=== PATIENT | female | born 1995 | race Caucasian/White ===

== ENCOUNTER 2017-05-05 15:56 | Emergency (ER) | payer OTHER ==
[~2017-05-05] VITALS: Ht 170.2 cm; Wt 106.3 kg
[~2017-05-05 15:56] MED LIST: ACET325T96 PO; PREN1TAB29 PO
[2017-05-05 16:09] VITALS: Ht 170.2 cm; Wt 106.3 kg
[2017-05-05] MEDS ORDERED: ONDANSETRON INJ 2 MG/ML 2 ML VIAL IV STA (16:32)
[2017-05-05] MEDS ORDERED: SODIUM CHLORIDE 0.9% 1000ML 1,000 ML IV STA (16:32)
[2017-05-05] MEDS ORDERED: KETOROLAC TROMETHAMINE 30 MG/ML VIAL IV STA (16:32)
[2017-05-05 17:23] LABS: URINE APPEARANCE CLEAR (CLEAR); URINE BILIRUBIN NEG (NEG); URINE COLOR YELLOW; URINE NITRITE NEG (NEG); URINE SPECIFIC GRAVITY 1.019 (1.000-1.030); UROBILINOGEN NEG (NEG); ZZUR CULT IF INDIC CLEAN CATCH NO
[2017-05-05 17:28] LABS: MANUAL MICROSCOPIC REQUIRED? NO; REVIEW REQ? NO
[2017-05-05 17:51] LABS: BUN/CREATININE RATIO 8.2 (10-20); CALCIUM 8.2 mg/dl (8.5-10.1); CREATININE 0.86 mg/dl (0.60-1.20)
--- NOTE | 2017-05-05 18:05 | EMERGENCY ROOM VISIT NOTE ---
History First contact with patient: 16:14 Chief Complaint: ED VAG BLEEDING Stated Complaint: VOMITING,SEVERVE VAG BLEEDING History of Present Illness The patient is a 22 year old female who presents to the Emergency Room with complaints of vaginal bleeding and pelvic pain. The patient reports that she believes she is having a flareup of her endometriosis. The patient has been having pelvic pain and abnormal vaginal bleeding for the past several months. She states that 2 months ago, she had a pelvic ultrasound and was diagnosed with endometriosis. The patient states that every few weeks, she has flareups of pelvic pain, vomiting, and diarrhea. The patient states that her symptoms today feel similar to her previous symptoms. She states that she had an additional pelvic ultrasound and pelvic exam a few weeks ago by her TIN POURER which were normal. She has had abnormal Pap smears in the past and follows with her TIN POURER for this. She denies any fevers/chills, urinary symptoms, chest pain or shortness of breath. She does currently have her menstrual period. The patient rates her current discomfort a 7.5/10. She does admit to taking one of her mom's Percocet for pain. Review of Systems A complete 10 point review of systems was reviewed with the patient with pertinent positives and negatives as per history of present illness. All else were negative. Social History Smoking Status: Current Every Day Smoker Alcohol Use: none Drug Use: none Marital Status: Occupation Status: unemployed Current/Historical Medications No Active Prescriptions or Reported Meds Allergies Coded Allergies: Latex (Verified Allergy, Unknown, hives, 05/05/17) Tetracycline (Unverified Allergy, Unknown, UNKNOWN, 05/05/17) Doxycycline (Verified Adverse Reaction, Unknown, immediate yeast infection as per pt, 05/05/17) Physical Exam Vital Signs Date Time Temp Pulse Resp B/P (MAP) Pulse Ox O2 Delivery O2 Flow Rate FiO2 05/05/17 18:34 36.8 77 16 133/86 100 05/05/17 16:09 36.8 87 16 126/82 100 Room Air Physical Exam VITALS: Vitals are noted on the nurse's note and reviewed by myself. Vital signs stable. GENERAL: This is a 22-year-old female, in no acute distress, nondiaphoretic, well-developed well-nourished. HEENT: Normocephalic. PERRLA. EOMI. Nares patent. Mucous membranes moist. Neck is supple without nuchal rigidity. HEART: Regular rate and rhythm without murmurs gallops or rubs. LUNGS: Clear to auscultation bilaterally without wheezes, rales or rhonchi. ABDOMEN: Soft, mild tenderness over the suprapubic region. No guarding or rebound tenderness. NEURO: Patient was alert and oriented to person place and time. Medical Decision & Procedures Laboratory Results 05/05/17 17:15 Red Blood Count 3.86, Mean Corpuscular Volume 96.9, Mean Corpuscular Hemoglobin 35.0, Mean Corpuscular Hemoglobin Concent 36.1, Mean Platelet Volume , Neutrophils (%) (Auto) 37.4, Lymphocytes (%) (Auto) 53.3, Monocytes (%) (Auto) 4.7, Eosinophils (%) (Auto) 4.1, Basophils (%) (Auto) 0.2, Neutrophils # (Auto) 3.40, Lymphocytes # (Auto) 4.85, Monocytes # (Auto) 0.43, Eosinophils # (Auto) 0.37, Basophils # (Auto) 0.02 05/05/17 17:15 Test 05/05/17 00:00 05/05/17 16:50 05/05/17 17:15 Urine Test NEG (NEG) Urine Color YELLOW Urine Appearance CLEAR (CLEAR) Urine pH 6.0 (4.5-7.5) Urine Specific [place] 1.019 (1.000-1.030) Urine Protein NEG (NEG) Urine Glucose (UA) NEG (NEG) Urine Ketones TRACE (NEG) Urine Occult Blood NEG (NEG) Urine Nitrite NEG (NEG) Urine Bilirubin NEG (NEG) Urine Urobilinogen NEG (NEG) Urine Leukocyte Esterase NEG (NEG) White Blood Count 9.10 K/uL (4.8-10.8) Red Blood Count 3.86 M/uL (4.2-5.4) Hemoglobin 13.5 g/dL (12.0-16.0) Hematocrit 37.4 % (37-47) Mean Corpuscular Volume 96.9 fL (80-100) Mean Corpuscular Hemoglobin 35.0 pg (25-34) Mean Corpuscular Hemoglobin Concent 36.1 g/dl (32-36) Platelet Count K/uL (130-400) Mean Platelet Volume fL (7.4-10.4) Neutrophils (%) (Auto) 37.4 % Lymphocytes (%) (Auto) 53.3 % Monocytes (%) (Auto) 4.7 % Eosinophils (%) (Auto) 4.1 % Basophils (%) (Auto) 0.2 % Neutrophils # (Auto) 3.40 K/uL (1.4-6.5) Lymphocytes # (Auto) 4.85 K/uL (1.2-3.4) Monocytes # (Auto) 0.43 K/uL (0.11-0.59) Eosinophils # (Auto) 0.37 K/uL (0-0.5) Basophils # (Auto) 0.02 K/uL (0-0.2) RDW Standard Deviation 44.8 fL (36.4-46.3) RDW Coefficient of Variation 12.8 % (11.5-14.5) Immature Granulocyte % (Auto) 0.3 % Immature Granulocyte # (Auto) 0.03 K/uL (0.00-0.02) Anion Gap 8.0 mmol/L (3-11) Est Creatinine Clear Calc Drug Dose 127.7 ml/min Estimated GFR () 110.4 Estimated GFR (Non- 95.2 BUN/Creatinine Ratio 8.2 (10-20) Calcium Level 8.2 mg/dl (8.5-10.1) Total Bilirubin 0.1 mg/dl (0.2-1) Aspartate Amino Transf (AST/SGOT) 21 U/L (15-37) Alanine Aminotransferase (ALT/SGPT) 26 U/L (12-78) Alkaline Phosphatase 56 U/L (45-117) Total Protein 6.6 gm/dl (6.4-8.2) Albumin 3.3 gm/dl (3.4-5.0) Globulin 3.3 gm/dl (2.5-4.0) Albumin/Globulin Ratio 1.0 (0.9-2) Chemistry Specimen Hemolysis Medications Administered Medications (Trade) Dose Ordered Sig/Jayy Route Start Time Stop Time Status Last Admin Dose Admin Sodium Chloride 1,000 ml @ 999 mls/hr Q1H1M STAT IV 05/05/17 16:32 05/05/17 17:32 DC 05/05/17 16:32 999 MLS/HR Ketorolac Tromethamine (Toradol Inj) 30 mg NOW STAT IV 05/05/17 16:32 05/05/17 16:33 DC 05/05/17 16:32 30 MG Ondansetron HCl (Zofran Inj) 4 mg NOW STAT IV 05/05/17 16:32 05/05/17 16:33 DC 05/05/17 16:32 4 MG Acetaminophen/ Hydrocodone Bitart ([place] 5/325 Tab) 1 tab NOW STAT PO 05/05/17 18:21 05/05/17 18:22 DC 05/05/17 18:21 1 TAB ED Course The patient was evaluated as above. Labs were drawn and IV access was obtained. Patient was medicated with 1 L normal saline solution and 30 mg Toradol IV. Patient was reevaluated and complained of continued pain. She was given 1 tablet [place] for pain Discharge instructions were reviewed with the patient. The patient verbalized understanding of my assessment and treatment plan and was discharged home in good condition. Medication reconciliation: I attest that I have personally reviewed the patient 's current medication list. Blood pressure screening: Patient was found to have normal blood pressure on screening and does not require follow-up. Medical Decision Differential diagnosis includes endometriosis, ovarian cyst, ovarian torsion, PID, appendicitis, colitis, urinary tract infection, among others. The patient is a 22-year-old female who presents today complaining of pelvic pain which is chronic in nature. The patient has been seen by her primary care provider and TIN POURER for this in the past and has had extensive workup. Labs revealed no leukocytosis, anemia or concerning electrolyte abnormalities. Urinalysis was not suggestive of infection. The patient has already had multiple pelvic ultrasounds, with the most recent being 1 week ago. She had a recent pelvic exam performed by her TIN POURER. Do not feel that further imaging is necessary at this time. The patient was instructed to follow-up with her OB/ ACCOUNT MANAGER EDUCATION for further evaluation of her ongoing symptoms. Based on the patient's presentation and work up, I feel the patient is stable for outpatient treatment. The patient was educated to return to the emergency department for any worsening of their current condition or new/concerning symptoms. She will follow up with her primary care provider and TIN POURER. Impression Primary Impression: Chronic pelvic pain in female Departure Information Dispostion Home / Self-Care Condition GOOD Prescriptions No Active Prescriptions or Reported Meds Referrals No Doctor, Assigned (PCP) Sujey Ramos M.D. Patient Instructions My [facility] Additional Instructions For pain control, you can use the following ihuj-stu-gqnuaza medicines (if >12 yo): - Regular strength (325mg/tab) Tylenol (acetaminophen) 2 tabs every 4-6 hours as needed. Do not exceed 12 tablets in a 24 hour period. Avoid taking more than 4 grams (4000 mg) of Tylenol per day. This includes any other sources of acetaminophen you may take on a regular basis. - Regular strength (200 mg/tab) Advil (ibuprofen) 1-2 tabs every 4-6 hours as needed. Do not exceed a dose of 3200 mg per day. Rest and drink plenty of fluids. Follow-up with TIN POURER for further evaluation. Return to the emergency department with any worsening or new/concerning symptoms.
[2017-05-05 18:14] LABS: HEMATOCRIT 37.4 % (37-47); MEAN CELL VOLUME 96.9 fL (80-100); MEAN CORPUSCULAR HGB CONC 36.1 g/dl (32-36); RED BLOOD COUNT 3.86 M/uL (4.2-5.4)
[2017-05-05 18:15] LABS: BASO % 0.2 %; BASO ABS # 0.02 K/uL (0-0.2); COMPLETE YES; EOS % 4.1 %; IG% 0.3 %; LYMPH % 53.3 %; LYMPH ABS # 4.85 K/uL (1.2-3.4); MONO % 4.7 %; NEUT % 37.4 %
[2017-05-05] MEDS ORDERED: HYDROCODONE/ACETAMOPHEN 5/325MG TAB PO STA (18:21)
[2017-05-05 18:34] VITALS: BP 133/86; PULSE 77; TEMP 36.8; O2SAT 100
== END 2017-05-05 18:36 | disposition home or self-care (01) ==
LOC: C.EDB 15:58
DX: R10.2 Pelvic and perineal pain (principal); G89.29 Other chronic pain; F17.200 Nicotine dependence, unspecified, uncomplicated; Z88.3 Allergy status to other anti-infective agents; Z91.040 Latex allergy status

== ENCOUNTER 2018-01-27 19:00 | Emergency (ER) | payer OTHER ==
[~2018-01-27] VITALS: Ht 170.2 cm; Wt 98.7 kg
[2018-01-27 19:21] VITALS: BP 126/86; PULSE 75; TEMP 36.4; O2SAT 98; Ht 170.2 cm; Wt 98.7 kg
[2018-01-27] MEDS ORDERED: HYDR-5688 PO (19:54)
[2018-01-27] MEDS ORDERED: PENI500T2 PO (19:54)
--- NOTE | 2018-01-27 19:55 | EMERGENCY ROOM VISIT NOTE ---
ED Visit Note First contact with patient: 19:26 CHIEF COMPLAINT: Right upper dental pain 2 days HISTORY OF PRESENT ILLNESS: Patient is a 23-year-old white female who presents the emergency department for evaluation of right upper dental pain. She states that she has had a cavity in that tooth for some time. She has been seen by [facility], she states that the last time she was seen was either in mid October or early November. She was told that the tooth would require extraction which they were unable to do and she is in the process of trying to find an oral surgeon that accepts her insurance for extraction. She states that she has had progressively worsening pain over the last 2 days. She has been alternating ibuprofen and Tylenol with minimal relief. She states that earlier today after she ate she brushed her teeth and the tooth broke. She reports bloody/puslike discharge when the tooth fractured. She has tried rinsing with salt water, Anbesol and oral all without significant relief. She describes a constant, throbbing pain in the right upper jaw that radiates towards her ear and down her neck. She rates her pain an 8/10. Denies facial swelling or fever. REVIEW OF SYSTEMS: Review of systems as per HPI. All other systems reviewed were negative. At least 6 systems reviewed. PMH: Electronic medical records are reviewed and summarized as above/below. See Problem List. SOCIAL HISTORY: Patient lives at home with her spouse. Smoker. PHYSICAL EXAM: Vital Signs: Reviewed Nurse's notes. CONSTITUTIONAL: Patient is a well-appearing 23-year-old white female who is awake and alert and in no acute distress. Vital signs are stable. EARS: Tympanic membranes intact, not inflamed, have normal contour. External canals clear. MOUTH: Overall the patient has fair dentition. The right upper second molar is grossly carious, with filling material in place, the lateral cusp is fractured to the gumline, and is tender to percussion. There is slight swelling along the gumline although no focal abscess. Mucous membranes moist, no lesions, tongue and gums appear normal. THROAT: No pharyngeal injection, exudates, or tonsillar hypertrophy. Airway is patent. No trismus noted. FACE: No facial swelling is appreciated. No cellulitic changes. NECK: No lymphadenopathy. ED COURSE: The patient was seen and evaluated as above. Her old records were reviewed. She has evidence for a grossly carious right upper molar with suspected abscess. She does not have any drainable abscess at this time, no facial swelling or cellulitis noted. She will be placed on Pen-Vee K and on Braddock. She was encouraged that she will need to follow-up with the oral surgeon for definitive care and management of the tooth. Patient was reviewed in the [facility] Prescription Drug Monitoring Program, she received 7 total narcotic prescriptions in the last 12 months, last was 1 month ago. Medication reconciliation: I attest that I have personally reviewed the patient' s current medication list. Blood pressure screening : Patient was found to have normal blood pressure on screening and does not require follow-up. Problem List Medical Problems: (1) Asthma Status: Chronic (2) Chronic pelvic pain in female Status: Chronic (3) Endometriosis Status: Chronic (4) Kidney stone Status: Chronic (5) Stomach problems Status: Chronic Surgical Problems: (1) H/O wisdom tooth extraction Status: Resolved (2) Hx of cholecystectomy Status: Resolved Current/Historical Medications Scheduled Penicillin V Potassium (Veetids), 500 MG PO QID Scheduled PRN Hydrocodone/Acetaminophen 5MG/325MG (Bradd[place] 5MG/325MG), 1-2 TABLETS PO Q4 PRN for Pain Allergies Coded Allergies: Latex (Verified Allergy, Unknown, hives, 05/05/17) Tetracycline (Unverified Allergy, Unknown, UNKNOWN, 05/05/17) Doxycycline (Verified Adverse Reaction, Unknown, immediate yeast infection as per pt, 05/05/17) Vital Signs Date Time Temp Pulse Resp B/P (MAP) Pulse Ox O2 Delivery O2 Flow Rate FiO2 01/27/18 19:21 36.4 75 18 126/86 98 Room Air Departure Information Impression Primary Impression: Periapical abscess Prescriptions Penicillin V Potassium (VEETIDS) 500 Mg Tab 500 MG PO QID, #40 TAB Prov: Chela Pang PA 01/27/18 Hydrocodone/Acetaminophen 5MG/325MG ([place] 5MG/325MG) Tab 1-2 TABLETS PO Q4 Y for Pain, #20 TAB For Initial Treatment Prov: Chela Pang PA 01/27/18 Referrals Ernesto Toussaint M.D. (PCP) Patient Instructions My [facility] Additional Instructions Penicillin 500mg: Take one pill four times daily for 10 days for your dental infection. All antibiotics can cause diarrhea. If this occurs and you feel worse or it does not resolve in 1-2 days follow up with your doctor or return to the Emergency Department as this could be signs of serious underlying problems. Any medication can cause an allergic reaction, stop the pills immediately and return to the ER for rash, hives, breathing difficulties, or swelling. Ibuprofen(Motrin, Advil) may be used for fever or pain. Use 600mg every six hours as needed. Take with food. Avoid using more than 2400mg in a 24 hour period. Do not use 2400mg per day for more than three consecutive days without physician direction. Prolonged inappropriate use can lead to stomach upset or ulcers. (AND/OR) Acetaminophen(Tylenol) may be used for fever or pain. Use 1000mg every six hours as needed. Avoid using more than 4000mg in a 24 hour period. Hydrocodone/Acetaminophen ([place]) 5/325 mg: Take 1-2 pills every four hours for breakthrough pain. Avoid alcohol, operating machinery or dangerous equipment, working on ladders or roofs, DRIVING, or situations where being under the influence may be dangerous. It is recommended to use an qhhj-kho-doigfky stool softener such as Colace, 100mg twice daily while taking this medication to avoid constipation. Saltwater gargles after meals and before bedtime. Soft foods. Orajel/Anbesol/clove oil as needed for discomfort. Followup with your oral surgeon for definitive management. You may also follow up with your primary care physician for pain/care management until you can be seen by your dentist.
[2018-01-27] MEDS ORDERED: FLUC150T PO (20:14)
== END 2018-01-27 20:10 | disposition home or self-care (01) ==
LOC: C.EDB 19:01 → C.EDD 20:10
DX: K04.7 Periapical abscess without sinus (principal); F17.200 Nicotine dependence, unspecified, uncomplicated; J45.909 Unspecified asthma, uncomplicated; Z91.040 Latex allergy status; Z88.8 Allergy status to other drugs, medicaments and biological substances

== ENCOUNTER 2024-03-24 14:14 | Inpatient (IN) ==
[2024-03-24] MEDS ORDERED: LIDOCAINE 1% LOCAL 20 ML VIAL INFIL PRN (14:28)
[2024-03-24] MEDS ORDERED: LACTATED RINGER'S 1,000 ML IV PRN (14:28)
[2024-03-24] MEDS ORDERED: OXYTOCIN 30 UNITS/NSS 30 UNITS/500 ML BAG IV PRN (14:28)
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
[2024-03-24 16:21] LABS: Hematocrit (blood only) 36.1 % (37.0-47.0); Hemoglobin 12.2 g/dl (12.0-16.0); Mean Corpuscular Hemoglobin 32.5 pg (25.0-34.0); Mean Corpuscular Hgb Conc 33.8 g/dL (32.0-36.0); Mean Corpuscular Volume 96.3 fL (80.0-100.0); Platelet Count 233 K/uL (130-400); RDW Coefficient of Variation 13.2 % (11.5-14.5); RDW Standard Deviation 46.5 fL (36.4-46.3); Red Blood Count 3.75 M/uL (4.20-5.40)
[2024-03-24 16:37] LABS: Albumin Level 3.3 gm/dl (3.4-5.0); BUN Creatinine Ratio 10.2 (10-20); Bilirubin,Total 0.3 mg/dl (0.2-1.0); Calcium 8.8 mg/dl (8.6-10.3); Creatinine Clr Calc Pharmacy 167.6 ml/min; Est GFR (African American) 142.5 ml/min; Globulin 3.3 gm/dl (2.5-4.0); Potassium 3.8 mmol/L (3.5-5.1); Total Protein 6.6 gm/dl (6.0-8.3)
[2024-03-24] MEDS: Patient's HEIGHT &/or WEIGHT Needed SCH (16:40)
[2024-03-24] MEDS: miSOPROStoL 50 MCG TAB PO SCH (16:52)
[2024-03-24 17:12] LABS: Total Protein Urine Random 14.9 mg/dl (0-11.9)
[2024-03-24 17:18] LABS: Creatinine Urine Random 44.9 mg/dl; Protein Creatinine Ratio Urine 0.3 (0-0.2)
[2024-03-24] MEDS ORDERED: PENICILLIN GK 3 MU in DEXTROSE 5% 100 ML IV PRN (17:28)
[2024-03-24] MEDS: NICOTINE 21 MG/24 HR TDSY TD SCH (18:15)
[2024-03-24 18:27] LABS: Amphetamines+Metham, Urine Neg (Neg); Barbiturates, Urine Neg (Neg); Benzodiazepine, Urine Neg (Neg); Cocaine, Urine Neg (Neg); MDMA (Ecstacy), Urine Neg (Neg); Marijuana, Urine Neg (Neg); Methadone, Urine Neg (Neg); Opiate, Urine Neg (Neg); Phencyclidine, Urine Neg (Neg)
[2024-03-24] MEDS: buprenorphine HCL 8 MG SUBL SL SCH (20:33)
[2024-03-24] MEDS: PENICILLIN GK 6 MU in DEXTROSE 5% 250 ML IV STA (20:44)
--- NOTE | 2024-03-24 21:20 | Obstetrical Progress Note ---
Date of Service March 24, 2024 Subjective Patient noted to have FHT down, AROM FHT 50's recovering to 130's, absent variability Patient consented for C section Results & Data Vital Signs (Past 12 Hours) Vital Signs Temp Pulse Resp BP Pulse Ox 03/24/24 21:13 92 H 89 L 03/24/24 21:09 78 162/111 H 03/24/24 21:05 86 65 L 03/24/24 21:04 73 89 L 03/24/24 21:00 72 95 03/24/24 20:57 71 91 03/24/24 20:55 71 98 03/24/24 20:53 71 144/97 H 03/24/24 20:50 74 100 03/24/24 20:44 71 142/100 H 03/24/24 20:33 76 140/98 03/24/24 19:46 36.7 C 70 16 139/66 03/24/24 15:01 36.6 C 85 20 130/81 03/24/24 14:59 85 130/81 03/24/24 14:48 82 18 128/86
[2024-03-24] MEDS ORDERED: fentaNYL citrate PF 100 MCG/2 ML VIAL ONE ×3 (21:25→22:15)
[2024-03-24] MEDS ORDERED: DEXAMETHASONE SOD INJ 4 MG/ML VIAL ONE (22:09)
[2024-03-24] MEDS ORDERED: SUCCINYLCHOLINE CHLORIDE 20 MG/ML 10 ML VIAL IV ONE (22:09)
[2024-03-24] MEDS ORDERED: ONDANSETRON INJ 2 MG/ML 2 ML VIAL ONE (22:09)
[2024-03-24] MEDS ORDERED: KETOROLAC 30 MG/ML VIAL ONE (22:09)
[2024-03-24] MEDS ORDERED: LIDOCAINE 2% MPF LOCAL 5 ML VIAL ONE (22:09)
[2024-03-24] MEDS ORDERED: PROPOFOL IV EMULSION 10 MG/ML 20 ML VIAL IV ONE (22:09)
[2024-03-24] MEDS ORDERED: diphenhydrAMINE 50 MG/ML VIAL IV PRN (22:19)
[2024-03-24] MEDS ORDERED: PROMETHAZINE HCL 25 MG in SODIUM CHLORIDE 0.9% 50 ML IV PRN (22:19)
[2024-03-24] MEDS ORDERED: BENZOCAINE 20% SPRY 85 APPLN/85 GM CAN EXT PRN (22:19)
[2024-03-24] MEDS ORDERED: SENNA 8.6 MG TAB PO PRN (22:19)
[2024-03-24] MEDS ORDERED: MAGNESIUM HYDROXIDE SUSP 30 ML UDC PO PRN (22:19)
[2024-03-24] MEDS ORDERED: HYDROCORTISONE ACETATE 25 MG SUPP PR PRN (22:19)
--- NOTE | 2024-03-24 22:22 | Discharge Summary ---
Date of Service March 27, 2024 Admission HPI Per Admitting Provider Patient is a [id number] P2-0-1-2 at 37 weeks and 2 days dated by last menstrual period consistent with a 6-week ultrasound who presents to labor and delivery for 2 elevated blood pressures at term meeting diagnosis of gestational hypertension. Patient denies any regular contractions, leaking of fluid or vaginal bleeding. Notes good movement. Denies any blurry vision right upper quadrant or epigastric pain. Notes a headache ongoing for the last 2 hours. Patient's has been complicated by antiphospholipid syndrome for which she has been on Lovenox and recently transition to heparin. Her last dose was this morning. She is also on Subutex 8 mg twice daily and her last dose was this morning. Denies any recent drug use. She has previous hemorrhage x 2, denies a history of blood transfusion. Recent ultrasound showed baby to be in breech presentation which has since resolved and baby is currently cephalic. Patient has a history of blood clots with VTE in 2020. Patient has high risk due to social problems, history of IV drug use and tobacco use. Admission Exam (Per Admitting) Constitutional WD/WN, vitals as above Respiratory normal respiratory effort, lungs clear to auscultation Cardiovascular RRR, no murmur, no edema Gastrointestinal (Abdomen) normal bowel sounds, soft, nontender, no hepatosplenomegaly Discharge Data Consultations 03/24/24 14:28 Consult Anesthesiology Stat Procedures Performed Operation Date: 03/24/24 21:30 Primary lower transverse delivery via Pfannenstiel incision Hospital Course (1) 37 weeks gestation of : Admit, routine labs, PIH labs Misoprostol 50 mcg p.o. every 4 hours Plan for Pit augmentation after Epidural if patient request, AROM after GBS prophylaxis is started Anticipate spontaneous vaginal delivery (2) Gestational [-induced] hypertension without significant proteinuria, third trimester: PIH labs pending at this time Patient agreeable to induction at this time for gestational hypertension at term (3) APS (antiphospholipid syndrome): SCDs while in bed Restart prophylaxis after delivery and continue for 6 weeks (4) Positive GBS test: IV penicillin G ordered (5) History of intravenous drug use: (6) complicated by subutex maintenance, antepartum: Continue Subutex 8 mg twice daily sublingually (7) History of hemorrhage, currently in third trimester: Will continue to monitor bleeding after delivery (8) complicated by tobacco use in third trimester: Patient will be given nicotine patch if she desires (9) History of blood clots: (10) Normal course: Continue routine care Discharge home today with instructions, incision check at 1 week postop Patient to room in with baby as baby is undergoing a sleep consult (11) Pre-eclampsia during in third trimester, antepartum: Labs have remained stable, no signs or symptoms of severe preeclampsia Last blood pressure 129/78
[2024-03-24] MEDS ORDERED: ePHEDrine sulfate 50 MG/ML AMP IV PRN (22:28)
[2024-03-24] MEDS ORDERED: MEPERIDINE HCL 25 MG/ML CARP/VIAL IV PRN (22:28)
[2024-03-24] MEDS ORDERED: HYDROmorphone INJ 2 MG/ML SYR/VIAL IV PRN (22:28)
[2024-03-24] MEDS ORDERED: ATROPINE SULFATE 0.1 MG/ML 10ML SYR IV PRN (22:28)
[2024-03-24] MEDS ORDERED: ONDANSETRON INJ 2 MG/ML 2 ML VIAL IV PRN (22:28)
[2024-03-24] MEDS ORDERED: PROMETHAZINE HCL 6.25 MG in SODIUM CHLORIDE 0.9% 50 ML IV PRN (22:28)
[2024-03-24] MEDS ORDERED: fentaNYL citrate PF 100 MCG/2 ML VIAL IV PRN (22:28)
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
[2024-03-24] MEDS ORDERED: LACTATED RINGER'S 1,000 ML IV SCH (22:30)
--- NOTE | 2024-03-24 22:30 | Anesthesiology Progress Note ---
Date of Service March 24, 2024 Anesthesia Post Procedure Vital Signs Vital Signs: Temp Pulse Resp BP Pulse Ox 03/24/24 22:29 82 86 L 03/24/24 22:25 73 100 03/24/24 22:20 80 137/95 03/24/24 21:18 79 100 03/24/24 21:13 92 H 89 L 03/24/24 21:09 78 162/111 H 03/24/24 21:05 86 65 L 03/24/24 21:04 73 89 L 03/24/24 21:00 72 95 03/24/24 20:57 71 91 03/24/24 20:55 71 98 03/24/24 20:53 71 144/97 H 03/24/24 20:50 74 100 03/24/24 20:44 71 142/100 H 03/24/24 20:33 76 140/98 03/24/24 19:46 36.7 C 70 16 139/66 03/24/24 15:01 36.6 C 85 20 130/81 03/24/24 14:59 85 130/81 03/24/24 14:48 82 18 128/86 Transfer of Care Handoff Completed per policy Notes Mental Status: alert / awake / arousable Patient Amnestic to Procedure: Yes Nausea / Vomiting: adequately controlled Pain: adequately controlled Airway Patency, RR, SpO2: stable & adequate BP & HR: stable & adequate Hydration State: stable & adequate Anesthetic Complications: no major complications apparent
--- NOTE | 2024-03-24 22:30 | Operative Report ---
Post Operative Report Pre & Post Diagnosis Preop diagnosis: 29-year-old -0-1-2 at 37 weeks and 2 days Nonreassuring heart tones Preeclampsia without severe features Subutex use in History of hemorrhage x 2 History of blood clots complicated by tobacco use History of IV drug use Positive GBS test Antiphospholipid syndrome Postop diagnosis: Same as above True knot I identified the patient and participated in the time-out.: Yes Procedure Operation Date: 03/24/24 21:30 Primary lower transverse section via Pfannenstiel incision Surgeon Kristen Marsh MD, PhD Parking Garage Manager library technical assistant x 2 Estimated Blood Loss 800 Findings See Below Liveborn male delivered at 2132 with Apgars 8/9. Intact placenta with three- vessel cord. Noted true knot in umbilical cord after delivery. Weight 303 5 g Cord pH pending at time of dictation Normal-appearing uterus, normal-appearing bilateral fallopian tubes and ovaries seen at time of surgery Fluids See anesthesia record Specimens Placenta Cord pH Drains Lynn catheter Anesthesia Type General Complications None Disposition Accompanied Patient To Recovery: No Indications Nonreassuring heart tracing, remote from delivery Description of Procedure CD Delivery Note History synopsis: Patient is a pleasant 29-year-old -0-1-2 at 37 weeks and 2 days for admitted for induction of labor for gestational hypertension at term. On admission she was found to have preeclampsia without severe features. On a dmission she was 2 cm dilated and received 1 dose of misoprostol 50 mcg p.o. and ambulated the halls. She remained having a category 1 tracing. However noted deceleration at 2054 into the 80s in which the tracing had come off. Baby was found again at 2099 and was on for a minute and approximately the 90s, and again was off the monitor when I was checking her. She had changed to 2 and half to 3 cm, AROM was performed at 2108 and FSE was placed. Noted at this time for heart tracing to be in the 50s for 3 minutes with slow resolution into the 120s. During this time she had absent variability that improved to minimal variability. She was consented for primary at the bedside and consents were signed. While going back to the OR she did have 1 contraction that had a prolonged variable and the decision was made to go undergo general anesthesia and proceed with a stat Procedure Summary: section was recommended. Risks, benefits and alternatives were discussed including but not limited to infection, bleeding that may require blood products or hysterectomy for life saving measures, injury to surrounding organs including but not limited to bowel, bladder, ureters, tubes and ovaries and/or the baby. Should injury occur it could require longer/additional surgery to repair. Patient was also counselled about risk of DVT/PE, and injury to infant during delivery. The patient stated understanding and desired to proceed. All questions were answered posed by patient. Prior to being taken to the OR, 2 grams of cefazolin IV 500 mg of azithromycin was administered. The patient was taken to the operating room. Lynn was draining to gravity. SCDs were on bilateral lower extremities. Betadine splash was performed, and patient was placed under general anesthesia A pfannenstiel skin incision was then made with the scalpel and carried through to the underlying layer of fascia. Scalpel was used to transect through the fascial layer, and blunt dissection was performed, entering the peritoneum bluntly, and then the bladder blade was inserted. No bladder flap was performed. The lower uterine segment was identified and incised in a transverse fashion with the scalpel. The uterine incision was then extended bluntly laterally. Artificial rupture of membranes demonstrated clear fluid. The bladder blade was removed. The fetus was in cephalic presentation. The 's head delivered atraumatically. The anterior shoulders were delivered followed by the posterior shoulders then the remainder of the body. No delayed cord clamping was perfor med due to the patient being under general anesthesia. The umbilical cord was clamped times two and cut. The infant was handed off to the awaiting pediatric staff. A male infant was delivered weighing 3035 g with APGARS of 8 at 1 minute and 9 at 5 minutes. The infant was taken to the recovery room for transition. Noted at this time that there was a true knot in the umbilical cord. Cord blood gases were obtained. The placenta was removed with gentle traction. 30 units of oxytocin were added to IVF and allowed to run freely. The uterus was exteriorized and cleared of all clots and debris. The uterine incision was inspected and found to be without any extensions and was repaired with 0 Vicryl in a running, locked fashion. A second imbricating layer was performed. Upon inspection, the repaired hysterotomy was found to be hemostatic. The uterus was firm and returned to the abdomen. The gutters were cleared of all clots and debris. The fascia was reapproximated with 0 Vicryl in a running fashion. The subcutaneous layer was closed with 2-0 Vicryl. The skin was closed in a subcuticular fashion with 4-0 vicryl. 20 mL of Exparel was injected into the skin and subcutaneous layer. Dermabond and pressure bandage was applied over incision. The patient tolerated the procedure well. Sponge, lap and needle counts were correct x4. The patient was taken to the recovery room in stable condition. Attestation: My Parking Garage Manager was necessary throughout the procedure(s) for tissue retraction I understand that section 1842 (b)(7)(D) of the Social Security Act generally prohibits Medicare physician fee schedule payment for the services of [id number] in teaching hospitals when qualified residents are available to furnish such services. I certify that the services for which payment is claimed were medically necessary, and that no qualified resident was available to perform the services. I further understand that these services are subject to post-payment review by the Medicare carrier. Skin incision at 2135, baby delivered at 2135 Skin closure 2155 I attest to the content of the Intraoperative Record and any orders documented therein. Any exceptions are noted below.
[2024-03-24 22:32] LABS: Base Excess Cord Arterial Bld 1.4 mEq/L (-9-1.8); CO2 Cord Arterial Blood 64 mmHg (39.1-73.5); HCO3 Cord Arterial Blood 30 mmol/L (19.7-28.5); Oxygen Sat Cord Arterial Blood < 60.0 % (<60); PO2 Cord Arterial Blood < 20 mmHg (4.1-31.7); pH Cord Arterial Blood 7.28 (7.1-7.38)
[2024-03-24 22:32] LABS: Base Excess Cord Venous Blood -0.1 mEq/L (-7.7-1.9); Cord Venous Blood HCO3 29 mmol/L (18.4-26.8); Cord Venous Blood PCO2 64 mmHg (30.4-57.2); Cord Venous Blood PO2 < 20 mmHg (14.1-43.3); Cord Venous Blood pH 7.26 (7.20-7.44); O2 Saturation Cord Venous Bld < 60.0 % (<68)
[2024-03-24] MEDS: CITRIC ACID/SODIUM CITRATE 15 ML UDC ONE (22:58)
[2024-03-24] MEDS: AZITHROMYCIN 500 MG in DEXTROSE 5% 250 ML IV STA (22:59)
[2024-03-24] MEDS: ceFAZolin 3000MG 3,000 MG/72.5 ML BAG IV STA (22:59)
[2024-03-24] MEDS: OXYTOCIN 20 UNITS/LR 1,002 ML IV SCH (23:14)
[2024-03-24] MEDS: ACETAMINOPHEN 1,000 MG/100 ML VIAL IV STA (23:14)
[2024-03-25] MEDS: HYDROmorphone INJ 0.5 MG/0.5 ML SYR IV PRN ×2 (00:09→03:04)
[2024-03-25] MEDS ORDERED: SODIUM CHLORIDE 0.9% 250 ML IV PRN (01:31)
[2024-03-25] MEDS ORDERED: ACETAMINOPHEN 1,000 MG/100 ML VIAL IV PRN (02:32)
[2024-03-25] MEDS: KETOROLAC 30 MG/ML VIAL IV PRN (04:27)
[2024-03-25 07:28] LABS: Albumin Globulin Ratio 0.9 (0.9-2); Albumin Level 2.7 gm/dl (3.4-5.0); BUN Creatinine Ratio 10.8 (10-20); Bilirubin,Total 0.4 mg/dl (0.2-1.0); Calcium 8.1 mg/dl (8.6-10.3); Creatinine Clr Calc Pharmacy 152.1 ml/min; Est GFR (African American) 138.1 ml/min; Est GFR (Non-African American) 119.1 ml/min; Globulin 2.9 gm/dl (2.5-4.0); Potassium 4.6 mmol/L (3.5-5.1); Total Protein 5.6 gm/dl (6.0-8.3)
[2024-03-25] MEDS: IBUPROFEN 600 MG TAB PO PRN (08:52)
[2024-03-25] MEDS: oxyCODONE/ACETAMINOPHEN 5mg/325mg TAB PO PRN (08:53)
[2024-03-25] MEDS: ENOXAPARIN INJ 40 MG/0.4 ML SYR SQ SCH (08:54)
[2024-03-25] MEDS: SIMETHICONE 80 MG CHEW PO SCH (09:02)
--- NOTE | 2024-03-25 09:51 | Obstetrical Progress Note ---
Date of Service March 25, 2024 Subjective Ambulation: limited ambulation Voiding: reveles catheter in place Passing Gas:: Yes Diet Tolerance:: regular diet Lochia:: Small Feeding Type:: bottle feeding Current Pain Level(1-10): 5 (still in pain) Physical Exam Constitutional WD/WN, vitals as above Gastrointestinal (Abdomen) Inspection/Auscultation: abdomen normal to inspection and + abdominal surgical incision incision c/d/i abdomen soft and non-tender Musculoskeletal Extremities: extremities normal to inspection Skin no rashes, warm and dry Neurologic patellar DTR's 2+ bilat, sensation intact Psychiatric A+Ox3, euthymic affect Results & Data Vital Signs (Past 12 Hours) Vital Signs Temp Pulse Pulse Resp BP BP Pulse Ox 03/25/24 04:20 36.8 C 76 18 138/89 97 03/25/24 00:58 36.5 C 74 18 131/84 97 03/25/24 00:20 36.7 C 16 03/25/24 00:00 67 140/76 03/24/24 23:50 16 03/24/24 23:36 80 93 03/24/24 23:35 77 95 03/24/24 23:30 72 98 03/24/24 23:28 82 94 03/24/24 23:25 71 98 03/24/24 23:20 36.6 C 16 03/24/24 23:20 16 03/24/24 23:20 99 03/24/24 23:20 75 03/24/24 23:20 73 142/63 H 95 03/24/24 23:15 72 99 03/24/24 23:10 16 03/24/24 23:10 80 158/92 H 100 03/24/24 23:05 90 79 L 03/24/24 23:00 16 03/24/24 23:00 99 03/24/24 23:00 78 03/24/24 23:00 144 H 112/51 L 03/24/24 22:55 97 03/24/24 22:55 88 03/24/24 22:55 84 93 03/24/24 22:50 16 03/24/24 22:50 99 03/24/24 22:50 79 03/24/24 22:50 69 136/89 03/24/24 22:49 82 92 03/24/24 22:45 75 99 03/24/24 22:40 100 03/24/24 22:40 76 03/24/24 22:40 78 138/86 03/24/24 22:35 75 100 03/24/24 22:30 16 03/24/24 22:30 106 H 130/99 93 03/24/24 22:29 82 86 L 03/24/24 22:25 73 100 03/24/24 22:20 36.5 C 14 03/24/24 22:20 36.5 C 80 14 137/95 O2 Del Method 03/25/24 04:20 Room Air 03/25/24 00:58 Room Air 03/25/24 00:20 03/25/24 00:00 03/24/24 23:50 Room Air 03/24/24 23:36 03/24/24 23:35 03/24/24 23:30 03/24/24 23:28 03/24/24 23:25 03/24/24 23:20 03/24/24 23:20 03/24/24 23:20 03/24/24 23:20 03/24/24 23:20 03/24/24 23:15 03/24/24 23:10 03/24/24 23:10 03/24/24 23:05 03/24/24 23:00 03/24/24 23:00 03/24/24 23:00 03/24/24 23:00 03/24/24 22:55 03/24/24 22:55 03/24/24 22:55 03/24/24 22:50 03/24/24 22:50 03/24/24 22:50 03/24/24 22:50 03/24/24 22:49 03/24/24 22:45 03/24/24 22:40 03/24/24 22:40 03/24/24 22:40 03/24/24 22:35 03/24/24 22:30 Room Air 03/24/24 22:30 03/24/24 22:29 03/24/24 22:25 03/24/24 22:20 Room Air 03/24/24 22:20 Laboratory Results 03/24/24 03/24/24 03/24/24 15:08 15:45 15:45 WBC 11.60 H RBC 3.75 L Hgb 12.2 Hct 36.1 L MCV 96.3 MCH 32.5 MCHC 33.8 RDW Std Deviation 46.5 H RDW Coeff of Jimmy 13.2 Plt Count 233 MPV 10.0 Immature Gran % (Auto) Neut % (Auto) Lymph % (Auto) Isabela % (Auto) Eos % (Auto) Baso % (Auto) Neut # (Auto) Lymph # (Auto) Isabela # (Auto) Eos # (Auto) Baso # (Auto) Immature Gran # (Auto) Absolute Nucleated RBC Nucleated RBC % (auto) Neutrophils % (Manual) Band Neutrophils % Lymphocytes % (Manual) Prolymphocyte % Reactive Lymphs % (Man) Monocytes % (Manual) Eosinophils % (Manual) Basophils % (Manual) Metamyelocytes % (Man) Myelocytes % (Man) Promyelocytes % (Man) Blast Cells % (Manual) Plasma Cell % (Manual) Other Cells % Nucleated RBC % Neutrophils # (Manual) Band Neutrophils # Total Absolute Neuts Lymphocytes # (Manual) Prolymphocyte # Reactive Lymphs # Total Abs Lymphocytes Monocytes # (Manual) Eosinophils # (Manual) Basophils # (Manual) Metamyelocytes # (Man) Myelocytes # (Manual) Promyelocytes # (Man) Blast Cells # (Man) Plasma Cell # (Manual) Other Cells # Nucleated RBCs # (Man) Hypersegmented Neuts Hyposegmented Neuts Hypogranular Neuts Large Granular Lymphs # Lrg Granular Lymphs Hairy Cells Smudge Cells Toxic Granulation Toxic Vacuolation Dohle Bodies Teofilo Rods Platelet Estimate Hypogranular Platelets Giant Platelets Platelet Satelliting RBC Morphology Polychromasia Hypochromasia Poikilocytosis Basophilic Stippling Anisocytosis Microcytosis Macrocytosis Spherocytes Pappenheimer Bodies Sickle Cells Target Cells Tear Drop Cells Ovalocytes Stomatocytes Arias-Goldsmith Bodies Echinocytes Acanthocytes (Spur) Rouleaux RBC Agglutinates Schistocytes Sezary Cell Cord ABG pH Cord ABG pCO2 Cord ABG pO2 Cord ABG HCO3 Cord ABG Base Excess Cord ABG O2 Sat Cord VBG pH Cord VBG pCO2 Cord VBG pO2 Cord VBG HCO3 Cord VBG Base Excess Cord VBG O2 Sat Blood Gas Comments Sodium 134 L Potassium 3.8 Chloride 103 Carbon Dioxide 25 Anion Gap 6 BUN 6 Creatinine 0.59 L Est Cr Clr Drug Dosing 167.6 Est GFR ( Amer) 142.5 Est GFR (Non-Af Amer) 123.0 BUN/Creatinine Ratio 10.2 Glucose 76 Calcium 8.8 Total Bilirubin 0.3 AST 11 L ALT 7 Alkaline Phosphatase 133 H Total Protein 6.6 Albumin 3.3 L Globulin 3.3 Albumin/Globulin Ratio 1.0 Ur Random Creatinine 44.9 U Random Total Protein 14.9 H Protein/Creatinin Ratio 0.3 H Urine Opiates Screen Neg Ur Methadone, Qual Neg Urine Barbiturates Neg Ur Phencyclidine (PCP) Neg U Amphetamin/Meth Scrn Neg MDMA (Ecstasy) Screen Neg U Benzodiazepines Scrn Neg Ur Cocaine Metabolite Neg U Marijuana (THC) Screen Neg RPR Nonreactive Blood Parasites ID Blood Type O Positive Cancelled Antibody Screen NEGATIVE Crossmatch 03/24/24 03/24/24 03/24/24 15:45 21:32 21:52 WBC RBC Hgb Hct MCV MCH MCHC RDW Std Deviation RDW Coeff of Jimmy Plt Count MPV Immature Gran % (Auto) Neut % (Auto) Lymph % (Auto) Isabela % (Auto) Eos % (Auto) Baso % (Auto) Neut # (Auto) Lymph # (Auto) Isabela # (Auto) Eos # (Auto) Baso # (Auto) Immature Gran # (Auto) Absolute Nucleated RBC Nucleated RBC % (auto) Neutrophils % (Manual) Band Neutrophils % Lymphocytes % (Manual) Prolymphocyte % Reactive Lymphs % (Man) Monocytes % (Manual) Eosinophils % (Manual) Basophils % (Manual) Metamyelocytes % (Man) Myelocytes % (Man) Promyelocytes % (Man) Blast Cells % (Manual) Plasma Cell % (Manual) Other Cells % Nucleated RBC % Neutrophils # (Manual) Band Neutrophils # Total Absolute Neuts Lymphocytes # (Manual) Prolymphocyte # Reactive Lymphs # Total Abs Lymphocytes Monocytes # (Manual) Eosinophils # (Manual) Basophils # (Manual) Metamyelocytes # (Man) Myelocytes # (Manual) Promyelocytes # (Man) Blast Cells # (Man) Plasma Cell # (Manual) Other Cells # Nucleated RBCs # (Man) Hypersegmented Neuts Hyposegmented Neuts Hypogranular Neuts Large Granular Lymphs # Lrg Granular Lymphs Hairy Cells Smudge Cells Toxic Granulation Toxic Vacuolation Dohle Bodies Teofilo Rods Platelet Estimate Hypogranular Platelets Giant Platelets Platelet Satelliting RBC Morphology Polychromasia Hypochromasia Poikilocytosis Basophilic Stippling Anisocytosis Microcytosis Macrocytosis Spherocytes Pappenheimer Bodies Sickle Cells Target Cells Tear Drop Cells Ovalocytes Stomatocytes Arias-Goldsmith Bodies Echinocytes Acanthocytes (Spur) Rouleaux RBC Agglutinates Schistocytes Sezary Cell Cord ABG pH 7.28 Cord ABG pCO2 64 Cord ABG pO2 < 20 Cord ABG HCO3 30 H Cord ABG Base Excess 1.4 Cord ABG O2 Sat < 60.0 Cord VBG pH 7.26 Cord VBG pCO2 64 H Cord VBG pO2 < 20 Cord VBG HCO3 29 H Cord VBG Base Excess -0.1 Cord VBG O2 Sat < 60.0 Blood Gas Comments PIMENTEL PIMENTEL Sodium Potassium Chloride Carbon Dioxide Anion Gap BUN Creatinine Est Cr Clr Drug Dosing Est GFR ( Amer) Est GFR (Non-Af Amer) BUN/Creatinine Ratio Glucose Calcium Total Bilirubin AST ALT Alkaline Phosphatase Total Protein Albumin Globulin Albumin/Globulin Ratio Ur Random Creatinine U Random Total Protein Protein/Creatinin Ratio Urine Opiates Screen Ur Methadone, Qual Urine Barbiturates Ur Phencyclidine (PCP) U Amphetamin/Meth Scrn MDMA (Ecstasy) Screen U Benzodiazepines Scrn Ur Cocaine Metabolite U Marijuana (THC) Screen RPR Blood Parasites ID Blood Type Antibody Screen Cancelled Crossmatch See Detail 03/25/24 06:35 WBC Cancelled RBC Cancelled Hgb Cancelled Hct Cancelled MCV Cancelled MCH Cancelled MCHC Cancelled RDW Std Deviation Cancelled RDW Coeff of Jimmy Cancelled Plt Count Cancelled MPV Cancelled Immature Gran % (Auto) Cancelled Neut % (Auto) Cancelled Lymph % (Auto) Cancelled Isabela % (Auto) Cancelled Eos % (Auto) Cancelled Baso % (Auto) Cancelled Neut # (Auto) Cancelled Lymph # (Auto) Cancelled Isabela # (Auto) Cancelled Eos # (Auto) Cancelled Baso # (Auto) Cancelled Immature Gran # (Auto) Cancelled Absolute Nucleated RBC Cancelled Nucleated RBC % (auto) Cancelled Neutrophils % (Manual) Cancelled Band Neutrophils % Cancelled Lymphocytes % (Manual) Cancelled Prolymphocyte % Cancelled Reactive Lymphs % (Man) Cancelled Monocytes % (Manual) Cancelled Eosinophils % (Manual) Cancelled Basophils % (Manual) Cancelled Metamyelocytes % (Man) Cancelled Myelocytes % (Man) Cancelled Promyelocytes % (Man) Cancelled Blast Cells % (Manual) Cancelled Plasma Cell % (Manual) Cancelled Other Cells % Cancelled Nucleated RBC % Cancelled Neutrophils # (Manual) Cancelled Band Neutrophils # Cancelled Total Absolute Neuts Cancelled Lymphocytes # (Manual) Cancelled Prolymphocyte # Cancelled Reactive Lymphs # Cancelled Total Abs Lymphocytes Cancelled Monocytes # (Manual) Cancelled Eosinophils # (Manual) Cancelled Basophils # (Manual) Cancelled Metamyelocytes # (Man) Cancelled Myelocytes # (Manual) Cancelled Promyelocytes # (Man) Cancelled Blast Cells # (Man) Cancelled Plasma Cell # (Manual) Cancelled Other Cells # Cancelled Nucleated RBCs # (Man) Cancelled Hypersegmented Neuts Cancelled Hyposegmented Neuts Cancelled Hypogranular Neuts Cancelled Large Granular Lymphs Cancelled # Lrg Granular Lymphs Cancelled Hairy Cells Cancelled Smudge Cells Cancelled Toxic Granulation Cancelled Toxic Vacuolation Cancelled Dohle Bodies Cancelled Teofilo Rods Cancelled Platelet Estimate Cancelled Hypogranular Platelets Cancelled Giant Platelets Cancelled Platelet Satelliting Cancelled RBC Morphology Cancelled Polychromasia Cancelled Hypochromasia Cancelled Poikilocytosis Cancelled Basophilic Stippling Cancelled Anisocytosis Cancelled Microcytosis Cancelled Macrocytosis Cancelled Spherocytes Cancelled Pappenheimer Bodies Cancelled Sickle Cells Cancelled Target Cells Cancelled Tear Drop Cells Cancelled Ovalocytes Cancelled Stomatocytes Cancelled Arias-Goldsmith Bodies Cancelled Echinocytes Cancelled Acanthocytes (Spur) Cancelled Rouleaux Cancelled RBC Agglutinates Cancelled Schistocytes Cancelled Sezary Cell Cancelled Cord ABG pH Cord ABG pCO2 Cord ABG pO2 Cord ABG HCO3 Cord ABG Base Excess Cord ABG O2 Sat Cord VBG pH Cord VBG pCO2 Cord VBG pO2 Cord VBG HCO3 Cord VBG Base Excess Cord VBG O2 Sat Blood Gas Comments Sodium 133 L Potassium 4.6 D Chloride 103 Carbon Dioxide 24 Anion Gap 6 BUN 7 Creatinine 0.65 Est Cr Clr Drug Dosing 152.1 Est GFR ( Amer) 138.1 Est GFR (Non-Af Amer) 119.1 BUN/Creatinine Ratio 10.8 Glucose 78 Calcium 8.1 L Total Bilirubin 0.4 AST 19 ALT 6 L Alkaline Phosphatase 110 H Total Protein 5.6 L Albumin 2.7 L Globulin 2.9 Albumin/Globulin Ratio 0.9 Ur Random Creatinine U Random Total Protein Protein/Creatinin Ratio Urine Opiates Screen Ur Methadone, Qual Urine Barbiturates Ur Phencyclidine (PCP) U Amphetamin/Meth Scrn MDMA (Ecstasy) Screen U Benzodiazepines Scrn Ur Cocaine Metabolite U Marijuana (THC) Screen RPR Blood Parasites ID Cancelled Blood Type Antibody Screen Crossmatch
[2024-03-25] MEDS: FERROUS SULFATE 325 MG TAB PO SCH (10:01)
[2024-03-25] MEDS: PRENATAL VITAMIN 1 TAB PO SCH (10:01)
[2024-03-25] MEDS: DOCUSATE SODIUM 100 MG CAP PO SCH (10:01)
[2024-03-25 10:12] LABS: Basophils # (auto) 0.04 K/uL (0.00-0.20); Basophils % (auto) 0.3 %; Eosinophils % (auto) 1.6 %; Hemoglobin 10.6 g/dl (12.0-16.0); Immature Granulocytes # (auto) 0.11 K/uL (0.01-0.20); Immature Granulocytes % (auto) 0.9 %; Lymphocytes % (auto) 16.5 %; Mean Corpuscular Hemoglobin 32.2 pg (25.0-34.0); Mean Corpuscular Hgb Conc 34.2 g/dL (32.0-36.0); Mean Corpuscular Volume 94.2 fL (80.0-100.0); Mean Platelet Volume 10.2 fL (9.4-12.4); Monocytes # (auto) 0.54 K/uL (0.11-0.59); Monocytes % (auto) 4.3 %; Neutrophils % (auto) 76.4 %; Platelet Count 202 K/uL (130-400); RDW Coefficient of Variation 13.2 % (11.5-14.5); RDW Standard Deviation 45.1 fL (36.4-46.3); Red Blood Count 3.29 M/uL (4.20-5.40); White Blood Count 12.69 K/ul (4.8-10.8)
[2024-03-25] MEDS: ONDANSETRON 4 MG OD TAB PO PRN (14:54)
[2024-03-25] MEDS: oxyCODONE HCL IR 5 MG TAB (IMMEDIATE RELEASE) PO PRN (16:40)
[2024-03-25] MEDS: traMADol HCL 50 MG TABLET PO PRN (18:10)
[2024-03-25] MEDS: bisacodyL 5 MG TABEC PO SCH (20:09)
--- OUTSIDE RECORDS SUMMARY | 2024-03-25 23:21 | External Medical Summary | Summary of Care ---
Author Name Unknown Organization [facility] Address [address] [facility] [place] [place] [address] Phone [phone] Care Team Providers Care Electrician Technician Name Role Phone Jo-Ann Ortiz MD Primary Care Provider + Reason for Visit * Reason Comments Outpatient Testing Encounter Details Date Type Department Care Team (Late st Contact Info) Description 03/23/2024 1:50 PM EDT [facility] [address] [facility] [place] [phone] [place], [facility] [address] [facility] [place] [address] 23 weeks gestation of Allergies Active Allergy Reactions Criticality Noted Date Comments Sulfamethoxazole-Trimethopr im 08/19/2023 Bee Venom Anaphylaxis High 09/01/2023 Meperidine 08/19/2023 Doxycycline 08/19/2023 Latex Anaphylaxis High 02/19/2024 Morphine 08/19/2023 Difficultly breathing/hives Naloxone 08/19/2023 Shiitake Mushroom Hives 09/01/2023 Hives, shortness of breath, swelling Tetracycline 08/19/2023 documented as of this encounter (statuses as of 03/23/2024) Medications Medication Sig Dispensed Refills Start Date End Date Status Buprenorphine HCl 8 MG Sublingual Tablet Sublingual (Subutex) Place 1 Tablet under the tongue in the morning and 1 Tablet in the evening. 0 Active Plus 27-1 MG Oral TabletIndications:Ea rly stage of Take 1 Tablet by mouth in the morning. 100 Tablet 3 08/19/2023 Active Naproxen Sodium 220 MG Oral Capsule Take 1 Capsule by mouth as needed. 0 Active Aspirin 81 MG Oral Tablet Delayed Release Take 1 Tablet by mouth in the morning. 30 Tablet 11 11/19/2023 Active Clindamycin HCl 300 MG Oral Capsule TAKE 1 CAPSULE BY MOUTH EVERY 6 HOURS UNTIL GONE 0 02/13/2024 Active Ondansetron HCl 8 MG Oral Tablet (Zofran) Take 1 Tablet by mouth every 8 hours as needed for Nausea. 30 Tablet 1 03/07/2024 Active Heparin Sodium (Porcine) 17077 UNIT/ML Injection SolutionIndications: Antiphospholipid antibody syndrome complicating (HCC),History of blood clots Inject 1 mL under the skin every 12 hours 50 mL 1 03/15/2024 Active Insulin Syringe 31G X 5/16" 1 MLIndications:Antiph ospholipid antibody syndrome complicating (HCC),History of blood clots Use to inject heparin twice daily 100 Each 0 03/15/2024 Active Cephalexin 500 MG Oral Capsule (Keflex)Indications: Dysuria Take 1 Capsule by mouth in the morning and 1 Capsule at noon and 1 Capsule in the evening and 1 Capsule before bedtime. Do all this for 7 days. Until gone.. 28 Capsule 0 03/21/2024 03/28/2024 Active documented as of this encounter (statuses as of 03/23/2024) Active Problems Problem Noted Date Diagnosed Date GBS (group B Streptococcus c kiana), +RV culture, currently 03/21/2024 Antiphospholipid antibody syndrome complicating 11/16/2023 Overview: Repeat testing 10/08/2023: Pathologist Interpretation - Lupus anticoagulant detected. - Protein S activity below the reference range with low free protein S antigen levels and normal total protein S antigen levels. A low functional protein S can be caused from elevated factor 8 levels, acute phase reactions, estrogen use or recent . The patient is . If there is a personal or family history of venous thrombosis and/or a hereditary deficiency is suspected, the functional protein S activity should be repeated when the patient is at their baseline health state and when the patient has not received any anticoagulation (like coumadin, apixaban) for at least 10 days. If indicated, measuring protein S in a firs-degree family member or any relative with a history of venous thrombosis may be informative because hereditary protein S deficiency has autosomal dominant inheritance. - Negative for antiphospholipid antibodies. - Negative for protein C and antithrombin 3 deficiency. Summary of lupus reflex testing: Lupus sensitive aPTT screen abnormal and DRVVT screen normal. Reflex lupus sensitive aPTT mixing studies showed an inhibitor pattern. Confirmatory testing with increased phospholipids in the platelet neutralized procedure demonstrated results are consistent with a lupus anticoagulant. The presence of a lupus anticoagulant can be transient or associated with differential disease states including lupus and antiphospholipid antibody syndrome. If concerned for antiphospholipid antibody syndrome recommend repeat lupus testing in 12 weeks to show persistence of lupus anticoagulant and evaluation of the patient for clinical criteria. The diagnosis of antiphospholipid antibody syndrome requires a positive test in the lupus anticoagulant profile (lupus anticoagulant or detectable antiphospholipid antibody on two separate occasions at least 12 weeks apart, in the setting of arterial or venous thrombosis or (in women) complications of (Table 1). Last Assessment & Plan: CONSIDERATIONS: Discussed that antiphospholipid syndrome (APS) is an immune disorder that has been associated with obstetric morbidity including recurrent miscarriage, loss, growth restriction, preeclampsia and delivery. Discussed that to be diagnosed with APS, a patient must have both clinical and laboratory features. One of the following establishes the clinical criteria: Vascular thrombosis (arterial, venous, or small vessel thrombosis in any tissue or organ). One or more unexplained demise at or beyond 10 weeks' gestation of a morphologically normal fetus (documented by ultrasound or direct examination of fetus). One or more premature births of a morphologically normal prior to 34 weeks' gestation due to severe preeclampsia, eclampsia, or placental insufficiency (eg FGR [ growth restriction]). Three or more unexplained, consecutive miscarriages prior to 10 weeks (with maternal/paternal chromosomal, anatomic, and hormonal causes excluded). For laboratory criteria, the same test for acquired antibody must be abnormal twice, 12 weeks apart (as transient elevations can occur and resolve): 1. Positive lupus anticoagulant (LAC). 2. Anticardiolipin antibodies (MOLLY) (IgG or IgM greater than 40 or greater than 99th percentile). 3. Anti-?2-glycoprotein I greater than 99th percentile. patients without a history of thrombotic events may also benefit from anticoagulation, though the optimal treatment has not been well studied. Women with APS have a 5% to 12% risk of arterial or venous thromboembolism in , a fourth of which occur . RECOMMENDATIONS: For patients with antiphospholipid syndrome (APS) and history of VTE, we recommend prophylactic dose anticoagulation with heparin throughout and 6 weeks . Recommend serial Maternal- Medicine ultrasounds for growth starting at 24 weeks' gestation. Recommend surveillance with twice weekly NST starting at 32 weeks and delivery by EDC. Estrogen-containing oral contraceptives should be avoided because of the increased risk of thrombosis. Recommend followup with Hematology or Rheumatology after the period for long-term management. complicated by subutex maintenance, an tepartum 08/25/2023 Overview: Reports compliance with Subutex 8 mg BID Therapy through [employer] 2019 did well with Subutex Denies cravings or withdrawal symptoms at current dose. Last Assessment & Plan: I reviewed the ultrasound with her. The anatomy that was visualized appears unremarkable and the biometry is appropriate for the gestational age. The amniotic fluid volume is subjectively normal. I reviewed her negative maternal serum alpha fetoprotein and her low risk noninvasive screen in light of the normal ultrasound findings. , supervision, high-risk 08/25/2023 complicated by tobacco use 08/25/2023 Overview: Smokes 1/2 ppd Prior to : 1-2 ppd Encouraged to continue to work towards cessation Last Assessment & Plan: Strongly advised patient to stop using tobacco. Discussed that tobacco use is associated with increased risks of spontaneous miscarriage, labor and delivery, premature rupture of membranes, growth restriction, stillbirth, SIDS postnatally, and placental abnormalities such as previa or abruption. Smoking cessation aids such as the nicotine patch or Zyban are considered safer alternatives to tobacco use during . Encouraged patient to discuss with her primary provider for prescribing. For patients who report smoking 1 pack per day of cigarettes or greater during , we recommend Maternal Medicine ultrasound for growth at 28-30 weeks. Advised patient that the most successful method to quit smoking is if those around you do not smoke as well. History of blood clots 08/25/2023 Overview: History of VTE in 2020 Per review of recent OB note: History of blood clot in left arm: Pt hospitalized July 02, 2021 for blood clot in artery of left lower arm near wrist. Finger turned black during this incident. Found to have blood clot. Almost lost hand per patient. She saw Cardiovascular/Surgeon at [facility] -- Dr. Olivia. Pt states several echocardiograms done and all normal. She even wore heart monitor for several days and normal. Was told clot came from heart regardless of the echocardiograms being normal. She was started on blood thinners after this. Told had thick blood. Pt states even had to get heparin during incident to draw the blood. Had negative Factor V work up. She ultimately ended up seeing Rheumatology as she was told ? Related. Found to have 2 separate autoimmune disorders one being Raynaud's. She was negative for Lupus. On Eliqu, ASA 81 mg and Pletal for anticoagulation. Self d/c medication 7 months ago, was incarcerated around this time and concerned about thin blood. Has not resumed. Last seen by Cardiovascular surgery about 1 year ago. She was advised to reach out to Cardiovascular Surgery office prior to this visit. Pt states misunderstood, had instead reached out to PCP office which is now closed. Recommend starting daily ASA 81mg Will order thrombophilia work up, as patient does not have previous records. Latest Reference Range & Units Most Recent Thrombin Time 14.7 - 19.6 seconds 15.4 10/08/23 14:03 Lupus Sensitive aPTT Immediate Mix Luly Ratio <15.00 % 8.16 10/08/23 14:03 Lupus Sensitive aPTT Screen, Normalized Ratio 0.91 - 1.40 1.44 (H) 10/08/23 14:03 LUPUS SENSITIVE APTT IMMEDIATE MIX Rpt 10/08/23 14:03 DRVVT Screen Normalized Ratio <=1.20 0.78 10/08/23 14:03 Protein C Activity 75 - 135 % 112 10/08/23 14:03 Latest Reference Range & Units Most Recent Cardiolipin IgG Antibody Value <10 GPL U/mL 1.3 09/22/23 13:52 Cardiolipin IgG Antibody Interpretation Negative Negative 09/22/23 13:52 Cardiolipin IgM Antibody Value <10 MPL U/mL 1.1 09/22/23 13:52 Cardiolipin IgM Antibody Interpretation Negative Negative 09/22/23 13:52 Beta-2 Glycoprotein IgG Antibody Value <7 U/mL <0.8 09/22/23 13:52 Beta-2 Glycoprotein IgG Antibody Intepretation Negative Negative 09/22/23 13:52 Beta-2 Glycoprotein IgM Antibody Value <7 U/mL <2.4 09/22/23 13:52 Beta-2 Glycoprotein IgM Antibody Interpretation Negative Negative 09/22/23 13:52 PNP Interpretation Negative Positive Abnormal Comment: Lupus anticoagulant(LA) detected. If indicated, suggest repeat testing at/or beyond 12 weeks to determine if LA is persistent. Resulting Agency Repeat testing 10/08/2023: Pathologist Interpretation - Lupus anticoagulant detected. - Protein S activity below the reference range with low free protein S antigen levels and normal total protein S antigen levels. A low functional protein S can be caused from elevated factor 8 levels, acute phase reactions, estrogen use or recent . The patient is . If there is a personal or family history of venous thrombosis and/or a hereditary deficiency is suspected, the functional protein S activity should be repeated when the patient is at their baseline health state and when the patient has not received any anticoagulation (like coumadin, apixaban) for at least 10 days. If indicated, measuring protein S in a firs-degree family member or any relative with a history of venous thrombosis may be informative because hereditary protein S deficiency has autosomal dominant inheritance. - Negative for antiphospholipid antibodies. - Negative for protein C and antithrombin 3 deficiency. Summary of lupus reflex testing: Lupus sensitive aPTT screen abnormal and DRVVT screen normal. Reflex lupus sensitive aPTT mixing studies showed an inhibitor pattern. Confirmatory testing with increased phospholipids in the platelet neutralized procedure demonstrated results are consistent with a lupus anticoagulant. The presence of a lupus anticoagulant can be transient or associated with differential disease states including lupus and antiphospholipid antibody syndrome. If concerned for antiphospholipid antibody syndrome recommend repeat lupus testing in 12 weeks to show persistence of lupus anticoagulant and evaluation of the patient for clinical criteria. The diagnosis of antiphospholipid antibody syndrome requires a positive test in the lupus anticoagulant profile (lupus anticoagulant or detectable antiphospholipid antibody on two separate occasions at least 12 weeks apart, in the setting of arterial or venous thrombosis or (in women) complications of (Table 1). Last Assessment & Plan: I reviewed her anticardiolipin and lupus anticoagulant labs. It does appear as though her lupus anticoagulant is positive. Due to her history of an arterial thrombosis and a positive lupus anticoagulant, we recommend the patient being started on heparin. She is already on a baby aspirin. Our nurse practitioner will reach out to her for follow-up for this. History of hemorrhage 08/25/2023 History of MRSA infection 08/25/2023 Supervision of high risk due to social problems 08/25/2023 Overview: Incarceration 08/28 for driving on suspended license Estimated Date of Delivery Comme nts Yes 04/12/2024 Based on last me nstrual period of 07/07/2023 documented as of this encounter (statuses as of 03/23/2024) Resolved Problems Problem Noted Date Diagnosed Date Resolved Date presentation, breech 03/17/2024 0 03/21/2024 with 8 completed weeks gestation 09/01/2023 12/16/2023 History of blood disorder 08/25/2023 hemorrhage 08/25/20232023 IV drug abuse 08/25/2023 09/22/2023 Overview: History of IV drug abuse (opioids) Clean x 6 years / Subutex documented as of this encounter (statuses as of 03/23/2024) Immunizations Name Administration Dates Next Due Seasonal Influenza Virus Vac cine, Unspecified Formulation 01/02/2020,09/25/2016 Seasonal Influenza, PF, 6 M & above, IM , (FluLaval or Fluzone) 09/22/2023 TDAP (age 10 and older)(Boostrix) 02/19/2024 TDAP (age 11 and older)(Adacel) 07/04/2020 documented as of this encounter Social History Tobacco Use Types Packs/Day Years Used Date Smoking Tobacco: Every Day Cigarettes Smokeless Tobacco: Never Comments:Smokes 1/2 ppd Alcohol Use Standard Drinks/Week Comments Not Currently 0 (1 standard drink = 0.6 oz pur e alcohol) PHQ-2 Answer Date Recorded PHQ Adult Total Score 0 03/17/2024 Hunger Vital Sign Answer Date Recorded Within the past 12 months, y ou worried that your food would run out before you got the money to buy more. Never true 03/10/20 24 Within the past 12 months, t he food you bought just didn't last and you didn't have money to get more. Never true 03/10/2024 Mary Alice Depression Scale Answer Date Recorded Mary Alice Depression Scale Total 9 03/21/2024 The thought of harming myself has occurred to me . Never 03/21/2024 Estimated Date of Delivery Comme nts Yes 04/12/2024 Based on last me nstrual period of 07/07/2023 Sex and Gender Information Value Date Recorded Sex Assigned at Female 08/12/2023 8:57 PM EDT Gender Identity Female 08/12/2023 8:57 PM EDT Sexual Orientation Straight 08/12/2023 8: 57 PM EDT Job Start Date Occupation Industry Not on file Not on file Not on file documented as of this encounter Plan of Treatment Upcoming Encounters Date Type Department Care Team (Late st Contact Info) Description 03/29/2024 5:10 PM EDT Anticoagulation Pharmacy, [facility] [address] [place] [address] [facility] [place] [address] 03/31/2024 10:30 AM EDT Imaging Radiology [address] [place] [address] 03/31/2024 11:30 AM EDT Office Visit Gynecology/Obstetrics [facility] [place] [address] Elly Lebron CRNP [address] [place] [address] 04/07/2024 10:30 AM EDT Imaging Radiology [address] [place] [address] 04/07/2024 11:30 AM EDT Office Visit Gynecology/Obstetrics [facility] Peralta [address] [place] [address] Elly Lebron CRNP [address] [place] [address] Pending Results Name Type Priority Associated Diagnoses Date /Time CBC WITH WBC DIFFERENTIAL AND ANEMIA REFLEX WORKUP Lab Routine 23 weeks gestation of 03/23/2024 1:03 PM EDT SYPHILIS ANTIBODY SCREEN WITH REFLEX TO RPR Lab Routine 23 weeks gestation of 03/23/2024 1:03 PM EDT ANEMIA CBC Lab Routine 23 weeks gestation of 03/23/2024 1:03 PM EDT DIFFERENTIAL, AUTOMATED Lab Routine 23 weeks gestation of 03/23/2024 1:03 PM EDT ANEMIA REFLEX CHEMISTRY HOLD Lab Routine 23 weeks gestation of 03/23/2024 1:03 PM EDT SYPHILIS ANTIBODY SCREEN Lab Routine 23 weeks gestation of 03/23/2024 1:03 PM EDT Health Maintenance Due Date Last Done Comments Pneumococcal Vaccine: Pediatrics (0 to 5 Years) and At-Risk Patients (6 to 64 Years) (1 of 2 - PCV) 2000 Hepatitis B (1 of 3 - 19+ 3-dose series) 2013 COVID-19 Vaccine (2022-2 4 season) 2023 Depression Screening 03/17/2025 03/17/2024, 03/17/2024 Pap Smear 08/25/2026 08/25/2023 Cervical Cancer Screening 08/25/2028 HPV/Co-Test 08/25/2028 08/25/2023 DTaP,Tdap,and Td Vaccines (3 - Td or Tdap) 02/18/2034 02/19/2024, 07/04/2020 Influenza Vaccine (FLU shot) Completed , 01/02/2020, 09/25/2016 GARDASIL-HPV IMMUNIZATION SERIES Aged Out No longer eligible b ased on patient's age to complete this topic MENINGOCOCCAL (MENACTRA/MENVEO) Aged Out No longer eligible b ased on patient's age to complete this topic documented as of this encounter Medical Devices Not on filedocumented as of this encounter Visit Diagnoses Diagnosis 23 weeks gestation of state, incidental documented in this encounter Care Teams Electrician Technician Relationship Specialty Start Date End Date Jo-Ann Ortiz MD [address] [place] [address] PCP - General Obstetrics/Gynecology 08/11/23 documented as of this encounter
--- OUTSIDE RECORDS SUMMARY | 2024-03-25 23:21 | External Medical Summary | Summary of Care ---
Author Name Unknown Organization [facility] Address [address] [facility] [place] [address] Phone [phone] Care Team Providers Care Lead Game Designer Name Role Phone Jo-Ann Ortiz MD Primary Care Provider + Reason for Visit * Reason Onset Date Comments Blood Pressure Check Blood Pressure Check 03/23/2024 Encounter Details Date Type Department Care Team (Late st Contact Info) Description 03/23/2024 1:00 PM EDT Nurse Only Ancillary [address], [place] [address] [place] [address] [place], Nurse [facility] [address] [place] [address] Blood Pressure Check; Blood Pressure Check Allergies Active Allergy Reactions Criticality Noted Date [...] Tablet 1 03/07/2024 Active Heparin Sodium (Porcine) 07791 UNIT/ML Injection SolutionIndications: Antiphospholipid antibody syndrome complicating (HCC),History of blood clots Inject 1 mL under the skin every 12 hours 50 mL 1 03/15/2024 Active Insulin Syringe 31G X 516" 1 MLIndications:Antiph ospholipid antibody syndrome complicating (HCC),History [...] with Subutex 8 mg BID Therapy through [employer] 2019 did well with Subutex Denies cravings [...] hand per patient. She saw Cardiovascular/Surgeon at [facility] -- Dr. Olivia. Pt states several echocardiograms [...] Raynaud's. She was negative for Lupus. On Eliquis, ASA 81 mg and Pletal for anticoagulation. [...] money to get more. Never true 03/10/2024 Logan Depression Scale Answer Date Recorded Logan Depression Scale Total 9 03/21/2024 The thought [...] on file documented as of this encounter Last Filed Vital Signs Vital Sign Reading Time Taken Comments Blood Pressure 140/70 03/23/2024 1:16 PM EDT Pulse 80 03/23/2024 1:16 PM EDT Temperature - - Respiratory Rate - - Oxygen Saturation - - Inhaled Oxygen Concentration - - Weight - - Height - - Body Mass Index - - documented in this encounter Progress Notes * Stacey Kaufman LPN - 03/23/2024 1:17 PM EDT Veronica Melendrez presented for blood pressure check per provider orders. The blood pressure was obtained using the left arm in the sitting position using a adult cuff. The results were charted in Vital Signs. BP Readings from Last 3 Encounters: 03/23/24 140/70 03/21/24 114/74 03/17/24 126/66 BP 140/70 | Pulse 80 | LMP 07/07/2023 Patient denies headache, pressure in head, dizziness, lightheadedness, chest discomfort, focal neurological symptoms, change in vision, nose bleeds. Did patient take medications today? No, Patient was instructed to follow-up as per their next scheduled appt documented in this encounter Plan of Treatment Upcoming Encounters Date Type Department Care Team (Late st Contact Info) Description 03/23/2024 1:50 PM EDT Laboratory Laboratory [address], [place] [address] [place] [phone] [place] [facility] [address] [place] [address] 23 weeks gestation of 03/29/2024 5:10 PM EDT Anticoagulation Pharmacy, [facility] [address] [place] [address] [facility] [address] [place] [address] 03/31/2024 10:30 AM EDT Imaging Radiology [address] [place] [address] 03/31/2024 11:30 AM EDT Office Visit Gynecology/Obstetri [address] [place] [address] Elly Lebron CRNP [address] [place] [address] 04/07/2024 10:30 AM EDT Imaging Radiology [address] [place] [address] 04/07/2024 11:30 AM EDT Office Visit Gynecology/Obstetri [facility] [address] [place] [address] Elly Lebron CRNP [address] [place] [address] Scheduled Orders Name Type Priority Associated Diagnoses Orde r Schedule BLOOD PRESSURE Procedures Routine HTN, goal below 130/80 Ordered: 03/23/2024 Health Maintenance Due Date Last Done Comments Pneumococcal Vaccine: Pediatrics (0 to 5 Years) and At-Risk Patients (6 to 64 Years) (1 of 2 - PCV) 2000 Hepatitis B (1 of 3 - 19+ 3-dose series) 2013 COVID-19 Vaccine (1 - 2022-2 4 season) 2023 Depression Screening 03/17/2025 03/17/2024, [...] as of this encounter Visit Diagnoses Diagnosis HTN, goal below 130/80- Primary Unspecified essential hypertension 23 weeks gestation of state, incidental documented in this encounter Care Teams Lead Game Designer Relationship Specialty Start Date End Date Jo-Ann Ortiz MD [address] [place] [address] PCP - General Obstetrics/Gynecology 08/11/23 documented as of this encounter
--- OUTSIDE RECORDS SUMMARY | 2024-03-25 23:21 | External Medical Summary | Summary of Care ---
Author Name Unknown Organization [facility] Address [address] [place] [address] Phone [phone] Care Team Providers Care Panel Lay Up Worker Name Role Phone Jo-Ann Ortiz MD Primary Care Provider + Encounter Details Date Type Department Care Team (Late st Contact Info) Description 03/24/2024 Telephone Gynecology/Obstetrics [facility] [address] [place] [address] Kristen Marsh MD [address] [place] [address] Allergies Active Allergy Reactions Criticality Noted Date Comments Sulfamethoxazole-Trimethopr im 08/19/2023 Bee Venom Anaphylaxis High 09/01/2023 Meperidine 08/19/2023 Doxycycline 08/19/2023 Latex Anaphylaxis High 02/19/2024 Morphine 08/19/2023 Difficultly breathing/hives Naloxone 08/19/2023 Shiitake Mushroom Hives 09/01/2023 Hives, shortness of breath, swelling Tetracycline 08/19/2023 documented as of this encounter (statuses as of 03/24/2024) Medications Medication Sig Dispensed Refills Start Date [...] Tablet 1 03/07/2024 Active Heparin Sodium (Porcine) 40741 UNIT/ML Injection SolutionIndications: Antiphospholipid antibody syndrome complicating (HCC),History of blood clots Inject 1 mL under the skin every 12 hours 50 mL 1 03/15/2024 Active Insulin Syringe 31G X 5" 1 MLIndications:Antiph ospholipid antibody syndrome complicating (HCC),History [...] gone.. 28 Capsule 0 03/21/2024 03/28/2024 Active Blood Pressure Monitor KitIndications:Super vision of high risk in third trimester Check blood pressure once a day 1 Kit 0 03/23/2024 Active documented as of this encounter (statuses as of 03/24/2024) Active Problems Problem Noted Date Diagnosed Date [...] with Subutex 8 mg BID Therapy through [employer] 2019 did well with Subutex Denies cravings [...] hand per patient. She saw Cardiovascular/Surgeon at [facility] -- Dr. Olivia. Pt states several echocardiograms [...] as of this encounter (statuses as of 03/24/2024) Resolved Problems Problem Noted Date Diagnosed Date Resolved Date presentation, breech 03/17/2024 0 03/21/2024 with 8 completed weeks gestation 09/01/2023 12/16/2023 History of blood disorder 08/25/2023 hemorrhage 08/25/20232023 IV drug abuse 08/25/2023 09/22/2023 Overview: History of IV drug abuse (opioids) Clean x 6 years / Subutex documented as of this encounter (statuses as of 03/24/2024) Immunizations Name Administration Dates Next Due Seasonal [...] money to get more. Never true 03/10/2024 [place] Depression Scale Answer Date Recorded [place] Depression Scale Total 9 03/21/2024 The thought [...] on file documented as of this encounter Miscellaneous Notes * Telephone Encounter - Vidya Robles RN - 03/24/2024 9:36 AM EDT ----- Message from Kristen Marsh MD sent at 03/24/2024 8:48 AM EDT ----- Please kindly let patient know her third trimester CBC was normal, not anemic Thank you ----- Message ----- From: Shelia Alfred Automated Processing Sent: 03/23/2024 11:10 PM EDT To: Kristen Marsh MD documented in this encounter Plan of Treatment Upcoming Encounters Date Type Department Care Team (Late st Contact Info) Description 03/24/2024 10:20 AM EDT Nurse Only Ancillary [place] Gonzalez [address] [place] [address] [address] [place] [address] 03/29/2024 5:10 PM EDT Anticoagulation Pharmacy, [facility] [address] [place] [address] [place], [facility] Mackenzie Demarco [place] [address] 03/31/2024 10:30 AM EDT Imaging Radiology [address] [place] [address] 03/31/2024 11:30 AM EDT Office Visit Gynecology/Obstetrics [place] [address] [address] [place] [address] Elly Lebron CRNP [address] [place] [address] 04/07/2024 10:30 AM EDT Imaging Radiology [address] [place] [address] 04/07/2024 11:30 AM EDT Office Visit Gynecology/Obstetrics [place] [address] [address] [place] [address] Elly Lebron CRNP [address] [place] [address] Health Maintenance Due Date Last Done Comments Pneumococcal Vaccine: Pediatrics (0 to 5 Years) and At-Risk Patients (6 to 64 Years) (1 of 2 - PCV) 2000 Hepatitis B (1 of 3 - 19+ 3-dose series) 2013 COVID-19 Vaccine ( - 2022-2 4 season) 2023 Depression Screening [...] Not on filedocumented as of this encounter Care Teams Panel Lay Up Worker Relationship Specialty Start Date End Date Jo-Ann Ortiz MD [address] [place] [address] PCP - General Obstetrics/Gynecology 08/11/23 documented as of this encounter
--- OUTSIDE RECORDS SUMMARY | 2024-03-25 23:21 | External Medical Summary | Summary of Care ---
Author Name Unknown Organization [facility] Address [address] [facility] [place] [address] Phone [phone] Care Team Providers Care Supervisor Last Model Department Name Role Phone Jo-Ann Ortiz MD Primary Care Provider + Reason for Visit * Reason Onset Date Comments Blood Pressure Check Blood Pressure Check 03/23/2024 Encounter Details Date Type Department Care Team (Late st Contact Info) Description 03/23/2024 1:00 PM EDT Nurse Only Ancillary [address], [place] [address] [place] [address] Sharon, Nurse Fp [address] [place] [address] Blood Pressure Check; Blood Pressure Check Allergies [...] Tablet 1 03/07/2024 Active Heparin Sodium (Porcine) 95280 UNIT/ML Injection SolutionIndications: Antiphospholipid antibody syndrome complicating [...] with Subutex 8 mg BID Therapy through [employer] 2019 did well with Subutex Denies cravings [...] hand per patient. She saw Cardiovascular/Surgeon at [facility] -- Dr. Olivia. Pt states several echocardiograms [...] money to get more. Never true 03/10/2024 [place] Depression Scale Answer Date Recorded [place] Depression Scale Total 9 03/21/2024 The thought [...] Description 03/29/2024 5:10 PM EDT Anticoagulation Pharmacy, [facility] [address] [place] [address] [facility] [address] [place] [address] 03/31/2024 10:30 AM EDT Imaging Radiology [address] [place] [address] 03/31/2024 11:30 AM EDT Office Visit Gynecology/Obstetrics [facility] [address] [place] [address] Elly Lebron CRNP [address] [place] [address] 04/07/2024 10:30 AM EDT Imaging Radiology [address] [place] [address] 04/07/2024 11:30 AM EDT Office Visit Gynecology/Obstetrics [facility] [address] [place] [address] Elly Lebron CRNP [address] [place] [address] Scheduled Orders Name Type Priority Associated Diagnoses [...] goal below 130/80- Primary Unspecified essential hypertension documented in this encounter Care Teams Supervisor Last Model Department Relationship Specialty Start Date End Date Jo-Ann Ortiz MD [address] [place] [address] PCP - General Obstetrics/Gynecology 08/11/23 documented as of this encounter
--- OUTSIDE RECORDS SUMMARY | 2024-03-25 23:21 | External Medical Summary | Summary of Care ---
Author Name Unknown Organization [facility] Address [address] [facility] [place] [address] Phone [phone] Care Team Providers Care Highwall Drill Operator Name Role Phone Jo-Ann Ortiz MD Primary Care Provider + Reason for Visit * Reason Onset Date Comments Blood Pressure Check Blood Pressure Check 03/24/2024 Encounter Details Date Type Department Care Team (Late st Contact Info) Description 03/24/2024 10:20 AM EDT Nurse Only Ancillary [address], [place] [address] [place] [address] Sharon, Nurse Fp [address] [place] [address] Blood Pressure Check; Blood Pressure Check Allergies [...] Tablet 1 03/07/2024 Active Heparin Sodium (Porcine) 52781 UNIT/ML Injection SolutionIndications: Antiphospholipid antibody syndrome complicating [...] with Subutex 8 mg BID Therapy through [employer] 2019 did well with Subutex Denies cravings [...] hand per patient. She saw Cardiovascular/Surgeon at [facility] -- Dr. Olivia. Pt states several [...] money to get more. Never true 03/10/2024 [place] Depression Scale Answer Date Recorded [place] Depression Scale Total 9 03/21/2024 The thought [...] Sign Reading Time Taken Comments Blood Pressure 140/72 03/24/2024 10:35 AM EDT Pulse - - Temperature - - Respiratory Rate - - Oxygen Saturation - - Inhaled Oxygen Concentration - - Weight - - Height - - Body Mass Index - - documented in this encounter Progress Notes * Stacey Kaufman LPN - 03/24/2024 10:36 AM EDT Veronica Melendrez presented for blood pressure check per provider orders. The blood pressure was obtained using the left arm in the sitting position using a adult cuff. The results were charted in Vital Signs. BP Readings from Last 3 Encounters: 03/24/24 140/72 03/23/24 140/70 03/21/24 114/74 BP 140/72 | LMP 07/07/2023 Patient complains of chest discomfort. Did patient take medications today? Yes Patient was instructed to follow-up as per their next scheduled appt documented in this encounter Plan of Treatment Upcoming Encounters Date Type Department Care Team (Late st Contact Info) Description 03/29/2024 5:10 PM EDT Anticoagulation Pharmacy, [facility] [address] [place] [address] [facility] [address] [place] [address] 03/31/2024 10:30 AM EDT Imaging Radiology [address] [place] [address] 03/31/2024 11:30 AM EDT Office Visit Gynecology/Obstetrics [place] [address] [address] [place] [address] BackElly spence CRNP [address] [place] [address] 04/07/2024 10:30 AM EDT Imaging Radiology [address] [place] [address] 04/07/2024 11:30 AM EDT Office Visit Gynecology/Obstetrics [facility] [address] [place] [address] BackElly spence CRNP [address] [place] [address] Scheduled Orders Name Type Priority Associated Diagnoses Orde r Schedule BLOOD PRESSURE Procedures Routine HTN, goal below 130/80 Ordered: 03/24/2024 Health Maintenance Due Date Last Done Comments [...] hypertension documented in this encounter Care Teams Highwall Drill Operator Relationship Specialty Start Date End Date Jo-Ann Ortiz MD [address] [place] [address] PCP - General Obstetrics/Gynecology 08/11/23 documented as of this encounter
--- OUTSIDE RECORDS SUMMARY | 2024-03-25 23:21 | External Medical Summary ---
Author Name Unknown Address Unknown Organization K01:LABORATORY [facility] - [facility] [address] [facility] [address] Laboratory Report Ordering Provider Test Date Status LAURIE LINDQUISTER 03/23/2024 13:58:40 Final Observation Date Value Abnormality Reference (Units ) Status Color of Urine by Auto 03/23/2024 13:58:40 Light Yellow Colorless, Light Yellow, Yellow, Dark Yellow Final Clarity, Urine 03/23/2024 13:58:40 Clear Clear Final Glucose [Mass/volume] in Urine by Automated test strip 03/23/2024 13:58:40 Negative Negative (mg/dL) Final Bilirubin.total [Presence] in Urine by Automated test strip 03/23/2024 13:58:40 Negative Negative Final Ketones [Mass/volume] in Urine by Automated test strip 03/23/2024 13:58:40 Negative Negative (mg/dL) Final Specific gravity, Urine 03/23/2024 13:58:40 1.009 1.003-1.030 Final Hemoglobin [Presence] in Urine by Automated test strip 03/23/2024 13:58:40 Negative Negative Final pH, Urine 03/23/2024 13:58:40 6.5 5.0-7.5 (Units) Final Protein [Mass/volume] in Urine by Automated test strip 03/23/2024 13:58:40 Negative Negative (mg/dL) Final Urobilinogen [Mass/volume] in Urine by Automated test strip 03/23/2024 13:58:40 Normal Normal (mg/dL) Final Nitrite [Presence] in Urine by Automated test strip 03/23/2024 13:58:40 Negative Negative Final Leukocyte esterase [Presence] in Urine by Automated test strip 03/23/2024 13:58:40 Negative Negative Final Annotation Comment 03/23/2024 13:58:40 Final Screen negative - Microscopi c not performed. Performing Location [facility] [address] [facility] [address]
--- OUTSIDE RECORDS SUMMARY | 2024-03-25 23:21 | External Medical Summary | Summary of Care ---
Author Name Unknown Organization [facility] Address [address] [facility] [place] [address] Phone [phone] Care Team Providers Care Esthetician Makeup Artist Name Role Phone Jo-Ann Ortiz MD Primary Care Provider + Reason for Visit * Reason Comments Outpatient Testing Encounter Details Date Type Department Care Team (Late st Contact Info) Description 03/23/2024 1:50 PM EDT [facility] [address] [facility] [place] [phone] [place], [facility] [address] [place] [place] [address] 23 weeks gestation of ; Supervision of high risk in third trimester Allergies Active Allergy Reactions Criticality Noted Date [...] Tablet 1 03/07/2024 Active Heparin Sodium (Porcine) 51123 UNIT/ML Injection SolutionIndications: Antiphospholipid antibody syndrome complicating [...] with Subutex 8 mg BID Therapy through [employer] 2019 did well with Subutex Denies cravings [...] hand per patient. She saw Cardiovascular/Surgeon at [facility] -- Dr. Olivia. Pt states [...] money to get more. Never true 03/10/2024 [place] Depression Scale Answer Date Recorded [place] Depression Scale Total 9 03/21/2024 The thought [...] Description 03/29/2024 5:10 PM EDT Anticoagulation Pharmacy, [facility] [address] [place] [address] [address] [facility] [place] [address] 03/31/2024 10:30 AM EDT Imaging Radiology [address] [place] [address] 03/31/2024 11:30 AM EDT Office Visit Gynecology/Obstetrics [facility] [place] [address] Elly Lebron CRNP 132 [place] [address] 04/07/2024 10:30 AM EDT Imaging Radiology [address] [place] [address] 04/07/2024 11:30 AM EDT Office Visit Gynecology/Obstetrics Jose Carlos [place] [address] [place] [address] BackerElly CRNP [address] [place] [address] Pending Results Name Type Priority Associated Diagnoses [...] weeks gestation of 03/23/2024 1:03 PM EDT URINALYSIS, REFLEX TO MICROSCOPIC Lab Routine Supervision of high risk in third trimester 03/23/2024 1:58 PM EDT Health Maintenance Due Date Last [...] Diagnosis 23 weeks gestation of state, incidental Supervision of high risk in third trimester Unspecified high-risk documented in this encounter Care Teams Esthetician Makeup Artist Relationship Specialty Start Date End Date Jo-Ann Ortiz MD [address] [facility] [place] [address] PCP - General Obstetrics/Gynecology 08/11/23 documented as of this encounter
--- OUTSIDE RECORDS SUMMARY | 2024-03-25 23:21 | External Medical Summary | Summary of Care ---
Author Name Unknown Organization [facility] Address [address] [facility] [place] [address] Phone [phone] Care Team Providers Care Anesthesiology Tech Name Role Phone Jo-Ann Ortiz MD Primary Care Provider + Reason for Visit * Reason Comments Outpatient Testing Encounter Details Date Type Department Care Team (Late st Contact Info) Description 03/23/2024 1:50 PM EDT [facility] [facility] [place] [phone] [place], [facility] [address] [place] [address] 23 weeks gestation of ; Supervision of [...] Tablet 1 03/07/2024 Active Heparin Sodium (Porcine) 94285 UNIT/ML Injection SolutionIndications: Antiphospholipid antibody syndrome complicating [...] with Subutex 8 mg BID Therapy through [facility] [place] 2019 did well with Subutex Denies cravings [...] hand per patient. She saw Cardiovascular/Surgeon at [facility] -- Dr. Olivia. Pt states several [...] money to get more. Never true 03/10/2024 [place] Depression Scale Answer Date Recorded [place] Depression Scale Total 9 03/21/2024 The thought [...] Description 03/29/2024 5:10 PM EDT Anticoagulation Pharmacy, [facility] [address] [place] [address] [facility] [place] [address] 03/31/2024 10:30 AM EDT Imaging Radiology [address] 132 [place] [address] 03/31/2024 11:30 AM EDT Office Visit Gynecology/Obstetrics [facility] [place] [address] Elly Lebron CRNP 132 [place] [address] 04/07/2024 10:30 AM EDT Imaging Radiology [address] [place] [address] 04/07/2024 11:30 AM EDT Office Visit Gynecology/Obstetrics Jose Carlos [place] [address] [place] [address] BackerElly CRNP [address] [place] [address] Pending Results Name Type Priority Associated Diagnoses [...] high-risk documented in this encounter Care Teams Anesthesiology Tech Relationship Specialty Start Date End Date Jo-Ann Ortiz MD [address] [facility] [place] [address] PCP - General Obstetrics/Gynecology 08/11/23 documented as of this encounter
--- OUTSIDE RECORDS SUMMARY | 2024-03-25 23:21 | External Medical Summary | Summary of Care ---
Author Name Unknown Organization [facility] Address [address] [place] [address] Phone [phone] Care Team Providers Care Lubricating Engineer Name Role Phone Jo-Ann Ortiz MD Primary Care Provider + Encounter Details Date Type Department Care Team (Late st Contact Info) Description 03/24/2024 Telephone Gynecology/Obstetrics [facility] [address] [place] [address] Kristen Marsh MD [address] [place] [address] Allergies Active Allergy Reactions [...] Tablet 1 03/07/2024 Active Heparin Sodium (Porcine) 13227 UNIT/ML Injection SolutionIndications: Antiphospholipid antibody syndrome complicating [...] with Subutex 8 mg BID Therapy through [employer] 2019 did well with Subutex Denies cravings [...] hand per patient. She saw Cardiovascular/Surgeon at [facility] -- Dr. Olivia. Pt states several echocardiograms [...] money to get more. Never true 03/10/2024 [place] Depression Scale Answer Date Recorded [place] Depression Scale Total 9 03/21/2024 The thought [...] 03/24/2024 10:20 AM EDT Nurse Only Ancillary [place] Sharon Gonzalez [address] [place] [address] Nurse Sharon F[address] [place] [address] [place] [address] 03/29/2024 5:10 PM EDT Anticoagulation Pharmacy, [facility] [address] [place] [address] [place], [facility] Mackenzie Demarco [place] [address] 03/31/2024 10:30 AM EDT Imaging Radiology [address] [place] [address] 03/31/2024 11:30 AM EDT Office Visit Gynecology/Obstetrics [place] [address] [address] [place] [address] Elly Lebron CRNP [address] [place] [address] 04/07/2024 10:30 AM EDT Imaging Radiology [address] [place] [address] 04/07/2024 11:30 AM EDT Office Visit Gynecology/Obstetrics [place] [address] [address] [place] [address] Elly Lebron CRNP [address] [place] [address] Health Maintenance Due Date Last Done Comments [...] filedocumented as of this encounter Care Teams Lubricating Engineer Relationship Specialty Start Date End Date Jo-Ann Ortiz MD [address] [place] [address] PCP - General Obstetrics/Gynecology 08/11/23 documented as of this encounter
--- OUTSIDE RECORDS SUMMARY | 2024-03-25 23:21 | External Medical Summary ---
Author Name Unknown Address Unknown Organization K01:[facility]ORY [facility] - [address] [facility] [place] [address] Laboratory Report Ordering Provider Test Date Status [facility] 03/23/2024 13:03:10 Final Observation Date Value Abnormality Reference (Units ) Status SYNC LEUKOCYTES IN BLOOD BY AUTOMATED COUNT 03/23/2024 13:03:10 11.76 Above high normal 4.00-10.80 (K/uL) Final Segs 03/23/2024 13:03:10 63.1 40.0-75.0 (%) Final Lymphs % 03/23/2024 13:03:10 24.8 18.0-42.0 (%) Final Monos 03/23/2024 13:03:10 5.9 1.0-11.0 (%) Final Eosinophils 03/23/2024 13:03:10 3.0 0.0-6.0 (%) Final Basos 03/23/2024 13:03:10 0.6 0.0-2.0 (%) Final Immature Granulocyte, Percent 03/23/2024 13:03:10 2.6 Above high normal 0.0-2.0 (%) Final Absolute Segs 03/23/2024 13:03:10 7.42 1.80-7.70 (K/uL) Final Lymphs, absolute 03/23/2024 13:03:10 2.92 1.00-4.80 (K/ul) Final Monos, Abs 03/23/2024 13:03:10 0.69 0.00-1.10 (K/uL) Final Eos, Abs 03/23/2024 13:03:10 0.35 0.00-0.70 (K/uL) Final Basos, Abs 03/23/2024 13:03:10 0.07 0.00-0.20 (K/uL) Final Immature Granulocytes, Number 03/23/2024 13:03:10 0.31 Above high normal 0.00-0.20 (K/uL) Final Performing Location LAB[facility]ORY [facility] - [address] [place] [address]
--- OUTSIDE RECORDS SUMMARY | 2024-03-25 23:21 | External Medical Summary | Summary of Care ---
Author Name Unknown Organization [facility] Address [address] [facility] [address] Phone [phone] Care Team Providers Care Rfid Technician Name Role Phone Jo-Ann Ortiz MD Primary Care Provider + Encounter Details Date Type Department Care Team (Late st Contact Info) Description 03/21/2024 Telephone Gynecology/Obstetrics [facility] [address] [place] [address] BackerElly CRNP [address] [place] [address] Allergies Active Allergy Reactions Criticality Noted Date Comments Sulfamethoxazole-Trimethopr im 08/19/2023 Bee Venom Anaphylaxis High 09/01/2023 Meperidine 08/19/2023 Doxycycline 08/19/2023 Latex Anaphylaxis High 02/19/2024 Morphine 08/19/2023 Difficultly breathing/hives Naloxone 08/19/2023 Shiitake Mushroom Hives 09/01/2023 Hives, shortness of breath, swelling Tetracycline 08/19/2023 documented as of this encounter (statuses as of 03/21/2024) Medications Medication Sig Dispensed Refills Start Date [...] Tablet 1 03/07/2024 Active Heparin Sodium (Porcine) 09964 UNIT/ML Injection SolutionIndications: Antiphospholipid antibody syndrome complicating (HCC),History of blood clots Inject 1 mL under the skin every 12 hours 50 mL 1 03/15/2024 Active Insulin Syringe 31G X 04/14" 1 MLIndications:Antiph ospholipid antibody syndrome complicating (HCC),History [...] as of this encounter (statuses as of 03/21/2024) Active Problems Problem Noted Date Diagnosed Date GBS (group B Streptococcus c arrkit), +RV culture, currently 03/21/2024 Antiphospholipid antibody syndrome [...] with Subutex 8 mg BID Therapy through [employer] 2020 did well with Subutex Denies cravings or [...] as of this encounter (statuses as of 03/21/2024) Resolved Problems Problem Noted Date Diagnosed Date Resolved Date presentation, breech 03/17/2024 0 03/21/2024 with 8 completed weeks gestation 09/01/2023 12/16/2023 History of blood disorder 08/25/2023 hemorrhage 08/25/20232023 IV drug abuse 08/25/2023 09/22/2023 Overview: History of IV drug abuse (opioids) Clean x 6 years / Subutex documented as of this encounter (statuses as of 03/21/2024) Immunizations Name Administration Dates Next Due Seasonal [...] money to get more. Never true 03/10/2024 [place] Depression Scale Answer Date Recorded [place] Depression Scale Total 9 03/21/2024 The thought [...] Telephone Encounter - Vidya Robles RN - 03/21/2024 12:54 PM EDT Received call from [place]. Patient's BPP was 8/8 and baby is head down. Discussed with Elly Lebron who advised that version can be canceled on 03/23 and that patient does not need to meet with a MD atthis time. Patient to follow up as scheduled. Called L and D at [place] and canceled version for 03/23 documented in this encounter Plan of Treatment Upcoming Encounters Date Type Department Care Team (Late st Contact Info) Description 03/22/2024 5:10 PM EDT Anticoagulation Pharmacy, [facility] [address] [place] [address] [facility] [place] [address] [place] [address] 03/31/2024 10:30 AM EDT Imaging Radiology [facility] 2nd [facility] [address] [place] [address] 03/31/2024 11:30 AM EDT Office Visit Gynecology/Obstetrics [facility] [address] [place] [address] Elly Lebron CRNP [address] [place] [address] 04/07/2024 10:30 AM EDT Imaging Radiology [facility] 2nd Floor, [place] [address] [place] [address] 04/07/2024 11:30 AM EDT Office Visit Gynecology/Obstetrics [facility] [address] [place] [address] Elly Lebron CRNP [address] [place] [address] Health Maintenance Due Date Last Done Comments [...] filedocumented as of this encounter Care Teams Rfid Technician Relationship Specialty Start Date End Date Jo-Ann Ortiz MD [address] [place] [address] PCP - General Obstetrics/Gynecology 08/11/23 documented as of this encounter
--- OUTSIDE RECORDS SUMMARY | 2024-03-25 23:21 | External Medical Summary | Summary of Care ---
Author Name Unknown Organization [facility] Address [address] [facility] [place] [place] [address] Phone [phone] Care Team Providers Care Director Of Archives Name Role Phone Jo-Ann Ortiz MD Primary Care Provider + Reason for Visit * Reason Comments Outpatient Testing Encounter Details Date Type Department Care Team (Late st Contact Info) Description 03/23/2024 1:50 PM EDT [facility] [address] [facility] [place] [phone] [place], [facility] [address] [facility] [place] [address] 23 weeks gestation of ; Supervision of [...] Tablet 1 03/07/2024 Active Heparin Sodium (Porcine) 00581 UNIT/ML Injection SolutionIndications: Antiphospholipid antibody syndrome complicating [...] with Subutex 8 mg BID Therapy through [employer] 2019 did well with Subutex Denies cravings [...] hand per patient. She saw Cardiovascular/Surgeon at [facility] -- Dr. Olivia. Pt states several echocardiograms [...] money to get more. Never true 03/10/2024 [place] Depression Scale Answer Date Recorded [place] Depression Scale Total 9 03/21/2024 The thought [...] Description 03/29/2024 5:10 PM EDT Anticoagulation Pharmacy, [facility] [address] [place] [address] [facility] [place] [address] 03/31/2024 10:30 AM EDT Imaging Radiology [address] [place] [address] 03/31/2024 11:30 AM EDT Office Visit Gynecology/Obstetrics [facility] [place] [address] Elly Lebron CRNP [address] [place] [address] 04/07/2024 10:30 AM EDT Imaging Radiology [address] [place] [address] 04/07/2024 11:30 AM EDT Office Visit Gynecology/Obstetrics [facility] [address] [place] [address] Elly Lebron CRNP [address] [place] [address] Pending Results Name Type Priority Associated Diagnoses [...] in third trimester 03/23/2024 1:58 PM EDT Scheduled Orders Name Type Priority Associated Diagnoses Orde r Schedule SYPHILIS ANTIBODY SCREEN Lab Routine 23 weeks gestation of Ordered: 03/23/2024 Health Maintenance Due Date Last [...] high-risk documented in this encounter Care Teams Director Of Archives Relationship Specialty Start Date End Date Jo-Ann Ortiz MD [address] [place] [address] PCP - General Obstetrics/Gynecology 08/11/23 documented as of this encounter
--- OUTSIDE RECORDS SUMMARY | 2024-03-25 23:21 | External Medical Summary | Summary of Care ---
Author Name Unknown Organization [facility] Address [address] [facility] [place] [address] Phone [phone] Care Team Providers Care Call Worker Name Role Phone Jo-Ann Ortiz MD Primary Care Provider + Reason for Visit * Reason Comments Dosage Adjustment Via Phone (anticoag Cl inic) Encounter Details Date Type Department Care Team (Latest Contact Info) Description 03/22/2024 5:10 PM EDT Anticoagulation Pharmacy, [facility] [address] [facility] [place] [address] [facility] [address] [facility] [place] [address] Antiphospholipid antibody syndrome complicating (HCC)*; History of blood clots Allergies Active Allergy Reactions Criticality Noted Date Comments Sulfamethoxazole-Trimethopr im 08/19/2023 Bee Venom Anaphylaxis High 09/01/2023 Meperidine 08/19/2023 Doxycycline 08/19/2023 Latex Anaphylaxis High 02/19/2024 Morphine 08/19/2023 Difficultly breathing/hives Naloxone 08/19/2023 Shiitake Mushroom Hives 09/01/2023 Hives, shortness of breath, swelling Tetracycline 08/19/2023 documented as of this encounter (statuses as of 03/22/2024) Medications Medication Sig Dispensed Refills Start Date [...] Tablet 1 03/07/2024 Active Heparin Sodium (Porcine) 69446 UNIT/ML Injection SolutionIndications: Antiphospholipid antibody syndrome complicating [...] as of this encounter (statuses as of 03/22/2024) Active Problems Problem Noted Date Diagnosed Date [...] with Subutex 8 mg BID Therapy through [employer] 2019 did well with Subutex Denies cravings [...] hand per patient. She saw Cardiovascular/Surgeon at [facility] -- Dr. Olivia. Pt states several [...] as of this encounter (statuses as of 03/22/2024) Resolved Problems Problem Noted Date Diagnosed Date Resolved Date presentation, breech 03/17/2024 0 03/21/2024 with 8 completed weeks gestation 09/01/2023 12/16/2023 History of blood disorder 08/25/2023 hemorrhage 08/25/20232023 IV drug abuse 08/25/2023 09/22/2023 Overview: History of IV drug abuse (opioids) Clean x 6 years / Subutex documented as of this encounter (statuses as of 03/22/2024) Immunizations Name Administration Dates Next Due Seasonal [...] money to get more. Never true 03/10/2024 [place] Depression Scale Answer Date Recorded [place] Depression Scale Total 9 03/21/2024 The thought [...] on file documented as of this encounter Progress Notes * Laura Arriaga RPh - 03/22/2024 2:34 PM EDT 37 week gestation MyG sent to follow up 1 week post transition to heparin. Laura Arriaga, PharmD PGY1 Process Project Engineer 03/22/2024 2:45 PM documented in this encounter Plan of Treatment Upcoming Encounters Date Type Department Care Team (Late st Contact Info) Description 03/31/2024 10:30 AM EDT Imaging Radiology [facility] 2nd Floor, [place] [address] [address] 03/31/2024 11:30 AM EDT Office Visit Gynecology/Obstetrics [facility] [address] [address] Backer, BRANDON Bobby [address] [place] [address] 04/07/2024 10:30 AM EDT Imaging Radiology [facility] 2nd Floor, [place] [address] [place] [address] 04/07/2024 11:30 AM EDT Office Visit Gynecology/Obstetrics [facility] [address] [address] Backer, BRANDON Bobby [address] [place] [address] Health Maintenance Due Date Last Done Comments [...] as of this encounter Visit Diagnoses Diagnosis Antiphospholipid antibody syndrome complicating (HCC)- Primary Other current maternal conditions classifiable elsewhere, complicating , childbirth, or the puerperium, unspecified as to episode of care History of blood clots Personal history of venous thrombosis and embolism documented in this encounter Care Teams Call Worker Relationship Specialty Start Date End Date Jo-Ann Ortiz MD [address] [address] PCP - General Obstetrics/Gynecology 08/11/23 documented as of this encounter
--- OUTSIDE RECORDS SUMMARY | 2024-03-25 23:21 | External Medical Summary ---
Author Name Unknown Address Unknown Organization K01:[facility] - [address] [place] [address] Denisha. Pietro [place] [address] Laboratory Report Ordering Provider Test Date Status [facility] 03/23/2024 13:03:10 Final Observation Date Value Abnormality Reference (Units ) Status WBC, Total 03/23/2024 13:03:10 11.76 Above high normal 4 .00-10.80 (K/uL) Final RBC 03/23/2024 13:03:10 3.73 3.85-5.15 (M/uL) Final Hemoglobin 03/23/2024 13:03:10 12.5 12.0-15.3 (g/dL) Final Anemia reflex testing trigge rs on a HGB < 12.0 for Females and HGB < 13.0 for Males in accordance with the WHO Anemia Guidelines
Anemia reflex testing triggers on a HGB < 12.0 for Females and HGB < 13.0 for Males in accordance with the WHO Anemia Guidelines HCT 03/23/2024 13:03:10 36.7 36.0-45.2 (%) Final MCV 03/23/2024 13:03:10 98.4 81.5-97.5 (fL) Final MCH 03/23/2024 13:03:10 33.5 27.0-34.0 (pg) Final MCHC 03/23/2024 13:03:10 34.1 32.0-36.0 (g/dL) Final RDW 03/23/2024 13:03:10 13.3 11.5-15.5 (%) Final Platelets 03/23/2024 13:03:10 239 140-400 (K /uL) Final MPV 03/23/2024 13:03:10 11.4 6.6-11.1 ( fL) Final Nucleated erythrocytes/100 leukocytes [Ratio] in Blood by Automated count 03/23/2024 13:03:10 0 <=0 (/100 WBCs) [facility] Performing Location LAB[facility] - [address] [facility] [address]
--- OUTSIDE RECORDS SUMMARY | 2024-03-25 23:22 | External Medical Summary | Summary of Care ---
Author Name Unknown Organization [facility] Address [address] [facility] [place] [address] Phone [phone] Care Team Providers Care Manager International Name Role Phone Jo-Ann Ortiz MD Primary Care Provider + Reason for Visit * Reason Comments Return Visit Encounter Details Date Type Department Care Team (Late st Contact Info) Description 02/19/2024 11:30 AM EDT Office Visit Gynecology/Obstetric s [facility] [address] [place] [address] Galina Toribio PA-C [address] [place] [address] Supervision of high risk in third trimester*; complicated by subutex maintenance, antepartum (HCC); complicated by tobacco use in third trimester; History of blood clots; hemorrhage, unspecified type; History of hemorrhage; Supervision of high risk due to social problems in third trimester; Antiphospholipid antibody syndrome complicating (HCC); Limited care in third trimester; Need for tjfxmcmcsw-iiccvfi-ul rtussis (Tdap) vaccine; Localized swelling of right lower leg Allergies Active Allergy Reactions Criticality Noted Date Comments Sulfamethoxazole-Trimethopr im 08/19/2023 Bee Venom Anaphylaxis High 09/01/2023 Meperidine 08/19/2023 Doxycycline 08/19/2023 Latex Anaphylaxis High 02/19/2024 Morphine 08/19/2023 Difficultly breathing/hives Naloxone 08/19/2023 Shiitake Mushroom Hives 09/01/2023 Hives, shortness of breath, swelling Tetracycline 08/19/2023 documented as of this encounter (statuses as of 02/19/2024) Medications Medication Sig Dispensed Refills Start Date [...] Capsule by mouth as needed. 0 Active Enoxaparin Sodium 40 MG/0.4ML Injection Solution Prefilled Syringe (Lovenox) Inject 40 mg under the skin in the morning. 12 mL 8 11/19/2023 Active Aspirin 81 MG Oral Tablet Delayed Release Take 1 Tablet by mouth in the morning. 30 Tablet 11 11/19/2023 Active Ondansetron HCl 8 MG Oral Tablet (Zofran) Take 1 Tablet by mouth every 8 hours as needed for Nausea. 30 Tablet 1 12/03/2023 Active Clindamycin HCl 300 MG Oral Capsule TAKE 1 CAPSULE BY MOUTH EVERY 6 HOURS UNTIL GONE 0 02/13/2024 Active documented as of this encounter (statuses as of 02/19/2024) Active Problems Problem Noted Date Diagnosed Date Antiphospholipid antibody syndrome complicating 11/16/2023 Overview: Repeat [...] with Subutex 8 mg BID Therapy through [employer] 2019 did well with Subutex Denies cravings [...] clots 08/25/2023 Overview: History of VTE in 2021 Per review of recent OB note: History of blood clot in left arm: Pt hospitalized July 02, 2021 for blood clot in artery of left lower arm near wrist. Finger turned black during this incident. Found to have blood clot. Almost lost hand per patient. She saw Cardiovascular/Surgeon at [facility] -- Dr. Olivia. Pt states several [...] out to her for follow-up for this. hemorrhage 08/25/2023 History of hemorrhage 08/25/2023 History of MRSA infection 08/25/2023 Supervision of high risk due to social problems 08/25/2023 Overview: Incarceration 08/28 for driving on suspended license Estimated Date of Delivery Comme nts Yes 04/12/2024 Based on last me nstrual period of 07/07/2023 documented as of this encounter (statuses as of 02/19/2024) Resolved Problems Problem Noted Date Diagnosed Date Resolved Date with 8 completed weeks gestation 09/01/2023 12/16/2023 History of blood disorder 08/25/2023 IV drug abuse 08/25/2023 09/22/2023 Overview: History of IV drug abuse (opioids) Clean x 6 years / Subutex documented as of this encounter (statuses as of 02/19/2024) Immunizations Name Administration Dates Next Due Seasonal [...] drink = 0.6 oz pur e alcohol) Hunger Vital Sign Answer Date Recorded Within the past 12 months, y ou worried that your food would run out before you got the money to buy more. Never true 08/24/20 23 Within the past 12 months, t he food you bought just didn't last and you didn't have money to get more. Never true 08/24/2023 [place] Depression Scale Answer Date Recorded [place] Depression Scale Total 17 02/19/2024 The thought of harming myself has occurred to me . Never 02/19/2024 Estimated Date of Delivery Comme nts Yes [...] Sign Reading Time Taken Comments Blood Pressure 124/82 02/19/2024 11:35 AM EDT Pulse - - Temperature - - Respiratory Rate - - Oxygen Saturation - - Inhaled Oxygen Concentration - - Weight 92 kg (202 lb 12.8 oz) 02/19/2024 11:35 A M EDT Height 170.2 cm (5' 7") 02/19/2024 11:35 AM EDT Body Mass Index 31.76 02/19/2024 11:35 AM EDT documented in this encounter Progress Notes * Galina Toribio PA-C - 02/19/2024 11:47 AM EDT 32w3d Has not been seen in 2 months. Pt states family sick with Flu and COVID-19 and did not want to riskspreading in office. Has R lower leg swelling for past several weeks. Improved. States was significant a few weeks ago. No pain, no redness. Did not seek care as improving. On anticoagulation d/t history of VTE. Following with [facility] clinic for management. Denies cp, SOB. Had blood in stool x 1. Was told to notify provider if this happens as on Lovenox. Notes hemorrhoids. Has not had glucola or 28 week labs. Pt states testing BG 4x daily. Has been doing since 20 weeks. Reports fasting < 95, and 1 hour after meals typically less than 120. Will provide BG readings tooffice for review. Declines glucola for GDM screen at this time. [place] depression screening high, patient states feels stable. Denies SI/HI. Declines treatment. Counseled on TDaP, latex allergy. Given latex free TDaP. Reports stable on Subutex 8 mg BID BP 124/82 | Ht 1.702 m (5' 7") | Wt 92 kg (202 lb 12.8 oz) | LMP 07/07/2023 | BMI 31.76 kg/m | BSA 2.09 m Extremities: Mild swelling of right lower leg with 1+ pitting edema, no calf tenderness. Left leg appears normal. FH: 33 cm FHT 130 BPM Plan: Doppler of RLE ordered to be completed OCTAVIO evaluate for VTE, DVT/PE precautions Growth ultrasound ordered, limited care Declines treatment for depression Will follow up with PCP regarding blood in stools and hemorrhoids Recommended CBC lab for anemia Report BG readings to office documented in this encounter Nursing Notes * Lesia Johns LPN - 02/19/2024 12:08 PM EDT Patient here for tdap latex free injection. Patient doing well no complaints. Injection given IM asordered. Patient tolerated well. Patient to follow up as directed. Patient instructed to call if any complications. Patient verbalized understanding of instructions given and her follow up appt for mickey Injection site: Left Deltoid Medication Source: Dispensed stock medication * Lesia Johns LPN - 02/19/2024 11:41 AM EDT 32w3d Blood in stool x 1. Wasn't aware of 28week labs- will do cbc and rpr but declines glucola as she already checks her blood sugar 4 times daily. Recent staph infx on her arm- on atb currently. documented in this encounter Plan of Treatment Upcoming Encounters Date Type Department Care Team (Late st Contact Info) Description 02/23/2024 5:10 PM EDT Anticoagulation Pharmacy, [facility] [address] [place] [address] [facility] [address] [place] [address] 03/02/2024 10:30 AM EDT Office Visit Gynecology/Obstetrics [facility] [address] [place] [address] Galina Toribio PA-C [address] [place] [address] 03/02/2024 11:30 AM EDT Imaging Radiology [facility] 2nd Floor, [place] [address] [place] [address] 03/17/2024 11:30 AM EDT Office Visit Gynecology/Obstetrics [facility] [address] [place] [address] BackerElly CRNP [address] [place] [address] 03/21/2024 11:30 AM EDT Office Visit Gynecology/Obstetrics [facility] [address] [place] [address] BackerElly CRNP [address] [place] [address] 03/31/2024 11:30 AM EDT [facility] [address] [place] [address] BackerElly CRNP [address] [place] [address] 04/07/2024 11:30 AM EDT [facility] [address] [place] [address] BackerElly CRNP [address] [place] [address] Scheduled Orders Name Type Priority Associated Diagnoses Orde r Schedule US PREG FOLLOW-UP EACH FETUS Medical Imaging Routine Supervision of high risk in third trimester Expected: 02/19/2024, Expires: 03/21/2025 VASC DUPLEX VENOUS LE UNILAT Medical Imaging STAT Supervision of high risk in third trimester History of blood clots Localized swelling of right lower leg Expected: 02/19/2024, Expires: 03/21/2025 Health Maintenance Due Date Last Done Comments Pneumococcal Vaccine: Pediatrics (0 to 5 Years) and At-Risk Patients (6 to 64 Years) (1 of 2 - PCV) 2000 Depression Screening 2006 Hepatitis B (1 of 3 - 19+ 3-dose series) 2013 COVID-19 Vaccine (2022-2 4 season) 2023 Pap Smear 08/25/2026 08/25/2023 Cervical Cancer Screening [...] as of this encounter Visit Diagnoses Diagnosis Supervision of high risk in third trimester- Primary Unspecified high-risk complicated by subutex maintenance, antepartum (HCC) complicated by tobacco use in third trimester History of blood clots Personal history of venous thrombosis and embolism hemorrhage, unspecified type History of hemorrhage Supervision of high risk due to social problems in third trimester Supervision of other high-risk Antiphospholipid antibody syndrome complicating (HCC) Other current maternal conditions classifiable elsewhere, complicating , childbirth, or the puerperium, unspecified as to episode of care Limited care in third trimester Need for ovixvmvily-txtyjgm-ryiwpwjsh (Tdap) vaccine Need for prophylactic vaccination with combined almpqwrlnf-ftvoncy-hysvmdmdf (DTP) vaccine Localized swelling of right lower leg documented in this encounter Care Teams Manager International Relationship Specialty Start Date End Date Jo-Ann Ortiz MD [address] [place] [address] PCP - General Obstetrics/Gynecology 08/11/23 documented as of this encounter
--- OUTSIDE RECORDS SUMMARY | 2024-03-25 23:22 | External Medical Summary | Summary of Care ---
Author Name Unknown Organization [facility] Address [address] [place] [address] Phone [phone] Care Team Providers Care Supervisor Claims Name Role Phone Jo-Ann Ortiz MD Primary Care Provider + Reason for Visit * Reason Comments Non Stress Test Encounter Details Date Type Department Care Team (Late st Contact Info) Description 03/02/2024 10:30 AM EDT Office [facility] [address] [place] [address] Galina Toribio PA-C [address] [place] [address] High-risk in third trimester*; complicated by subutex maintenance, antepartum (HCC); complicated by tobacco use in third trimester; History of blood clots; hemorrhage, unspecified type; History of hemorrhage; Antiphospholipid antibody syndrome complicating ([facility]) Allergies Active Allergy Reactions Criticality Noted Date Comments Sulfamethoxazole-Trimethopr im 08/19/2023 Bee Venom Anaphylaxis High 09/01/2023 Meperidine 08/19/2023 Doxycycline 08/19/2023 Latex Anaphylaxis High 02/19/2024 Morphine 08/19/2023 Difficultly breathing/hives Naloxone 08/19/2023 Shiitake Mushroom Hives 09/01/2023 Hives, shortness of breath, swelling Tetracycline 08/19/2023 documented as of this encounter (statuses as of 03/02/2024) Medications Medication Sig Dispensed Refills Start Date [...] as of this encounter (statuses as of 03/02/2024) Active Problems Problem Noted Date Diagnosed Date [...] with Subutex 8 mg BID Therapy through [facility] 2019 did well with Subutex Denies cravings [...] hand per patient. She saw Cardiovascular/Surgeon at [facility] -- Dr. Olivia. Pt states several [...] as of this encounter (statuses as of 03/02/2024) Resolved Problems Problem Noted Date Diagnosed Date Resolved Date with 8 completed weeks gestation 09/01/2023 12/16/2023 History of blood disorder 08/25/2023 IV drug abuse 08/25/2023 09/22/2023 Overview: History of IV drug abuse (opioids) Clean x 6 years / Subutex documented as of this encounter (statuses as of 03/02/2024) Immunizations Name Administration Dates Next Due Seasonal [...] money to get more. Never true 08/24/2023 [place] Depression Scale Answer Date Recorded [place] Depression Scale Total 17 02/19/2024 The thought [...] Sign Reading Time Taken Comments Blood Pressure 124/78 03/02/2024 10:25 AM EDT Pulse - - Temperature - - Respiratory Rate - - Oxygen Saturation - - Inhaled Oxygen Concentration - - Weight 92.1 kg (203 lb) 03/02/2024 10:25 AM EDT Height 170.2 cm (5' 7") 03/02/2024 10:25 AM EDT Body Mass Index 31.79 03/02/2024 10:25 AM EDT documented in this encounter Progress Notes * Galina Toribio PA-C - 03/02/2024 10:30 AM EDT 34w1d Growth ultrasound following this appointment. Never went for venous duplex ordered of lower leg last visit. Pt states swelling improved, when shegets it comes and goes. Worse when on feet. Normal appearing BLE today, no swelling noted. Equal bilaterally. Following with MTM on Lovenox, will transition to heparin at 36 weeks Did not send BG following last visit. States forgot log book today. Reports fasting 80-83, 1 hour not above 140. Advised to send in through myG at very least once she gets home to review. Pt agreeable. Reminded again of need for CBC check. Discussed importance especially given history of PP hemorrhage. She stated would go to [facility] as person there can get her venepuncture. Recommended 2x weekly NST until delivery secondary to APS. ASSESSMENT assessment with Non-stress Test completed on 03/02/2024 at 34.1 weeks gestation for indication of APS heart baseline: 125 bpm Variability: Moderate Decelerations: absent Accelerations: present Contractions: None NST start time: 10:24 AM NST stop time: 10:47 AM NST strip reviewed, interpreted, and approved by OB provider, Galina Catarino PA-C. NST strip stored in clinic storage file Galina Toribio PA-C documented in this encounter Nursing Notes * Lesia Johns LPN - 03/02/2024 11:06 AM EDT 34w1d NST, COLLEEN Denies concerns. documented in this encounter Plan of Treatment Upcoming Encounters Date Type Department Care Team (Late st Contact Info) Description 03/07/2024 11:00 AM EDT Office Visit Gynecology/Obstetrics [facility] [address] [place] [address] Bety Jacques, AMANDA, CNM [address] [facility] [place] [address] Fabian Non Stress Tests [address] [place] [address] 03/08/2024 5:10 PM EDT Anticoagulation Pharmacy, [facility] [address] [place] [address] [facility] [place] [address] 03/10/2024 10:15 AM EDT Office Visit Gynecology/Obstetrics [facility] [address] [place] [address] Kateryna Tabares CRNP [address] [place] [address] Fabian Non Stress [facility] [place] [address] 03/14/2024 1:00 PM EDT Office Visit Gynecology/Obstetrics [facility] [address] [place] [address] Galina Toribio PA-C [address] [place] [address] Fabian, Non Stress Tests [place] [address] [place] [address] 03/17/2024 11:00 AM EDT Office Visit Gynecology/Obstetrics [facility] [address] [place] [address] Elly Lebron CRNP [address] [place] [address] Fabian Non Stress Tests [place] [address] [place] [address] 03/21/2024 11:00 AM EDT Office Visit Gynecology/Obstetrics [facility] [address] [place] [address] Elly Lebron CRNP [address] [place] [address] Fabian Non Stress Tests [place] [address] [place] [address] 03/24/2024 10:00 AM EDT Office Visit Gynecology/Obstetrics [facility] [address] [place] [address] Kateryna Tabares CRNP [address] [place] [address] Fabian Non Stress Tests [facility] [address] [place] [address] 03/29/2024 11:15 AM EDT Office Visit Gynecology/Obstetrics [facility] [address] [place] [address] Backer, BRANDON Bobby [address] [place] [address] Fabian Non Stress Tests [place] [address] [place] [address] 04/01/2024 11:00 AM EDT Office Visit Gynecology/Obstetrics [facility] [address] [place] [address] Backer, BRANDON Bobby [address] [place] [address] Fabian Non Stress Tests [place] [address] [place] [address] 04/05/2024 11:15 AM EDT Office Visit Gynecology/Obstetrics [facility] [address] [place] [address] Backer, BRANDON Bobby [address] [place] [address] Fabian Non Stress Tests [facility] [address] [place] [address] 04/08/2024 11:00 AM EDT Office Visit Gynecology/Obstetrics [facility] [address] [place] [address] Galina Toribio PA-C [address] [place] [address] Fabian Non Stress Tests [place] [address] [place] [address] Health Maintenance Due Date Last Done Comments Pneumococcal Vaccine: Pediatrics (0 to 5 Years) and At-Risk Patients (6 to 64 Years) (1 of 2 - PCV) 2000 Depression Screening 2006 Hepatitis B (1 of 3 - 19+ 3-dose series) 2013 COVID-19 Vaccine (1 - 2022-2 4 season) 2023 Pap Smear 08/25/2026 08/25/2023 [...] as of this encounter Visit Diagnoses Diagnosis High-risk in third trimester- Primary complicated by subutex maintenance, antepartum (HCC) complicated by tobacco use in third trimester History of blood clots Personal history of venous thrombosis and embolism hemorrhage, unspecified type History of hemorrhage Antiphospholipid antibody syndrome complicating (HCC) Other current maternal conditions classifiable elsewhere, complicating , childbirth, or the puerperium, unspecified as to episode of care documented in this encounter Care Teams Supervisor Claims Relationship Specialty Start Date End Date Jo-Ann Ortiz MD [address] [place] [address] [place] [address] PCP - General Obstetrics/Gynecology 08/11/23 documented as of this encounter
--- OUTSIDE RECORDS SUMMARY | 2024-03-25 23:22 | External Medical Summary | Summary of Care ---
Author Name Unknown Organization [facility] Address [address] Care Team Providers Care Hand Sole Sewer Name Role Phone Jo-Ann Ortiz MD Primary Care Provider + Reason for Visit * Reason Onset Date Comments Advice 03/16/2024 Encounter Details Date Type Department Care Team (Late st Contact Info) Description 03/16/2024 Telephone Pharmacy, [facility] [place] [address] [facility] [place] [address] [facility] [place] [address] [facility] [place] [address] Advice Allergies Active Allergy Reactions Criticality Noted Date Comments Sulfamethoxazole-Trimethopr im 08/19/2023 Bee Venom Anaphylaxis High 09/01/2023 Meperidine 08/19/2023 Doxycycline 08/19/2023 Latex Anaphylaxis High 02/19/2024 Morphine 08/19/2023 Difficultly breathing/hives Naloxone 08/19/2023 Shiitake Mushroom Hives 09/01/2023 Hives, shortness of breath, swelling Tetracycline 08/19/2023 documented as of this encounter (statuses as of 03/16/2024) Medications Medication Sig Dispensed Refills Start Date End Date Status Buprenorphine HCl 8 MG Sublingual Tablet Sublingual (Subutex) Place 1 Tablet under the tongue in the morning and 1 Tablet in the evening. 0 Active Plus 27-1 MG Oral TabletIndications:Ear ly stage of Take 1 Tablet by mouth [...] Tablet 1 03/07/2024 Active Heparin Sodium (Porcine) 26857 UNIT/ML Injection SolutionIndications:A ntiphospholipid antibody syndrome complicating (HCC),History of blood clots Inject 1 mL under the skin every 12 hours 50 mL 1 03/15/2024 Active Insulin Syringe 31G X 5/16" 1 MLIndications:Antipho spholipid antibody syndrome complicating (HCC),History of blood clots Use to inject heparin twice daily 100 Each 0 03/15/2024 Active documented as of this encounter (statuses as of 03/16/2024) Active Problems Problem Noted Date Diagnosed Date [...] with Subutex 8 mg BID Therapy through [employer] 2019 did well with Subutex Denies cravings [...] hand per patient. She saw Cardiovascular/Surgeon at [facility] -- Dr. Lowenthal. Pt states several echocardiograms done and all [...] as of this encounter (statuses as of 03/16/2024) Resolved Problems Problem Noted Date Diagnosed Date Resolved Date with 8 completed weeks gestation 09/01/2023 12/16/2023 History of blood disorder 08/25/2023 IV drug abuse 08/25/2023 09/22/2023 Overview: History of IV drug abuse (opioids) Clean x 6 years / Subutex documented as of this encounter (statuses as of 03/16/2024) Immunizations Name Administration Dates Next Due Seasonal [...] money to get more. Never true 03/10/2024 [place] Depression Scale Answer Date Recorded [place] Depression Scale Total 17 02/19/2024 The thought [...] encounter Miscellaneous Notes * Telephone Encounter - Lizet Ferrer [facility] - 03/16/2024 3:59 PM EDT Advised to continue with abdominal administration subcutaneously with the heparin. Lizet Ferrer, Pharm D, BCACP Clinical Pharmacist 03/16/2024, 3:59 PM * Telephone Encounter - Mai Chapin CPhT - 03/16/2024 3:41 PM EDT Caller's name: Veronica Preferred call back number(OFFICE NUMBER FOR ): [phone] Reason for call: requesting a call back from Lizet, asking where she should inject the heparin, belly or thigh? Mai Chapin CPhT, [place] Property Insurance Agent II [facility] ([facility]) [phone] [place] [phone] ext [phone] documented in this encounter Plan of Treatment Upcoming Encounters Date Type Department Care Team (Late st Contact Info) Description 03/17/2024 11:00 AM EDT Office Visit Gynecology/Obstetrics [facility] [address] [place] [address] Elly Lebron CRNP [address] [place] [address] Fabian Non Stress Tests [facility] [address] [place] [address] 03/17/2024 11:40 AM EDT Anticoagulation Pharmacy, [facility] [address] [place] [address] [facility] [address] [place] [address] 03/21/2024 11:30 AM EDT Office Visit Gynecology/Obstetrics [facility] [address] [place] [address] Elly Lebron CRNP [address] [place] [address] 03/21/2024 12:30 PM EDT Imaging Radiology [facility] [address] [place] [address] 03/22/2024 5:10 PM EDT Anticoagulation Pharmacy, [facility] [address] [place] [address] [facility] [address] [place] [address] 03/31/2024 10:30 AM EDT Imaging Radiology [address] [place] [address] 03/31/2024 11:30 AM EDT Office Visit Gynecology/Obstetrics [facility] [address] [place] [address] Elly Lebron CRNP [address] [place] [address] 04/07/2024 10:30 AM EDT Imaging Radiology [address] [place] [address] 04/07/2024 11:30 AM EDT Office Visit Gynecology/Obstetrics [facility] [address] [place] [address] Elly Lebron CRNP [address] [place] [address] Health Maintenance Due Date Last Done Comments [...] filedocumented as of this encounter Care Teams Hand Sole Sewer Relationship Specialty Start Date End Date Jo-Ann Ortiz MD [address] [place] [address] PCP - General Obstetrics/Gynecology 08/11/23 documented as of this encounter
--- OUTSIDE RECORDS SUMMARY | 2024-03-25 23:22 | External Medical Summary | Summary of Care ---
Author Name Unknown Organization [facility] Address [address] [facility] [place] [address] Phone [phone] Care Team Providers Care Technical Manager Chemical Plant Name Role Phone Jo-Ann Ortiz MD Primary Care Provider + Encounter Details Date Type Department Care Team (Late st Contact Info) Description 03/03/2024 Telephone Gynecology/Obstetrics [facility] [address] [place] [address] Galina Toribio PA-C [address] [place] [address] Allergies Active Allergy Reactions Criticality Noted Date Comments Sulfamethoxazole-Trimethopr im 08/19/2023 Bee Venom Anaphylaxis High 09/01/2023 Meperidine 08/19/2023 Doxycycline 08/19/2023 Latex Anaphylaxis High 02/19/2024 Morphine 08/19/2023 Difficultly breathing/hives Naloxone 08/19/2023 Shiitake Mushroom Hives 09/01/2023 Hives, shortness of breath, swelling Tetracycline 08/19/2023 documented as of this encounter (statuses as of 03/03/2024) Medications Medication Sig Dispensed Refills Start Date [...] as of this encounter (statuses as of 03/03/2024) Active Problems Problem Noted Date Diagnosed Date [...] with Subutex 8 mg BID Therapy through [facility] 2019 did well with Subutex Denies cravings [...] hand per patient. She saw Cardiovascular/Surgeon at [facility] -- Dr. Olivia. Pt states several [...] as of this encounter (statuses as of 03/03/2024) Resolved Problems Problem Noted Date Diagnosed Date Resolved Date with 8 completed weeks gestation 09/01/2023 12/16/2023 History of blood disorder 08/25/2023 IV drug abuse 08/25/2023 09/22/2023 Overview: History of IV drug abuse (opioids) Clean x 6 years / Subutex documented as of this encounter (statuses as of 03/03/2024) Immunizations Name Administration Dates Next Due Seasonal [...] money to get more. Never true 08/24/2023 [place] Depression Scale Answer Date Recorded [place] Depression Scale Total 17 02/19/2024 The thought [...] encounter Miscellaneous Notes * Telephone Encounter - Galina Toribio PA-C - 03/03/2024 7:47 AM EDT Ultrasound showed normal growth and fluid levels. Baby is breech. We will continue to follow baby's position and can discuss more at next appointment. Please let her know. documented in this encounter Plan of Treatment Upcoming Encounters Date Type Department Care Team (Late st Contact Info) Description 03/07/2024 11:00 AM EDT Office Visit Gynecology/Obstetrics [facility] [address] [place] [address] Bety Jacques, AMANDA, CN [address] [facility] [place] [address] Brun[facility] Stress [facility] [address] [place] [address] 03/08/2024 5:10 PM EDT [facility] [address] [place] [address] [facility] [address] [place] [address] 03/10/2024 10:15 AM EDT Office Visit Gynecology/Obstetrics [facility] [address] [place] [address] Kateryna Tabares CRNP [address] [place] [address] Fabian Non Stress Tests [place] [address] [place] [address] 03/14/2024 1:00 PM EDT Office Visit Gynecology/Obstetrics [facility] [address] [place] [address] Galina Toribio PA-C [address] [place] [address] [facility], Non Stress Tests [facility] [address] [place] [address] 03/17/2024 11:00 AM EDT Office Visit Gynecology/Obstetrics [facility] [address] [place] [address] Elly Lebron CRNP [address] [place] [address] Fabian Non Stress Tests [place] [address] [place] [address] 03/21/2024 11:00 AM EDT Office Visit Gynecology/Obstetrics [facility] [address] [place] [address] Elly Lebron CRNP [address] [place] [address] Fabian Non Stress Tests [place] [address] [place] [address] 03/24/2024 10:00 AM EDT Office Visit Gynecology/Obstetrics [facility] [address] [place] [address] Kateryna Tabares CRNP [address] [place] [address] Fabian, Non Stress Tests [place] [address] [place] [address] 03/29/2024 11:15 AM EDT Office Visit Gynecology/Obstetrics [facility] [address] [place] [address] Backer, BRANDON Bobby [address] [place] [address] Fabian Non Stress Tests [place] [address] [place] [address] 04/01/2024 11:00 AM EDT Office Visit Gynecology/Obstetrics [facility] [address] [place] [address] Backer, BRANDON Bobby [address] [place] [address] Fabian Non Stress Tests [place] [address] [place] [address] 04/05/2024 11:15 AM EDT Office Visit Gynecology/Obstetrics [facility] [address] [place] [address] Backer, BRANDON Bobby [address] [place] [address] Fabian Non Stress Tests [place] [address] [place] [address] 04/08/2024 11:00 AM EDT Office Visit Gynecology/Obstetrics [facility] [address] [place] [address] Galina Toribio PA-C [address] [place] [address] Fabian Non Stress Tests [place] [address] [place] [address] Health Maintenance Due Date Last Done Comments Pneumococcal Vaccine: Pediatrics (0 to 5 Years) and At-Risk Patients (6 to 64 Years) (1 of 2 - PCV) 2000 Depression Screening 2006 Hepatitis B (1 of 3 - 19+ 3-dose series) 2013 COVID-19 Vaccine ( - 2022-2 4 season) 2023 Pap Smear [...] filedocumented as of this encounter Care Teams Technical Manager Chemical Plant Relationship Specialty Start Date End Date Jo-Ann Ortiz MD [address] [place] [address] PCP - General Obstetrics/Gynecology 08/11/23 documented as of this encounter
--- OUTSIDE RECORDS SUMMARY | 2024-03-25 23:22 | External Medical Summary ---
Author Name Unknown Address Unknown Organization K01:[facility] - [facility] [address] [facility] [address] Laboratory Report Ordering Provider Test Date Status GUANAKITO LINDQUIST 03/17/2024 12:10:29 Final Observation Date Value Abnormality Reference (Units ) Status Streptococcus agalactiae DNA [Presence] in Specimen by YANI with probe detection 03/17/2024 12:10:29 Positive Abnormal Negative Final Group B Streptococcus detect ed by culture-enhanced PCR (amplified probe).
The collection of vaginal/rectal swab specimen combinations (FDA approved specimen type) is optimal for the detection of Group B Streptococcus. Single source collection (vaginal only or rectal only) or alternate specimen sources may lead to false negative results. Performing Location [facility]ATORY [facility] - [address] [facility] [address]
--- OUTSIDE RECORDS SUMMARY | 2024-03-25 23:22 | External Medical Summary | Summary of Care ---
Author Name Unknown Organization [facility] Address [address] [place] [address] Phone [phone] Care Team Providers Care Vanstone Machine Operator Name Role Phone Jo-Ann Ortiz MD Primary Care Provider + Reason for Visit * Reason Onset Date Comments Order Request 12/15/2023 Encounter Details Date Type Department Care Team (Late st Contact Info) Description 12/15/2023 Telephone Radiology [facility] [address] [place] [address] Adolfo Enciso MD [address] [place] [address] Order Request Allergies Active Allergy Reactions Criticality Noted Date Comments Sulfamethoxazole-Trimethopr im 08/19/2023 Bee Venom Anaphylaxis High 09/01/2023 Meperidine 08/19/2023 Doxycycline 08/19/2023 Latex Anaphylaxis High 02/19/2024 Morphine 08/19/2023 Difficultly breathing/hives Naloxone 08/19/2023 Shiitake Mushroom Hives 09/01/2023 Hives, shortness of breath, swelling Tetracycline 08/19/2023 documented as of this encounter (statuses as of 03/15/2024) Medications Medication Sig Dispensed Refills Start Date [...] the morning. 30 Tablet 11 11/19/2023 Active documented as of this encounter (statuses as of 03/15/2024) Active Problems Problem Noted Date Diagnosed Date [...] with Subutex 8 mg BID Therapy through [facility] 2020 did well with Subutex Denies cravings [...] patient. She saw Cardiovascular/Surgeon at [facility] -- Dr. Olivia. Pt states several echocardiograms [...] as of this encounter (statuses as of 03/15/2024) Resolved Problems Problem Noted Date Diagnosed Date Resolved Date with 8 completed weeks gestation 09/01/2023 12/16/2023 History of blood disorder 08/25/2023 IV drug abuse 08/25/2023 09/22/2023 Overview: History of IV drug abuse (opioids) Clean x 6 years / Subutex documented as of this encounter (statuses as of 03/15/2024) Immunizations Name Administration Dates Next Due Seasonal Influenza Virus Vac cine, Unspecified Formulation 01/02/2020,09/25/2016 Seasonal Influenza, PF, 6 M & above, IM , (FluLaval or Fluzone) 09/22/2023 TDAP (age 11 and older)(Adacel) 07/04/2020 documented [...] money to get more. Never true 03/10/2024 Columbia Depression Scale Answer Date Recorded Columbia Depression Scale Total 17 02/19/2024 The thought [...] encounter Miscellaneous Notes * Telephone Encounter - Edie Koenig RDMS - 12/15/2023 2:50 PM EST Veronica is scheduled for a breast US tomorrow. The order is still in pending status. Could we please get this signed? Thank you! documented in this encounter Plan of Treatment Upcoming Encounters Date Type Department Care Team (Late st Contact Info) Description 03/17/2024 11:00 AM EDT Office Visit Gynecology/Obstetrics Jose Carlos [facility] [address] [place] [address] Elly Lebron CRNP [address] [place] [address] Fabian [facility] Stress Tests Paulette [address] [place] [address] 03/21/2024 11:30 AM EDT Office Visit Gynecology/Obstetrics [facility] [address] [place] [address] Elly Lebron CRNP [address] [place] [address] 03/21/2024 12:30 PM EDT Imaging Radiology [facility] [address] [place] [address] 03/22/2024 5:10 PM EDT Anticoagulation Pharmacy, [facility] [address] [place] [address] [facility] [address] [place] [address] 03/31/2024 10:30 AM EDT Imaging [facility] [address] [place] [address] 03/31/2024 11:30 AM EDT Office Visit Gynecology/Obstetrics [facility] [address] [place] [address] Elly Lebron CRNP [address] [place] [address] 04/07/2024 10:30 AM EDT Imaging [facility] [address] [place] [address] 04/07/2024 11:30 AM EDT Office Visit Gynecology/Obstetrics [facility] [address] [place] [address] Backer, BRANDON Bobby [address] [place] [address] Health Maintenance Due Date Last Done Comments [...] filedocumented as of this encounter Care Teams Vanstone Machine Operator Relationship Specialty Start Date End Date Jo-Ann Ortiz MD [address] [place] [address] PCP - General Obstetrics/Gynecology 08/11/23 documented as of this encounter
--- OUTSIDE RECORDS SUMMARY | 2024-03-25 23:22 | External Medical Summary | Summary of Care ---
Author Name Unknown Organization [facility] Address [address] [place] [address] Phone [phone] Care Team Providers Care Pen Ruler Operator Name Role Phone Jo-Ann Ortiz MD Primary Care Provider + Reason for Visit * Reason Onset Date Comments Medication Refill 03/07/2024 Encounter Details Date Type Department Care Team (Late st Contact Info) Description 03/07/2024 Refill Pharmacy, [facility] [address] [place] [address] Jenifer Givens CRNP [address] [place] [address] Allergies Active Allergy Reactions Criticality Noted Date Comments Sulfamethoxazole-Trimethopr im 08/19/2023 Bee Venom Anaphylaxis High 09/01/2023 Meperidine 08/19/2023 Doxycycline 08/19/2023 Latex Anaphylaxis High 02/19/2024 Morphine 08/19/2023 Difficultly breathing/hives Naloxone 08/19/2023 Shiitake Mushroom Hives 09/01/2023 Hives, shortness of breath, swelling Tetracycline 08/19/2023 documented as of this encounter (statuses as of 03/07/2024) Medications Medication Sig Dispensed Refills Start Date End Date Status Buprenorphine HCl 8 MG Sublingual Tablet Sublingual (Subutex) Place 1 Tablet under the tongue in the morning and 1 Tablet in the evening. 0 Active Plus 27-1 MG Oral TabletIndications :Early stage of Take 1 Tablet by mouth [...] 6 HOURS UNTIL GONE 0 02/13/2024 Active Enoxaparin Sodium 40 MG/0.4ML Injection Solution Prefilled Syringe (Lovenox) Inject 40 mg under the skin in the morning. 12 mL 8 03/07/2024 Active Enoxaparin Sodium 40 MG/0.4ML Injection Solution Prefilled Syringe (Lovenox) Inject 40 mg under the skin in the morning. 12 mL 8 11/19/2023 03/07/2024 Discontinued (Refill) Ondansetron HCl 8 MG Oral Tablet (Zofran) Take 1 Tablet by mouth every 8 hours as needed for Nausea. 30 Tablet 1 12/03/2023 03/07/2024 Discontinued (Refill) documented as of this encounter (statuses as of 03/07/2024) Active Problems Problem Noted Date Diagnosed Date [...] with Subutex 8 mg BID Therapy through [facility] 2019 did well with Subutex Denies cravings [...] per patient. She saw Cardiovascular/Surgeon at [facility] -- Dr. Olivia. Pt states several echocardiograms [...] as of this encounter (statuses as of 03/07/2024) Resolved Problems Problem Noted Date Diagnosed Date Resolved Date with 8 completed weeks gestation 09/01/2023 12/16/2023 History of blood disorder 08/25/2023 IV drug abuse 08/25/2023 09/22/2023 Overview: History of IV drug abuse (opioids) Clean x 6 years / Subutex documented as of this encounter (statuses as of 03/07/2024) Immunizations Name Administration Dates Next Due Seasonal [...] money to get more. Never true 08/24/2023 [place] Depression Scale Answer Date Recorded [place] Depression Scale Total 17 02/19/2024 The thought [...] Notes * Telephone Encounter - Lizet Ferrer [facility] - 03/07/2024 9:45 AM EDT Signed Prescriptions: Disp Refills Enoxaparin Sodium 40 MG/0.4ML Injection So*12 mL 8 Sig: Inject 40 mg under the skin in the morning.Authorizing Provider: Chelsy ORTIZ User: LZIET FERRER documented in this encounter Plan of Treatment Upcoming Encounters Date Type Department Care Team (Late st Contact Info) Description 03/08/2024 5:10 PM EDT [facility] [address] [place] [address] Fabian [facility] [address] [place] [address] 03/10/2024 10:15 AM EDT Office Visit Gynecology/Obstetrics Jose Carlos [facility] [address] [place] [address] Kateryna Tabares CRNP [address] [place] [address] [facility] [place] [address] [place] [address] 03/14/2024 1:00 PM EDT Office Visit Gynecology/Obstetrics [facility] [address] [place] [address] Galina Toribio PA-C [address] [place] [address] Peralta, Non Stress [facility] [address] [place] [address] 03/17/2024 11:00 AM EDT Office Visit Gynecology/Obstetrics [facility] [address] [place] [address] Elly Lebron CRNP [address] [place] [address] Fabian Non [facility] [address] [place] [address] 03/21/2024 11:00 AM EDT Office Visit Gynecology/Obstetrics [facility] [address] [place] [address] Elly Lebron CRNP [address] [place] [address] Fabian Non Stress [facility] [address] [place] [address] 03/24/2024 10:00 AM EDT Office Visit Gynecology/Obstetrics [facility] [address] [place] [address] Kateryna Tabares CRNP [address] [place] [address] Fabian, Non Stress [facility] [address] [place] [address] 03/29/2024 11:15 AM EDT Office Visit Gynecology/Obstetrics [facility] [address] [place] [address] BackElly spence CRNP [address] [place] [address] Peralta, Non [facility] [address] [place] [address] 04/01/2024 11:00 AM EDT Office Visit Gynecology/Obstetrics [facility] [address] [place] [address] BackerElly CRNP [address] [place] [address] Peralta, Non Stress [facility] [address] [place] [address] 04/05/2024 11:15 AM EDT Office Visit Gynecology/Obstetrics [facility] [address] [place] [address] Elly Lebron CRNP [address] [place] [address] Peralta, Non Stress Tests [facility] [address] [place] [address] 04/08/2024 11:00 AM EDT Office Visit Gynecology/Obstetrics [facility] [address] [place] [address] Galina Toribio PA-C [address] [place] [address] Peralta, Non Stress [facility] [address] [place] [address] Health Maintenance Due Date Last Done Comments [...] filedocumented as of this encounter Care Teams Pen Ruler Operator Relationship Specialty Start Date End Date Jo-Ann Ortiz MD [address] [place] [address] PCP - General Obstetrics/Gynecology 08/11/23 documented as of this encounter
--- OUTSIDE RECORDS SUMMARY | 2024-03-25 23:22 | External Medical Summary | Summary of Care ---
Author Name Unknown Organization [facility] Address [address] [facility] [place] [address] Phone [phone] Care Team Providers Care Mercury Recoverer Name Role Phone Jo-Ann Ortiz MD Primary Care Provider + Reason for Visit * Reason Comments Dosage Adjustment Via Phone (anticoag Cl inic) Encounter Details Date Type Department Care Team (Latest Contact Info) Description 01/21/2024 5:10 PM EST Anticoagulation Pharmacy, [facility] [address] [facility] [place] [address] [facility] 132 [facility] [place] [address] Antiphospholipid antibody syndrome complicating (HCC)*; History of blood clots Allergies Active Allergy Reactions Criticality Noted Date Comments Sulfamethoxazole-Trimethopr im 08/19/2023 Bee Venom Anaphylaxis High 09/01/2023 Meperidine 08/19/2023 Doxycycline 08/19/2023 Morphine 08/19/2023 Difficultly breathing/hives Naloxone 08/19/2023 Shiitake Mushroom Hives 09/01/2023 Hives, shortness of breath, swelling Tetracycline 08/19/2023 documented as of this encounter (statuses as of 01/21/2024) Medications Medication Sig Dispensed Refills Start Date [...] for Nausea. 30 Tablet 1 12/03/2023 Active documented as of this encounter (statuses as of 01/21/2024) Active Problems Problem Noted Date Diagnosed Date [...] with Subutex 8 mg BID Therapy through [employer] 2019 did well with Subutex Denies cravings [...] hand per patient. She saw Cardiovascular/Surgeon at [facility] -- Dr. Olivia. Pt states several echocardiograms [...] as of this encounter (statuses as of 01/21/2024) Resolved Problems Problem Noted Date Diagnosed Date Resolved Date with 8 completed weeks gestation 09/01/2023 12/16/2023 History of blood disorder 08/25/2023 IV drug abuse 08/25/2023 09/22/2023 Overview: History of IV drug abuse (opioids) Clean x 6 years / Subutex documented as of this encounter (statuses as of 01/21/2024) Immunizations Name Administration Dates Next Due Seasonal [...] money to get more. Never true 08/24/2023 [place] Depression Scale Answer Date Recorded [place] Depression Scale Total 9 08/25/2023 The thought of harming myself has occurred to me . Never 08/25/2023 Estimated Date of Delivery Comme nts Yes [...] as of this encounter Progress Notes * Lizet Ferrer, [facility] - 01/21/2024 8:12 AM EST 28 weeks gestation. MyG message sent regarding lovneox. Lziet Ferrer, Pharm D, BCACP Clinical Pharmacist 01/21/2024, 8:13 AM documented in this encounter Plan of Treatment Upcoming Encounters Date Type Department Care Team (Late st Contact Info) Description 01/26/2024 11:30 AM EST Office [facility] [address] [place] [address] Elly Lebron CRNP [address] [place] [address] 02/04/2024 5:10 PM EST Anticoagulation Pharmacy, [facility] [address] [place] [address] [facility] [address] [place] [address] 02/11/2024 10:30 AM EDT Office Visit [facility]cology[facility] [address] [place] [address] Elly Lebron CRNP [address] [place] [address] 02/11/2024 11:45 AM EDT Imaging Maternal Medicine Imaging, [facility] [address] [place] [id number] 02/22/2024 11:30 AM EDT Office Visit Gynecology/Obstetrics [facility] [address] [place] [address] Elly Lebron CRNP [address] [place] [address] 03/09/2024 1:30 PM EDT Office Visit Gynecology/Obstetrics [facility] [address] [place] [address] Adolfo Enciso MD [address] [place] [address] 04/05/2024 1:30 PM EDT Office Visit Gynecology/Obstetrics [facility] [address] [place] [address] Adolfo Enciso MD [address] [place] [address] Health Maintenance Due Date Last Done Comments Pneumococcal Vaccine: Pediatrics (0 to 5 Years) and At-Risk Patients (6 to 64 Years) (1 of 2 - PCV) 2000 Depression Screening 2006 Hepatitis B (1 of 3 - 19+ 3-dose series) 2013 COVID-19 Vaccine (2022-2 4 season) 2023 Pap Smear 08/25/2026 08/25/2023 Cervical Cancer Screening 08/25/2028 HPV/Co-Test 08/25/2028 08/25/2023 DTaP,Tdap,and Td Vaccines (2 - Td or Tdap) 07/04/2030 07/04/2020 Influenza Vaccine (FLU shot) Completed , [...] embolism documented in this encounter Care Teams Mercury Recoverer Relationship Specialty Start Date End Date Jo-Ann Ortzi MD [address] [place] [address] PCP - General Obstetrics/Gynecology 08/11/23 documented as of this encounter
--- OUTSIDE RECORDS SUMMARY | 2024-03-25 23:22 | External Medical Summary | Summary of Care ---
Author Name Unknown Organization [facility] Address [address] [facility] [place] [address] Phone [phone] Care Team Providers Care Material Crew Supervisor Name Role Phone Jo-Ann Ortiz MD Primary Care Provider + Reason for Visit * Reason Comments Dosage Adjustment Via Phone (anticoag Cl inic) Encounter Details Date Type Department Care Team (Latest Contact Info) Description 02/23/2024 5:10 PM EDT Anticoagulation Pharmacy, [facility] [address] [facility] [place] [address] [facility] 132 [facility] [place] [address] Antiphospholipid antibody syndrome complicating (HCC)*; History of blood clots Allergies Active Allergy Reactions Criticality Noted Date Comments Sulfamethoxazole-Trimethopr im 08/19/2023 Bee Venom Anaphylaxis High 09/01/2023 Meperidine 08/19/2023 Doxycycline 08/19/2023 Latex Anaphylaxis High 02/19/2024 Morphine 08/19/2023 Difficultly breathing/hives Naloxone 08/19/2023 Shiitake Mushroom Hives 09/01/2023 Hives, shortness of breath, swelling Tetracycline 08/19/2023 documented as of this encounter (statuses as of 02/23/2024) Medications Medication Sig Dispensed Refills Start Date [...] as of this encounter (statuses as of 02/23/2024) Active Problems Problem Noted Date Diagnosed Date [...] with Subutex 8 mg BID Therapy through [facility] 2020 did well with Subutex Denies cravings [...] hand per patient. She saw Cardiovascular/Surgeon at [facility] -- Dr. Olivia. Pt states several [...] Beta-2 Glycoprotein IgM Antibody Interpretation Negative Negative 10/24/23 13:52 PNP Interpretation Negative Positive Abnormal Comment: [...] as of this encounter (statuses as of 02/23/2024) Resolved Problems Problem Noted Date Diagnosed Date Resolved Date with 8 completed weeks gestation 09/01/2023 12/16/2023 History of blood disorder 08/25/2023 IV drug abuse 08/25/2023 09/22/2023 Overview: History of IV drug abuse (opioids) Clean x 6 years / Subutex documented as of this encounter (statuses as of 02/23/2024) Immunizations Name Administration Dates Next Due Seasonal [...] money to get more. Never true 08/24/2023 Ava Depression Scale Answer Date Recorded Ava Depression Scale Total 17 02/19/2024 The thought [...] of this encounter Progress Notes * Lizet Ferrer RP - 02/23/2024 8:40 AM EDT 33 weeks gestation. Seen by SPECIALTY DEVELOPMENT CONSULTANT on 02/17, recommended Doppler OCTAVIO, not completed, will monitor. To continue current lovenox at this time until 36 week transition to heparin unless status changed or otherwise notified. Follow up in 2 weeks. Lizet Ferrer, Pharm D, BCACP Clinical Pharmacist 02/23/2024, 8:43 AM documented in this encounter Plan of Treatment Upcoming Encounters Date Type Department Care Team (Late st Contact Info) Description 03/02/2024 10:30 AM EDT Office Visit Gynecology/Obstetrics [facility] [address] [place] [address] Galina Toribio PA-C [address] [place] [address] 03/02/2024 11:30 AM EDT Imaging Radiology [facility] 2nd [facility] [address] [place] [address] 03/08/2024 5:10 PM EDT Anticoagulation Pharmacy, [facility] [address] [place] [address] [facility] [address] [place] [address] 03/17/2024 11:30 AM EDT Office Visit Gynecology/Obstetrics [facility] [address] [place] [address] Backer, BRANDON Bobby [address] [place] [address] 03/21/2024 11:30 AM EDT Office Visit Gynecology/Obstetrics [facility] [address] [place] [address] BackElly spence CRNP [address] [place] [address] 03/31/2024 11:30 AM EDT Office Visit Gynecology/Obstetrics [facility] [address] [place], [place] [address] BackElly spence CRNP [address] [place] [address] 04/07/2024 11:30 AM EDT Office Visit Gynecology/Obstetrics [facility] [address] [place] [address] Elly Lebron CRNP [address] [place] [address] Health Maintenance Due Date Last Done Comments [...] embolism documented in this encounter Care Teams Material Crew Supervisor Relationship Specialty Start Date End Date Jo-Ann Ortiz MD 132 [facility] [place] [address] PCP - General Obstetrics/Gynecology 08/11/23 documented as of this encounter
--- OUTSIDE RECORDS SUMMARY | 2024-03-25 23:22 | External Medical Summary | Summary of Care ---
Author Name Unknown Organization [facility] Address [address] [facility] [place] [address] Phone [phone] Care Team Providers Care Manager Branch Name Role Phone Jo-Ann Ortiz MD Primary Care Provider + Reason for Visit * Reason Comments Return Visit Encounter Details Date Type Department Care Team (Late st Contact Info) Description 03/17/2024 11:00 AM EDT Office Visit Gynecology/Obstetric s [facility] [address] [place] [address] Elly Lebron CRNP [address] [place] [address] Fabian, Non Stress Tests [facility] [address] [place] [address] Supervision of high risk in third trimester*; complicated by subutex maintenance, antepartum (HCC); complicated by tobacco use in third trimester; History of blood clots; History of hemorrhage; Supervision of high risk due to social problems in third trimester; Antiphospholipid antibody syndrome complicating (HCC); Breech presentation, single or unspecified fetus Allergies Active Allergy Reactions Criticality Noted Date Comments Sulfamethoxazole-Trimethopr im 08/19/2023 Bee Venom Anaphylaxis High 09/01/2023 Meperidine 08/19/2023 Doxycycline 08/19/2023 Latex Anaphylaxis High 02/19/2024 Morphine 08/19/2023 Difficultly breathing/hives Naloxone 08/19/2023 Shiitake Mushroom Hives 09/01/2023 Hives, shortness of breath, swelling Tetracycline 08/19/2023 documented as of this encounter (statuses as of 03/17/2024) Medications Medication Sig Dispensed Refills Start Date [...] Tablet 1 03/07/2024 Active Heparin Sodium (Porcine) 28035 UNIT/ML Injection SolutionIndications:A ntiphospholipid antibody syndrome complicating (HCC),History of blood clots Inject 1 mL under the skin every 12 hours 50 mL 1 03/15/2024 Active Insulin Syringe 31G X 5/16" 1 MLIndications:Antipho spholipid antibody syndrome complicating (HCC),History of blood clots Use to inject heparin twice daily 100 Each 0 03/15/2024 Active documented as of this encounter (statuses as of 03/17/2024) Active Problems Problem Noted Date Diagnosed Date presentation, breech 03/17/2024 Antiphospholipid antibody syndrome complicating 11/16/2023 Overview: Repeat [...] with Subutex 8 mg BID Therapy through [employer] 2019 did well with Subutex Denies cravings [...] hand per patient. She saw Cardiovascular/Surgeon at [facility] -- Dr. Olivia. Pt states several [...] as of this encounter (statuses as of 03/17/2024) Resolved Problems Problem Noted Date Diagnosed Date Resolved Date with 8 completed weeks gestation 09/01/2023 12/16/2023 History of blood disorder 08/25/2023 hemorrhage 08/25/20232023 IV drug abuse 08/25/2023 09/22/2023 Overview: History of IV drug abuse (opioids) Clean x 6 years / Subutex documented as of this encounter (statuses as of 03/17/2024) Immunizations Name Administration Dates Next Due Seasonal [...] money to get more. Never true 03/10/2024 Latimer Depression Scale Answer Date Recorded Latimer Depression Scale Total 17 02/19/2024 The thought [...] Sign Reading Time Taken Comments Blood Pressure 126/66 03/17/2024 11:18 AM EDT Pulse - - Temperature - - Respiratory Rate - - Oxygen Saturation - - Inhaled Oxygen Concentration - - Weight 97.1 kg (214 lb) 03/17/2024 11:18 AM EDT Height - - Body Mass Index 33.52 03/10/2024 10:18 AM EDT documented in this encounter Progress Notes * Elly Lebron CRNP - 03/17/2024 11:40 AM EDT 36w2d Baby is very active. Has irregular ctx at night, resolve within a few hours. No bleeding/leaking. She has transitioned to heparin. Ultrasound on 03/02: normal OMAR and growth, breech presentation. Patient sent blood sugar readings through portal, reviewed: 03/11: 102, 78, 104, 84 03/12: 84, 108, 99, 89 03/13: 72, 87, 105, 76 03/14: 103, 92, 93, 98 03/15: 105, X, 82, 95 03/16: 98, 119, 97, 108 03/17: reports fasting around 89 Discussed elevated fasting readings; pt admits to not consistently fasting for full 8-10 hrs. Will snack on pretzels and soda in the middle of the night. Eats dinner around 5 pm and typically has a snack before bed. Discussed the need to fast for 8-10 hrs, avoid simple carbohydrates and soda w/sugar. Encouraged protein snack before bed. She states she is working on this. Discussed recommendation of C/S for breech presentation. She is adamant about avoiding an epidural and C/S due to her history of drug dependence. She desires an ECV. Nursing will [place] [facility] [place] and reach out to the patient. Pt is aware that this procedure is not done locally. Recommend appt w/physician next week regardless to discuss delivery. She is agreeable, will stop atcheck out. GBS collected today. Not sure if she wants a salpingectomy or hysterectomy d/t endometriosis. She has signed the MA consent. ASSESSMENT assessment with Non-stress Test completed on 03/17/2024 at 36.2 weeks gestation for indicationof subutex, +antiphospholipid antibody heart baseline: 120 bpm Variability: Moderate Decelerations: absent Accelerations: present Contractions: Present x1 NST start time: 1113 NST stop time: 1140 NST strip reviewed, interpreted, and approved by OB provider, BRANDON Angulo . NST strip stored in clinic storage file Soc Analyst Documentation Provider requested account manager b2b. Name of account manager b2b: BRANDON Rogers RN documented in this encounter Plan of Treatment Upcoming Encounters Date Type Department Care Team (Late st Contact Info) Description 03/21/2024 11:30 AM EDT [facility] [address] [place] [address] Elly Lebron CRNP [address] [place] [address] 03/21/2024 12:30 PM EDT Imaging Radiology [facility] [address] [place] [address] 03/22/2024 5:10 PM EDT Anticoagulation Pharmacy, [facility] [address] [place] [address] [facility] [place] [address] 03/31/2024 10:30 AM EDT Imaging Radiology [address] [place] [address] 03/31/2024 11:30 AM EDT Office Visit Gynecology/Obstetrics [place] [address] [address] [place] [address] BackElly spence CRNP [address] [place] [address] 04/07/2024 10:30 AM EDT Imaging Radiology [address] [place] [address] 04/07/2024 11:30 AM EDT Office Visit Gynecology/Obstetrics [place] [address] [address] [place] [address] BackerElly CRNP [address] [place] [address] Pending Results Name Type Priority Associated Diagnoses Date /Time GROUP B STREP CULTURE/PCR Lab Routine Supervision of high risk in third trimester 03/17/2024 12:10 PM EDT Scheduled Orders Name Type Priority Associated Diagnoses Orde r Schedule GROUP B STREP CULTURE/PCR Lab Routine Supervision of high risk in third trimester Expected: 03/17/2024, Expires: 03/17/2025 Health Maintenance Due Date Last Done Comments [...] Personal history of venous thrombosis and embolism History of hemorrhage Supervision of high risk due to social problems in third trimester Supervision of other high-risk Antiphospholipid antibody syndrome complicating (HCC) Other current maternal conditions classifiable elsewhere, complicating , childbirth, or the puerperium, unspecified as to episode of care Breech presentation, single or unspecified fetus documented in this encounter Care Teams Manager Branch Relationship Specialty Start Date End Date Jo-Ann Ortiz MD [address] [facility] [place] [address] PCP - General Obstetrics/Gynecology 08/11/23 documented as of this encounter
--- OUTSIDE RECORDS SUMMARY | 2024-03-25 23:22 | External Medical Summary | Summary of Care ---
Author Name Unknown Organization [facility] Address [address] [facility] [place] [address] Phone [phone] Care Team Providers Care Echo Technician Name Role Phone Jo-Ann Ortiz MD Primary Care Provider + Reason for Visit * Reason Comments Dosage Adjustment In Person (Anticoag Cl inic) Encounter Details Date Type Department Care Team (Latest Contact Info) Description 03/17/2024 11:40 AM EDT Anticoagulation Pharmacy, [facility] 132 [facility] [place] [address] [facility] 132 [facility] [place] [address] Antiphospholipid antibody syndrome complicating (HCC)*; History of [...] Tablet 1 03/07/2024 Active Heparin Sodium (Porcine) 03062 UNIT/ML Injection SolutionIndications:A ntiphospholipid antibody syndrome complicating [...] with Subutex 8 mg BID Therapy through [employer] 2019 did well with Subutex Denies [...] hand per patient. She saw Cardiovascular/Surgeon at [facility] -- Dr. Olivia. Pt states [...] money to get more. Never true 03/10/2024 [place] Depression Scale Answer Date Recorded [place] Depression Scale Total 17 02/19/2024 The thought [...] Progress Notes * Laura Arriaga RPh - 03/17/2024 12:19 PM EDT Pt came into [facility] clinic today to review heparin administration. Walked pt through technique and hadpt inject the heparin herself. Pt felt comfortable administering injection and denied any further questions. Reviewed with pt to separate injection by 12 hours and to rotate sites. Pt demonstrated und erstanding. Instructed pt to call if any concerns or questions. Otherwise, will follow up on 03/22 as scheduled. Nakita BarraganD PGY1 Event Representative 03/17/2024 12:26 PM documented in this encounter Plan of Treatment Upcoming Encounters Date Type Department Care Team (Late st Contact Info) Description 03/21/2024 11:30 AM EDT Office Visit Gynecology/Obstetrics [facility] [address] [place] [address] Backer, BRANDON Bobby [address] [place] [address] 03/21/2024 12:30 PM EDT [facility] [place] [address] 03/22/2024 5:10 PM EDT Anticoagulation Pharmacy, [facility] [address] [place] [address] [facility] [address] [place] [address] 03/31/2024 10:30 AM EDT Imaging Radiology [address] [place] [address] 03/31/2024 11:30 AM EDT Office Visit Gynecology/Obstetrics [place] [address] [place] [address] Elly Lebron CRNP [address] [place] [address] 04/07/2024 10:30 AM EDT Imaging Radiology [address] [place] [address] 04/07/2024 11:30 AM EDT Office Visit Gynecology/Obstetrics [facility] [address] [place] [address] BackElly spence CRNP [address] [place] [address] Health Maintenance Due Date Last Done Comments [...] embolism documented in this encounter Care Teams Echo Technician Relationship Specialty Start Date End Date Jo-Ann Ortiz MD [address] [facility] [place] [address] PCP - General Obstetrics/Gynecology 08/11/23 documented as of this encounter
--- OUTSIDE RECORDS SUMMARY | 2024-03-25 23:22 | External Medical Summary | Summary of Care ---
Author Name Unknown Organization [facility] Address [address] [place] [place] [address] Phone [phone] Care Team Providers Care Refuge Manager Name Role Phone Jo-Ann Ortiz MD Primary Care Provider + Reason for Visit * Reason Comments Non Stress Test Encounter Details Date Type Department Care Team (Late st Contact Info) Description 03/10/2024 10:15 AM EDT Office Visit Gynecology/Obstetric s [facility] [address] [place] [address] Kateryna Tabares CRNP [address] [place] [address] [place], Non Stress Tests [facility] [address] [place] [address] Supervision of high risk in third trimester*; complicated by subutex maintenance, antepartum (HCC); Tobacco use affecting , antepartum; History of blood clots; hemorrhage, unspecified type; History of hemorrhage; Supervision of high risk due to social problems, antepartum; Antiphospholipid antibody syndrome complicating (HCC) Allergies Active Allergy Reactions Criticality Noted Date Comments Sulfamethoxazole-Trimethopr im 08/19/2023 Bee Venom Anaphylaxis High 09/01/2023 Meperidine 08/19/2023 Doxycycline 08/19/2023 Latex Anaphylaxis High 02/19/2024 Morphine 08/19/2023 Difficultly breathing/hives Naloxone 08/19/2023 Shiitake Mushroom Hives 09/01/2023 Hives, shortness of breath, swelling Tetracycline 08/19/2023 documented as of this encounter (statuses as of 03/10/2024) Medications Medication Sig Dispensed Refills Start Date [...] the morning. 12 mL 8 03/07/2024 Active Ondansetron HCl 8 MG Oral Tablet (Zofran) Take 1 Tablet by mouth every 8 hours as needed for Nausea. 30 Tablet 1 03/07/2024 Active documented as of this encounter (statuses as of 03/10/2024) Active Problems Problem Noted Date Diagnosed Date [...] with Subutex 8 mg BID Therapy through [employer] 2019 did well with Subutex Denies cravings [...] hand per patient. She saw Cardiovascular/Surgeon at [facility] -- Dr. Olivia. Pt states several echocardiograms [...] as of this encounter (statuses as of 03/10/2024) Resolved Problems Problem Noted Date Diagnosed Date Resolved Date with 8 completed weeks gestation 09/01/2023 12/16/2023 History of blood disorder 08/25/2023 IV drug abuse 08/25/2023 09/22/2023 Overview: History of IV drug abuse (opioids) Clean x 6 years / Subutex documented as of this encounter (statuses as of 03/10/2024) Immunizations Name Administration Dates Next Due Seasonal [...] money to get more. Never true 03/10/2024 [place]wood Depression Scale Answer Date Recorded [place] Depression Scale Total 17 02/19/2024 The thought [...] Sign Reading Time Taken Comments Blood Pressure 122/68 03/10/2024 10:18 AM EDT Pulse - - Temperature - - Respiratory Rate - - Oxygen Saturation - - Inhaled Oxygen Concentration - - Weight 99.4 kg (219 lb 3.2 oz) 03/10/2024 10:18 AM EDT Height 170.2 cm (5' 7") 03/10/2024 10:18 AM EDT Body Mass Index 34.33 03/10/2024 10:18 AM EDT documented in this encounter Progress Notes * Kateryna Tabares CRNP - 03/10/2024 10:27 AM EDT ASSESSMENT assessment with Non-stress Test completed on 03/10/2024 at 35.2weeks gestation for indication of APS heart baseline: 140 bpm Variability: Moderate Decelerations: absent Accelerations: present Contractions: None NST start time: 1004 NST stop time: 1027 NST strip reviewed, interpreted, and approved by OB providerKateryna CRNP . NST strip stored in clinic storage file documented in this encounter Nursing Notes * Vidya Robles RN - 03/10/2024 10:18 AM EDT Patient here for NST Vidya Robles RN documented in this encounter Plan of Treatment Upcoming Encounters Date Type Department Care Team (Late st Contact Info) Description 03/14/2024 1:00 PM EDT Office Visit Gynecology/Obstetrics [facility] [address] [place] [address] Galina Toribio PA-C [address] [place] [address] Fabian Non Stress Tests [facility] [address] [place] [address] 03/15/2024 5:10 PM EDT [facility] [address] [place] [address] [facility] [address] [place] [address] 03/17/2024 11:00 AM EDT Office Visit Gynecology/Obstetrics [facility] [address] [place] [address] Elly Lebron CRNP [address] [place] [address] Fabian Non Stress Tests [place] [address] [place] [address] 03/21/2024 11:00 AM EDT Office Visit Gynecology/Obstetrics [facility] [address] [place] [address] Elly Lebron CRNP [address] [place] [address] Fabian Non Stress Tests [facility] [address] [place] [address] 03/24/2024 10:00 AM EDT Office Visit Gynecology/Obstetrics [facility] [address] [place] [address] Kateryna Tabares CRNP [address] [place] [address] [place], Non Stress Tests [place] [address] [place] [address] 03/29/2024 11:15 AM EDT Office Visit Gynecology/Obstetrics [facility] [address] [place] [address] BackElly spence CRNP [address] [place] [address] Fabian Non Stress Tests [place] [address] [place] [address] 04/01/2024 11:00 AM EDT Office Visit Gynecology/Obstetrics [facility] [address] [place] [address] MiguelerElly CRNP [address] [place] [address] Fabian Non Stress Tests [place] [address] [place] [address] 04/05/2024 11:15 AM EDT Office Visit Gynecology/Obstetrics [facility] [address] [place] [address] BackerElly CRNP [address] [place] [address] [place], Non Stress Tests [place] [address] [place] [address] 04/08/2024 11:00 AM EDT Office Visit Gynecology/Obstetrics [facility] [address] [place] [address] Galina Toribio PA-C [address] [place] [address] Fabian, Non Stress Tests [place] [address] [place] [address] Health Maintenance Due Date Last Done Comments [...] high-risk complicated by subutex maintenance, antepartum (HCC) Tobacco use affecting , antepartum History of blood clots Personal history of venous thrombosis and embolism hemorrhage, unspecified type History of hemorrhage Supervision of high risk due to social problems, antepartum Antiphospholipid antibody syndrome complicating (HCC) Other current maternal conditions classifiable elsewhere, complicating , childbirth, or the puerperium, unspecified as to episode of care documented in this encounter Care Teams Refuge Manager Relationship Specialty Start Date End Date Jo-Ann Ortiz MD [address] [place] [address] PCP - General Obstetrics/Gynecology 08/11/23 documented as of this encounter
--- OUTSIDE RECORDS SUMMARY | 2024-03-25 23:22 | External Medical Summary | Summary of Care ---
Author Name Unknown Organization [facility] Address [address] [facility] [address] Phone [phone] Care Team Providers Care Gas Plant Worker Name Role Phone Jo-Ann Ortiz MD Primary Care Provider + Reason for Visit * Reason Comments Return Visit Encounter Details Date Type Department Care Team (Late st Contact Info) Description 03/17/2024 11:00 AM EDT Office Visit Gynecology/Obstetric s [facility] [address] [place] [address] Elly Lebron CRNP [address] [place] [address] Fabian, Non Stress Tests [facility] [address] [place] [address] Supervision of high risk in third trimester*; [...] Tablet 1 03/07/2024 Active Heparin Sodium (Porcine) 55706 UNIT/ML Injection SolutionIndications:A ntiphospholipid antibody syndrome complicating [...] with Subutex 8 mg BID Therapy through [employer] 2019 did well with Subutex Denies cravings [...] [facility] -- Dr. Olivia. Pt states several [...] money to get more. Never true 03/10/2024 Dixon Depression Scale Answer Date Recorded [place] Depression Scale Total 17 02/19/2024 The thought [...] She desires an ECV. Nursing will contact [facility] to coordinate this and reach out to [...] NST strip stored in clinic storage file Employee'S Representative Documentation Provider requested systems analyst developer. Name of systems analyst developer: BRANDON Rogers RN documented in this encounter Plan of Treatment Upcoming Encounters Date Type Department Care Team (Late st Contact Info) Description 03/21/2024 11:30 AM EDT [facility] [address] [place] [address] Elly Lebron CRNP [address] [place] [address] 03/21/2024 12:30 PM EDT Imaging Radiology [facility] [address] [place] [address] 03/22/2024 5:10 PM EDT Anticoagulation Pharmacy, [facility] [address] [place] [address] [facility] [place] [address] 03/31/2024 10:30 AM EDT Imaging Radiology [address] [place] [address] 03/31/2024 11:30 AM EDT Office Visit Gynecology/Obstetrics [place] [address] [address] [place] [address] BackElly spence CRNP [address] [place] [address] 04/07/2024 10:30 AM EDT Imaging Radiology [address] [place] [address] 04/07/2024 11:30 AM EDT Office Visit Gynecology/Obstetrics [place] [address] [address] [place] [address] BackerElly CRNP [address] [place] [address] Pending Results Name Type Priority Associated Diagnoses [...] fetus documented in this encounter Care Teams Gas Plant Worker Relationship Specialty Start Date End Date Jo-Ann Ortiz MD 132 [facility] [place] [address] PCP - General Obstetrics/Gynecology 08/11/23 documented as of this encounter
--- OUTSIDE RECORDS SUMMARY | 2024-03-25 23:22 | External Medical Summary ---
Author Name Unknown Address Unknown Organization K01:LABORATORY [facility] [place] - [address] [facility] [address] Laboratory Report Ordering Provider Test Date Status GUANAKITO LINDQUIST 03/21/2024 11:58:42 Final Observation Date Value Abnormality Reference (Units ) Status Bacterial vaginosis [Interpretation] in Vaginal fluid Qualitative 03/21/2024 11:58:42 Negative Negative Final Negative for Bacterial Vagin osis. Correlate results with other clinical findings. Anjana sp DNA [Presence] in Vaginal fluid by Probe 03/21/2024 11:58:42 Negative Negative Final No Anjana species group RNA detected. Correlate results with other clinical findings. Anjana glabrata RNA [Presen ce] in Vaginal fluid by YANI with probe detection 03/21/2024 11:58:42 Negative Negative Final No Anjana glabrata RNA dete cted. Correlate results with other clinical findings. Trichomonas vaginalis DNA [P resence] in Vaginal fluid by Probe 03/21/2024 11:58:42 Negative Negative Final No Trichomonas vaginalis RNA detected. Performing Location [facility]ORY [facility] [address] [facility] [address]
--- OUTSIDE RECORDS SUMMARY | 2024-03-25 23:22 | External Medical Summary | Summary of Care ---
Author Name Unknown Organization [facility] Address [address] [place] [address] Phone [phone] Care Team Providers Care Physical Metallurgist Name Role Phone Jo-Ann Ortiz MD Primary Care Provider + Reason for Visit * Reason Comments Dosage Adjustment Via Phone (anticoag Cl inic) Encounter Details Date Type Department Care Team (Latest Contact Info) Description 02/04/2024 5:10 PM EST Anticoagulation Pharmacy, [facility] 132 [facility] [place] [address] [facility] 132 [facility] [place] [address] Antiphospholipid antibody syndrome complicating (HCC)*; History of blood clots Allergies Active Allergy Reactions Criticality Noted Date Comments Sulfamethoxazole-Trimethopr im 08/19/2023 Bee Venom Anaphylaxis High 09/01/2023 Meperidine 08/19/2023 Doxycycline 08/19/2023 Morphine 08/19/2023 Difficultly breathing/hives Naloxone 08/19/2023 Shiitake Mushroom Hives 09/01/2023 Hives, shortness of breath, swelling Tetracycline 08/19/2023 documented as of this encounter (statuses as of 02/04/2024) Medications Medication Sig Dispensed Refills Start Date [...] as of this encounter (statuses as of 02/04/2024) Active Problems Problem Noted Date Diagnosed Date [...] with Subutex 8 mg BID Therapy through [employer] 2019 did well with Subutex Denies cravings [...] patient. She saw Cardiovascular/Surgeon at [facility] -- Dr. Olivia. Pt states [...] as of this encounter (statuses as of 02/04/2024) Resolved Problems Problem Noted Date Diagnosed Date Resolved Date with 8 completed weeks gestation 09/01/2023 12/16/2023 History of blood disorder 08/25/2023 IV drug abuse 08/25/2023 09/22/2023 Overview: History of IV drug abuse (opioids) Clean x 6 years / Subutex documented as of this encounter (statuses as of 02/04/2024) Immunizations Name Administration Dates Next Due Seasonal [...] money to get more. Never true 08/24/2023 [place] Depression Scale Answer Date Recorded [place] Depression Scale Total 9 08/25/2023 The thought [...] this encounter Progress Notes * Lizet Ferrer, [facility] - 02/04/2024 7:55 AM EST 30 weeks gestation. MyG message sent regarding lovneox. Lizet Ferrer, Pharm D, BCACP Clinical Pharmacist 02/04/2024, 7:57 AM documented in this encounter Plan of Treatment Upcoming Encounters Date Type Department Care Team (Late st Contact Info) Description 02/11/2024 10:30 AM EDT Office Visit Gynecology/Obstetrics [facility] [address] [place] [address] Elly Lebron CRNP [address] [place] [address] 02/11/2024 11:45 AM EDT Imaging Maternal Medicine Imaging, [facility] [address] [place] [address] 02/18/2024 5:10 PM EDT Anticoagulation Pharmacy, [facility] [address] [place] [address] [facility] [address] [place] [address] 02/22/2024 11:30 AM EDT Office Visit Gynecology/Obstetrics [facility] [address] [place] [address] Elly Lebron CRNP [address] [place] [address] 03/09/2024 1:30 PM EDT Office Visit Gynecology/Obstetrics [facility] [address] [place] [address] Adolfo Enciso MD [address] [place] [address] Health Maintenance Due Date Last Done Comments [...] embolism documented in this encounter Care Teams Physical Metallurgist Relationship Specialty Start Date End Date Jo-Ann Ortiz MD 132 [facility] [place] [address] PCP - General Obstetrics/Gynecology 08/11/23 documented as of this encounter
--- OUTSIDE RECORDS SUMMARY | 2024-03-25 23:22 | External Medical Summary | Summary of Care ---
Author Name Unknown Organization [facility] Address [address] [facility] [place] [address] Phone [phone] Care Team Providers Care Supervisor Inspecting Name Role Phone Jo-Ann Ortiz MD Primary Care Provider + Reason for Visit * Reason Comments Return Visit Encounter Details Date Type Department Care Team (Late st Contact Info) Description 03/21/2024 11:30 AM EDT Office Visit Gynecology/Obstetri [facility] [address] [place] [address] BackerElly CRNP [address] [place] [address] Supervision of high risk in third trimester*; complicated by subutex maintenance, antepartum (HCC); complicated by tobacco use in third trimester; History of blood clots; History of hemorrhage; Supervision of high risk due to social problems in third trimester; Antiphospholipid antibody syndrome complicating ([facility]); Breech presentation, single or unspecified fetus; GBS (group B Streptococcus carrier), +RV culture, currently ; Dysuria; Vaginal discharge Allergies Active Allergy Reactions Criticality Noted Date [...] Tablet 1 03/07/2024 Active Heparin Sodium (Porcine) 78862 UNIT/ML Injection SolutionIndications: Antiphospholipid antibody syndrome complicating [...] Streptococcus c kiana), +RV culture, currently 03/21/2024 presentation, breech 03/17/2024 Antiphospholipid antibody syndrome complicating [...] with Subutex 8 mg BID Therapy through [employer] 2019 did well with Subutex Denies cravings [...] hand per patient. She saw Cardiovascular/Surgeon at [facility] -- Dr. Olivia. Pt states several [...] money to get more. Never true 03/10/2024 [place] Depression Scale Answer Date Recorded [place] Depression Scale Total 9 03/21/2024 The thought [...] Sign Reading Time Taken Comments Blood Pressure 114/74 03/21/2024 11:31 AM EDT Pulse - - Temperature - - Respiratory Rate - - Oxygen Saturation - - Inhaled Oxygen Concentration - - Weight 98 kg (216 lb) 03/21/2024 11:31 AM EDT Height - - Body Mass Index 33.83 03/10/2024 10:18 AM EDT documented in this encounter Progress Notes * Elly Lebron CRNP - 03/21/2024 11:38 AM EDT 36w6d Has an appt on Thursday for ECV in [place]. Reviewed blood sugar readings since last appt, sent through patient portal (03/11/24 patient message) - WNL. ? Fluid loss 2 days ago- trickle. Noticed for about 2 hours. Nothing since then. Describes it as clear fluid, runny, mild amount of yellow. No vaginal itching/burning. Denies bleeding. On exam, perineum dry; neg pooling, neg Nitrazine. Vaginosis swab obtained, follow up on results. + contractions- 12-15 minutes apart. Noticing more in the evening. Feels not getting kick count. Does not contact the office as she has no transportation to get here.Discussed risk of demise. While in office, pt and this provider observed gross movement. Audible acceleration of FHR with movement. Also concerns of possible UTI- frequency/pain. +leuks, will send urine culture. Rx Keflex x7 days for preemptive treatment, advised to push fluids. Has a BPP today in lieu of NST. 1 week return Landscape Specialist Documentation Provider requested baby formula mixer. Name of baby formula mixer: BRANDON Arambula LPN * Eloina Parrish LPN - 03/21/2024 11:37 AM EDT 36w6d ? Fluid loss 2 days ago- trickle. Noticed for about 2 hours. Nothing since then + contractions- 12-15 minutes apart. Noticing more in the evening. Feels not getting kick count Also concerns of possible UTI- frequency/pain documented in this encounter Plan of Treatment Upcoming Encounters Date Type Department Care Team (Latest Contact Info) Description 03/21/2024 12:30 PM EDT Imaging Radiology [facility] 132 [facility] [place] [address] Antiphospholipid antibody syndrome complicating (HCC) 03/22/2024 5:10 PM EDT Anticoagulation Pharmacy, [facility] [place] [address] Fabian [facility] [address] [place] [address] 03/23/2024 8:05 AM EDT Hospital Encounter [facility] [place] [place], Women's Lower Level 1st Floor [address] [place] [address] Alexx Hernandez MD [address] [place] [address] 03/23/2024 8:05 AM EDT - 03/23/2024 8:20 AM EDT Surgery [facility] [place] [place], OB Triage, Women's Lower Level 1st Floor [address] [place] [address] Alexx Hernandez MD [address] [place] [address] EXTERNAL CEPHALIC VERSION WITH OR WITHOUT TOCOLYSIS 03/31/2024 10:30 AM EDT Imaging Radiology [facility] [address] [facility] [address] [place] [address] 03/31/2024 11:30 AM EDT Office Visit Gynecology/Obstet [facility] [address] [place] [address] BackerElly CRNP [address] [place] [address] 04/07/2024 10:30 AM EDT Imaging Radiology [facility] [address] [facility] [address] [place] [address] 04/07/2024 11:30 AM EDT Office Visit Gynecology/Obstet [facility] [address] [place] [address] BackElly spence CRNP [address] [place] [address] Pending Results Name Type Priority Associated Diagnoses Date /Time CULTURE, URINE, QUANTITATIVE Lab Routine Dysuria 03/21/2024 11:49 AM EDT VAGINOSIS PANEL, PCR Lab Routine Vaginal discharge 03/21/2024 11:58 AM EDT Scheduled Procedures Name Priority Associated Diagnoses Date/Ti me EXTERNAL CEPHALIC VERSION WITH OR WITHOUT TOCOLYSIS 37 weeks gestation of 03/23/2024 8:05 AM EDT Health Maintenance Due Date Last Done [...] Not on filedocumented as of this encounter Procedures Procedure Name Priority Date/Time Associated Diagnosis Comments URINALYSIS, POINT OF CARE (ENTER/EDIT) Routine 03/21/2024 Dysuria documented in this encounter Results * URINALYSIS, POINT OF CARE (ENTER/EDIT) (03/21/2024) Color, Urine Yellow Yellow or Light Yellow Clarity, Urine Clear Clear Glucose, Urine Negative Negative mg/dL Bilirubin, Urine Negative Negative Ketone, Urine Negative Negative mg/dL Specific Alder, Urine 1.015 1.003 - 1.030 Blood, Urine Negative Negative pH, Urine 7.0 5.0 - 7.5 units Protein, Urine Negative Negative mg/dL Urobilinogen, Urine 0.2 0.2 - 1.0 mg/dL Nitrite, Urine Negative Negative Esterase, Urine Moderate Negative Urine 03/21/2024 Elly Riveraer BRANDON LAB POINT O F CARE TEST ENTER/EDIT ORDERABLES documented in this encounter Visit Diagnoses Diagnosis Supervision of [...] care Breech presentation, single or unspecified fetus GBS (group B Streptococcus carrier), +RV culture, currently Supervision of other high-risk Dysuria Vaginal discharge Leukorrhea, not specified as infective Antiphospholipid antibody syndrome complicating (HCC) Other current maternal conditions classifiable elsewhere, complicating , childbirth, or the puerperium, unspecified as to episode of care 37 weeks gestation of state, incidental documented in this encounter Care Teams Supervisor Inspecting Relationship Specialty Start Date End Date Jo-Ann Ortiz MD 132 [place] [address] PCP - General Obstetrics/Gynecology 08/11/23 documented as of this encounter
--- OUTSIDE RECORDS SUMMARY | 2024-03-25 23:22 | External Medical Summary | Summary of Care ---
Author Name Unknown Organization [facility] Address [address] [facility] [facility] [place] [address] Phone [phone] Care Team Providers Care Caster Investment Casting Name Role Phone Jo-Ann Ortiz MD Primary Care Provider + Reason for Visit * Reason Onset Date Comments Medication Refill 03/07/2024 Encounter Details Date Type Department Care Team (Late st Contact Info) Description 03/07/2024 Refill Gynecology/Obstetrics [facility] [address] [place] [address] BackAmeena spence CRNP [address] [place] [id number] Allergies Active Allergy Reactions Criticality Noted Date [...] for Nausea. 30 Tablet 1 03/07/2024 Active Ondansetron HCl 8 MG Oral [...] with Subutex 8 mg BID Therapy through [employer] 2019 did well with Subutex Denies cravings [...] per patient. She saw Cardiovascular/Surgeon at [facility] -- Dr. Olivia. Pt states several [...] money to get more. Never true 08/24/2023 [place] Depression Scale Answer Date Recorded [place] Depression Scale Total 17 02/19/2024 The thought [...] encounter Miscellaneous Notes * Telephone Encounter - Ameena Lebron CRNP - 03/07/2024 9:59 AM EDT Signed Prescriptions: Disp Refills Ondansetron HCl 8 MG Oral Tablet (Zofran) 30 Tab*1 Sig: Take 1 Tablet by mouth every 8 hours as needed for Nausea.Authorizing Provider: AMEENA LEBRON----- documented in this encounter Plan of Treatment Upcoming Encounters Date Type Department Care Team (Late st Contact Info) Description 03/08/2024 5:10 PM EDT [facility] [address] [place] [address] Fabian [facility] [address] [place] [address] 03/10/2024 10:15 AM EDT Office Visit Gynecology/Obstetrics [facility] [address] [place] [address] Kateryna Tabares CRNP [address] [place] [address] Brunilda Peralta [facility] [address] [place] [address] 03/14/2024 1:00 PM EDT Office Visit Gynecology/Obstetrics [facility] [address] [place] [address] Galina Toribio PA-C [address] [place] [address] Peralta, Non [facility] [address] [place] [address] 03/17/2024 11:00 AM EDT Office Visit Gynecology/Obstetrics [facility] [address] [place] [address] Ameena Lebron CRNP [address] [place] [address] Fabian Non [facility] [address] [place] [address] 03/21/2024 11:00 AM EDT Office Visit Gynecology/Obstetrics [facility] [address] [place] [address] Ameena Lebron CRNP [address] [place] [address] Fabian Non [facility] [address] [place] [address] 03/24/2024 10:00 AM EDT Office Visit Gynecology/Obstetrics [facility] [address] [place] [address] Kateryna Tabares CRNP [address] [place] [address] Peralta, Non Stress Tests [facility] [address] [place] [address] 03/29/2024 11:15 AM EDT Office Visit Gynecology/Obstetrics [facility] [address] [place] [address] Backer, BRANDON Bobby [address] [place] [address] Peralta, Non Stress Tests [facility] [address] [place] [address] 04/01/2024 11:00 AM EDT Office Visit Gynecology/Obstetrics [facility] [address] [place] [address] Backer, BRANDON Bobby [address] [place] [address] Fabian Non [facility] [address] [place] [address] 04/05/2024 11:15 AM EDT Office Visit Gynecology/Obstetrics [facility] [address] [place] [address] Backer, BRANDON Bobby [address] [place] [address] Fabian Non Stress Tests [facility] [address] [place] [address] 04/08/2024 11:00 AM EDT Office Visit Gynecology/Obstetrics [facility] [address] [place] [address] Galina Toribio PA-C [address] [place] [address] Peralta, Non Stress Tests [facility] [address] [place] [address] Health Maintenance Due Date Last Done Comments [...] filedocumented as of this encounter Care Teams Caster Investment Casting Relationship Specialty Start Date End Date Jo-Ann Ortiz MD [address] [place] [address] PCP - General Obstetrics/Gynecology 08/11/23 documented as of this encounter
--- OUTSIDE RECORDS SUMMARY | 2024-03-25 23:22 | External Medical Summary ---
Author Name Unknown Address Unknown Organization K01:[facility] - [address] [place] [id number] Laboratory Report Ordering Provider Test Date Status GUANAKITO LINDQUIST 03/21/2024 11:49:52 Final Observation Date Value Abnormality Reference (Units) Status Bacteria identified in Specimen by Culture 03/21/2024 11:49:52 No significant growth Final Test: Culture, Urine, Quanti tative
Specimen Source: Urine, Clean Catch
Specimen Type: Urine
Specimen Date: 03/21/2024 11:49 AM
Result Date: 03/22/2024 11:52 AM
Result Status: Final result
Resulting Lab: [facility]
[address]
[place] [address]

CULTURE

No significant growth

null Performing Location [facility] - [address] [facility] [address]
--- OUTSIDE RECORDS SUMMARY | 2024-03-25 23:22 | External Medical Summary | Summary of Care ---
Author Name Unknown Organization [facility] Address [address] [facility] [place] [address] Phone [phone] Care Team Providers Care Facility Specialist Name Role Phone Jo-Ann Ortiz MD Primary Care Provider + Reason for Visit * Reason Comments Dosage Adjustment Via Phone (anticoag Cl inic) Encounter Details Date Type Department Care Team (Latest Contact Info) Description 03/15/2024 5:10 PM EDT Anticoagulation Pharmacy, [facility] [address] [facility] [place] [address] [facility] 132 [facility] [place] [address] Anticoagulation management encounter*; Antiphospholipid antibody syndrome complicating (HCC); History of blood clots Allergies Active Allergy [...] evening. 0 Active Plus 27-1 MG Oral TabletIndications: Early stage of Take 1 Tablet by mouth [...] Tablet 1 03/07/2024 Active Heparin Sodium (Porcine) 37504 UNIT/ML Injection SolutionIndication s:Antiphospholipid antibody syndrome complicating (HCC),History of blood clots Inject 1 mL under the skin every 12 hours 50 mL 1 03/15/2024 Active Insulin Syringe 31G X 5/16" 1 MLIndications:Anti phospholipid antibody syndrome complicating (HCC),History of blood clots Use to inject heparin twice daily 100 Each 0 03/15/2024 Active Enoxaparin Sodium 40 MG/0.4ML Injection Solution Prefilled Syringe (Lovenox) Inject 40 mg under the skin in the morning. 12 mL 8 03/07/2024 03/15/2024 Discontinued (Medication/ Dose Changed) documented as of this encounter (statuses as [...] with Subutex 8 mg BID Therapy through [employer] 2019 did well with Subutex Denies cravings [...] hand per patient. She saw Cardiovascular/Surgeon at [facility] -- Dr. Olivia. Pt states several echocardiograms [...] money to get more. Never true 03/10/2024 [place] Depression Scale Answer Date Recorded [place] Depression Scale Total 17 02/19/2024 The thought [...] Progress Notes * Laura Arriaga RPh - 03/15/2024 1:18 PM EDT Patient 36 weeks gestation. Currently on prophylactic dose of Lovenox 40 mg daily. Now that patient is in third trimester, will transition pt to heparin 10,000 units q12 hours until delivery. Will send Rx to [facility] pharmacy. Sent MyG to patient to inform. Will follow up in 1 week. Thanks, Laura Arriaga, PharmD PGY1 Glass Cut Off Tender 03/15/2024 1:29 PM documented in this encounter Plan of Treatment Upcoming Encounters Date Type Department Care Team (Late st Contact Info) Description 03/17/2024 11:00 AM EDT Office Visit Gynecology/Obstetrics [facility] [address] [place] [address] Backer, BRANDON Bobby [address] [place] [address] Brunilda Peralta [facility] [address] [place] [address] 03/21/2024 11:30 AM EDT Office Visit Gynecology/Obstetrics [facility] [address] [place] [address] BackElly spence CRNP [address] [place] [address] 03/21/2024 12:30 PM EDT Imaging Radiology [facility] [address] [place] [address] 03/22/2024 5:10 PM EDT Anticoagulation Pharmacy, [facility] [address] [place] [address] [facility] [address] [place] [address] 03/31/2024 10:30 AM EDT Imaging Radiology [address] [place] [place] [address] 03/31/2024 11:30 AM EDT Office Visit Gynecology/Obstetrics [facility] [address] [place] [address] BackElly spence CRNP [address] [place] [address] 04/07/2024 10:30 AM EDT Imaging Radiology [address] [place] [address] 04/07/2024 11:30 AM EDT Office Visit Gynecology/Obstetrics [facility] [address] [place] [address] BackElly spence CRNP [address] [place] [address] Health Maintenance Due Date Last Done Comments [...] as of this encounter Visit Diagnoses Diagnosis Anticoagulation management encounter- Primary Encounter for therapeutic drug monitoring Antiphospholipid antibody syndrome complicating (HCC) Other current maternal conditions classifiable elsewhere, complicating , childbirth, or the puerperium, unspecified as to episode of care History of blood clots Personal history of venous thrombosis and embolism documented in this encounter Care Teams Facility Specialist Relationship Specialty Start Date End Date Jo-Ann Ortiz MD [address] [place] [address] PCP - General Obstetrics/Gynecology 08/11/23 documented as of this encounter
--- OUTSIDE RECORDS SUMMARY | 2024-03-25 23:23 | External Medical Summary | Summary of Care ---
Author Name Unknown Organization [facility] Address [address] [place] [address] Phone [phone] Care Team Providers Care Baton Teacher Name Role Phone Jo-Ann Ortiz MD Primary Care Provider + Encounter Details Date Type Department Care Team (Late st Contact Info) Description 10/15/2023 Telephone Gynecology/Obstetrics [facility] [address] [place] [address] BackElly spence CRNP [address] [place] [address] Allergies Active Allergy Reactions Criticality Noted Date Comments Sulfamethoxazole-Trimethopr im 08/19/2023 Bee Venom Anaphylaxis High 09/01/2023 Meperidine 08/19/2023 Doxycycline 08/19/2023 Morphine 08/19/2023 Difficultly breathing/hives Naloxone 08/19/2023 Shiitake Mushroom Hives 09/01/2023 Hives, shortness of breath, swelling Tetracycline 08/19/2023 documented as of this encounter (statuses as of 01/13/2024) Medications Medication Sig Dispensed Refills Start Date [...] 1 Tablet by mouth in the morning. 0 11/19/2023 Discontinued (Refill) Ondansetron HCl 4 MG Oral Tablet Take 1 Tablet by mouth every 8 hours as needed for Nausea. 20 Tablet 2 09/22/2023 11/02/2023 Discontinued (Refill) documented as of this encounter (statuses as of 01/13/2024) Active Problems Problem Noted Date Diagnosed Date [...] with Subutex 8 mg BID Therapy through [employer] 2020 did well with Subutex Denies cravings [...] hand per patient. She saw Cardiovascular/Surgeon at [facility] -- Dr. Olivia. Pt states several echocardiograms [...] as of this encounter (statuses as of 01/13/2024) Resolved Problems Problem Noted Date Diagnosed Date Resolved Date with 8 completed weeks gestation 09/01/2023 12/16/2023 History of blood disorder 08/25/2023 IV drug abuse 08/25/2023 09/22/2023 Overview: History of IV drug abuse (opioids) Clean x 6 years / Subutex documented as of this encounter (statuses as of 01/13/2024) Immunizations Name Administration Dates Next Due Seasonal Influenza Virus Vac cine, Unspecified Formulation 01/02/2020,09/25/2016 Seasonal Influenza, PF, 6 M & above, IM , (FluLaval or Fluzone) 09/22/2023 TDAP (age 11 and older)(Adacel) 07/04/2020 documented as of this encounter Social History Tobacco Use Types Packs/Day Years Used Date Smoking Tobacco: Every Day Cigarettes 0.5 Smokeless Tobacco: Never Comments:Smokes 1/2 ppd Alcohol [...] money to get more. Never true 08/24/2023 [place] Depression Scale Answer Date Recorded [place] Depression Scale Total 9 08/25/2023 The thought [...] Telephone Encounter - Vidya Robles RN - 10/15/2023 11:15 AM EST Patient is currently only scheduled for 15 min appt ( this was all I had available)and needs 30 minappt scheduled for COLLEEN. Nothing available to schedule until November. Please assist with scheduling.Per pink box, pt only wants to see MD but again had nothing to offer. Patient calling in to schedule next COLLEEN visit. Due to be seen week of 10/20. Patient reports she can't make it this week and needs to be scheduled for week of 10/26. Patient advised no appointments are available that week and I scheduled her for our first available in the office on November 02 with Elly . Advised patient that she check for cancellations frequently to try to get in sooner. Patient advised to scheduled her future appointments in advance at next visit due to her need for afternoon appointments and prefers MD. Patient states she tried to schedule in advance at last visit andthey were unable to help her (see encounter from 09/22). Patient advised again that if she prefers c ertain providers and time of day it is recommenced to schedule her follow ups in advance as the schedules fill quickly. documented in this encounter Plan of Treatment Upcoming Encounters Date Type Department Care Team (Late st Contact Info) Description 2024 10:30 AM EST Office Visit Gynecology/Obstetrics [facility] [address] [place] [address] Kateryna Tabares CRNP [address] [place] [address] 2024 11:45 AM EST Imaging [facility] [place] [phone] 2024 11:45 AM EST Office Visit Newspaper Library Manager Obstetrics Maternal Medicine, [facility] [address] [place] [address] [place], DO [address] [facility] [place] [address] 01/21/2024 5:10 PM EST [facility] [address] [place] [address] [facility] [address] [place] [address] 01/26/2024 11:30 AM EST Office Visit Gynecology/Obstetrics [facility] [address] [place] [address] BackElly spence CRNP [address] [place] [address] 02/11/2024 10:30 AM EDT Office Visit Gynecology/Obstetrics [facility] [address] [place] [address] BackerElly CRNP [address] [place] [address] 02/11/2024 11:45 AM EDT Imaging Maternal Medicine Imaging, [address] [place], [place] [phone] 02/22/2024 11:30 AM EDT Office Visit Gynecology/Obstetrics [facility] [address] [place] [address] BackerElly CRNP [address] [place] [address] 03/09/2024 1:30 PM EDT Office Visit Gynecology/Obstetrics [facility] [address] [place] [address] Adolfo Enciso MD [address] [place] [address] 04/05/2024 1:30 PM EDT Office Visit Gynecology/Obstetrics [facility] [address] [place] [address] Adolfo Enciso MD [address] [place] [address] Health Maintenance Due Date Last Done Comments Hepatitis B (1 of 3 - 3-dose series) 1994 COVID-19 Vaccine (#1) 1994 Pneumococcal Vaccine: Pediatrics (0 to 5 Years) and At-Risk Patients (6 to 64 Years) (1 - PCV) 2000 Depression Screening 2006 Pap Smear 08/25/2026 08/25/2023 DTaP,Tdap,and Td Vaccines (2 - Td [...] filedocumented as of this encounter Care Teams Baton Teacher Relationship Specialty Start Date End Date Jo-Ann Ortiz MD [address] [facility] [place] [address] PCP - General Obstetrics/Gynecology 08/11/23 documented as of this encounter
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
--- OUTSIDE RECORDS SUMMARY | 2024-03-25 23:23 | External Medical Summary | Summary of Care ---
Author Name Unknown Organization [facility] Address [address] [facility] [place] [address] Phone [phone] Care Team Providers Care Hydro Electric Station Operator Name Role Phone Jo-Ann Ortiz MD Primary Care Provider + Encounter Details Date Type Department Care Team (Late st Contact Info) Description 12/19/2023 Orders Only PATIENT PORTAL DO NOT DELETE THIS DEPT USED BY [place] [id number] Allergies Active Allergy Reactions Criticality Noted Date Comments Sulfamethoxazole-Trimethopr im 08/19/2023 Bee Venom Anaphylaxis High 09/01/2023 Meperidine 08/19/2023 Doxycycline 08/19/2023 Morphine 08/19/2023 Difficultly breathing/hives Naloxone 08/19/2023 Shiitake Mushroom Hives 09/01/2023 Hives, shortness of breath, swelling Tetracycline 08/19/2023 documented as of this encounter (statuses as of 12/19/2023) Medications Medication Sig Dispensed Refills Start Date [...] as of this encounter (statuses as of 12/19/2023) Active Problems Problem Noted Date Diagnosed Date [...] with Subutex 8 mg BID Therapy through [employer] 2020 did well with Subutex Denies cravings [...] hand per patient. She saw Cardiovascular/Surgeon at [facility] -- Dr. Olivia. Pt states several [...] as of this encounter (statuses as of 12/19/2023) Resolved Problems Problem Noted Date Diagnosed Date Resolved Date with 8 completed weeks gestation 09/01/2023 12/16/2023 History of blood disorder 08/25/2023 IV drug abuse 08/25/2023 09/22/2023 Overview: History of IV drug abuse (opioids) Clean x 6 years / Subutex documented as of this encounter (statuses as of 12/19/2023) Immunizations Name Administration Dates Next Due Seasonal [...] money to get more. Never true 08/24/2023 [place] Depression Scale Answer Date Recorded [place] Depression Scale Total 9 08/25/2023 The thought [...] Description 12/24/2023 5:10 PM EST [facility] [address] [address] [facility] [place] [address] 2024 10:30 AM EST Office Visit Gynecology/Obstetrics [facility] [address] [place] [address] Kateryna Tabares CRNP [address] [place] [address] 2024 11:45 AM EST Imaging Maternal Medicine Imaging, [facility] [address] [place] [phone] 01/26/2024 11:30 AM EST Office Visit Gynecology/Obstetrics [facility] [address] [place] [address] Elly Lebron CRNP [address] [place] [address] 02/11/2024 10:30 AM EDT Office Visit Gynecology/Obstetrics [facility] [address] [place] [address] Elly Lebron CRNP [address] [place] [address] 02/11/2024 11:45 AM EDT Imaging Maternal Medicine Imaging, [facility] [address] [place] [phone] 02/22/2024 11:30 AM EDT Office Visit Gynecology/Obstetrics [facility] [address] [place] [address] BackerElly CRNP [address] [place] [address] 03/09/2024 1:30 PM EDT Office Visit Gynecology/Obstetrics [facility] [address] [place] [address] Adolfo Enciso MD [address] [place] [address] 03/21/2024 1:30 PM EDT Office Visit [facility]necology[facility] [address] [place] [address] Adolfo Enciso MD [address] [place] [address] 03/30/2024 10:30 AM EDT Office Visit [facility]necology[facility] [address] [place] [address] Adolfo Enciso MD [address] [place] [address] 04/05/2024 1:30 PM EDT Office Visit Gynecology/[facility] [address] [place] [address] Adolfo Enciso MD [address] [place] [address] Health Maintenance Due Date Last Done Comments [...] filedocumented as of this encounter Care Teams Hydro Electric Station Operator Relationship Specialty Start Date End Date Jo-Ann Ortiz MD [address] [place] [address] PCP - General Obstetrics/Gynecology 08/11/23 documented as of this encounter
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
--- OUTSIDE RECORDS SUMMARY | 2024-03-25 23:23 | External Medical Summary | Summary of Care ---
Author Name Unknown Organization [facility] Address [address] [place] [address] Phone [phone] Care Team Providers Care Acquisition Marketing Manager Name Role Phone Jo-Ann Ortiz MD Primary Care Provider + Encounter Details Date Type Department Care Team (Late st Contact Info) Description 2024 Telephone Gynecology/Obstetrics [facility] [address] [place] [address] Kateryna Tabares CRNP [address] [place] [address] Allergies Active Allergy Reactions Criticality Noted Date Comments Sulfamethoxazole-Trimethopr im 08/19/2023 Bee Venom Anaphylaxis High 09/01/2023 Meperidine 08/19/2023 Doxycycline 08/19/2023 Morphine 08/19/2023 Difficultly breathing/hives Naloxone 08/19/2023 Shiitake Mushroom Hives 09/01/2023 Hives, shortness of breath, swelling Tetracycline 08/19/2023 documented as of this encounter (statuses as of 2024) Medications Medication Sig Dispensed Refills Start Date [...] as of this encounter (statuses as of 2024) Active Problems Problem Noted Date Diagnosed Date [...] with Subutex 8 mg BID Therapy through [facility] 2020 did well with Subutex Denies cravings [...] hand per patient. She saw Cardiovascular/Surgeon at [facility] -- Dr. Olivia. Pt states several [...] as of this encounter (statuses as of 2024) Resolved Problems Problem Noted Date Diagnosed Date Resolved Date with 8 completed weeks gestation 09/01/2023 12/16/2023 History of blood disorder 08/25/2023 IV drug abuse 08/25/2023 09/22/2023 Overview: History of IV drug abuse (opioids) Clean x 6 years / Subutex documented as of this encounter (statuses as of 2024) Immunizations Name Administration Dates Next Due Seasonal [...] money to get more. Never true 08/24/2023 [place] Depression Scale Answer Date Recorded [place] Depression Scale Total 9 08/25/2023 The thought [...] encounter Miscellaneous Notes * Telephone Encounter - La Nena Hansen LPN - 2024 3:28 PM EST Myg sent for missed appt documented in this encounter Plan of Treatment Upcoming Encounters Date Type Department Care Team (Late st Contact Info) Description 01/21/2024 5:10 PM EST [facility] [address] [place] [address] [facility] [place] [address] [place] [address] 01/26/2024 11:30 AM EST Office Visit Gynecology/Obstetrics [facility] [place] [address] [place] [address] Elly Lebron CRNP [address] [place] [address] 02/11/2024 10:30 AM EDT Office Visit Gynecology/Obstetrics Jose [facility] [address] [place] [address] Elly Lebron CRNP [address] [place] [address] 02/11/2024 11:45 AM EDT Imaging Maternal Medicine Imaging, [place] [address] [place] [phone] 02/22/2024 11:30 AM EDT Office Visit Gynecology/Obstetrics [facility] [place] [address] [place] [address] Elly Lebron CRNP [address] [place] [address] 03/09/2024 1:30 PM EDT Office Visit Gynecology/Obstetrics [facility] [address] [place] [address] Adolfo Enciso MD [address] [place] [address] 04/05/2024 1:30 PM EDT Office Visit Gynecology/Obstetrics Jose [facility] [place] [address] [place] [address] Adolfo Enciso MD [address] [place] [address] Health Maintenance Due Date Last Done Comments Hepatitis B (1 of 3 - 3-dose series) 1994 COVID-19 Vaccine (#1) 1994 Pneumococcal Vaccine: Pediatrics (0 to 5 Years) and At-Risk Patients (6 to 64 Years) (1 - PCV) 2000 Depression Screening 2006 Pap Smear 08/25/2026 08/25/2023 Cervical Cancer Screening [...] filedocumented as of this encounter Care Teams Acquisition Marketing Manager Relationship Specialty Start Date End Date Jo-Ann Ortiz MD [address] [place] [address] PCP - General Obstetrics/Gynecology 08/11/23 documented as of this encounter
--- OUTSIDE RECORDS SUMMARY | 2024-03-25 23:23 | External Medical Summary | Summary of Care ---
Author Name Unknown Organization [facility] Address [address] [facility] [place] [address] Phone [phone] Care Team Providers Care [place] Boatman Name Role Phone Jo-Ann Ortiz MD Primary Care Provider + Reason for Visit * Reason Comments Dosage Adjustment Via Phone (anticoag Cl inic) Encounter Details Date Type Department Care Team (Latest Contact Info) Description 12/10/2023 5:10 PM EST Anticoagulation Pharmacy, [facility] 132 [facility] [place] [address] [facility] 132 [facility] [place] [address] Antiphospholipid antibody syndrome complicating (HCC)*; History of blood clots Allergies Active Allergy Reactions Criticality Noted Date Comments Sulfamethoxazole-Trimethopr im 08/19/2023 Bee Venom Anaphylaxis High 09/01/2023 Meperidine 08/19/2023 Doxycycline 08/19/2023 Morphine 08/19/2023 Difficultly breathing/hives Naloxone 08/19/2023 Shiitake Mushroom Hives 09/01/2023 Hives, shortness of breath, swelling Tetracycline 08/19/2023 documented as of this encounter (statuses as of 12/10/2023) Medications Medication Sig Dispensed Refills Start Date [...] as of this encounter (statuses as of 12/10/2023) Active Problems Problem Noted Date Diagnosed Date [...] Rheumatology after the period for long-term management. with 8 completed weeks gestation 09/01 complicated by subutex maintenance, an tepartum 08/25/2023 Overview: Reports compliance with Subutex 8 mg BID Therapy through [employer] 2019 did well with Subutex Denies cravings [...] hand per patient. She saw Cardiovascular/Surgeon at [facility] -- Dr. Olivia. Pt states [...] as of this encounter (statuses as of 12/10/2023) Resolved Problems Problem Noted Date Diagnosed Date Resolved Date History of blood disorder 08/25/2023 IV drug abuse 08/25/2023 09/22/2023 Overview: History of IV drug abuse (opioids) Clean x 6 years / Subutex documented as of this encounter (statuses as of 12/10/2023) Immunizations Name Administration Dates Next Due Seasonal [...] money to get more. Never true 08/24/2023 [place] Depression Scale Answer Date Recorded [place] Depression Scale Total 9 08/25/2023 The thought [...] this encounter Progress Notes * Lizet Ferrer [facility] - 12/10/2023 9:06 AM EST MyG message sent. Follow up in 2 weeks. Lizet Ferrer, Pharm D, BCACP Clinical Pharmacist 12/10/2023, 9:22 AM documented in this encounter Plan of Treatment Upcoming Encounters Date Type Department Care Team (Late st Contact Info) Description 12/16/2023 1:00 PM EST Imaging Radiology [facility] 1st [facility], [address] [place] [address] 12/16/2023 1:30 PM EST Imaging Radiology [address] [place] [address] 12/16/2023 2:15 PM EST Imaging Radiology [facility] 2nd [facility], [address] [place] [address] 12/16/2023 3:15 PM EST Office Visit Gynecology/Obstetrics [address] [place] [address] Kristen Marsh MD [address] [place] [address] [place] [address] 12/24/2023 5:10 PM EST Anticoagulation Pharmacy, [facility] 132 [facility] [place] [address] [facility] 132 [facility] [place] [address] 01/04/2024 11:00 AM EST Office Visit Gynecology/Obstetrics [address] [place] [address] Adolfo Enciso MD [address] [place] [address] 2024 11:45 AM EST Imaging Maternal Medicine Imaging, [address] [place] [address] 02/11/2024 11:45 AM EDT Imaging Maternal Medicine Imaging, [place] [address] [place] [phone] Health Maintenance Due Date Last Done Comments [...] embolism documented in this encounter Care Teams [place] Boatman Relationship Specialty Start Date End Date Jo-Ann Ortiz MD [address] [place] [address] PCP - General Obstetrics/Gynecology 08/11/23 documented as of this encounter
--- OUTSIDE RECORDS SUMMARY | 2024-03-25 23:23 | External Medical Summary | Summary of Care ---
Author Name Unknown Organization [facility] Address [address] [place] [address] Phone [phone] Care Team Providers Care Cost Accounting Analyst Name Role Phone Jo-Ann Ortiz MD Primary Care Provider + Reason for Visit * Reason Comments Dosage Adjustment Via Phone (anticoag Cl inic) Encounter Details Date Type Department Care Team (Latest Contact Info) Description 01/07/2024 5:10 PM EST Anticoagulation Pharmacy, [facility] 132 [facility] [place] [address] [facility] 132 [facility] [place] [address] Antiphospholipid antibody syndrome complicating (HCC)*; History of blood clots Allergies Active Allergy Reactions Criticality Noted Date Comments Sulfamethoxazole-Trimethopr im 08/19/2023 Bee Venom Anaphylaxis High 09/01/2023 Meperidine 08/19/2023 Doxycycline 08/19/2023 Morphine 08/19/2023 Difficultly breathing/hives Naloxone 08/19/2023 Shiitake Mushroom Hives 09/01/2023 Hives, shortness of breath, swelling Tetracycline 08/19/2023 documented as of this encounter (statuses as of 01/07/2024) Medications Medication Sig Dispensed Refills Start Date [...] as of this encounter (statuses as of 01/07/2024) Active Problems Problem Noted Date Diagnosed Date [...] with Subutex 8 mg BID Therapy through [employer] 2019 did well with Subutex Denies cravings [...] patient. She saw Cardiovascular/Surgeon at [facility] -- Dr. Olivia. Pt states several echocardiograms [...] as of this encounter (statuses as of 01/07/2024) Resolved Problems Problem Noted Date Diagnosed Date Resolved Date with 8 completed weeks gestation 09/01/2023 12/16/2023 History of blood disorder 08/25/2023 IV drug abuse 08/25/2023 09/22/2023 Overview: History of IV drug abuse (opioids) Clean x 6 years / Subutex documented as of this encounter (statuses as of 01/07/2024) Immunizations Name Administration Dates Next Due Seasonal [...] money to get more. Never true 08/24/2023 [place] Depression Scale Answer Date Recorded [place] Depression Scale Total 9 08/25/2023 The thought [...] this encounter Progress Notes * Lizet Ferrer [facility] - 01/07/2024 8:14 AM EST 26 weeks gestation My G message sent to patient regarding lovenox. Follow up in 2 weeks unless problems/concerns. Lizet Ferrer, Pharm D, BCACP Clinical Pharmacist 01/07/2024, 8:23 AM documented in this encounter Plan of Treatment Upcoming Encounters Date Type Department Care Team (Late st Contact Info) Description 2024 10:30 AM EST Office Visit Gynecology/Obstetrics [facility] [address] [place] [address] Kateryna Tabares CRNP [address] [place] [address] 2024 11:45 AM EST Imaging Maternal Medicine Imaging, [facility] [address] [place] [address] 01/21/2024 5:10 PM EST Anticoagulation Pharmacy, [facility] [address] [place] [address] [facility] [address] [place] [address] 01/26/2024 11:30 AM EST [facility] [address] [place] [address] Elly Lebron CRNP [address] [place] [address] 02/11/2024 10:30 AM EDT Office Visit Gynecology/Obstetrics [facility] [address] [place] [address] Elly Lebron CRNP [address] [place] [address] 02/11/2024 11:45 AM EDT Imaging Maternal Medicine Imaging, [place] [address] [place] [address] 02/22/2024 11:30 AM EDT Office Visit Gynecology/Obstetrics Jose Carlos [place] [address] [place] [address] Elly Lebron CRNP [address] [place] [address] 03/09/2024 1:30 PM EDT Office Visit Gynecology/Obstetrics Jose [facility] [place] [address] [place] [address] Adolfo Enciso MD [address] [place] [address] 04/05/2024 1:30 PM EDT Office Visit Gynecology/Obstetrics Jose [facility] [place] [address] [place] [address] Adolfo Enciso MD [address] [place] [address] Health Maintenance Due Date Last Done Comments [...] embolism documented in this encounter Care Teams Cost Accounting Analyst Relationship Specialty Start Date End Date Jo-Ann Ortiz MD [address] [place] [address] PCP - General Obstetrics/Gynecology 08/11/23 documented as of this encounter
--- OUTSIDE RECORDS SUMMARY | 2024-03-25 23:23 | External Medical Summary | Summary of Care ---
Author Name Unknown Organization [facility] Address [address] [facility] [place] [address] Phone [phone] Care Team Providers Care Assistant Financial Accountant Name Role Phone Jo-Ann Ortiz MD Primary Care Provider + Reason for Visit * Reason Comments Dosage Adjustment Via Phone (anticoag Cl inic) Encounter Details Date Type Department Care Team (Latest Contact Info) Description 12/24/2023 5:10 PM EST Anticoagulation Pharmacy, [facility] 132 [facility] [place] [address] [facility] 132 [facility] [place] [address] Antiphospholipid antibody syndrome complicating (HCC)*; History of blood clots Allergies Active Allergy Reactions Criticality Noted Date Comments Sulfamethoxazole-Trimethopr im 08/19/2023 Bee Venom Anaphylaxis High 09/01/2023 Meperidine 08/19/2023 Doxycycline 08/19/2023 Morphine 08/19/2023 Difficultly breathing/hives Naloxone 08/19/2023 Shiitake Mushroom Hives 09/01/2023 Hives, shortness of breath, swelling Tetracycline 08/19/2023 documented as of this encounter (statuses as of 12/24/2023) Medications Medication Sig Dispensed Refills Start Date [...] as of this encounter (statuses as of 12/24/2023) Active Problems Problem Noted Date Diagnosed Date [...] with Subutex 8 mg BID Therapy through [employer] 2019 did well with Subutex Denies cravings [...] patient. She saw Cardiovascular/Surgeon at [facility] -- Dr. Olivia. Pt [...] as of this encounter (statuses as of 12/24/2023) Resolved Problems Problem Noted Date Diagnosed Date Resolved Date with 8 completed weeks gestation 09/01/2023 12/16/2023 History of blood disorder 08/25/2023 IV drug abuse 08/25/2023 09/22/2023 Overview: History of IV drug abuse (opioids) Clean x 6 years / Subutex documented as of this encounter (statuses as of 12/24/2023) Immunizations Name Administration Dates Next Due Seasonal [...] money to get more. Never true 08/24/2023 [place] Depression Scale Answer Date Recorded [place] Depression Scale Total 9 08/25/2023 The thought [...] this encounter Progress Notes * Lizet Ferrer [facility] - 12/24/2023 8:10 AM EST Patient currently 24 weeks gestation. Follow up in 2 weeks for lovenox progress. Lizet Ferrer, Pharm D, BCACP Clinical Pharmacist 12/24/2023, 8:13 AM documented in this encounter Plan of Treatment Upcoming Encounters Date Type Department Care Team (Late st Contact Info) Description 01/07/2024 5:10 PM EST Anticoagulation Pharmacy, Jose [facility] [address] [place] [address] [facility] [place] [address] [place] [address] 2024 10:30 AM EST Office Visit Gynecology/Obstetrics Jose [facility] [place] [address] [place] [address] Kateryna Tabares CRNP [address] [place] [address] 2024 11:45 AM EST Imaging Maternal Medicine Imaging, [place] P[place]ta [address] [place] [phone] 01/26/2024 11:30 AM EST Office Visit Gynecology/Obstetrics Jose [facility] [place] [address] [place] [address] Elly Lebron CRNP [address] [place] [address] 02/11/2024 10:30 AM EDT Office Visit Gynecology/Obstetrics Jose [facility] [place] [address] [place] [address] Elly Lebron CRNP [address] [place] [address] 02/11/2024 11:45 AM EDT Imaging Maternal Medicine Imaging, [place] [address] [place] [address] 02/22/2024 11:30 AM EDT Office Visit Gynecology/Obstetrics Jose [facility] [place] [address] [place] [address] Elly Lebron CRNP [address] [place] [address] 03/09/2024 1:30 PM EDT Office Visit Gynecology/Obstetrics Jose Carlos [place] [address] [place] [address] Adolfo Enciso MD [address] [place] [address] 04/05/2024 1:30 PM EDT Office Visit Gynecology/Obstetrics Jose Carlos [place] [address] [place] [address] Adolfo Enciso MD [address] [place] [address] Health Maintenance Due Date Last Done Comments [...] embolism documented in this encounter Care Teams Assistant Financial Accountant Relationship Specialty Start Date End Date Jo-Ann Ortiz MD [address] [place] [address] PCP - General Obstetrics/Gynecology 08/11/23 documented as of this encounter
--- OUTSIDE RECORDS SUMMARY | 2024-03-25 23:23 | External Medical Summary | Summary of Care ---
Author Name Unknown Organization [facility] Address [address] [place] [address] Phone [phone] Care Team Providers Care Desizing Machine Operator Head End Name Role Phone Jo-Ann Ortiz MD Primary Care Provider + Reason for Referral * Evaluate & Treat - Unlimited Visits (Within 10 days (routine)) - Pending Review Specialty Diagnoses / Procedures Referred By Imelda marcelino Referred To Contact Maternal and Medicine Diagnoses 23 weeks gestation of Kristen Marsh MD [address] [facility] [place] [address] Referral ID Status Reason Start Date Expiration Date Visits Requested Visits Authorized [id number] Pending Review Specialty Services Required 12/16/[phone] Question Answer Referral Priority Within 10 days (routine) Where should this appointment be scheduled? [facility] Referral Reason subutx in pregancy [facility] the [facility]? Yes Reason for Visit * Reason Comments Return Visit Encounter Details Date Type Department Care Team (Late st Contact Info) Description 12/16/2023 3:15 PM EST Office Visit Gynecology/Obstetric s [address] [place] [address] Kristen Marsh MD [address] [facility] [place] [address] 23 weeks gestation of *; History [...] with Subutex 8 mg BID Therapy through [employer] 2019 did well with Subutex Denies cravings [...] hand per patient. She saw Cardiovascular/Surgeon at [facility] -- Dr. Olivia. Pt states several echocardiograms [...] money to get more. Never true 08/24/2023 [place] Depression Scale Answer Date Recorded [place] Depression Scale Total 9 08/25/2023 The thought [...] Description 12/24/2023 5:10 PM EST Anticoagulation Pharmacy, [facility] [address] [place] [address] [facility] [address] [place] [address] 2024 10:30 AM EST Office Visit Gynecology/Obstetrics [facility] [address] [place] [address] Kateryna Tabares CRNP [address] [place] [address] 2024 11:45 AM EST Imaging Maternal Medicine Imaging, [place] [address] [address] [place] [phone] 01/26/2024 11:30 AM EST Office Visit Gynecology/Obstetrics [facility] [address] [place] [address] BackerElly CRNP [address] [place] [address] 02/11/2024 10:30 AM EDT Office Visit Gynecology/Obstetrics [facility] [address] [place] [address] BackerElly CRNP [address] [place] [address] 02/11/2024 11:45 AM EDT Imaging Maternal Medicine Imaging, [place] [address] [place] [address] 02/22/2024 11:30 AM EDT Office Visit Gynecology/Obstetrics [facility] [address] [place] [address] BackerElly CRNP [address] [place] [address] 03/09/2024 1:30 PM EDT Office Visit Gynecology/Obstetrics [facility] [address] [place] [address] Adolfo Enciso MD [address] [place] [address] 03/15/2024 10:30 AM EDT Office Visit Gynecology/Obstetrics [facility] [address] [place] [address] Adolfo Enciso MD [address] [place] [address] 03/21/2024 1:30 PM EDT Office Visit Gynecology/Obstetrics [facility] [address] [place] [address] Adolfo Enciso MD [address] [place] [address] 03/30/2024 10:30 AM EDT Office Visit Gynecology/Obstetrics [facility] [address] [place] [address] Adolfo Enciso MD [address] [place] [address] 04/05/2024 1:30 PM EDT Office Visit Gynecology/Obstetrics [facility] [address] [place] [address] Adolfo Enciso MD [address] [place] [address] Scheduled Orders Name Type Priority Associated Diagnoses [...] type documented in this encounter Care Teams Desizing Machine Operator Head End Relationship Specialty Start Date End Date Jo-Ann Ortiz MD 132 [facility] [place] [address] PCP - General Obstetrics/Gynecology 08/11/23 documented as of this encounter"
--- OUTSIDE RECORDS SUMMARY | 2024-03-25 23:24 | External Medical Summary | Summary of Care ---
Author Name Unknown Organization [facility] Address [address] [place] [address] Phone [phone] Care Team Providers Care Field Coordinator Name Role Phone Jo-Ann Ortiz MD Primary Care Provider + Reason for Visit * Reason Comments Outpatient Testing Encounter Details Date Type Department Care Team (Late st Contact Info) Description 11/02/2023 2:00 PM EST Laboratory Laboratory, [facility] [address] [place] [phone] [facility] [address] [place] [address] Vaginal bleeding in ; Supervision of high risk in second trimester Allergies Active Allergy Reactions Criticality Noted Date Comments Sulfamethoxazole-Trimethopr im 08/19/2023 Bee Venom Anaphylaxis High 09/01/2023 Meperidine 08/19/2023 Doxycycline 08/19/2023 Morphine 08/19/2023 Difficultly breathing/hives Naloxone 08/19/2023 Shiitake Mushroom Hives 09/01/2023 Hives, shortness of breath, swelling Tetracycline 08/19/2023 documented as of this encounter (statuses as of 11/02/2023) Medications Medication Sig Dispensed Refills Start Date End Date Status Buprenorphine HCl 8 MG Sublingual Tablet Sublingual (Subutex) Place 1 Tablet under the tongue in the morning and 1 Tablet in the evening. 0 Active Plus 27-1 MG Oral TabletIndications:Ea rly stage of Take 1 Tablet by mouth in the morning. 100 Tablet 3 08/19/2023 Active Aspirin 81 MG Oral Tablet Delayed Release Take 1 Tablet by mouth in the morning. 0 Active Naproxen Sodium 220 MG Oral Capsule Take 1 Capsule by mouth as needed. 0 Active Ondansetron HCl 8 MG Oral Tablet (Zofran) Take 1 Tablet by mouth every 8 hours as needed for Nausea. 30 Tablet 1 11/02/2023 Active documented as of this encounter (statuses as of 11/02/2023) Active Problems Problem Noted Date Diagnosed Date with 8 completed weeks gestation 09/01 complicated by subutex maintenance, an tepartum 08/25/2023 Overview: Reports compliance with Subutex 8 mg BID Therapy through [employer] 2020 did well with Subutex Denies cravings or withdrawal symptoms at current dose. Last Assessment & Plan: DISCUSSION: 1. Discussed that the benefits of Suboxone/Subutex therapy include the prevention of erratic maternal opioid levels and protection of the fetus from repeated episodes of withdrawal. Additionally it can decrease the risk of infection from HIV, hepatitis, and other STD's. It also reduces the obstetrical and complications associated with heroin use such as withdrawal syndrome, pre-eclampsia, premature labor and delivery, intrauterine growth retardation, or , non-reassuring status, and placental abruption. 2. Reviewed that Suboxone/Subutex therapy can cause withdrawal syndrome with seizures and respiratory distress as well as GI dysfunction, although the risk of this complication is considered to be lower than that of either heroin or methadone use. 3. Suboxone/Subutex therapy has been used in [place] for more than ten years for maintenance during and extensive literature indicates that its use is safe and effective. It is not approved for use in in the [place] yet, but is being widely used. Reviewed with patient that Methadone is FDA approved for use in and is still the drug of choice for treatment/maintenance of the narcotic-dependent woman during . RECOMMENDATIONS: 1. When opioid maintenance programs are available to patients, medically supervised withdrawal should be discouraged during (ACOG Committee Opinion, reaffirmed 2014). 2. Recommend growth scans every 4 weeks to monitor for growth restriction. , supervision, high-risk 08/25/2023 complicated by tobacco [...] She saw Cardiovascular/Surgeon at [facility] -- Dr. Olivia. Pt states several [...] determine if LA is persistent. Resulting Agency Last Assessment & Plan: CONSIDERATIONS: Explained that women who have a history of VTE outside of with no hypercoagulable state and a known temporary risk factor prior to the VTE have a less than 1% risk of developing VTE in a subsequent . Discussed that approximately 20-50% of women who develop VTE in have an underlying thrombophilia. RECOMMENDATIONS: We do not recommend anticoagulation therapy during the antepartum period of subsequent pregnancies for these patients. We do, however, recommend prophylactic anticoagulation for 6-8 weeks. We therefore recommend thrombophilia workup if not already done (to include Factor V Leiden mutation, Prothrombin gene mutation, free Protein S activity, functional Protein C activity, Antithrombin III activity, IgG and IgM Anticardiolipin antibodies, IgG and IgM anti beta2 glycoprotein antibodies, Lupus anticoagulant). hemorrhage 08/25/2023 History of hemorrhage 08/25/2023 History of MRSA infection 08/25/2023 Supervision of high risk due to social problems 08/25/2023 Overview: Incarceration 08/28 for driving on suspended license Estimated Date of Delivery Comme nts Yes 04/12/2024 Based on last me nstrual period of 07/07/2023 documented as of this encounter (statuses as of 11/02/2023) Resolved Problems Problem Noted Date Diagnosed Date Resolved Date History of blood disorder 08/25/2023 IV drug abuse 08/25/2023 09/22/2023 Overview: History of IV drug abuse (opioids) Clean x 6 years / Subutex documented as of this encounter (statuses as of 11/02/2023) Immunizations Name Administration Dates Next Due SEASONAL INFLUENZA, PF, 6 M & Above, IM , (FLULAVAL or FLUZONE) 09/22/2023 Seasonal Influenza Virus Vac cine, Unspecified Formulation 01/02/2020,09/25/2016 TDAP (age 11 and older)(Adacel) 07/04/2020 documented [...] money to get more. Never true 08/24/2023 [place] Depression Scale Answer Date Recorded [place] Depression Scale Total 9 08/25/2023 The thought [...] Care Team (Late st Contact Info) Description 11/16/2023 12:30 PM EST Office Visit Comparator Operator Obstetrics Maternal Medicine, [place] [address] [place] [address] Benito Friend MD [address] [place] [address] 11/16/2023 12:30 PM EST Imaging Radiology [facility] [address] [place] [address] 12/07/2023 1:00 PM EST Office Visit Gynecology/Obstetrics [facility] [address] [place] [address] Adolfo Enciso MD [address] [place] [address] 01/04/2024 11:00 AM EST Office Visit Gynecology/Obstetrics [facility] [address] [place] [address] Adolfo Enciso MD [address] [place] [address] Pending Results Name Type Priority Associated Diagnoses Date /Time BETA-HCG, QUANTITATIVE Lab Routine Vaginal bleeding in 11/02/2023 1:49 PM EST MATERNAL SERUM AFP Lab Routine Supervision of high risk in second trimester 11/02/2023 1:49 PM EST Health Maintenance Due Date Last Done Comments [...] as of this encounter Visit Diagnoses Diagnosis Vaginal bleeding in Unspecified antepartum hemorrhage, unspecified as to episode of care Supervision of high risk in second trimester Unspecified high-risk documented in this encounter Care Teams Field Coordinator Relationship Specialty Start Date End Date Jo-Ann Ortiz MD [address] [place] [address] PCP - General Obstetrics/Gynecology 08/11/23 documented as of this encounter
--- OUTSIDE RECORDS SUMMARY | 2024-03-25 23:24 | External Medical Summary | Summary of Care ---
Author Name Unknown Organization [facility] Address [address] [place] [address] Phone [phone] Care Team Providers Care Mica Inspector Name Role Phone Jo-Ann Ortiz MD Primary Care Provider + Reason for Visit * Reason Comments Ultrasound Encounter Details Date Type Department Care Team (Late st Contact Info) Description 11/16/2023 12:30 PM EST Office Visit Fitness And Wellness Coordinator Obstetrics Maternal Medicine, [place] [address] [place] [address] Benito Friend MD [address] [place] [address] complicated by subutex maintenance, antepartum (HCC)*; complicated by tobacco use in first trimester; History of blood clots; History of hemorrhage Allergies Active Allergy Reactions Criticality Noted Date Comments Sulfamethoxazole-Trimethopr im 08/19/2023 Bee Venom Anaphylaxis High 09/01/2023 Meperidine 08/19/2023 Doxycycline 08/19/2023 Morphine 08/19/2023 Difficultly breathing/hives Naloxone 08/19/2023 Shiitake Mushroom Hives 09/01/2023 Hives, shortness of breath, swelling Tetracycline 08/19/2023 documented as of this encounter (statuses as of 11/16/2023) Medications Medication Sig Dispensed Refills Start Date [...] as of this encounter (statuses as of 11/16/2023) Active Problems Problem Noted Date Diagnosed Date [...] with Subutex 8 mg BID Therapy through [employer] 2019 did well with Subutex Denies cravings [...] patient. She saw Cardiovascular/Surgeon at [facility] -- Dr. Olivia. Pt states [...] as of this encounter (statuses as of 11/16/2023) Resolved Problems Problem Noted Date Diagnosed Date Resolved Date History of blood disorder 08/25/2023 IV drug abuse 08/25/2023 09/22/2023 Overview: History of IV drug abuse (opioids) Clean x 6 years / Subutex documented as of this encounter (statuses as of 11/16/2023) Immunizations Name Administration Dates Next Due Seasonal [...] money to get more. Never true 08/24/2023 [place] Depression Scale Answer Date Recorded [place] Depression Scale Total 9 08/25/2023 The thought [...] as of this encounter Progress Notes * Benito Friend MD - 11/16/2023 12:17 PM EST MATERNAL MEDICINE VISIT Veronica Melendrez is at 18w6d who presents to [facility] for an ultrasound and follow-up of her high risk . The patient is currently 18 weeks and 6 days gestation with Subutex maintenance therapy in . 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 During this , she has had a low risk noninvasive screen and a negative maternal serum alpha fetoprotein screen. She is being seen today by Maternal- Medicine for the following reasons: Problem List Items Addressed This Visit complicated by subutex maintenance, antepartum (HCC) - Primary (Chronic) I reviewed the ultrasound with her. The anatomy that was visualized appears unremarkable and the biometry is appropriate for the gestational age. The amniotic fluid volume is subjectivelynormal. I reviewed her negative maternal serum alpha fetoprotein and her low risk noninvasive screen in light of the normal ultrasound findings. Relevant Orders [facility] US PREG FOLLOW UP EACH FETUS complicated by tobacco use Relevant Orders [facility] US PREG FOLLOW UP EACH FETUS History of blood clots I reviewed her anticardiolipin and lupus anticoagulant labs. It does appear as though her lupus anticoagulant is positive. Due to her history of an arterial thrombosis and a positive lupus anticoagulant, we recommend the patient being started on heparin. She is already on a baby aspirin. Our nurse practitioner will reach out to her for follow-up for this. Relevant Orders [facility] US PREG FOLLOW UP EACH FETUS History of hemorrhage Relevant Orders [facility] US PREG FOLLOW UP EACH FETUS We reviewed today's ultrasound findings. (For full report, please refer to ultrasound report provided separately). Ms. Melendrez's questions were answered to her satisfaction. Ms. Melendrez was instructed to notify her primary rn private duty if she felt regular contractions (approximately every 10 mins), leaking of fluid, vaginal bleeding or if movement decreased. Thank you for allowing us to participate in the care of this patient. Please call with any questions. Benito Friend MD 11/16/2023 12:17 PM documented in this encounter Nursing Notes * Day Aguilar, MED ASSIST - 11/16/2023 12:28 PM EST Patient states she fell last week, hit her abdomen into a bookcase. She was not seen afterwards, but notes bruising on her abdomen. documented in this encounter Miscellaneous Notes * Assessment & Plan Note - Benito Friend MD - 11/16/2023 2:08 PM EST Associated Problem(s): History of blood clots I reviewed her anticardiolipin and lupus anticoagulant labs. It does appear as though her lupus anticoagulant is positive. Due to her history of an arterial thrombosis and a positive lupus anticoagulant, we recommend the patient being started on heparin. She is already on a baby aspirin. Our nurse practitioner will reach out to her for follow-up for this. * Assessment & Plan Note - Benito Friend MD - 11/16/2023 2:07 PM EST Associated Problem(s): complicated by subutex maintenance, antepartum (HCC) I reviewed the ultrasound with her. The anatomy that was visualized appears unremarkable and the biometry is appropriate for the gestational age. The amniotic fluid volume is subjectivelynormal. I reviewed her negative maternal serum alpha fetoprotein and her low risk noninvasive screen in light of the normal ultrasound findings. documented in this encounter Plan of Treatment Upcoming Encounters Date Type Department Care Team (Late st Contact Info) Description 12/07/2023 1:00 PM EST Office Visit Gynecology/Obstetrics [facility] [address] [place] [address] Adolfo Enciso MD [address] [place] [address] 01/04/2024 11:00 AM EST Office Visit Gynecology/Obstetrics [facility] [address] [place] [address] Adolfo Enciso MD [address] [place] [address] 2024 11:45 AM EST Imaging Maternal Medicine Imaging, [place] [address] [place] [phone] 02/11/2024 11:45 AM EDT Imaging Maternal Medicine Imaging, [place] [address] [place] [phone] Pending Results Name Type Priority Associated Diagnoses Date /Time MFM US MATERNAL 1ST FETUS Medical Imaging Routine complicated by tobacco use in first trimester History of blood clots History of hemorrhage 11/16/2023 1:53 PM EST Scheduled Orders Name Type Priority Associated Diagnoses Orde r Schedule MFM US PREG FOLLOW UP EACH FETUS Medical Imaging Routine complicated by tobacco use in first trimester History of blood clots History of hemorrhage complicated by subutex maintenance, antepartum (HCC) 6 Occurrences starting 11/16/2023 until 05/17/2024 Health Maintenance Due Date Last Done Comments [...] as of this encounter Visit Diagnoses Diagnosis complicated by subutex maintenance, antepartum (HCC)- Primary complicated by tobacco use in first trimester History of blood clots Personal history of venous thrombosis and embolism History of hemorrhage documented in this encounter Care Teams Mica Inspector Relationship Specialty Start Date End Date Jo-Ann Ortiz MD [address] [place] [address] PCP - General Obstetrics/Gynecology 08/11/23 documented as of this encounter
--- OUTSIDE RECORDS SUMMARY | 2024-03-25 23:24 | External Medical Summary | Summary of Care ---
Author Name Unknown Organization [facility] Address [address] [place] [address] Phone [phone] Care Team Providers Care Him Manager Name Role Phone Jo-Ann Ortiz MD Primary Care Provider + Reason for Visit * Reason Onset Date Comments Referral 08/25/2023 Encounter Details Date Type Department Care Team (Late st Contact Info) Description 08/25/2023 Telephone Gynecology/Obstetrics [facility] [address] [place], [place] [id number] Galina Toribio PA-C [address] [place] [address] Referral Allergies Active Allergy Reactions Criticality Noted Date Comments Sulfamethoxazole-Trimethopr im 08/19/2023 Bee Venom Anaphylaxis High 09/01/2023 Meperidine 08/19/2023 Doxycycline 08/19/2023 Morphine 08/19/2023 Difficultly breathing/hives Naloxone 08/19/2023 Shiitake Mushroom Hives 09/01/2023 Hives, shortness of breath, swelling Tetracycline 08/19/2023 documented as of this encounter (statuses as of 11/24/2023) Medications Medication Sig Dispensed Refills Start Date End Date Status Buprenorphine HCl 8 MG Sublingual Tablet Sublingual (Subutex) Place 1 Tablet under the tongue in the morning and 1 Tablet in the evening. 0 Active Plus 27-1 MG Oral TabletIndications :Early stage of Take 1 Tablet by mouth in the morning. 100 Tablet 3 08/19/2023 Active Clindamycin HCl 150 MG Oral Capsule (Cleocin) Take 1 Capsule by mouth in the morning and 1 Capsule at noon and 1 Capsule before bedtime. 0 09/22/2023 Discontinued Cephalexin 250 MG Oral Capsule Take 1 Capsule by mouth in the morning and 1 Capsule at noon and 1 Capsule in the evening and 1 Capsule before bedtime. 0 09/22/2023 Discontinued documented as of this encounter (statuses as of 11/24/2023) Active Problems Problem Noted Date Diagnosed Date [...] with Subutex 8 mg BID Therapy through [employer] 2019 did well with Subutex Denies cravings [...] patient. She saw Cardiovascular/Surgeon at [facility] -- Dr. Olivia. Pt states several [...] as of this encounter (statuses as of 11/24/2023) Resolved Problems Problem Noted Date Diagnosed Date Resolved Date History of blood disorder 08/25/2023 IV drug abuse 08/25/2023 09/22/2023 Overview: History of IV drug abuse (opioids) Clean x 6 years / Subutex documented as of this encounter (statuses as of 11/24/2023) Immunizations Name Administration Dates Next Due Seasonal Influenza Virus Vac cine, Unspecified Formulation 01/02/2020,09/25/2016 TDAP (age 11 and older)(Adacel) 07/04/2020 documented as of this encounter Social History Tobacco Use Types Packs/Day Years Used Date Smoking Tobacco: Every Day Cigarettes 0.5 Smokeless Tobacco: Never Alcohol Use Standard Drinks/Week Comments Not Currently [...] money to get more. Never true 08/24/2023 [place] Depression Scale Answer Date Recorded [place] Depression Scale Total 9 08/25/2023 The thought [...] encounter Miscellaneous Notes * Telephone Encounter - Diane Jeffers OSA - 08/27/2023 10:00 AM EDT Appointments scheduled * Telephone Encounter - Diane Jeffers OSA - 08/25/2023 1:51 PM EDT Patient asked to call back in an hour. 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 Please schedule anatomy between 19-21 weeks (11/16/23-11/30/23). Referring Provider: Isaiah Toribio Sent to scheduling pool documented in this encounter Plan of Treatment Upcoming Encounters Date Type Department Care Team (Late st Contact Info) Description 11/26/2023 5:10 PM EST Anticoagulation Pharmacy, [address] [place] [address] [facility] [address] [place] [address] 12/16/2023 1:00 PM EST Imaging Radiology [facility] 1st [facility] [place] Mack[place] [facility] [place] [address] 12/16/2023 1:30 PM EST Imaging Radiology [address] [place] [address] 12/16/2023 2:15 PM EST Imaging Radiology [facility] 2nd [facility] [place] Mackenzie [place] [address] 12/16/2023 3:15 PM EST Office Visit Gynecology/Obstetrics [address] [place] [address] Kristen Marsh MD [address] [facility] [place] [address] 01/04/2024 11:00 AM EST Office Visit Gynecology/Obstetrics [facility] [address] [place] [address] Adolfo Enciso MD [address] [place] [address] 2024 11:45 AM EST Imaging Maternal Medicine Imaging, [facility]lette Peralta [address] [place] [phone] 02/11/2024 11:45 AM EDT Imaging Maternal Medicine Imaging, [place] [address] [place] [phone] Health Maintenance Due Date Last Done Comments [...] filedocumented as of this encounter Care Teams Him Manager Relationship Specialty Start Date End Date Jo-Ann Ortiz MD [address] [place] [address] PCP - General Obstetrics/Gynecology 08/11/23 documented as of this encounter
--- OUTSIDE RECORDS SUMMARY | 2024-03-25 23:24 | External Medical Summary | Summary of Care ---
Author Name Unknown Organization [facility] Address [address] [place] [address] Phone [phone] Care Team Providers Care Digital Media Associate Name Role Phone Jo-Ann Ortiz MD Primary Care Provider + Reason for Visit * Reason Comments Outpatient Testing Encounter Details Date Type Department Care Team (Late st Contact Info) Description 11/02/2023 2:00 PM EST Laboratory Laboratory, [facility] [address] [place] [phone] [facility] [address] [place] [address] Vaginal bleeding in ; Supervision of high [...] with Subutex 8 mg BID Therapy through [employer] 2020 did well with Subutex Denies cravings [...] hand per patient. She saw Cardiovascular/Surgeon at [facility] -- Dr. Olivia. Pt states several echocardiograms [...] money to get more. Never true 08/24/2023 [facility] Depression Scale Answer Date Recorded [facility] Depression Scale Total 9 08/25/2023 The thought [...] Description 11/16/2023 12:30 PM EST Office Visit Calliope Player Obstetrics Maternal Medicine, [place] [address] [place] [address] Benito Friend MD [address] [place] [address] 11/16/2023 12:30 PM EST Imaging Radiology [facility] [address] [place] [address] 12/07/2023 1:00 PM EST Office Visit Gynecology/Obstetrics [facility] [address] [place] [address] Adolfo Enciso MD [address] [place] [address] 01/04/2024 11:00 AM EST Office Visit Gynecology/Obstetrics [facility] [address] [place] [address] Adolfo Enciso MD [address] [place] [address] Pending Results Name Type Priority Associated Diagnoses [...] high-risk documented in this encounter Care Teams Digital Media Associate Relationship Specialty Start Date End Date Jo-Ann Ortiz MD [address] [place] [address] PCP - General Obstetrics/Gynecology 08/11/23 documented as of this encounter
--- OUTSIDE RECORDS SUMMARY | 2024-03-25 23:24 | External Medical Summary | Summary of Care ---
Author Name Unknown Organization [facility] Address [address] [facility] [place] [address] Phone [phone] Care Team Providers Care Marketing Recruiter Name Role Phone Jo-Ann Ortiz MD Primary Care Provider + Reason for Visit * Reason Comments Return Visit Encounter Details Date Type Department Care Team (Late st Contact Info) Description 11/02/2023 1:30 PM EST [facility] [address] [place] [address] BackElly spence CRNP [address] [place] [address] Supervision of high risk in second trimester*; complicated by subutex maintenance, antepartum (HCC); complicated by tobacco use in second trimester; History of blood clots; History of hemorrhage; Supervision of high risk due to social problems in second trimester Allergies Active Allergy Reactions [...] for Nausea. 30 Tablet 1 11/02/2023 Active Ondansetron HCl 4 MG Oral Tablet Take [...] with Subutex 8 mg BID Therapy through [employer] 2019 did well with Subutex Denies [...] She saw Cardiovascular/Surgeon at [facility] -- Dr. Olivia. [...] money to get more. Never true 08/24/2023 [place] Depression Scale Answer Date Recorded [place] Depression Scale Total 9 08/25/2023 The thought [...] Sign Reading Time Taken Comments Blood Pressure 118/70 11/02/2023 1:11 PM EST Pulse - - Temperature - - Respiratory Rate - - Oxygen Saturation - - Inhaled Oxygen Concentration - - Weight 90.7 kg (200 lb) 11/02/2023 1:11 PM EST Height - - Body Mass Index 31.32 08/25/2023 11:01 AM EDT documented in this encounter Progress Notes * Elly Lebron CRNP - 11/02/2023 1:12 PM EST 16w6d + movement. No cramping, bleeding. Reports bladder pain x1 week, no dysuria; no leukocytes on urine dip. Requesting 8 mg Zofran rather than 4, new rx sent. Having diarrhea, feels it is improving. Ok to use OTC Imodium, recommend f/u with PCP if it worsens or persists. Low risk NIPT. Discussed MSAFP and screening for ONTD: pt accepts. Scheduled with MFM for anatomy scan in 2 weeks. 4 week return. BRANDON Angulo * Eloina Parrish LPN - 11/02/2023 1:12 PM EST 16w6d Denies vaginal bleeding/rom + movement Asking for 8mg zofran Bladder pain- denies pain/burning with urination documented in this encounter Miscellaneous Notes * Addendum Note - Eloina Parrish LPN - 11/02/2023 1:34 PM ESTAddended by: ELOINA PARRISH on: 11/02/2023 01:34 PM Modules accepted: Orders documented in this encounter Plan of Treatment Upcoming Encounters Date Type Department Care Team (Late st Contact Info) Description 11/02/2023 2:00 PM EST Laboratory Laboratory, [facility] [address] [place] [phone] [facility] 132 [facility] [place] [address] Arrived 11/16/2023 12:30 PM EST Office Visit Retail Merchandising Specialist Obstetrics Maternal Medicine, [address] [address] Benito Friend MD [address] [place] [address] 11/16/2023 12:30 PM EST Imaging Radiology [facility] [place] [address] [place] [address] 12/07/2023 1:00 PM EST Office Visit Gynecology/Obstetrics [facility] [address] [place] [address] Adolfo Enciso MD 132 [facility] [place] [address] 01/04/2024 11:00 AM EST Office Visit [facility]necology[facility]st[facility] [address] [place] [address] Adolfo Enciso MD [address] [place] [address] Scheduled Orders Name Type Priority Associated Diagnoses Orde r Schedule MATERNAL SERUM AFP Lab Routine Supervision of high risk in second trimester Expected: 11/02/2023 (Approximate), Expires: 11/02/2024 Health Maintenance Due Date Last Done Comments [...] Comments URINALYSIS, POINT OF CARE (ENTER/EDIT) Routine 11/02/2023 Supervision of high risk in second trimester documented in this encounter Results * URINALYSIS, POINT OF CARE (ENTER/EDIT) (11/02/2023) Color, Urine Yellow Yellow or Light Yellow Clarity, Urine Clear Clear Glucose, Urine Negative Negative mg/dL Bilirubin, Urine Negative Negative Ketone, Urine Negative Negative mg/dL Specific [place], Urine 1.020 1.003 - 1.030 Blood, Urine Negative Negative pH, Urine 7.0 5.0 - 7.5 units Protein, Urine Trace Negative mg/dL Urobilinogen, Urine 0.2 0.2 - 1.0 mg/dL Nitrite, Urine Negative Negative Esterase, Urine Negative Negative Urine 11/02/2023 Elly Burden Backer BRANDON LAB POINT O F CARE TEST ENTER/EDIT ORDERABLES documented in this encounter Visit Diagnoses Diagnosis Supervision of high risk in second trimester- Primary Unspecified high-risk complicated by subutex maintenance, antepartum (HCC) complicated by tobacco use in second trimester History of blood clots Personal history of venous thrombosis and embolism History of hemorrhage Supervision of high risk due to social problems in second trimester Supervision of other high-risk documented in this encounter Care Teams Marketing Recruiter Relationship Specialty Start Date End Date Jo-Ann Ortiz MD 132 [facility] [place] [address] PCP - General Obstetrics/Gynecology 08/11/23 documented as of this encounter
--- OUTSIDE RECORDS SUMMARY | 2024-03-25 23:24 | External Medical Summary | Summary of Care ---
Author Name Unknown Organization [facility] Address [address] [facility] [place] [address] Phone [phone] Care Team Providers Care Elevator Starter Name Role Phone Jo-Ann Ortiz MD Primary Care Provider + Reason for Visit * Reason Onset Date Comments Medication Refill 12/03/2023 Encounter Details Date Type Department Care Team (Late st Contact Info) Description 12/03/2023 Refill Gynecology/Obstetrics [facility] [address] [place] [address] BackAmeena spence CRNP [address] [place] [id number] Allergies Active Allergy Reactions Criticality Noted Date Comments Sulfamethoxazole-Trimethopr im 08/19/2023 Bee Venom Anaphylaxis High 09/01/2023 Meperidine 08/19/2023 Doxycycline 08/19/2023 Morphine 08/19/2023 Difficultly breathing/hives Naloxone 08/19/2023 Shiitake Mushroom Hives 09/01/2023 Hives, shortness of breath, swelling Tetracycline 08/19/2023 documented as of this encounter (statuses as of 12/03/2023) Medications Medication Sig Dispensed Refills Start Date [...] for Nausea. 30 Tablet 1 12/03/2023 Active Ondansetron HCl 8 MG Oral Tablet (Zofran) Take 1 Tablet by mouth every 8 hours as needed for Nausea. 30 Tablet 1 11/02/2023 12/03/2023 Discontinued (Refill) documented as of this encounter (statuses as of 12/03/2023) Active Problems Problem Noted Date Diagnosed Date [...] with Subutex 8 mg BID Therapy through [employer] 2020 did well with Subutex Denies cravings [...] hand per patient. She saw Cardiovascular/Surgeon at [facility] -- Dr. Olivia. Pt states several [...] as of this encounter (statuses as of 12/03/2023) Resolved Problems Problem Noted Date Diagnosed Date Resolved Date History of blood disorder 08/25/2023 IV drug abuse 08/25/2023 09/22/2023 Overview: History of IV drug abuse (opioids) Clean x 6 years / Subutex documented as of this encounter (statuses as of 12/03/2023) Immunizations Name Administration Dates Next Due Seasonal [...] money to get more. Never true 08/24/2023 [place] Depression Scale Answer Date Recorded [place] Depression Scale Total 9 08/25/2023 The thought [...] Telephone Encounter - Ameena Lebron CRNP - 12/03/2023 9:41 AM EST Signed Prescriptions: Disp Refills Ondansetron HCl 8 MG Oral Tablet (Zofran) 30 Tab*1 Sig: Take 1 Tablet by mouth every 8 hours as needed for Nausea. Authorizing Provider: AMEENA LEBRON * Telephone Encounter - Lesia Johns LPN - 12/03/2023 9:39 AM EST Request for zofran refill. documented in this encounter Plan of Treatment Upcoming Encounters Date Type Department Care Team (Late st Contact Info) Description 12/10/2023 5:10 PM EST Anticoagulation Pharmacy, [address] [place] [address] [place] [address] [facility] [place] [address] 12/16/2023 1:00 PM EST Imaging Radiology [facility] 1st [facility] [place] [address] [place] [address] 12/16/2023 1:30 PM EST Imaging Radiology [facility] [address] [place] [address] 12/16/2023 2:15 PM EST Imaging Radiology [facility] 2nd Floor, [place] [address] [place] [address] 12/16/2023 3:15 PM EST Office Visit Gynecology/Obstetrics [facility] [address] [place] [address] Kristen Marsh MD [address] [place] [address] [place] [address] 01/04/2024 11:00 AM EST Office Visit Gynecology/Obstetrics [facility] [address] [place] [address] Adolfo Enciso MD [address] [place] [address] 2024 11:45 AM EST Imaging Maternal Medicine Imaging, Paulette Peralta [address] [place] [phone] 02/11/2024 11:45 AM EDT Imaging Maternal Medicine Imaging, Paulette Cadenas [address] [place] [phone] Health Maintenance Due Date Last Done Comments [...] filedocumented as of this encounter Care Teams Elevator Starter Relationship Specialty Start Date End Date Jo-Ann Ortiz MD [address] [place] [address] PCP - General Obstetrics/Gynecology 08/11/23 documented as of this encounter
--- OUTSIDE RECORDS SUMMARY | 2024-03-25 23:24 | External Medical Summary | Summary of Care ---
Author Name Unknown Organization [facility] Address [address] [place] [address] Phone [phone] Care Team Providers Care Pan Washer Name Role Phone Jo-Ann Ortiz MD Primary Care Provider + Reason for Visit * Reason Comments Outpatient Testing Encounter Details Date Type Department Care Team (Late st Contact Info) Description 11/02/2023 2:00 PM EST Laboratory Laboratory, [facility] [address] [place] [phone] [facility] [address] [place] [address] Vaginal bleeding in ; Supervision of high [...] with Subutex 8 mg BID Therapy through [employer] 2020 did well with Subutex Denies cravings [...] patient. She saw Cardiovascular/Surgeon at [facility] -- Dr. Olivia. Pt states several echocardiograms [...] money to get more. Never true 08/24/2023 [place] Depression Scale Answer Date Recorded [place] Depression Scale Total 9 08/25/2023 The thought [...] Description 11/16/2023 12:30 PM EST Office Visit Drying Machine Receiver Obstetrics Maternal Medicine, [place] [address] [place] [address] Benito Friend MD [address] [place] [address] 11/16/2023 12:30 PM EST Imaging Radiology [facility] [address] [place] [address] 12/07/2023 1:00 PM EST Office Visit Gynecology/Obstetrics [facility] [address] [place] [address] Adolfo Enciso MD [address] [place] [address] 01/04/2024 11:00 AM EST Office Visit Gynecology/Obstetrics [facility] [address] [place] [address] Adolfo Enciso MD [address] [place] [address] Pending Results Name Type Priority Associated Diagnoses [...] high-risk documented in this encounter Care Teams Pan Washer Relationship Specialty Start Date End Date Jo-Ann Ortiz MD [address] [place] [address] PCP - General Obstetrics/Gynecology 08/11/23 documented as of this encounter
--- OUTSIDE RECORDS SUMMARY | 2024-03-25 23:24 | External Medical Summary | Summary of Care ---
Author Name Unknown Organization [facility] Address [address] [place] [address] Phone [phone] Care Team Providers Care Materials Scheduler Name Role Phone Jo-Ann Ortiz MD Primary Care Provider + Reason for Visit * Reason Comments Dosage Adjustment Via Phone (anticoag Cl inic) Encounter Details Date Type Department Care Team (Latest Contact Info) Description 11/26/2023 5:10 PM EST Anticoagulation Pharmacy, [facility] 132 [facility] [place] [address] [facility] 132 [facility] [place] [address] Antiphospholipid antibody syndrome complicating (HCC)*; History of blood clots Allergies Active Allergy Reactions Criticality Noted Date Comments Sulfamethoxazole-Trimethopr im 08/19/2023 Bee Venom Anaphylaxis High 09/01/2023 Meperidine 08/19/2023 Doxycycline 08/19/2023 Morphine 08/19/2023 Difficultly breathing/hives Naloxone 08/19/2023 Shiitake Mushroom Hives 09/01/2023 Hives, shortness of breath, swelling Tetracycline 08/19/2023 documented as of this encounter (statuses as of 11/26/2023) Medications Medication Sig Dispensed Refills Start Date [...] for Nausea. 30 Tablet 1 11/02/2023 Active Enoxaparin Sodium 40 MG/0.4ML Injection Solution Prefilled Syringe (Lovenox) Inject 40 mg under the skin in the morning. 12 mL 8 11/19/2023 Active Aspirin 81 MG Oral Tablet Delayed Release Take 1 Tablet by mouth in the morning. 30 Tablet 11 11/19/2023 Active documented as of this encounter (statuses as of 11/26/2023) Active Problems Problem Noted Date Diagnosed Date [...] with Subutex 8 mg BID Therapy through [email or web address] 2019 did well with Subutex Denies cravings [...] hand per patient. She saw Cardiovascular/Surgeon at [facility] -- Dr. Olivia. Pt states several echocardiograms [...] as of this encounter (statuses as of 11/26/2023) Resolved Problems Problem Noted Date Diagnosed Date Resolved Date History of blood disorder 08/25/2023 IV drug abuse 08/25/2023 09/22/2023 Overview: History of IV drug abuse (opioids) Clean x 6 years / Subutex documented as of this encounter (statuses as of 11/26/2023) Immunizations Name Administration Dates Next Due Seasonal [...] money to get more. Never true 08/24/2023 [place] Depression Scale Answer Date Recorded [place] Depression Scale Total 9 08/25/2023 The thought [...] this encounter Progress Notes * Lizet Ferrer [facility] - 11/26/2023 10:30 AM EST Patient Phone Numbers Spoke to patient via phone. Reviewed injection technique. Patient notes having increasing pain witheach injections. Patient notes bruising and also notes she has a burning sensation with injection. Reviewed using an ice or heat patch to help with the pain. Patient states understanding. MTM will follow up in 2 weeks. Lizet Ferrer, Pharm D, BCACP Clinical Pharmacist 11/26/2023, 10:35 AM documented in this encounter Plan of Treatment Upcoming Encounters Date Type Department Care Team (Late st Contact Info) Description 12/10/2023 5:10 PM EST Anticoagulation Pharmacy, [address] [place] [address] [facility] [address] [place] [address] 12/16/2023 1:00 PM EST Imaging Radiology [facility] [address] [place] [address] 12/16/2023 1:30 PM EST Imaging Radiology [address] [place] [address] 12/16/2023 2:15 PM EST Imaging Radiology [facility] [address] [place] [address] 12/16/2023 3:15 PM EST Office Visit Gynecology/Obstetrics [address] [place] [address] Kristen Marsh MD [facility] [place] [address] 01/04/2024 11:00 AM EST Office Visit Gynecology/Obstetrics [address] [place] [address] Adolfo Enciso MD [address] [place] [address] 2024 11:45 AM EST Imaging Maternal Medicine Imaging, Paulette Peralta [address] [place] [phone] 02/11/2024 11:45 AM EDT Imaging Maternal Medicine Imaging, Paulette Peralta [address] [place] [phone] Health Maintenance Due Date Last Done Comments [...] embolism documented in this encounter Care Teams Materials Scheduler Relationship Specialty Start Date End Date Jo-Ann Ortiz MD [address] [place] [address] PCP - General Obstetrics/Gynecology 08/11/23 documented as of this encounter
--- OUTSIDE RECORDS SUMMARY | 2024-03-25 23:24 | External Medical Summary | Summary of Care ---
Author Name Unknown Organization [facility] Address [address] [place] [place] [address] Phone [phone] Care Team Providers Care Dobby Looms Pegger Name Role Phone Jo-Ann Ortiz MD Primary Care Provider + Encounter Details Date Type Department Care Team (Late st Contact Info) Description 11/18/2023 Telephone Gynecology/Obstetrics [facility] 132 [facility] [place] [address] Kristen Marsh MD [address] [place] [address] Allergies Active Allergy Reactions Criticality Noted Date Comments Sulfamethoxazole-Trimethopr im 08/19/2023 Bee Venom Anaphylaxis High 09/01/2023 Meperidine 08/19/2023 Doxycycline 08/19/2023 Morphine 08/19/2023 Difficultly breathing/hives Naloxone 08/19/2023 Shiitake Mushroom Hives 09/01/2023 Hives, shortness of breath, swelling Tetracycline 08/19/2023 documented as of this encounter (statuses as of 11/18/2023) Medications Medication Sig Dispensed Refills Start Date [...] as of this encounter (statuses as of 11/18/2023) Active Problems Problem Noted Date Diagnosed Date [...] with Subutex 8 mg BID Therapy through [employer] 2020 did well with Subutex Denies [...] She saw Cardiovascular/Surgeon at [facility] -- Dr. Olivia. Pt states several [...] as of this encounter (statuses as of 11/18/2023) Resolved Problems Problem Noted Date Diagnosed Date Resolved Date History of blood disorder 08/25/2023 IV drug abuse 08/25/2023 09/22/2023 Overview: History of IV drug abuse (opioids) Clean x 6 years / Subutex documented as of this encounter (statuses as of 11/18/2023) Immunizations Name Administration Dates Next Due Seasonal [...] money to get more. Never true 08/24/2023 [place] Depression Scale Answer Date Recorded [place] Depression Scale Total 9 08/25/2023 The thought [...] Team (Late st Contact Info) Description 12/16/2023 1:30 PM EST Imaging Radiology [address] [place] [address] 12/16/2023 2:15 PM EST Imaging Radiology [facility] [address] [place] [address] 12/16/2023 3:15 PM EST Office Visit Gynecology/Obstetrics [facility] Cadenas [address] [place] [address] Kristen Marsh MD [address] [place], [place] [address] [address] 01/04/2024 11:00 AM EST Office Visit Gynecology/Obstetrics Jose [facility] [address] [facility] [place] [address] Adolfo Enciso MD [address] [facility] [place] [address] 2024 11:45 AM EST Imaging Maternal Medicine [facility] [place] [phone] 02/11/2024 11:45 AM EDT Imaging Maternal Medicine Imaging, Paulette [address] [facility] [place] [phone] Health Maintenance Due Date Last Done Comments [...] filedocumented as of this encounter Care Teams Dobby Looms Pegger Relationship Specialty Start Date End Date Jo-Ann Ortiz MD [address] [place] [address] PCP - General Obstetrics/Gynecology 08/11/23 documented as of this encounter
--- OUTSIDE RECORDS SUMMARY | 2024-03-25 23:24 | External Medical Summary | Summary of Care ---
Author Name Unknown Organization [facility] Address [address] [place] [address] Phone [phone] Care Team Providers Care Fisheries Management Biologist Name Role Phone Jo-Ann Ortiz MD Primary Care Provider + Reason for Referral * Evaluate & Treat - Unlimited Visits (Within 3 days (urgent)) - Pending Review Specialty Diagnoses / Procedures Referred By Imelda marcelino Referred To Contact ANTI-COAG CLINIC / Pharmacy Diagnoses History of blood clots Antiphospholipid antibody syndrome complicating (HCC) Jenifer Givens CRNP [address] [place] [address] Referral ID Status Reason Start Date Expiration Date Visits Requested Visits Authorized [id number] Pending Review Specialty Services Required 3 05/17/2024 99 99 Question Answer Referral Priority Within 3 days (urgent) Where should this appointment be scheduled? Kevin Comments Anticoagulation referral for management of: Enoxaparin Indication for Enoxaparin referral: /VTE prophylaxis Relevant History: Patient with antiphospholipid syndrome (APS) and history of VTE / we recommend prophylactic dose anticoagulation with heparin throughout and 6 weeks . Minimum frequency patient should be seen in person for medication management: as appropriate per clinical condition and patient status By my signature, I understand that my patient Veronica Melendrez will have her medication therapy managed by the [facility] ([facility]) per established policies, procedures, and protocols. I also certify that this referral may serve as an initiation of service for the management of drug therapy in the above noted patient. [facility] providers will be responsible for scheduling patient visits, obtaining appropriate laboratory studies, and adjusting medication management therapy per patient's need, in addition to those roles spelled out in the clinic policy, procedures, and drug management protocols. I understand that the service provided by the [facility] is voluntary and have informed patient that they can refuse the service at their discretion. I am aware that the [facility] will provide me with a copy of the patient encounter via my [employer]. I authorize the [facility] to carry out these activities on my behalf. I consider this program to be a necessary part of the patient's medical care. BRANDON Gilliland Encounter Details Date Type Department Care Team (Late st Contact Info) Description 11/19/2023 Orders Only Rn Pain Management Obstetrics Maternal Medicine, [address] [address] Jenifer Givens CRNP [facility] [place] [address] History of blood clots*; Antiphospholipid antibody syndrome complicating (HCC) Allergies Active Allergy Reactions Criticality Noted Date Comments Sulfamethoxazole-Trimethopr im 08/19/2023 Bee Venom Anaphylaxis High 09/01/2023 Meperidine 08/19/2023 Doxycycline 08/19/2023 Morphine 08/19/2023 Difficultly breathing/hives Naloxone 08/19/2023 Shiitake Mushroom Hives 09/01/2023 Hives, shortness of breath, swelling Tetracycline 08/19/2023 documented as of this encounter (statuses as of 11/19/2023) Medications Medication Sig Dispensed Refills Start Date [...] as of this encounter (statuses as of 11/19/2023) Active Problems Problem Noted Date Diagnosed Date [...] with Subutex 8 mg BID Therapy through [employer] 2019 did well with Subutex Denies cravings [...] She saw Cardiovascular/Surgeon at [facility] -- Dr. Olivia. Pt states several echocardiograms [...] as of this encounter (statuses as of 11/19/2023) Resolved Problems Problem Noted Date Diagnosed Date Resolved Date History of blood disorder 08/25/2023 IV drug abuse 08/25/2023 09/22/2023 Overview: History of IV drug abuse (opioids) Clean x 6 years / Subutex documented as of this encounter (statuses as of 11/19/2023) Immunizations Name Administration Dates Next Due Seasonal [...] money to get more. Never true 08/24/2023 [place] Depression Scale Answer Date Recorded [place] Depression Scale Total 9 08/25/2023 The thought [...] Description 12/16/2023 1:30 PM EST Imaging Radiology [facility] [address] [place] [address] 12/16/2023 2:15 PM EST Imaging Radiology [facility] [place] [address] [place] [address] 12/16/2023 3:15 PM EST Office Visit Gynecology/Obstetrics Jose Carlos Peralta [address] [place] [address] Kristen Marsh MD [address] [place] [address] [place] [address] 01/04/2024 11:00 AM EST Office Visit Gynecology/Obstetrics Jose Carlos Peralta [address] [place] [address] Adolfo Enciso MD [address] [place] [address] 2024 11:45 AM EST Imaging Maternal Medicine Imaging, [place] [phone] 02/11/2024 11:45 AM EDT Imaging Maternal Medicine Imaging, [place] [place] [phone] Scheduled Referrals Name Type Priority Associated Diagnoses Orde r Schedule ANTI-COAGULATION REFERRAL OP Referral Within 3 days (urgent) History of blood clots Antiphospholipid antibody syndrome complicating (HCC) Ordered: 11/19/2023 Health Maintenance Due Date Last Done Comments [...] as of this encounter Visit Diagnoses Diagnosis History of blood clots- Primary Personal history of venous thrombosis and embolism Antiphospholipid antibody syndrome complicating (HCC) Other current maternal conditions classifiable elsewhere, complicating , childbirth, or the puerperium, unspecified as to episode of care documented in this encounter Care Teams Fisheries Management Biologist Relationship Specialty Start Date End Date Jo-Ann Ortiz MD [address] [facility] [place] [address] PCP - General Obstetrics/Gynecology 08/11/23 documented as of this encounter
--- OUTSIDE RECORDS SUMMARY | 2024-03-25 23:24 | External Medical Summary | Summary of Care ---
Author Name Unknown Organization [facility] Address [address] [facility] [place] [address] Phone [phone] Care Team Providers Care Tar Worker Name Role Phone Jo-Ann Ortiz MD Primary Care Provider + Reason for Visit * Reason Comments Outpatient Testing Encounter Details Date Type Department Care Team (Late st Contact Info) Description 09/22/2023 1:50 PM EDT [facility] [address] [facility] [place] [phone] [place], [facility] [address] [facility] [place] [address] History of blood clots; Supervision of high risk in first trimester Allergies Active Allergy Reactions Criticality Noted [...] mouth as needed. 0 Active Ondansetron HCl 4 MG Oral Tablet [...] with Subutex 8 mg BID Therapy through [employer] 2020 did well with Subutex Denies cravings [...] patient. She saw Cardiovascular/Surgeon at [facility] -- Dr. Olivia. Pt states several echocardiograms [...] money to get more. 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 Tender Obstetrics Maternal Medicine, [place] [address] [place] [address] Benito Friend MD [address] [place] [address] 11/16/2023 12:30 PM EST Imaging Radiology [facility] [place] [address] [place] [address] 12/07/2023 1:00 PM EST Office Visit Gynecology/Obstetric s Jose Carlos Peralta [address] [place] [address] Adolfo Enciso MD [address] [place] [address] 01/04/2024 11:00 AM EST Office Visit Gynecology/Obstetric s Jose Carlos Peralta [address] [place] [address] Adolfo Enciso MD [address] [place] [address] Pending Results Name Type Priority Associated Diagnoses Date /Time THROMBOSIS PROFILE WITH INTERPRETATION BY PATHOLOGIST Lab Routine History of blood clots 09/22/2023 1:52 PM EDT ANTITHROMBIN III ACTIVITY Lab Routine History of blood clots 11/02/2023 1:49 PM EST PT INR Lab Routine History of blood clots 11/02/2023 1:49 PM EST FIBRINOGEN Lab Routine History of blood clots 11/02/2023 1:49 PM EST COAGULATION INTERPRETATION BY PATHOLOGIST Lab Routine History of blood clots 11/02/2023 1:49 PM EST Health Maintenance Due [...] Procedure Name Priority Date/Time Associated Diagnosis Comments PROTEIN S ANTIGEN, FREE Routine 10/08/20 23 2:03 PM EST History of blood clots PROTEIN S ACTIVITY WITH ANTIGEN REFLEX Routine 10/08/2023 2:03 PM EST History of blood clots LUPUS SENSITIVE APTT SCREEN Routine 10/08/2023 2:03 PM EST History of blood clots PROTEIN S ANTIGEN, TOTAL Routine 10/08/2023 2:03 PM EST History of blood clots LUPUS SENSITIVE APTT IMMEDIATE MIX Routine 10/08/2023 2:03 PM EST History of blood clots PLATELET NEUTRALIZATION PROCEDURE (LUPUS APTT CONFIRM) Routine 10/08/2023 2:03 PM EST History of blood clots HEPARIN, UNFRACTIONATED Routine 10/08/20 2:03 PM EST History of blood clots PROTEIN C ACTIVITY Routine 10/08/2023 2: 03 PM EST History of blood clots THROMBIN TIME Routine 10/08/2023 2:03 PM EST History of blood clots DILUTE ZENAIDA VIPER VENOM TIME (DRVVT) SCREEN Routine 10/08/2023 2:03 PM EST History of blood clots CARDIOLIPIN IGM ANTIBODY Routine 09/22/2023 1:52 PM EDT History of blood clots CARDIOLIPIN IGG ANTIBODY Routine 09/22/2023 1:52 PM EDT History of blood clots BETA-2 GLYCOPROTEIN IGM ANTIBODY Routine 09/22/2023 1:52 PM EDT History of blood clots BETA-2 GLYCOPROTEIN IGG ANTIBODY Routine 09/22/2023 1:52 PM EDT History of blood clots BASIC METABOLIC PANEL Routine 09/22/2023 1:52 PM EDT Supervision of high risk in first trimester documented in this encounter Results * PROTEIN S ANTIGEN, TOTAL (10/08/2023 2:03 PM EST) [facility] Protein S Antigen, Total 89 60 - 140 % 10/11/2023 3:03 PM EST [facility] Blood Venous blood specimen / Unknown Venipuncture / Unknown 10/08/2023 2:03 PM EST 10/08/2023 2:03 PM EST Narrative LAB[facility]ATORY [facility] - 10/11/2023 3:03 PM EST Rheumatoid factor above 50 IU/mL may lead to an overestimation of the results. Jenifer TAYLOR LAB BLOOD ORDERA BLES Performing Organization Address [facility] Co de Phone Number LABORATORY [place] [address] [place] [address] * (ABNORMAL) PROTEIN S ANTIGEN, FREE (10/08/2023 2:03 PM EST) [facility] Protein S Antigen, Free 37(L) 50 - 134 % 10/11/2023 3:03 PM EST [facility] Blood Venous blood specimen / Unknown Venipuncture / Unknown 10/08/2023 2:03 PM EST 10/08/2023 2:03 PM EST [facility] LABORATORY [facility] - 10/11/2023 3:03 PM EST Rheumatoid factor above 50 IU/mL may lead to an overestimation of the results. Jenifer TAYLOR LAB BLOOD ORDERA BLES Performing Organization Address [facility] Phone Number LABORATORY [address] [address] * (ABNORMAL) PLATELET NEUTRALIZATION PROCEDURE (LUPUS APTT CONFIRM) (10/08/2023 2:03 PM EST) [facility] PNP Interpretation Positive( A) Negative 10/09/2023 11:00 AM EST [facility]ORY [facility] Comment:Lupus anticoagulant( LA) detected. If indicated, suggest repeat testing at/or beyond 12 weeks to determine if LA is persistent. Blood Venous blood specimen / Unknown Venipuncture / Unknown 10/08/2023 2:03 PM EST 10/08/2023 2:03 PM EST [facility] LAB[facility]ATORY [facility] - 10/09/2023 11:00 AM EST This test was developed and its performance characteristics determined by [employer]. It has not been cleared or approved by the [place] Food and Drug Administration. Jenifer TAYLOR LAB BLOOD ORDERA BLES Performing Organization Address [facility] Co de Phone Number LABORATORY [address] [address] * LUPUS SENSITIVE APTT IMMEDIATE MIX (10/08/2023 2:03 PM EST) Pathologist [facility] Lupus Sensitive aPTT Immediate Mix Luly Ratio 8.16 <15.00 % 10/09/2023 11:00 AM EST [facility] Blood Venous blood specimen / Unknown Venipuncture / Unknown 10/08/2023 2:03 PM EST 10/08/2023 2:03 PM EST Narrative [facility]ORY [facility] - 10/09/2023 11:00 AM EST Requires additional testing according to algorithm. Jenifer TAYLOR LAB BLOOD ORDERA BLES Performing Organization Address City/[facility]/ZIP Co de Phone Number LABORATORY [address] [address] * HEPARIN, UNFRACTIONATED (10/08/2023 2:03 PM EST) [facility] Heparin, Unfractionated <0.10 <0.10 IU/mL 10/09/2023 9:50 AM EST [facility] Blood Venous blood specimen / Unknown Venipuncture / Unknown 10/08/2023 2:03 PM EST 10/08/2023 2:03 PM EST Narrative [facility] - 10/09/2023 9:50 AM EST Requires additional testing according to algorithm. Jenifer TAYLOR LAB BLOOD ORDERA BLES Performing Organization Address City/[facility]/ZIP Co de Phone Number LABORATORY [address] [address] * THROMBIN TIME (10/08/2023 2:03 PM EST) [facility] Thrombin Time 15.4 14.7 - 19.6 seconds 10/09/2023 10:53 AM EST [facility] Blood Venous blood specimen / Unknown Venipuncture / Unknown 10/08/2023 2:03 PM EST 10/08/2023 2:03 PM EST Narrative [facility] - 10/09/2023 10:53 AM EST Requires additional testing according to algorithm. Jenifertamica [employer] LAB BLOOD ORDERA BLES Performing Organization Address [facility] Co de Phone Number LABORATORY [address] [address] * DILUTE ZENAIDA VIPER VENOM TIME (DRVVT) SCREEN (10/08/2023 2:03 PM EST) DRVVT Screen Normalized Ratio 0.78 <=1.20 10/09/2023 9:17 AM EST [facility] Comment:Lupus Anticoagulant not detected. Blood Venous blood specimen / Unknown Venipuncture / Unknown 10/08/2023 2:03 PM EST 10/08/2023 2:03 PM EST Jenifer Neda Chon TAYLOR LAB BLOOD ORDERA BLES Performing Organization Address [facility] de Phone Number LABORATORY [address] [address] * PROTEIN C ACTIVITY (10/08/2023 2:03 PM EST) Protein C Activity 112 75 - 135 % 10/09/2023 9:17 AM EST [facility] Blood Venous blood specimen / Unknown Venipuncture / Unknown 10/08/2023 2:03 PM EST 10/08/2023 2:03 PM EST Jenifer M Chon TAYLOR LAB BLOOD ORDERA BLES Performing Organization Address [facility] de Phone Number LABORATORY [address] [address] * (ABNORMAL) PROTEIN S ACTIVITY WITH ANTIGEN REFLEX (10/08/2023 2:03 PM EST) Protein S Activity 41(L) 65 - 140 % 10/09/2023 1:00 PM EST [facility]ORY [facility] Comment:Changed result: Prev iously reported as 43 % on 10/09/2023 at 1244 EST. Blood Venous blood specimen / Unknown Venipuncture / Unknown 10/08/2023 2:03 PM EST 10/08/2023 2:03 PM EST [facility] LABORATORY [facility] - 10/09/2023 1:00 PM EST Requires additional testing according to algorithm. Jenifer JIMNP LAB BLOOD ORDERA BLES Performing Organization Address [facility] de Phone Number LABORATORY [place] [address] [place] [address] * (ABNORMAL) LUPUS SENSITIVE APTT SCREEN (10/08/2023 2:03 PM EST) [facility] Lupus Sensitive aPTT Screen, Normalized Ratio 1.44(H) 0.91 - 1.40 10/09/2023 9:09 AM EST [facility] Blood Venous blood specimen / Unknown Venipuncture / Unknown 10/08/2023 2:03 PM EST 10/08/2023 2:03 PM EST [facility] LABORATORY [facility] - 10/09/2023 9:09 AM EST Requires additional testing according to algorithm. Jenifer TAYLOR LAB BLOOD ORDERA BLES Performing Organization Address [facility] de Phone Number LABORATORY [address] [address] * BETA-2 GLYCOPROTEIN IGM ANTIBODY (09/22/2023 1:52 PM EDT) [facility] Beta-2 Glycoprotein IgM Antibody Interpretation Negative Negative 09/23/2023 12:21 PM EDT LAB[facility]ATORY [facility] Beta-2 Glycoprotein IgM Antibody Value <2.4 <7 U/mL 09/23/2023 12:21 PM EDT LABORATORY [facility] Blood Venous blood specimen / Unknown Venipuncture / Unknown 09/22/2023 1:52 PM EDT 09/22/2023 1:52 PM EDT [facility] LABORATORY [facility] - 09/23/2023 12:21 PM EDT Anticardiolipin / beta-2 glycoprotein antibodies must be detected on 2 or more occasions at least 12 weeks apart to fulfill the laboratory diagnostic criteria for Antiphospholipid Syndrome. Jenifer JIMNP LAB BLOOD ORDERA BLES Performing Organization Address City/[facility]/ZIP Co de Phone Number LABORATORY [facility] [address] [place] [address] * BETA-2 GLYCOPROTEIN IGG ANTIBODY (09/22/2023 1:52 PM EDT) Beta-2 Glycoprotein IgG Antibody Intepretation Negative Negative 09/23/2023 12:23 PM EDT [facility] Beta-2 Glycoprotein IgG Antibody Value <0.8 <7 U/mL 09/23/2023 12:23 PM EDT LAB[facility]ORY [facility] Blood Venous blood specimen / Unknown Venipuncture / Unknown 09/22/2023 1:52 PM EDT 09/22/2023 1:52 PM EDT Narrative LAB[facility]ORY [facility] - 09/23/2023 12:23 PM EDT Anticardiolipin / beta-2 glycoprotein antibodies must be detected on 2 or more occasions at least 12 weeks apart to fulfill the laboratory diagnostic criteria for Antiphospholipid Syndrome. Jenifer TAYLOR LAB BLOOD ORDERA BLES Performing Organization Address [facility]/ZIP Co de Phone Number LAB[facility]ATORY [facility] [address] [place] [address] * CARDIOLIPIN IGM ANTIBODY (09/22/2023 1:52 PM EDT) Cardiolipin IgM Antibody Interpretation Negative Negative 09/23/2023 12:21 PM EDT [facility]ORY [facility] Cardiolipin IgM Antibody Value 1.1 <10 MPL U/mL 09/23/2023 12:21 PM EDT LAB[facility]ORY [facility] Blood Venous blood specimen / Unknown Venipuncture / Unknown 09/22/2023 1:52 PM EDT 09/22/2023 1:52 PM EDT Narrative [facility]ORY [facility] - 09/23/2023 12:21 PM EDT Anticardiolipin / beta-2 glycoprotein antibodies must be detected on 2 or more occasions at least 12 weeks apart to fulfill the laboratory diagnostic criteria for Antiphospholipid Syndrome. Jenifer TAYLOR LAB BLOOD ORDERA BLES LABORATORY [address] [address] * CARDIOLIPIN IGG ANTIBODY (09/22/2023 1:52 PM EDT) [facility] Cardiolipin IgG Antibody Interpretation Negative Negative 09/23/2023 12:23 PM EDT LABORATORY [facility] Cardiolipin IgG Antibody Value 1.3 <10 GPL U/mL 09/23/2023 12:23 PM EDT LAB[facility]ORY [facility] Blood Venous blood specimen / Unknown Venipuncture / Unknown 09/22/2023 1:52 PM EDT 09/22/2023 1:52 PM EDT Narrative [facility]ORY [facility] - 09/23/2023 12:23 PM EDT Anticardiolipin / beta-2 glycoprotein antibodies must be detected on 2 or more occasions at least 12 weeks apart to fulfill the laboratory diagnostic criteria for Antiphospholipid Syndrome. Jenifer JIMNP LAB BLOOD ORDERA BLES LABORATORY [address] [address] * (ABNORMAL) BASIC METABOLIC PANEL (09/22/2023 1:52 PM EDT) [facility] BUN 10 6 - 20 mg/dL 09/22/2023 10:10 PM EDT LABORATORY [facility] Creatinine 0.6 0.5 - 1.0 mg/dL 09/22/2023 10:10 PM EDT LAB[facility]ORY [facility] Estimated Glomerular Filtration Rate >90 >=60 mL/min 09/22/2023 10:10 PM EDT LAB[facility]ORY [facility] Comment:eGFR is calculated b ased on the CKD-EPI 2020 equation Sodium 133(L) 135 - 146 mmol/L 09/22/2023 10:10 PM EDT LAB[facility]ORY [facility] Potassium 4.5 3.5 - 5.1 mmol/L 09/22/2023 10:10 PM EDT LABORATORY C Chloride 103 98 - 107 mmol/L 09/22/2023 10:10 PM EDT [facility]ORY [facility] CO2 18(L) 22 - 32 mmol/L 09/22/2023 10:10 PM EDT LAB[facility]ORY [facility] Anion Gap 12 7 - 15 mmol/L 09/22/2023 10:10 PM EDT LABORATORY GM Glucose 99 70 - 120 mg/dL 09/22/2023 10:10 PM EDT [facility] Calcium 9.0 8.4 - 10.2 mg/dL 09/22/2023 10:10 PM EDT LABORATORY [facility] Blood Venous blood specimen / Unknown Venipuncture / Unknown 09/22/2023 1:52 PM EDT 09/22/2023 1:52 PM EDT Elly Burden Backer BRANDON LAB BLOOD O RDERABLES [facility] [address] [facility] [place] [address] documented in this encounter Visit Diagnoses Diagnosis History of blood clots Personal history of venous thrombosis and embolism Supervision of high risk in first trimester Unspecified high-risk Vaginal bleeding in Unspecified antepartum hemorrhage, unspecified as to episode of care Supervision of high risk in second trimester Unspecified high-risk documented in this encounter Care Teams Tar Worker Relationship Specialty Start Date End Date Jo-Ann Ortiz MD [address] [place] [address] PCP - General Obstetrics/Gynecology 08/11/23 documented as of this encounter
--- OUTSIDE RECORDS SUMMARY | 2024-03-25 23:24 | External Medical Summary | Summary of Care ---
Author Name Unknown Organization [facility] Address [address] [place] [address] Phone [phone] Care Team Providers Care Coach Operator Name Role Phone Jo-Ann Ortiz MD Primary Care Provider + Reason for Referral * Evaluate & Treat - Unlimited Visits (Within 3 days (urgent)) - Pending Review Specialty Diagnoses / Procedures Referred By Imelda marcelino Referred To Contact Pharmacist / Pharmacy Diagnoses Antiphospholipid antibody syndrome complicating (HCC) Chris Givens CRNP [address] [place] [address] Referral ID Status Reason Start Date Expiration Date Visits Requested Visits Authorized [id number] Pending Review Specialty Services Required 3 99 99 Question Answer Referral Priority Within 3 days (urgent) Where should this appointment be scheduled? [facility] Referring Provider Role: Specialist Specialty: Heme/Onc Reason for Referral: Other - anticoagulation Comments patient with positive antiphospholipid syndrome (APS) and history of VTE, we recommend prophylactic dose anticoagulation with heparin throughout and 6 weeks . Pharmacist Medication Therapy Management: Minimum frequency patient should be seen in person for medication management: as appropriate per clinical condition and patient status By my signature, I understand that my patient Veronica Melendrez will have her medication therapy managed by the [facility] Med[facility] ([facility]) per established policies, procedures, and protocols. I also certify that this referral may serve as an initiation of service for the management of drug therapy in the above noted patient. [facility] providers will be responsible for scheduling patient visits, obtaining appropriate laboratory studies, and adjusting medication management therapy per patient's need, in addition to those roles spelled out in the clinic policy, procedures, and drug management protocols. I understand that the service provided by the [facility] is voluntary and have informed patient that they can refuse the service at their discretion. I am aware that the [facility] will provide me with a copy of the patient encounter via my [employer]. I authorize the [facility] to carry out these activities on my behalf. I consider this program to be a necessary part of the patient's medical care. BRANDON Gilliland Reason for Visit * Reason Comments Consultation History of VTE, Subu roman, tobacco use * Evaluate & Treat - Unlimited Visits (Within 3 days (urgent)) - Authorized Specialty Diagnoses / Procedures Referred By Imelda marcelino Referred To Contact Obstetrics/Gynecology / Maternal Medicine Diagnoses complicated by tobacco use in first trimester History of blood clots History of hemorrhage Galina Toribio PA-C [address] [place] [address] Referral ID Status Reason Start Date Expiration Date Visits Requested Visits Authorized [id number] Authorized Specialty Services Required 08/25/2023 08/25/2024 [id number] Encounter Details Date Type Department Care Team (Late st Contact Info) Description 09/01/2023 3:30 PM EDT Telemedicine Pediatric Surgeon Obstetrics Maternal Medicine, [place] [address] [place] [address] Chris Givens CRNP [address] [place] [address] complicated by subutex maintenance, antepartum (HCC)*; Tobacco use affecting , antepartum; History of blood clots; IV drug abuse (HCC); Supervision of high risk in first trimester; with 8 completed weeks gestation; Antiphospholipid antibody syndrome complicating (HCC) Allergies Active [...] with Subutex 8 mg BID Therapy through [employer] 2019 did well with Subutex Denies cravings [...] patient. She saw Cardiovascular/Surgeon at [facility] [place] -- Dr. Olivia. Pt states several echocardiograms [...] Every Day Cigarettes 0.5 Smokeless Tobacco: Never Tobacco Cessation:Ready to Q uit: Not Asked; Counseling Given: Not Answered Comments:Smokes 1/2 ppd Alcohol Use Standard Drinks/Week [...] money to get more. Never true 08/24/2023 [place] Depression Scale Answer Date Recorded [place] Depression Scale Total 9 08/25/2023 The thought [...] as of this encounter Progress Notes * Chris Givens CRNP - 09/01/2023 4:02 PM EDT MATERNAL MEDICINE CONSULT Veronica Melendrez Consult date: 09/01/23 REFERRING PROVIDER: Galina Toribio PA-C Patient location: HOME. I was in a hospital or clinic location. After connecting through [employer],patient was verified with two unique identifiers. 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 Methods to assure confidentiality were taken. Patient acknowledged consent and understanding of pr ivacy and security of the Telemedicine visit. The patient agreed to participate. Veronica Melendrez is a 28 year old with intrauterine at 8w0d (Estimated Date of Delivery: 04/12/24 by exact LMP) who presents today for an MFM consult due to history of VTE in left arm,Subutex therapy during , and tobacco use during . HPI/CURRENT : pre- BMI=overweight (78.9 kg (174 lb); 5' 7"); FOB Markus; complicated by above. Genetic testing: Desires Qnatal; OB provider to coordinate OB [facility] Problems (from 08/19/23 to present) Problem Noted Resolved complicated by subutex maintenance, antepartum (HCC) 08/25/2023 by Galina Toribio PA-C No Overview Addendum 09/01/2023 3:46 PM by BRANDON Gilliland Reports compliance with Subutex 8 mg BID Therapy through [employer] 2019 did well with Subutex Denies cravings or withdrawal symptoms at current dose. complicated by tobacco use 08/25/2023 by Galina Toribio PA-C No Overview Addendum 09/01/2023 3:48 PM by BRANDON Gilliland Smokes 1/2 ppd Prior to : 1-2 ppd Encouraged to continue to work towards cessation History of blood clots 08/25/2023 by Galina Toribio PA-C No Overview Addendum 09/01/2023 4:02 PM by BRANDON Gilliland History of VTE in 2020 Per review of recent OB note: History of blood clot in left arm: Pt hospitalized July 02, 2021 for blood clot in artery of left lower arm near wrist. Finger turned black during this incident. Found to have blood clot. Almost lost hand per patient. She saw Cardiovascular/Surgeon at [facility] -- Dr. Olivia. Pt states [...] as she was told ? Related. Found tohave 2 separate autoimmune disorders one being Raynaud's. [...] as patient does not have previous records. IV drug abuse (HCC) 08/25/2023 by Galina Toribio PA-C No Overview Signed 08/31/2023 2:29 PM by BRANDON Gilliland History of IV drug abuse (opioids) Clean x 6 years / Subutex I have reviewed this patient's previous OB ultrasound reports, pertinent labwork and testing provided by her referring OB provider. Current Outpatient Medications Medication Sig Dispense Refill Buprenorphine HCl 8 MG Sublingual Tablet Sublingual (Subutex) Place 1 Tablet under the tongue in the morning and 1 Tablet in the evening. Cephalexin 250 MG Oral Capsule Take 1 Capsule by mouth in the morning and 1 Capsule at noon and 1 Capsule in the evening and 1 Capsule before bedtime. Clindamycin HCl 150 MG Oral Capsule (Cleocin) Take 1 Capsule by mouth in the morning and 1 Capsule at noon and 1 Capsule before bedtime. Plus 27-1 MG Oral Tablet Take 1 Tablet by mouth in the morning. 100 Tablet 3 No current facility-administered medications for this visit. Review of patient's allergies indicates: Allergen Reactions Bee Venom Anaphylaxis Bactrim [Sulfamethoxazole-Trimethoprim] Demerol Hcl [Meperidine] Doxycycline Morphine Difficultly breathing/hives Naloxone Shiitake Mushroom Hives Hives, shortness of breath, swelling Tetracycline OB History Para Term AB Living 4 2 2 0 1 2 SAB IAB Ectopic Multiple Live Births 1 0 0 0 2 # Outcome Date GA Lbr Dick/2nd Weight Sex Delivery Anes PTL Lv 4 Current 3 SAB 2021 2 Term 08/25/20 40w3d 3.09 kg (6 lb 13 oz) F Induction of EPI JOSE Comments: Induced for post dates 1 Term 01/13/14 40w3d 3.47 kg (7 lb 10.4 oz) F Vag-Spont EPI JOSE Comments: patient was on Subutx during / no problems / induced because BP started being elevated Complications: Other Excessive Bleeding Obstetric Comments [id number]:FOB #1 Markus, age 34, healthy Past Medical History: Diagnosis Date Anemia Anxiety Arm vein blood clot Left thumb Depression Endometriosis Endometriosis PTSD (post-traumatic stress disorder) Raynaud's disease Substance abuse (HCC) Past Surgical History: Procedure Laterality Date HAND/FINGER SURGERY NEC WA CHOLECYSTECTOMY WA EXPLORATORY LAPAROTOMY CELIOTOMY W/WO BIOPSY SPX Family History Problem Relation Age of Onset Hypertension Mother Hypertension Father Diabetes Father Hypertension Brother Cancer Grandmother (Maternal) Cancer Grandfather (Paternal) Social History Tobacco Use Smoking status: Every Day Packs/day: 0.50 Types: Cigarettes Smokeless tobacco: Never Tobacco comments: Smokes 1/2 ppd Substance Use Topics Alcohol use: Not Currently Drug use: Not Currently Types: IV Comment: opioids; clean for 6 years currently on subutex REVIEW OF SYSTEMS: headaches: yes, this is improving nausea/vomiting: reports frequent n/v reports movement: no abdominal pain/tenderness/cramping/contractions: no vaginal bleeding: no vaginal leaking of fluid: no all other systems negative PHYSICAL EXAM: LMP 07/07/2023 General: Well appearing Psych: Alert to time, place, and person and Pleasant DISCUSSION/RECOMMENDATIONS: Problem List Items Addressed This Visit OB [facility] complicated by tobacco use - Primary Strongly advised patient to stop using tobacco. [...] is if those around you do not smokeas well. History of blood clots CONSIDERATIONS: Explained that women who have a [...] antibodies, IgG and IgM anti beta2 glycoprotein antibodies,Lupus anticoagulant). IV drug abuse (HCC) complicated by subutex maintenance, antepartum (HCC) (Chronic) DISCUSSION: 1. Discussed that the benefits of [...] although the risk of this complication is consideredto be lower than that of either heroin [...] 4 weeks to monitor for growth restriction. Follow up ultrasound with Maternal Medicine is scheduled on 11/16/[address] Friend for anatomy scan secondary to history of VTE in left arm, Subutex therapy during , and tobacco use during . Patient is aware of upcoming MFM appointment. Total time spent face to face in this visit was 30 minutes of which more than 50% was spent discussing and counseling the patient/caregiver(s) regarding history of VTE in left arm, Subutex therapy during , and tobacco use during . Total time spent on this date of service includingnon face to face was 40 minutes in preparation, delivery, and documentation of care provided to Veronica Melendrez, excluding time spent in performance of separately billable services. Details outlined above in impression and plan. BRANDON Gilliland 09/01/2023 4:08 PM documented in this encounter Miscellaneous Notes * Addendum Note - Chris Givens CRNP - 11/16/2023 2:28 PM ESTAddended by: CHRIS GIVENS on: 11/16/2023 02:28 PM Modules accepted: Orders * Assessment & Plan Note - Chris Givens CRNP - 11/16/2023 2:16 PM EST Associated Problem(s): Antiphospholipid antibody syndrome complicating (HCC) CONSIDERATIONS: Discussed that antiphospholipid syndrome (APS) is [...] antibody must be abnormal twice, 12 weeks apart(as transient elevations can occur and resolve): 1. [...] Rheumatology after the period for long-term management. * Assessment & Plan Note - Chris Givens CRNP - 09/01/2023 3:54 PM EDT Associated Problem(s): History of blood clots CONSIDERATIONS: Explained that women who have a [...] antibodies, IgG and IgM anti beta2 glycoprotein antibodies,Lupus anticoagulant). * Assessment & Plan Note - Chris Givens CRNP - 09/01/2023 3:47 PM EDT Associated Problem(s): complicated by subutex maintenance, antepartum (HCC) DISCUSSION: 1. Discussed that the benefits of [...] although the risk of this complication is consideredto be lower than that of either heroin [...] be discouraged during (ACOG Committee Opinion, reaffirmed 2013). 2. Recommend growth scans every 4 weeks to monitor for growth restriction. * Assessment & Plan Note - Chris Givens CRNP - 09/01/2023 3:36 PM EDT Associated Problem(s): complicated by tobacco use Strongly advised patient to stop using tobacco. [...] is if those around you do not smokeas well. documented in this encounter Plan of Treatment Upcoming Encounters Date Type Department Care Team (Late st Contact Info) Description 12/07/2023 1:00 PM EST Office Visit Gynecology/Obstetrics Jose Carlos Cadenas [address] [place] [address] Adolfo Enciso MD [address] [place] [address] 01/04/2024 11:00 AM EST Office Visit Gynecology/Obstetrics Jose Carlos [facility] [address] [place] [address] Adolfo Enciso MD [address] [place] [address] 2024 11:45 AM EST Imaging Maternal Medicine Imaging, [facility] [address] [place] [phone] 02/11/2024 11:45 AM EDT Imaging Maternal Medicine Imaging, [facility] [address] [place] [phone] Scheduled Referrals Name Type Priority Associated Diagnoses Orde r Schedule PHARMACIST MEDS THERAPY MGMT REFERRAL OP Referral Within 3 days (urgent) Antiphospholipid antibody syndrome complicating (HCC) Ordered: 11/16/2023 Health Maintenance Due Date Last Done Comments [...] complicated by subutex maintenance, antepartum (HCC)- Primary Tobacco use affecting , antepartum History of blood clots Personal history of venous thrombosis and embolism IV drug abuse (HCC) Other, mixed, or unspecified nondependent drug abuse, unspecified Supervision of high risk in first trimester Unspecified high-risk with 8 completed weeks gestation Antiphospholipid antibody syndrome complicating (HCC) Other current maternal conditions classifiable elsewhere, complicating , childbirth, or the puerperium, unspecified as to episode of care documented in this encounter Care Teams Coach Operator Relationship Specialty Start Date End Date Jo-Ann Ortiz MD [address] [place] [address] PCP - General Obstetrics/Gynecology 08/11/23 documented as of this encounter
--- OUTSIDE RECORDS SUMMARY | 2024-03-25 23:24 | External Medical Summary | Summary of Care ---
Author Name Unknown Organization [facility] Address [address] [place] [address] Phone [phone] Care Team Providers Care Promotions Assistant Sales Marketing Name Role Phone Jo-Ann Ortiz MD Primary Care Provider + Reason for Visit * Reason Comments Dosage Adjustment Via Phone (anticoag Cl inic) * Evaluate & Treat - Unlimited Visits (Within 3 days (urgent)) - Pending Review Specialty Diagnoses / Procedures Referred By Imelda marcelino Referred To Contact [facility] / Pharmacy Diagnoses History of blood clots Antiphospholipid antibody syndrome complicating (HCC) Jenifer Givens CRNP [address] [place] [address] Referral ID Status Reason Start Date Expiration Date Visits Requested Visits Authorized [id number] Pending Review Specialty Services Required 3 05/17/2024 99 [phone] Encounter Details Date Type Department Care Team (Latest Contact Info) Description 11/19/2023 5:10 PM EST Anticoagulation Pharmacy, [facility] [address] [place] [address] [facility] [address] [place] [address] Antiphospholipid antibody syndrome complicating (HCC)*; History of [...] the morning. 30 Tablet 11 11/19/2023 Active Aspirin 81 MG Oral Tablet Delayed Release Take 1 Tablet by mouth in the morning. 0 11/19/2023 Discontinued (Refill) documented as of this encounter [...] with Subutex 8 mg BID Therapy through [employer] 2020 did well with Subutex Denies cravings [...] hand per patient. She saw Cardiovascular/Surgeon at [facility] -- Dr. Olivia. Pt states several [...] money to get more. Never true 08/24/2023 [place] Depression Scale Answer Date Recorded [place] Depression Scale Total 9 08/25/2023 The thought [...] this encounter Progress Notes * Lizet Ferrer, [facility] - 11/19/2023 3:10 PM EST Anticoagulation referral for management of: Enoxaparin Indication for Enoxaparin referral: /VTE prophylaxis Relevant History: Patient with antiphospholipid syndrome (APS) and history of VTE / we recommend prophylactic dose anticoagulation with heparin throughout and 6 weeks . Referral to follow patient for dvt prophylaxis during due to previous hx of atrial thrombosis during last and also antiphospholipid antibody syndrome per Dr. Barcenas and BRANDON Cruz. Patient denies hx of venous thrombosis or stroke. Pertinent Labs and Vitals: Estimated body mass index is 31.32 kg/m as calculated from the following: Height as of 08/25/23: 1.702 m (5' 7"). Weight as of 11/02/23: 90.7 kg (200 lb). Serum creatinine: 0.6 mg/dL 09/22/23 1352 Estimated creatinine clearance: 159.9 mL/min Hemoglobin Results: Lab Results Component Value Date/Time HGB - [facility] 12.7 08/25/2023 02:30 PM Platelets: Lab Results Component Value Date/Time PLATELET AUTO - [facility] 265 08/25/2023 02:30 PM PLATELET NEUTRALIZATION INTERPRETATION - [facility] Positive (A) 10/08/2023 02:03 PM Plan for lovenox dosing based upon patient's BMI: BMI is <40 = Enoxaparin 40 mg SubQ once DAILY x duration of until 36 weeks and then transition to heparin days post-op Lovenox 40 mg #30 - called to [facility] in [place]. Patient states that they have rx coverage. Patient reviewed injection Lovenox and patient states understanding. Notes that she is a past history of drug injection. She would like her Suboxone provider informed, call placed to [phone] andmessage left for provider to return call with any questions and medication update. Patient is currently taking ASA (antiplatelet) for atrial thrombosis. ACC to follow up in 1 week with status check Lizet Ferrer, Pharm D, BCACP Clinical Pharmacist 11/19/2023, 3:47 PM documented in this encounter Plan of Treatment Upcoming Encounters Date Type Department Care Team (Late st Contact Info) Description 11/26/2023 5:10 PM EST Anticoagulation Pharmacy, [address] [place] [address] [facility] [address] [place] [address] 12/16/2023 1:00 PM EST Imaging Radiology [facility] [address] [place] [address] 12/16/2023 1:30 PM EST Imaging Radiology [address] [place] [address] 12/16/2023 2:15 PM EST Imaging Radiology [facility] [address] [place] [address] 12/16/2023 3:15 PM EST Office Visit Gynecology/Obstetrics [address] [place] [address] Kristen Marsh MD [address] [place] [address] [place] [address] 01/04/2024 11:00 AM EST Office Visit Gynecology/Obstetrics [address] [place] [address] Adolfo Enciso MD [address] [place] [address] 2024 11:45 AM EST Imaging Maternal Medicine Imaging, [facility] [address] [place] [phone] 02/11/2024 11:45 AM EDT Imaging Maternal Medicine Imaging, [facility] [address] [place] [phone] Health Maintenance Due Date Last Done Comments [...] embolism documented in this encounter Care Teams Promotions Assistant Sales Marketing Relationship Specialty Start Date End Date Jo-Ann Ortiz MD [address] [place] [address] PCP - General Obstetrics/Gynecology 08/11/23 documented as of this encounter
--- OUTSIDE RECORDS SUMMARY | 2024-03-25 23:24 | External Medical Summary | Summary of Care ---
Author Name Unknown Organization [facility] Address [address] [facility] [place] [address] Phone [phone] Care Team Providers Care Pcb Designer Name Role Phone Jo-Ann Ortiz MD Primary Care Provider + Reason for Visit * Reason Comments Outpatient Testing Encounter Details Date Type Department Care Team (Late st Contact Info) Description 09/22/2023 1:50 PM EDT [facility] [address] [facility] [place] [phone] [place] [address] [place] [address] History of blood clots; Supervision of high risk in first trimester Allergies Active Allergy Reactions Criticality Noted Date Comments Sulfamethoxazole-Trimethopr im 08/19/2023 Bee Venom Anaphylaxis High 09/01/2023 Meperidine 08/19/2023 Doxycycline 08/19/2023 Morphine 08/19/2023 Difficultly breathing/hives Naloxone 08/19/2023 Shiitake Mushroom Hives 09/01/2023 Hives, shortness of breath, swelling Tetracycline 08/19/2023 documented as of this encounter (statuses as of 11/04/2023) Medications Medication Sig Dispensed Refills Start Date [...] as of this encounter (statuses as of 11/04/2023) Active Problems Problem Noted Date Diagnosed Date with 8 completed weeks gestation 09/01 complicated by subutex maintenance, an tepartum 08/25/2023 Overview: Reports compliance with Subutex 8 mg BID Therapy through [facility] 2020 did well with Subutex Denies cravings [...] hand per patient. She saw Cardiovascular/Surgeon at [facility] -- Dr. Olivia. Pt states several echocardiograms [...] as of this encounter (statuses as of 11/04/2023) Resolved Problems Problem Noted Date Diagnosed Date Resolved Date History of blood disorder 08/25/2023 IV drug abuse 08/25/2023 09/22/2023 Overview: History of IV drug abuse (opioids) Clean x 6 years / Subutex documented as of this encounter (statuses as of 11/04/2023) Immunizations Name Administration Dates Next Due SEASONAL [...] money to get more. Never true 08/24/2023 Paris Depression Scale Answer Date Recorded Paris Depression Scale Total 9 08/25/2023 The thought [...] as of this encounter Miscellaneous Notes * Addendum Note - Arcenio Jasmine TECH - 11/04/2023 3:54 PM EST Addended by: ARCENIO JASMINE on: 11/04/2023 03:54 PM Modules accepted: Orders documented in this encounter Plan of Treatment Upcoming Encounters Date Type Department Care Team (Late st Contact Info) Description 11/16/2023 12:30 PM EST Office Visit Branch Chief Obstetrics Maternal Medicine, [place] [address] [place] [address] Benito Friend MD [address] [place] [address] 11/16/2023 12:30 PM EST [facility] [place] [address] [place] [address] 12/07/2023 1:00 PM EST Office Visit Gynecology/Obstetrics [facility] [address] [place] [address] Adolfo Enciso MD [address] [place] [phone] 01/04/2024 11:00 AM EST Office Visit Gynecology/Obstetrics [facility] [address] [place] [address] Adolfo Enciso MD [address] [place] [address] Pending Results Name Type Priority Associated Diagnoses Date /Time THROMBOSIS PROFILE WITH INTERPRETATION BY PATHOLOGIST Lab Routine History of blood clots 09/22/2023 1:52 PM EDT COAGULATION INTERPRETATION BY PATHOLOGIST Lab Routine History of blood clots 11/02/2023 1:49 PM EST THROMBOSIS PROFILE WITH INTERPRETATION BY PATHOLOGIST Lab Routine History of blood clots 10/08/2023 2:03 PM EST CARDIOLIPIN IGG ANTIBODY Lab Routine History of blood clots 10/08/2023 2:03 PM EST CARDIOLIPIN IGM ANTIBODY Lab Routine History of blood clots 10/08/2023 2:03 PM EST ANTITHROMBIN III ACTIVITY Lab Routine History of blood clots 10/08/2023 2:03 PM EST PT INR Lab Routine History of blood clots 10/08/2023 2:03 PM EST FIBRINOGEN Lab Routine History of blood clots 10/08/2023 2:03 PM EST COAGULATION INTERPRETATION BY PATHOLOGIST Lab Routine History of blood clots 10/08/2023 2:03 PM EST Scheduled Orders Name Type Priority Associated Diagnoses Orde r Schedule LUPUS SENSITIVE APTT SCREEN Lab Routine History of blood clots Ordered: 11/04/2023 BETA-2 GLYCOPROTEIN IGG ANTIBODY Lab Routine History of blood clots Ordered: 11/04/2023 BETA-2 GLYCOPROTEIN IGM ANTIBODY Lab Routine History of blood clots Ordered: 11/04/2023 DILUTE ZENAIDA VIPER VENOM TIME (DRVVT) SCREEN Lab Routine History of blood clots Ordered: 11/04/2023 PROTEIN S ACTIVITY WITH ANTIGEN REFLEX Lab Routine History of blood clots Ordered: 11/04/2023 PROTEIN C ACTIVITY Lab Routine History of blood clots Ordered: 11/04/2023 Health Maintenance Due Date Last Done Comments [...] Procedure Name Priority Date/Time Associated Diagnosis Comments ANTITHROMBIN III ACTIVITY Routine 11/02/2023 1:49 PM EST History of blood clots PT INR Routine 11/02/2023 1:49 PM EST History of blood clots FIBRINOGEN Routine 11/02/2023 1:49 PM EST History of blood clots PROTEIN S ANTIGEN, FREE Routine 10/08/20 2:03 PM EST History of [...] trimester documented in this encounter Results * FIBRINOGEN (11/02/2023 1:49 PM EST) Fibrinogen 449 178 - 467 mg/dL 11/02/2023 11:19 PM EST LAB[facility]ATORY [facility] Blood Venous blood specimen / Unknown Venipuncture / Unknown 11/02/2023 1:49 PM EST 11/02/2023 1:49 PM EST Jenifer TAYLOR LAB BLOOD ORDERA BLES Performing Organization Address City/State/[facility] Co de Phone Number LABORATORY [facility] [address] [place], [place] [id number] * PT INR (11/02/2023 1:49 PM EST) Prothrombin Time 12.9 11.6 - 15.2 seconds 11/02/2023 2:47 PM EST LAB[facility]ATORY [place] 57-10 INR 1.0 0.8 - 1.2 11/02/2023 2:47 PM EST LABORATORY [place] 57-10 Blood Venous blood specimen / Unknown Venipuncture / Unknown 11/02/2023 1:49 PM EST 11/02/2023 1:49 PM EST Narrative LABORATORY [facility] [place] 57-10 - 11/02/2023 2:47 PM EST Warfarin Therapy INR: 2.0-3.0 conventional anticoagulation INR: 2.5-3.5 high intensity anticoagulation Jenifer TAYLOR LAB BLOOD ORDERA BLES LABORATORY [facility] [place] [address] [place] [id number] * ANTITHROMBIN III ACTIVITY (11/02/2023 1:49 PM EST) Antithrombin III Activity 102 80 - 120 % 11/02/2023 11:06 PM EST LABORATORY [facility] Blood Venous blood specimen / Unknown Venipuncture / Unknown 11/02/2023 1:49 PM EST 11/02/2023 1:49 PM EST Jenifer TAYLOR LAB BLOOD ORDERA BLES Performing Organization Address [facility]/ZIP Co de Phone Number LABORATORY [facility] [address] [place] [address] * PROTEIN S ANTIGEN, TOTAL (10/08/2023 2:03 PM EST) [facility] Protein S Antigen, Total 89 60 - 140 % 10/11/2023 3:03 PM EST LABORATORY [facility] Blood Venous blood specimen / Unknown Venipuncture / Unknown 10/08/2023 2:03 PM EST 10/08/2023 2:03 PM EST Narrative LABORATORY [facility] - 10/11/2023 3:03 PM EST Rheumatoid factor above 50 IU/mL may lead to an overestimation of the results. Jenifer TAYLOR LAB BLOOD ORDERA BLES Performing Organization Address City/[facility]/ZIP Co de Phone Number LABORATORY [facility] [address] [place] [address] * (ABNORMAL) PROTEIN S ANTIGEN, FREE (10/08/2023 2:03 PM EST) Pathologist [facility] [place] Protein S Antigen, Free 37(L) 50 - 134 % 10/11/2023 3:03 PM EST LABORATORY [facility] Blood Venous blood specimen / Unknown Venipuncture / Unknown 10/08/2023 2:03 PM EST 10/08/2023 2:03 PM EST [facility] LABORATORY [facility] - 10/11/2023 3:03 PM EST Rheumatoid factor above 50 IU/mL may lead to an overestimation of the results. Jenifer Givens [facility] LAB BLOOD ORDERA BLES Performing Organization Address [facility] de Phone Number LABORATORY [address] [address] * (ABNORMAL) PLATELET NEUTRALIZATION PROCEDURE (LUPUS APTT CONFIRM) (10/08/2023 2:03 PM EST) [facility] PNP Interpretation Positive( A) Negative 10/09/2023 11:00 AM EST LABORATORY [facility] Comment:Lupus anticoagulant( LA) detected. If indicated, suggest repeat testing at/or beyond 12 weeks to determine if LA is persistent. Blood Venous blood specimen / Unknown Venipuncture / Unknown 10/08/2023 2:03 PM EST 10/08/2023 2:03 PM EST [facility] LABORATORY [facility] - 10/09/2023 11:00 AM EST This test was developed and its performance characteristics determined by [facility]. It has not been cleared or approved by the [place] Food and Drug Administration. Jenifer Givens [facility] LAB BLOOD ORDERA BLES Performing Organization Address [facility] de Phone Number LABORATORY [address] [address] * LUPUS SENSITIVE APTT IMMEDIATE MIX (10/08/2023 2:03 PM EST) [facility] Lupus Sensitive aPTT Immediate Mix Luly Ratio 8.16 <15.00 % 10/09/2023 11:00 AM EST LABORATORY [facility] Blood Venous blood specimen / Unknown Venipuncture / Unknown 10/08/2023 2:03 PM EST 10/08/2023 2:03 PM EST Narrative LABORATORY [facility] - 10/09/2023 11:00 AM EST Requires additional testing according to algorithm. Jenifer TAYLOR LAB BLOOD ORDERA BLES Performing Organization Address [facility] de Phone Number LABORATORY [address] [address] * HEPARIN, UNFRACTIONATED (10/08/2023 2:03 PM EST) Pathologist [facility] [place] Heparin, Unfractionated <0.10 <0.10 IU/mL 10/09/2023 9:50 AM EST LABORATORY [facility] Blood Venous blood specimen / Unknown Venipuncture / Unknown 10/08/2023 2:03 PM EST 10/08/2023 2:03 PM EST Narrative LABORATORY [facility] - 10/09/2023 9:50 AM EST Requires additional testing according to algorithm. Jenifer TAYLOR LAB BLOOD ORDERA BLES Performing Organization Address [facility] Phone Number LABORATORY [address] [address] * THROMBIN TIME (10/08/2023 2:03 PM EST) [facility] Thrombin Time 15.4 14.7 - 19.6 seconds 10/09/2023 10:53 AM EST LABORATORY [facility] Blood Venous blood specimen / Unknown Venipuncture / Unknown 10/08/2023 2:03 PM EST 10/08/2023 2:03 PM EST Narrative LABORATORY [facility] - 10/09/2023 10:53 AM EST Requires additional testing according to algorithm. Jenifer TAYLOR LAB BLOOD ORDERA BLES Performing Organization Address [facility] Co de Phone Number LABORATORY [address] [address] * DILUTE ZENAIDA VIPER VENOM TIME (DRVVT) SCREEN (10/08/2023 2:03 PM EST) [facility] DRVVT Screen Normalized Ratio 0.78 <=1.20 10/09/2023 9:17 AM EST LABORATORY [facility] Comment:Lupus Anticoagulant not detected. Blood Venous blood specimen / Unknown Venipuncture / Unknown 10/08/2023 2:03 PM EST 10/08/2023 2:03 PM EST Jenifer TAYLOR LAB BLOOD ORDERA BLES Performing Organization Address [facility] de Phone Number LABORATORY [facility] [address] [place] [address] * PROTEIN C ACTIVITY (10/08/2023 2:03 PM EST) Protein C Activity 112 75 - 135 % 10/09/2023 9:17 AM EST LABORATORY [facility] Blood Venous blood specimen / Unknown Venipuncture / Unknown 10/08/2023 2:03 PM EST 10/08/2023 2:03 PM EST Jenifer TAYLOR LAB BLOOD ORDERA BLES Performing Organization Address [facility] de Phone Number LABORATORY [facility] [address] [place] [address] * (ABNORMAL) PROTEIN S ACTIVITY WITH ANTIGEN REFLEX (10/08/2023 2:03 PM EST) Protein S Activity 41(L) 65 - 140 % 10/09/2023 1:00 PM EST LABORATORY [facility] Comment:Changed result: Prev iously reported as 43 % on 10/09/2023 at 1244 EST. Blood Venous blood specimen / Unknown Venipuncture / Unknown 10/08/2023 2:03 PM EST 10/08/2023 2:03 PM EST Narrative LABORATORY [facility] - 10/09/2023 1:00 PM EST Requires additional testing according to algorithm. Jenifer TAYLOR LAB BLOOD ORDERA BLES Performing Organization Address [facility] de Phone Number LABORATORY [facility] [address] [place] [address] * (ABNORMAL) LUPUS SENSITIVE APTT SCREEN (10/08/2023 2:03 PM EST) [facility] Lupus Sensitive aPTT Screen, Normalized Ratio 1.44(H) 0.91 - 1.40 10/09/2023 9:09 AM EST LABORATORY [facility] Blood Venous blood specimen / Unknown Venipuncture / Unknown 10/08/2023 2:03 PM EST 10/08/2023 2:03 PM EST Narrative LABORATORY [facility] - 10/09/2023 9:09 AM EST Requires additional testing according to algorithm. Jenifer JIMNP LAB BLOOD ORDERA BLES Performing Organization Address City/[facility] Co de Phone Number LABORATORY [address] [address] * BETA-2 GLYCOPROTEIN IGM ANTIBODY (09/22/2023 1:52 PM EDT) [facility] Beta-2 Glycoprotein IgM Antibody Interpretation Negative Negative 09/23/2023 12:21 PM EDT LABORATORY [facility] Beta-2 Glycoprotein IgM Antibody Value <2.4 <7 U/mL 09/23/2023 12:21 PM EDT LABORATORY [facility] Blood Venous blood specimen / Unknown Venipuncture / Unknown 09/22/2023 1:52 PM EDT 09/22/2023 1:52 PM EDT [facility] LABORATORY [facility] - 09/23/2023 12:21 PM EDT Anticardiolipin / beta-2 glycoprotein antibodies must be detected on 2 or more occasions at least 12 weeks apart to fulfill the laboratory diagnostic criteria for Antiphospholipid Syndrome. Jenifer JIMNP LAB BLOOD ORDERA BLES Performing Organization Address City/[facility]/ZIP Co de Phone Number LABORATORY [address] [address] * BETA-2 GLYCOPROTEIN IGG ANTIBODY (09/22/2023 1:52 PM EDT) [facility] Beta-2 Glycoprotein IgG Antibody Intepretation Negative Negative 09/23/2023 12:23 PM EDT LABORATORY [facility] Beta-2 Glycoprotein IgG Antibody Value <0.8 <7 U/mL 09/23/2023 12:23 PM EDT LABORATORY [facility] Blood Venous blood specimen / Unknown Venipuncture / Unknown 09/22/2023 1:52 PM EDT 09/22/2023 1:52 PM EDT Narrative LABORATORY [facility] - 09/23/2023 12:23 PM EDT Anticardiolipin / beta-2 glycoprotein antibodies must be detected on 2 or more occasions at least 12 weeks apart to fulfill the laboratory diagnostic criteria for Antiphospholipid Syndrome. Jenifer TAYLOR LAB BLOOD ORDERA BLES Performing Organization Address [facility] de Phone Number LABORATORY [facility] [address] [place] [address] * CARDIOLIPIN IGM ANTIBODY (09/22/2023 1:52 PM EDT) Cardiolipin IgM Antibody Interpretation Negative Negative 09/23/2023 12:21 PM EDT LABORATORY [facility] Cardiolipin IgM Antibody Value 1.1 <10 MPL U/mL 09/23/2023 12:21 PM EDT LABORATORY [facility] Blood Venous blood specimen / Unknown Venipuncture / Unknown 09/22/2023 1:52 PM EDT 09/22/2023 1:52 PM EDT [facility] LABORATORY [facility] - 09/23/2023 12:21 PM EDT Anticardiolipin / beta-2 glycoprotein antibodies must be detected on 2 or more occasions at least 12 weeks apart to fulfill the laboratory diagnostic criteria for Antiphospholipid Syndrome. Jenifer TAYLOR LAB BLOOD ORDERA BLES Performing Organization Address [facility] Co de Phone Number LABORATORY [address] [address] * CARDIOLIPIN IGG ANTIBODY (09/22/2023 1:52 PM EDT) Cardiolipin IgG Antibody Interpretation Negative Negative 09/23/2023 12:23 PM EDT LABORATORY [facility] Cardiolipin IgG Antibody Value 1.3 <10 GPL U/mL 09/23/2023 12:23 PM EDT LABORATORY [facility] Blood Venous blood specimen / Unknown Venipuncture / Unknown 09/22/2023 1:52 PM EDT 09/22/2023 1:52 PM EDT Narrative LAB[facility]ATORY [facility] - 09/23/2023 12:23 PM EDT Anticardiolipin / beta-2 glycoprotein antibodies must be detected on 2 or more occasions at least 12 weeks apart to fulfill the laboratory diagnostic criteria for Antiphospholipid Syndrome. Jenifer TAYLOR LAB BLOOD ORDERA BLES LABORATORY [facility] [address] [place] [address] * (ABNORMAL) BASIC METABOLIC PANEL (09/22/2023 1:52 PM EDT) Pathologist [facility] [place] BUN 10 6 - 20 mg/dL 09/22/2023 10:10 PM EDT LABORATORY C Creatinine 0.6 0.5 - 1.0 mg/dL 09/22/2023 10:10 PM EDT LABORATORY GM Estimated Glomerular Filtration Rate >90 >=60 mL/min 09/22/2023 10:10 PM EDT LABORATORY C Comment:eGFR is calculated b ased on the CKD-EPI 2020 equation Sodium 133(L) 135 - 146 mmol/L 09/22/2023 10:10 PM EDT LABORATORY C Potassium 4.5 3.5 - 5.1 mmol/L 09/22/2023 10:10 PM EDT [facility] Chloride 103 98 - 107 mmol/L 09/22/2023 10:10 PM EDT LABORATORY C CO2 18(L) 22 - 32 mmol/L 09/22/2023 10:10 PM EDT LABORATORY C Anion Gap 12 7 - 15 mmol/L 09/22/2023 10:10 PM EDT [facility] Glucose 99 70 - 120 mg/dL 09/22/2023 10:10 PM EDT [facility] Calcium 9.0 8.4 - 10.2 mg/dL 09/22/2023 10:10 PM EDT LABORATORY [facility] Blood Venous blood specimen / Unknown Venipuncture / Unknown 09/22/2023 1:52 PM EDT 09/22/2023 1:52 PM EDT Elly Burden Backer [facility] BLOOD O [facility] LABORATORY [facility] [address] [facility] [place] [address] documented in this encounter Visit Diagnoses Diagnosis History of blood clots Personal history of venous thrombosis and embolism Supervision of high risk in first trimester Unspecified high-risk documented in this encounter Care Teams Pcb Designer Relationship Specialty Start Date End Date Jo-Ann Ortiz MD [address] [facility] [place] [address] PCP - General Obstetrics/Gynecology 08/11/23 documented as of this encounter
--- OUTSIDE RECORDS SUMMARY | 2024-03-25 23:25 | External Medical Summary ---
Author Name Unknown Address Unknown Organization K01:LABORATORY C - [address] [place] [address] Laboratory Report Ordering Provider Test Date Status MICHELLE PEREZ 10/08/2023 14:03:16 Correction Observation Date Value Abnormality Reference (Units ) Status Fibrinogen 10/08/2023 14:03:16 368 178-467 ( mg/dL) Correction Changed result: Previously r eported as <60 mg/dL on 11/04/2023 at 1657 EST. Performing Location LABORATORY [facility] - [address] [place] [address]
--- OUTSIDE RECORDS SUMMARY | 2024-03-25 23:25 | External Medical Summary ---
Author Name Unknown Address Unknown Organization K01:[facility] [place] [address] [place] [address] Laboratory Report Ordering Provider Test Date Status MICHELLE PEREZ 10/08/2023 14:03:16 Final Requires additional testing according to algorithm. Observation Date Value Abnormality Reference (Units ) Status aPTT.lupus sensitive actual/normal (normalized LA screen) 10/08/2023 14:03:16 1.44 Above high normal 0.91-1.40 Final Performing Location [facility] [place] [address] [facility] [place] [address]
--- OUTSIDE RECORDS SUMMARY | 2024-03-25 23:25 | External Medical Summary | Summary of Care ---
Author Name Unknown Organization [facility] Address [address] [facility] [place] [address] Phone [phone] Care Team Providers Care Hydrogen Plant Operations Manager Name Role Phone Jo-Ann Ortiz MD Primary Care Provider + Reason for Visit * Reason Comments Outpatient Testing Encounter Details Date Type Department Care Team (Late st Contact Info) Description 09/22/2023 1:50 PM EDT [facility] [address] [facility] [place] [phone] [place], [facility] [address] [facility] [place] [address] History of blood clots; Supervision of high risk in first trimester Allergies Active Allergy Reactions Criticality Noted Date Comments Sulfamethoxazole-Trimethopr im 08/19/2023 Bee Venom Anaphylaxis High 09/01/2023 Meperidine 08/19/2023 Doxycycline 08/19/2023 Morphine 08/19/2023 Difficultly breathing/hives Naloxone 08/19/2023 Shiitake Mushroom Hives 09/01/2023 Hives, shortness of breath, swelling Tetracycline 08/19/2023 documented as of this encounter (statuses as of 10/08/2023) Medications Medication Sig Dispensed Refills Start Date [...] needed for Nausea. 20 Tablet 2 09/22/2023 Active documented as of this encounter (statuses as of 10/08/2023) Active Problems Problem Noted Date Diagnosed Date with 8 completed weeks gestation 09/01 complicated by subutex maintenance, an tepartum 08/25/2023 Overview: Reports compliance with Subutex 8 mg BID Therapy through [employer] 2019 did well with Subutex Denies cravings [...] per patient. She saw Cardiovascular[facility] at [facility] -- Dr. Olivia. Pt states several echocardiograms [...] as patient does not have previous records. Last Assessment & Plan: CONSIDERATIONS: Explained that [...] as of this encounter (statuses as of 10/08/2023) Resolved Problems Problem Noted Date Diagnosed Date Resolved Date History of blood disorder 08/25/2023 IV drug abuse 08/25/2023 09/22/2023 Overview: History of IV drug abuse (opioids) Clean x 6 years / Subutex documented as of this encounter (statuses as of 10/08/2023) Immunizations Name Administration Dates Next Due SEASONAL [...] money to get more. Never true 08/24/2023 Averill Depression Scale Answer Date Recorded Averill Depression Scale Total 9 08/25/2023 The thought [...] Description 11/16/2023 12:30 PM EST Office Visit Carpet Layer Helper Obstetrics Maternal Medicine, [address] [address] Benito Friend MD [address] [place] [address] 11/16/2023 12:30 PM EST [facility] [place] [address] [place] [address] Pending Results Name Type Priority Associated Diagnoses Date /Time THROMBOSIS PROFILE WITH INTERPRETATION BY PATHOLOGIST Lab Routine History of blood clots 09/22/2023 1:52 PM EDT QNATAL ADVANCED (QUEST) Lab Routine Supervision of high risk in first trimester 10/08/2023 2:03 PM EST LUPUS SENSITIVE APTT SCREEN Lab Routine History of blood clots 10/08/2023 2:03 PM EST PROTEIN S ACTIVITY WITH ANTIGEN REFLEX Lab Routine History of blood clots 10/08/2023 2:03 PM EST PROTEIN C ACTIVITY Lab Routine History of blood clots 10/08/2023 2:03 PM EST DILUTE ZENAIDA VIPER VENOM TIME (DRVVT) SCREEN Lab Routine History of blood clots 10/08/2023 2:03 PM EST Scheduled Orders Name Type Priority Associated Diagnoses Orde r Schedule ANTITHROMBIN III ACTIVITY Lab Routine History of blood clots Ordered: 09/22/2023 PT INR Lab Routine History of blood clots Ordered: 09/22/2023 FIBRINOGEN Lab Routine History of blood clots Ordered: 09/22/2023 COAGULATION INTERPRETATION BY PATHOLOGIST Lab Routine History of blood clots Ordered: 09/22/2023 Health Maintenance Due Date Last Done Comments [...] Procedure Name Priority Date/Time Associated Diagnosis Comments CARDIOLIPIN IGM ANTIBODY Routine 09/22/2023 1:52 PM [...] trimester documented in this encounter Results * BETA-2 GLYCOPROTEIN IGM ANTIBODY (09/22/2023 1:52 PM EDT) Beta-2 Glycoprotein IgM Antibody Interpretation Negative Negative 09/23/2023 12:21 PM EDT LABORATORY [facility] Beta-2 Glycoprotein IgM Antibody Value <2.4 <7 U/mL 09/23/2023 12:21 PM EDT LABORATORY [facility] Blood Venous blood specimen / Unknown Venipuncture / Unknown 09/22/2023 1:52 PM EDT 09/22/2023 1:52 PM EDT Narrative LABORATORY [facility] - 09/23/2023 12:21 PM EDT Anticardiolipin / beta-2 glycoprotein antibodies must be detected on 2 or more occasions at least 12 weeks apart to fulfill the laboratory diagnostic criteria for Antiphospholipid Syndrome. Jenifer TAYLOR LAB BLOOD ORDERA BLES Performing Organization Address City/State/[facility] Co de Phone Number LABORATORY [facility] [address] [place] [address] * BETA-2 GLYCOPROTEIN IGG ANTIBODY (09/22/2023 1:52 PM EDT) Beta-2 Glycoprotein IgG Antibody Intepretation Negative Negative 09/23/2023 12:23 PM EDT LABORATORY [facility] Beta-2 Glycoprotein IgG Antibody Value <0.8 <7 U/mL 09/23/2023 12:23 PM EDT LABORATORY [facility] Blood Venous blood specimen / Unknown Venipuncture / Unknown 09/22/2023 1:52 PM EDT 09/22/2023 1:52 PM EDT Narrative LABORATORY [facility] - 09/23/2023 12:23 PM EDT Anticardiolipin / beta-2 glycoprotein antibodies must be detected on 2 or more occasions at least 12 weeks apart to fulfill the laboratory diagnostic criteria for Antiphospholipid Syndrome. Jenifre TAYLOR LAB BLOOD ORDERA BLES Performing Organization Address [facility] Co de Phone Number LABORATORY [place] [address] [place] [address] * CARDIOLIPIN IGM ANTIBODY (09/22/2023 1:52 PM EDT) Cardiolipin IgM Antibody Interpretation Negative Negative 09/23/2023 12:21 PM EDT LABORATORY [facility] Cardiolipin IgM Antibody Value 1.1 <10 MPL U/mL 09/23/2023 12:21 PM EDT LABORATORY [facility] Blood Venous blood specimen / Unknown Venipuncture / Unknown 09/22/2023 1:52 PM EDT 09/22/2023 1:52 PM EDT Narrative LABORATORY [facility] - 09/23/2023 12:21 PM EDT Anticardiolipin / beta-2 glycoprotein antibodies must be detected on 2 or more occasions at least 12 weeks apart to fulfill the laboratory diagnostic criteria for Antiphospholipid Syndrome. Jenifer TAYLOR LAB BLOOD ORDERA BLES Performing Organization Address [facility] de Phone Number LABORATORY [address] [address] * CARDIOLIPIN IGG ANTIBODY (09/22/2023 1:52 PM EDT) [facility] Cardiolipin IgG Antibody Interpretation Negative Negative 09/23/2023 12:23 PM EDT LABORATORY [facility] Cardiolipin IgG Antibody Value 1.3 <10 GPL U/mL 09/23/2023 12:23 PM EDT LABORATORY [facility] Blood Venous blood specimen / Unknown Venipuncture / Unknown 09/22/2023 1:52 PM EDT 09/22/2023 1:52 PM EDT Narrative LABORATORY [facility] - 09/23/2023 12:23 PM EDT Anticardiolipin / beta-2 glycoprotein antibodies must be detected on 2 or more occasions at least 12 weeks apart to fulfill the laboratory diagnostic criteria for Antiphospholipid Syndrome. Jenifer JIMNP LAB BLOOD ORDERA BLES Performing Organization Address City/[facility]/ZIP Co de Phone Number LABORATORY [facility] [address] [place] [address] * (ABNORMAL) BASIC METABOLIC PANEL (09/22/2023 1:52 PM EDT) BUN 10 6 - 20 mg/dL 09/22/2023 10:10 PM EDT LAB[facility]ATORY [facility] Creatinine 0.6 0.5 - 1.0 mg/dL 09/22/2023 10:10 PM EDT LAB[facility] Estimated Glomerular Filtration Rate >90 >=60 mL/min 09/22/2023 10:10 PM EDT LAB[facility]ORY [facility] Comment:eGFR is calculated b ased on the CKD-EPI 2020 equation Sodium 133(L) 135 - 146 mmol/L 09/22/2023 10:10 PM EDT [facility] Potassium 4.5 3.5 - 5.1 mmol/L 09/22/2023 10:10 PM EDT [facility] Chloride 103 98 - 107 mmol/L 09/22/2023 10:10 PM EDT [facility] CO2 18(L) 22 - 32 mmol/L 09/22/2023 10:10 PM EDT [facility] Anion Gap 12 7 - 15 mmol/L 09/22/2023 10:10 PM EDT [facility] Glucose 99 70 - 120 mg/dL 09/22/2023 10:10 PM EDT [facility] Calcium 9.0 8.4 - 10.2 mg/dL 09/22/2023 10:10 PM EDT LAB[facility] Blood Venous blood specimen / Unknown Venipuncture / Unknown 09/22/2023 1:52 PM EDT 09/22/2023 1:52 PM EDT Elly Riveraer BRANDON LAB BLOOD O RDERABLES LABORATORY [facility] [address] [place] [address] documented in this encounter Visit Diagnoses Diagnosis History of blood clots Personal history of venous thrombosis and embolism Supervision of high risk in first trimester Unspecified high-risk documented in this encounter Care Teams Hydrogen Plant Operations Manager Relationship Specialty Start Date End Date Jo-Ann Ortiz MD [address] [place] [address] PCP - General Obstetrics/Gynecology 08/11/23 documented as of this encounter
--- OUTSIDE RECORDS SUMMARY | 2024-03-25 23:25 | External Medical Summary ---
Author Name Unknown Address Unknown Organization K01:LABORATORY [facility] - [address] [facility] [address] [facility] [address] Laboratory Report Ordering Provider Test Date Status MICHELLE PEREZ 10/08/2023 14:03:16 Correction Requires additional testing according to algorithm. Observation Date Value Abnormality Reference (Units ) Status Protein S, Functional 10/08/2023 14:03:16 41 Below low normal 65-140 (%) Correction Changed result: Previously r eported as 43 % on 10/09/2023 at 1244 EST. Performing Location LABORATORY [facility] - [address] [facility] [address]
--- OUTSIDE RECORDS SUMMARY | 2024-03-25 23:25 | External Medical Summary ---
Author Name Unknown Address Unknown Organization K01:LABORATORY [address] [address] Laboratory Report Ordering Provider Test Date Status DARBY VIEYRA 11/02/2023 13:49:43 Final hCG can serve as a screening assay for . However, early may not give a positive hCG test result. In addition, some non- women may have a hCG result slightly higher than the reference limit. Careful interpretation of the hCG with clinical history is required to determine whether the patient may be . Observation Date Value Abnormality Reference (Units ) Status Choriogonadotropin.in tact+Beta subunit [Units/volume] in Serum or Plasma 11/02/2023 13:49:43 [address].0 Above high normal <=1.0 (mIU/mL) Final Performing Location LABORATORY [place] [address] [address] [facility] [address]
--- OUTSIDE RECORDS SUMMARY | 2024-03-25 23:25 | External Medical Summary | Summary of Care ---
Author Name Unknown Organization [facility] Address [address] [facility] [place] [address] Phone [phone] Care Team Providers Care Client Customer Manager Name Role Phone Jo-Ann Ortiz MD Primary Care Provider + Reason for Visit * Reason Comments Outpatient Testing Encounter Details Date Type Department Care Team (Late st Contact Info) Description 10/08/2023 1:40 PM EST [facility] [address] [facility] [place] [phone] [facility] [address] [facility] OBDULIASELECT [facility] [place] [address] complicated by subutex maintenance, antepartum (HCC); Supervision of high risk due to social problems in first trimester Allergies Active Allergy Reactions [...] with Subutex 8 mg BID Therapy through [employer] 2020 did well with Subutex Denies cravings [...] hand per patient. She saw Cardiovascular/Surgeon at [facility] -- Dr. Olivia. Pt states several echocardiograms [...] money to get more. Never true 08/24/2023 Challis Depression Scale Answer Date Recorded Challis Depression Scale Total 9 08/25/2023 The thought [...] Description 11/16/2023 12:30 PM EST Office Visit Flight Coordinator Obstetrics Maternal Medicine, [address] [address] Benito Friend MD [address] [place] [address] 11/16/2023 12:30 PM EST Imaging Rad[facility] [place] [address] [place] [address] Pending Results Name Type Priority Associated Diagnoses Date /Time QNATAL ADVANCED (QUEST) Lab Routine complicated by subutex maintenance, antepartum (HCC) 10/08/2023 1:57 PM EST Health Maintenance Due Date Last [...] Diagnoses Diagnosis complicated by subutex maintenance, antepartum (HCC) Supervision of high risk due to social problems in first trimester Supervision of other high-risk documented in this encounter Care Teams Client Customer Manager Relationship Specialty Start Date End Date Jo-Ann Ortiz MD [address] [place] [address] PCP - General Obstetrics/Gynecology 08/11/23 documented as of this encounter
--- OUTSIDE RECORDS SUMMARY | 2024-03-25 23:25 | External Medical Summary ---
Author Name Unknown Address Unknown Organization K01:[facility] [place] [address] [place] [address] Laboratory Report Ordering Provider Test Date Status MICHELLE PEREZ 10/08/2023 14:03:16 Final Warfarin Therapy
INR: 2 .0-3.0 conventional anticoagulation
INR: 2.5- 3.5 high intensity anticoagulation Observation Date Value Abnormality Reference (Units ) Status PT 10/08/2023 14:03:16 12.7 11.6-15.2 (seconds) Final INR 10/08/2023 14:03:16 0.9 0.8-1.2 Final Performing Location [facility] [place] [address] [place] [address]
--- OUTSIDE RECORDS SUMMARY | 2024-03-25 23:25 | External Medical Summary ---
Author Name Unknown Address Unknown Organization K01:LABORATORY [facility][note 3] [address] [facility] [place] [address] Laboratory Report Ordering Provider Test Date Status MICHELLE PEREZ 10/08/2023 14:03:16 Final Observation Date Value Abnormality Reference (Units ) Status Protein C actual/normal in Platelet poor plasma by Chromogenic method 10/08/2023 14:03:16 112 75-135 (%) Final Performing Location LABORATORY [facility] - [address] [place] [facility] [place] [address]
--- OUTSIDE RECORDS SUMMARY | 2024-03-25 23:25 | External Medical Summary ---
Author Name Unknown Address Unknown Organization K01:LABORATORY C - [address] [facility] [place]. [facility] [address] Laboratory Report Ordering Provider Test Date Status MICHELLE PEREZ 10/08/2023 14:03:16 Final Observation Date Value Abnormality Reference (Units) Status LUPUS INTERPRETATION BY PATHOLOGIST 10/08/2023 14:03:16 - Lupus anticoagulant detected. Final LUPUS INTERPRETATION BY PATHOLOGIST 10/08/2023 14:03:16 - Protein S activity below the reference [...] protein S deficiency has autosomal dominant inheritance. Final LUPUS INTERPRETATION BY PATHOLOGIST 10/08/2023 14:03:16 - Negative for antiphospholipid antibodies. Final LUPUS INTERPRETATION BY PATHOLOGIST 10/08/2023 14:03:16 - Negative for protein C and antithrombin 3 deficiency. Final LUPUS INTERPRETATION BY PATHOLOGIST 10/08/2023 14:03:16 Final LUPUS INTERPRETATION BY PATHOLOGIST 10/08/2023 14:03:16 Final LUPUS INTERPRETATION BY PATHOLOGIST 10/08/2023 14:03:16 Summary of lupus reflex testing: Final LUPUS INTERPRETATION BY PATHOLOGIST 10/08/2023 14:03:16 Lupus sensitive aPTT screen abnormal and DRVVT [...] or (in women) complications of (Table 1). Final LUPUS INTERPRETATION BY PATHOLOGIST 10/08/2023 14:03:16 Final LUPUS INTERPRETATION BY PATHOLOGIST 10/08/2023 14:03:16 Final LUPUS INTERPRETATION BY PATHOLOGIST 10/08/2023 14:03:16 Table 1. Revised [place] Criteria of Antiphospholipid Antibody Syndrome Final LUPUS INTERPRETATION BY PATHOLOGIST 10/08/2023 14:03:16 Clinical Criteria* Laboratory Criteria Final LUPUS INTERPRETATION BY PATHOLOGIST 10/08/2023 14:03:16 Vascular thrombosis: Final LUPUS INTERPRETATION BY PATHOLOGIST 10/08/2023 14:03:16 - venous, arterial, or small vessel Detectable antiphospholipid antibody Final LUPUS INTERPRETATION BY PATHOLOGIST 10/08/2023 14:03:16 - IgG or IgM cardiolipin antibody Final LUPUS INTERPRETATION BY PATHOLOGIST 10/08/2023 14:03:16 - IgG or IgM ydgr-9-zptglkvzeedw antibody Final LUPUS INTERPRETATION BY PATHOLOGIST 10/08/2023 14:03:16 complication Final LUPUS INTERPRETATION BY PATHOLOGIST 10/08/2023 14:03:16 - Unexplained at or after 10 weeks gestation Final LUPUS INTERPRETATION BY PATHOLOGIST 10/08/2023 14:03:16 - 3 or more deaths before 10 weeks gestation Final LUPUS INTERPRETATION BY PATHOLOGIST 10/08/2023 14:03:16 - 1 premature births of normal due to Final LUPUS INTERPRETATION BY PATHOLOGIST 10/08/2023 14:03:16 eclampsia, preeclampsia, or placental insufficiency Lupus anticoagulant Final LUPUS INTERPRETATION BY PATHOLOGIST 10/08/2023 14:03:16 - abnormal DRVVT confirmatory ratio Final LUPUS INTERPRETATION BY PATHOLOGIST 10/08/2023 14:03:16 - abnormal lupus sensitive aPTT with abnormal platelet neutralization procedure) Final LUPUS INTERPRETATION BY PATHOLOGIST 10/08/2023 14:03:16 *The thrombosis or complication must occur within 5 years of positive test result At least one of the above tests must be positive on two separate occasions at least 12 weeks apart Final LUPUS INTERPRETATION BY PATHOLOGIST 10/08/2023 14:03:16 Source: Lindsey Horowitz et al (2006). Final LUPUS INTERPRETATION BY PATHOLOGIST 10/08/2023 14:03:16 Final HEMATOLOGY PATHOLOGIST 10/08/2023 14:03:16 Dr. Suzanne Raygoza, DO Final Performing Location LABORATORY [address] [place] [facility] [address]
--- OUTSIDE RECORDS SUMMARY | 2024-03-25 23:25 | External Medical Summary ---
Author Name Unknown Address Unknown Organization K01:LABORATORY [facility] - [address] [facility] [place] [address] Laboratory Report Ordering Provider Test Date Status MICHELLE PEREZ 10/08/2023 14:03:16 Final Requires additional testing according to algorithm. Observation Date Value Abnormality Reference (Units ) Status LUPUS SENSITIVE APTT IMMEDIATE MIX KATY RATIO 10/08/2023 14:03:16 8.16 <15.00 (%) Final Performing Location LABORATORY [facility] - [address] [facility] [address]
--- OUTSIDE RECORDS SUMMARY | 2024-03-25 23:25 | External Medical Summary ---
Author Name Unknown Address Unknown Organization K0G:LABORATORY [facility] [address] - [address] [place] [address] Laboratory Report Ordering Provider Test Date Status MICHELLE PEREZ 11/02/2023 13:49:43 Final Warfarin Therapy
INR: 2 .0-3.0 conventional anticoagulation
INR: 2.5- 3.5 high intensity anticoagulation Observation Date Value Abnormality Reference (Units ) Status PT 11/02/2023 13:49:43 12.9 11.6-15.2 (seconds) Final INR 11/02/2023 13:49:43 1.0 0.8-1.2 Final Performing Location LABORATORY [facility] [address] - [address] [place] [address]
--- OUTSIDE RECORDS SUMMARY | 2024-03-25 23:25 | External Medical Summary | Summary of Care ---
Author Name Unknown Organization [facility] Address [address] [facility] [place] [address] Phone [phone] Care Team Providers Care Anhydrous Ammonia Production Supervisor Name Role Phone Jo-Ann Ortiz MD Primary Care Provider + Reason for Visit * Reason Comments Return Visit Encounter Details Date Type Department Care Team (Late st Contact Info) Description 11/02/2023 1:30 PM EST [facility] [address] [place] [address] BackElly spence CRNP [address] [place] [address] Supervision of high risk in second trimester*; [...] with Subutex 8 mg BID Therapy through [employer] 2019 did well with Subutex Denies cravings [...] per patient. She saw Cardiovascular/Surgeon at [facility] -- Dr. Olivia. Pt states [...] money to get more. Never true 08/24/2023 Henderson Depression Scale Answer Date Recorded Henderson Depression Scale Total 9 08/25/2023 The thought [...] Description 11/02/2023 2:00 PM EST Laboratory Laboratory, [facility] [address] [place] [phone] [facility] [address] [facility] [place] [address] 11/16/2023 12:30 PM EST Office Visit Bonus Clerk Obstetrics Maternal Medicine, [address] [address] Benito Friend MD [address] [place] [address] 11/16/2023 12:30 PM EST Imaging Radiology [facility] [place] [address] [place] [address] 12/07/2023 1:00 PM EST Office Visit Gynecology/Obstetrics [facility] [address] [facility] [place] [address] Adolfo Enciso MD [address] [facility] [place] [address] 01/04/2024 11:00 AM EST Office Visit Gynecology/Obstetrics [facility] [address] [facility] [place] [address] Adolfo Enciso MD [address] [place] [address] Scheduled Orders Name Type Priority Associated Diagnoses [...] Negative Ketone, Urine Negative Negative mg/dL Specific [place], Urine 1.020 1.003 - 1.030 Blood, Urine [...] high-risk documented in this encounter Care Teams Anhydrous Ammonia Production Supervisor Relationship Specialty Start Date End Date Jo-Ann Ortiz MD [address] [facility] [place] [address] PCP - General Obstetrics/Gynecology 08/11/23 documented as of this encounter
--- OUTSIDE RECORDS SUMMARY | 2024-03-25 23:25 | External Medical Summary ---
Author Name Unknown Address Unknown Organization : Laboratory Report Ordering Provider Test Date Status MICHELLE PEREZ 10/08/2023 13:57:27 Final LAB: may obtain with foot / other area draw if needed
Patient past history of of IV drug use Observation Date Value Abnormality Reference (Units ) Status NUMBER OF FETUSES? 10/08/2023 13:57:27 1 Final ADVANCED MATERNAL AGE? 10/08/2023 13:57:27 NO Final ABNORMAL TOMI? 10/08/2023 13:57:27 NONE Final ABNORMAL US? 10/08/2023 13:57:27 NO ABNORMAL US Final PERSONAL/FAM HISTORY? 10/08/2023 13:57:27 SEE BELOW Final NO PERSONAL/FAMILY HISTORY O F INTERPRETATION 10/08/2023 13:57:27 SEE BELOW Final This specimen showed an expe cted representation of
chromosome 21, 18, and 13 material. Results were
not analyzed or reported for microdeletions. See
'Limitations' below. TRISOMY 21 (T21) 10/08/2023 13:57:27 Negative Final TRISOMY 18 (T18) 10/08/2023 13:57:27 Negative Final TRISOMY 13 (T13) 10/08/2023 13:57:27 Negative Final Y CHROMOSOME 10/08/2023 13:57:27 Detected Final Y CHR. INTERPRETATION 10/08/2023 13:57:27 SEE BELOW Final Consistent with a male fetus . SEX CHROMOSOME 10/08/2023 13:57:27 No aneuploidy Final SEX CHROMOSOME INTERP 10/08/2023 13:57:27 SEE BELOW Final No apparent abnormality was detected. See
'Limitations' below. MICRODELETION 10/08/2023 13:57:27 Opted Out Final MICRODELETION INTERP 10/08/2023 13:57:27 SEE BELOW Final Results were not analyzed or reported for
microdeletions. GESTATIONAL AGE (IN WEEKS) 10/08/2023 13:57:27 13 Final GESTATIONAL AGE (IN DAYS) 10/08/2023 13:57:27 2 Final FRACTION 10/08/2023 13:57:27 6.10% Final LABORATORY COMMENTS 10/08/2023 13:57:27 SEE BELOW Final Laboratory testing supervise d and results
monitored by Lisette Keith, Ph.D., [facility]. LIMITATIONS 10/08/2023 13:57:27 SEE BELOW Final QNatal(R) Advanced is a cell -free DNA test that
screens for increased risk of certain
chromosomal abnormalities that may cause
defects, including Trisomy 21 (Down syndrome),
Trisomy 18, Trisomy 13, and certain sex chromosome
abnormalities (i.e., 45,X, 47,XXY, 47,XXX, and
47,XYY), as well as sex. In addition, if
selected as an option, QNatal(R) Advanced can
screen for certain microdeletions (i.e., 22q, 5p,
1p36, 15q, 11q, 8q, and 4p) that may cause
defects. This test does not assess the risk of
abnormalities such as neural tube defects or
ventral wall defects and should not be considered
in isolation from other clinical findings and
laboratory test results.
QNatal(R) Advanced has been validated in johnson
pregnancies for the trisomies and sex chromosome
abnormalities listed above, as well as for
microdeletions, and for the determination of
sex. Sex chromosome aneuploidy analysis is only
performed in johnson pregnancies. The test has
also been validated in twin pregnancies for the
trisomies listed above and for microdeletions, but
not for the sex chromosome abnormalities due to
limited data. The test has not been validated in
higher order pregnancies (more than two) because
limited data is available.
Microdeletion screening is limited to the
specified microdeletion regions (see
'Methodology'). The Y chromosome is analyzed for
the determination of sex. The sensitivity
and specificity of sex determination
analysis may be less than that of the Trisomy 21,
18, and 13 analysis and this determination can be
confounded by vanishing twin syndrome in
pregnancies that were originally multiple
gestation pregnancies. It should be noted that
QNatal(R) Advanced is a quantitative analysis of
maternal and placental cfDNA. As a result, the
accuracy of the screening test results may be
affected by the presence of chromosome
abnormalities or microdeletions that are maternal
or confined placental in origin. False positive
findings involving the examined chromosomes and
microdeletion regions may be due to maternal,
placental, or mosaicism, by vanishing twin
syndrome, or other unexplained causes. SPECIFICATIONS 10/08/2023 13:57:27 SEE BELOW Final Sensitivity Specificity
T21 >99.9% >99.9%
T18 >99.9% >99.9%
T13 >99.9% >99.9%
Accuracy
Y >99.9%
Performance of the QNatal Advanced
laboratory-developed test (LDT) has been
determined based on internal analytical
assessment. METHODOLOGY 10/08/2023 13:57:27 SEE BELOW Final Circulating cell-free (cf) D NA was isolated from
plasma followed by detection on a massively
parallel sequencing platform. Bioinformatic
analysis was performed to determine the
representation of chromosomes 21, 18, 13, X and Y
in circulating cell-free DNA. The representation
of sequences from the critical regions involved in
1p36 microdeletion syndrome (1p36),
Vasques-Hirschhorn syndrome (4p), Cri-du-chat
syndrome (5p), Zeferino-Giedion syndrome (8p),
Brice syndrome (11q), Prader Willi
syndrome/Angelman syndrome (15q), and DiGeorge
syndrome (22q) is evaluated for the detection of
microdeletions if requested. This test was
developed, and its performance characteristics
have been determined by [employer]
[facility]. It has not been
cleared or approved by the U.S. Food and Drug
Administration. Performance characteristics refer
to the analytical performance of the test. This
test is performed pursuant to a license agreement
with [employer].
This test was developed and its analytical
performance characteristics have been determined
by [employer]. It has not been cleared or
approved by FDA. This assay has been validated
pursuant to the CLIA regulations and is used for
clinical purposes.
Test performed by [facility]
[address] [place] [address]

[employer]: Ramonita Prather MD,PHD,CASI
Test Reported by [facility],
[facility],
[address] [place], [place]
Jem Cruz M.D., Ph.D., Director of Laboratories
[phone], [id number] Performing Location
--- OUTSIDE RECORDS SUMMARY | 2024-03-25 23:25 | External Medical Summary | Summary of Care ---
Author Name Unknown Organization [facility] Address [address] [facility] [place] [address] Phone [phone] Care Team Providers Care Back Stayer Name Role Phone Jo-Ann Ortiz MD Primary Care Provider + Reason for Visit * Reason Comments Outpatient Testing Encounter Details Date Type Department Care Team (Late st Contact Info) Description 10/08/2023 1:40 PM EST [facility] [address] [facility] [place] [phone] [facility] [address] [facility] [address] complicated by subutex maintenance, antepartum (HCC); Supervision [...] with Subutex 8 mg BID Therapy through [facility] 2020 did well with Subutex Denies cravings [...] saw Cardiovascular/Surgeon at [facility] -- Dr. Olivia. Pt states several echocardiograms [...] money to get more. Never true 08/24/2023 [place] Depression Scale Answer Date Recorded [place] Depression Scale Total 9 08/25/2023 The thought [...] Description 11/16/2023 12:30 PM EST Office Visit Hearing Healthcare Practitioner Obstetrics Maternal Medicine, [address] [address] Benito Friend MD [address] [place] [address] 11/16/2023 12:30 PM EST Imaging Radiology [facility] [place] [address] [place] [address] Pending Results Name Type Priority Associated Diagnoses [...] high-risk documented in this encounter Care Teams Back Stayer Relationship Specialty Start Date End Date Jo-Ann Ortiz MD [address] [place] [place] [address] PCP - General Obstetrics/Gynecology 08/11/23 documented as of this encounter
--- OUTSIDE RECORDS SUMMARY | 2024-03-25 23:25 | External Medical Summary ---
Author Name Unknown Address Unknown Organization [id number]:[place] [place] [facility] [address] Laboratory Report Ordering Provider Test Date Status MICHELLE PEREZ 10/08/2023 14:03:16 Final Requires additional testing according to algorithm. Observation Date Value Abnormality Reference (Units ) Status Thrombin time 10/08/2023 14:03:16 15.4 14.7-1 9.6 (seconds) Final Performing Location [facility] [place] [address] [facility] [address]
--- OUTSIDE RECORDS SUMMARY | 2024-03-25 23:25 | External Medical Summary | Summary of Care ---
Author Name Unknown Organization [facility] Address [address] [place] [address] Phone [phone] Care Team Providers Care Director Of Cardiac Rehabilitation Name Role Phone Jo-Ann Ortiz MD Primary Care Provider + Reason for Visit * Reason Onset Date Comments Test Results 10/19/2023 QNATAL Results Encounter Details Date Type Department Care Team (Late st Contact Info) Description 10/19/2023 Telephone Community Service Technician Obstetrics Maternal Medicine, [place] [address] [place], [place] [phone] Mirian Byrd CHRA Test Results (QNATAL Results) Allergies Active Allergy Reactions Criticality Noted Date Comments Sulfamethoxazole-Trimethopr im 08/19/2023 Bee Venom Anaphylaxis High 09/01/2023 Meperidine 08/19/2023 Doxycycline 08/19/2023 Morphine 08/19/2023 Difficultly breathing/hives Naloxone 08/19/2023 Shiitake Mushroom Hives 09/01/2023 Hives, shortness of breath, swelling Tetracycline 08/19/2023 documented as of this encounter (statuses as of 10/19/2023) Medications Medication Sig Dispensed Refills Start Date [...] as of this encounter (statuses as of 10/19/2023) Active Problems Problem Noted Date Diagnosed Date with 8 completed weeks gestation 09/01 complicated by subutex maintenance, an tepartum 08/25/2023 Overview: Reports compliance with Subutex 8 mg BID Therapy through el? 2019 did well with Subutex Denies cravings [...] patient. She saw Cardiovascular/Surgeon at [facility] -- Dr. Olivia. Pt states several echocardiograms [...] as of this encounter (statuses as of 10/19/2023) Resolved Problems Problem Noted Date Diagnosed Date Resolved Date History of blood disorder 08/25/2023 IV drug abuse 08/25/2023 09/22/2023 Overview: History of IV drug abuse (opioids) Clean x 6 years / Subutex documented as of this encounter (statuses as of 10/19/2023) Immunizations Name Administration Dates Next Due SEASONAL [...] money to get more. Never true 08/24/2023 [place] Depression Scale Answer Date Recorded [place] Depression Scale Total 9 08/25/2023 The thought [...] encounter Miscellaneous Notes * Telephone Encounter - Mirian Byrd CHRA - 10/19/2023 10:24 AM EST Cell-free DNA genetic screening results came back LOW RISK. Informed patient that based on this screening test, the is not at high risk for trisomy 21, 18, 13, and sex chromosome abnormalities. Patient is aware of male sex of the fetus. OF NOTE: The patient has questions about microdeletions and their significance and would like a call from a genetic counselor about this topic. CATHERINE Hernandez Genetic Counseling Environmental Health Technician Maternal Medicine For further questions call the Genetic Counselor at . documented in this encounter Plan of Treatment Upcoming Encounters Date Type Department Care Team (Late st Contact Info) Description 11/02/2023 1:30 PM EST Office Visit Gynecology/Obstetrics [facility] [address] [place] [address] BackerElly CRNP [address] [place] [address] 11/16/2023 12:30 PM EST Office Visit Community Service Technician Obstetrics Maternal Medicine, [place] [address] [place] [address] Benito Friend MD [address] [place] [address] 11/16/2023 12:30 PM EST Imaging Radiology [facility] [address] [place] [address] 12/07/2023 1:00 PM EST Office Visit Gynecology/Obstetrics [facility] Peralta [address] [place] [address] Adolfo Enciso MD [address] [place] [address] Health Maintenance Due Date Last Done Comments [...] filedocumented as of this encounter Care Teams Director Of Cardiac Rehabilitation Relationship Specialty Start Date End Date Jo-Ann Ortiz MD [address] [address] PCP - General Obstetrics/Gynecology 08/11/23 documented as of this encounter
--- OUTSIDE RECORDS SUMMARY | 2024-03-25 23:25 | External Medical Summary ---
Author Name Unknown Address Unknown Organization K01:LABORATORY [facility] - [address] [place] [address] Laboratory Report Ordering Provider Test Date Status MICHELLE PEREZ 11/02/2023 13:49:43 Final Observation Date Value Abnormality Reference (Units ) Status Fibrinogen 11/02/2023 13:49:43 449 178-467 ( mg/dL) Final Performing Location LABORATORY [facility] - [address] [place] [address]
--- OUTSIDE RECORDS SUMMARY | 2024-03-25 23:25 | External Medical Summary ---
Author Name Unknown Address Unknown Organization K01:[facility]ORY [facility] [place] [address] [place] [address] Laboratory Report Ordering Provider Test Date Status MICHELLE PEREZ 11/02/2023 13:49:43 Final Observation Date Value Abnormality Reference (Units ) Status Antithrombin III 11/02/2023 13:49:43 102 80- 120 (%) Final Performing Location LAB[facility]ATORY [facility] [place] [address] [place] [address]
--- OUTSIDE RECORDS SUMMARY | 2024-03-25 23:25 | External Medical Summary ---
Author Name Unknown Address Unknown Organization K01:LABORATORY [facility] [place] - [address] [place] [address] Laboratory Report Ordering Provider Test Date Status MICHELLE PEREZ 10/08/2023 14:03:16 Final Observation Date Value Abnormality Reference (Units ) Status Antithrombin III 10/08/2023 14:03:16 108 80- 120 (%) Final Performing Location LABORATORY [facility] [place] - [address] [place] [address]
--- OUTSIDE RECORDS SUMMARY | 2024-03-25 23:25 | External Medical Summary ---
Author Name Unknown Address Unknown Organization K01:[place] [place] [address] [place] [address] Laboratory Report Ordering Provider Test Date Status MICHELLE PEREZ 10/08/2023 14:03:16 Final Observation Date Value Abnormality Reference (Units ) Status dRVVT induced actual/Normal 10/08/2023 14:03:16 0.78 <=1.20 Final Lupus Anticoagulant not dete cted. Performing Location [facility] [place] [address] [place] [address]
--- OUTSIDE RECORDS SUMMARY | 2024-03-25 23:25 | External Medical Summary ---
Author Name Unknown Address Unknown Organization : Laboratory Report Ordering Provider Test Date Status LAURIE LINDQUISTER 11/02/2023 13:49:43 Final FOOT STICK OK Observation Date Value Abnormality Reference (Units ) Status INTERPRETATION 11/02/2023 13:49:43 SEE BELOW Final Screen negative for open NTD . RISK FOR ONTD 11/02/2023 13:49:43 1:2922 Final CALC'D GESTATIONAL AGE 1211/02/2023 13:49:43 16.9 Final AFP, SERUM 11/02/2023 13:49:43 46.6 (ng/mL) Final AFP MOM 11/02/2023 13:49:43 1.48 Final Reference Range:
NTD <2 .50
IDD <1.90
TWINS <4.00
TWINS IDD <3.50
TRIPLETS <4.50
The AFP test result indicates that this patient is
screen negative for open NTD. It should be noted
that normal test results can never guarantee the
of a normal baby and that 2-3% of newborns
have some type of physical or mental defect, many
of which are undetectable through any known
diagnostic technique.
This is a screening test, not a diagnostic test.
This risk assessment report is based in part on
demographic data provided by the ordering
physician. Please notify the laboratory promptly
if any data are incorrect. For assistance with
recalculations, please call your local [facility]
Diagnostics laboratory. For assistance with
interpretation of these results, please contact
your Local [facility] Diagnostics genetic counselor or
call [phone] ([phone]).
Interpretive Cutoffs
Screen Positive for Open NTD:
> or = 2.50 adjusted MOM
> or = 1.90 adjusted MOM for insulin-dependent diabetics
> or = 4.00 adjusted MOM for twins
> or = 3.50 adjusted MOM for twins insulin-dependent diabetics
> or = 4.50 adjusted MOM for triplets
For additional information, please refer to
http://[employer]ers.MetroMile/faq/[email or web address]
(This link is being provided for
informational/educational purposes only.) DATE OF 11/02/2023 13:49:43 1995 Final COLLECTION DATE 11/02/2023 13:49:43 11/02/2023 Final MATERNAL WEIGHT 11/02/2023 13:49:43 199 (lbs ) Final EST'D DATE OF DELIVERY 11/02/2023 13:49:43 04/12/2024 Final SIGIFREDO DETERMINED BY 11/02/2023 13:49:43 LMP Final MOTHER'S ETHNIC ORIGIN 11/02/2023 13:49:43 WHITE Final NUMBER OF FETUSES 11/02/2023 13:49:43 1 Final INSULIN DEPEND DIABETIC 11/02/2023 13:49:43 NO Final REPEAT SPECIMEN 11/02/2023 13:49:43 NO Final HX OF NEURAL TUBE DEFECTS 11/02/2023 13:49:43 NO Final PREV DOWN SYND 11/02/2023 13:49:43 NO Final DONOR EGG 11/02/2023 13:49:43 NO Final DONOR AGE: EGG RETRIEVAL 11/02/2023 13:49:43 NOT GIVEN Final Test performed by [facility] Di[facility]
[address] [facility],
[place] [address]

Container Coordinator: Ramonita Prather MD,PHD,CASI
Test Reported by [employer] [facility] [employer],
[facility] Diagnostics [facility],
[address] [place], [place]
Jem Cruz M.D., Ph.D., Director of Laboratories
, [facility] [id number] Performing Location
--- OUTSIDE RECORDS SUMMARY | 2024-03-25 23:25 | External Medical Summary ---
Author Name Unknown Address Unknown Organization K01:[facility]ATORY [facility] [place] [address] [place] [address] Laboratory Report Ordering Provider Test Date Status MICHELLE PEREZ 10/08/2023 14:03:16 Final This test was developed and its performance characteristics determined by [employer]. It has not been cleared or approved by the US Food and Drug Administration. Observation Date Value Abnormality Reference (Units ) Status PLATELET NEUTRALIZATION INTERPRETATION 10/08/2023 14:03:16 Positive Abnormal Negative Final Lupus anticoagulant(LA) dete cted. If indicated, suggest repeat testing at/or beyond 12 weeks to determine if LA is persistent. Performing Location LABORATORY [facility] [place] - [address] [place] [address]
--- OUTSIDE RECORDS SUMMARY | 2024-03-25 23:25 | External Medical Summary | Summary of Care ---
Author Name Unknown Organization [facility] Address [address] [place] [address] Phone [phone] Care Team Providers Care Industrial Psychologist Name Role Phone Jo-Ann Ortiz MD Primary Care Provider + Reason for Visit * Reason Onset Date Comments Test Results 10/19/2023 QNATAL Results Encounter Details Date Type Department Care Team (Late st Contact Info) Description 10/19/2023 Telephone Enrichment Assistant Obstetrics Maternal Medicine, [place] [address] [place], [place] [phone] Mirian Byrd CHRA Test Results (QNATAL Results) Allergies Active Allergy Reactions Criticality Noted Date Comments Sulfamethoxazole-Trimethopr im 08/19/2023 Bee Venom Anaphylaxis High 09/01/2023 Meperidine 08/19/2023 Doxycycline 08/19/2023 Morphine 08/19/2023 Difficultly breathing/hives Naloxone 08/19/2023 Shiitake Mushroom Hives 09/01/2023 Hives, shortness of breath, swelling Tetracycline 08/19/2023 documented as of this encounter (statuses as of 10/23/2023) Medications Medication Sig Dispensed Refills Start Date [...] as of this encounter (statuses as of 10/23/2023) Active Problems Problem Noted Date Diagnosed Date with 8 completed weeks gestation 09/01 complicated by subutex maintenance, an tepartum 08/25/2023 Overview: Reports compliance with Subutex 8 mg BID Therapy through [employer] 2019 did well with Subutex Denies cravings [...] patient. She saw Cardiovascular/Surgeon at [facility] -- Dr. Olivia. Pt states several [...] as of this encounter (statuses as of 10/23/2023) Resolved Problems Problem Noted Date Diagnosed Date Resolved Date History of blood disorder 08/25/2023 IV drug abuse 08/25/2023 09/22/2023 Overview: History of IV drug abuse (opioids) Clean x 6 years / Subutex documented as of this encounter (statuses as of 10/23/2023) Immunizations Name Administration Dates Next Due SEASONAL [...] money to get more. Never true 08/24/2023 [place] Depression Scale Answer Date Recorded [place] Depression Scale Total 9 08/25/2023 The thought [...] encounter Miscellaneous Notes * Telephone Encounter - Day Naqvi MS - 10/23/2023 1:48 PM EST Reviewed microdeletion testing with patient. Discussed possibility of false positive and false negative. 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 Discussed that these are typically isolated but can sometimes be associated with trisomy 18, which this wasalready screened for. Patient opted out of microdeletion testing. Day Naqvi, [facility], [facility] Licensed, Certified Genetic Counselor Maternal Medicine [facility] [phone] * Telephone Encounter - Vishal Richmond MS - 10/21/2023 12:58 PM EST [facility] with callback number to review. Vishal Richmond MS Licensed, Certified Genetic Counselor [phone] * Telephone Encounter - Mirian Byrd CHRA [...] about this topic. CATHERINE Hernandez Genetic Counseling Accounts Receivable Associate Maternal Medicine For further questions call the Genetic Counselor at . documented in this encounter Plan of Treatment Upcoming Encounters Date Type Department Care Team (Late st Contact Info) Description 11/02/2023 1:30 PM EST Office Visit Gynecology/Obstetrics [facility] [address] [place] [address] Elly Lebron CRNP [address] [place] [address] 11/16/2023 12:30 PM EST Office Visit Enrichment Assistant Obstetrics Maternal Medicine, [place] [address] [place] [address] Benito Friend MD [address] [place] [address] 11/16/2023 12:30 PM EST [facility], [place] [address] [place] [address] 12/07/2023 1:00 PM EST Office Visit Gynecology/Obstetrics [facility] [address] [place] [address] Adolfo Enciso MD [address] [place] [address] Health Maintenance Due Date Last Done Comments [...] filedocumented as of this encounter Care Teams Industrial Psychologist Relationship Specialty Start Date End Date Jo-Ann Ortiz MD [address] [place] [address] PCP - General Obstetrics/Gynecology 08/11/23 documented as of this encounter
--- OUTSIDE RECORDS SUMMARY | 2024-03-25 23:25 | External Medical Summary | Summary of Care ---
Author Name Unknown Organization [facility] Address [address] [place] [address] Phone [phone] Care Team Providers Care Janitorial Assistant Name Role Phone Jo-Ann Ortiz MD Primary Care Provider + Reason for Visit * Reason Onset Date Comments Test Results 10/19/2023 QNATAL Results Encounter Details Date Type Department Care Team (Late st Contact Info) Description 10/19/2023 Telephone Manager Compensation Obstetrics Maternal Medicine, [place] [address] [place], [place] [id number] Mirian Byrd CHRA Test Results (QNATAL Results) Allergies Active Allergy Reactions Criticality Noted Date Comments Sulfamethoxazole-Trimethopr im 08/19/2023 Bee Venom Anaphylaxis High 09/01/2023 Meperidine 08/19/2023 Doxycycline 08/19/2023 Morphine 08/19/2023 Difficultly breathing/hives Naloxone 08/19/2023 Shiitake Mushroom Hives 09/01/2023 Hives, shortness of breath, swelling Tetracycline 08/19/2023 documented as of this encounter (statuses as of 10/21/2023) Medications Medication Sig Dispensed Refills Start Date [...] as of this encounter (statuses as of 10/21/2023) Active Problems Problem Noted Date Diagnosed Date with 8 completed weeks gestation 09/01 complicated by subutex maintenance, an tepartum 08/25/2023 Overview: Reports compliance with Subutex 8 mg BID Therapy through [facility] 2019 did well with Subutex Denies cravings [...] hand per patient. She saw Cardiovascular/Surgeon at [facility] -- Dr. Olivia. Pt states several [...] as of this encounter (statuses as of 10/21/2023) Resolved Problems Problem Noted Date Diagnosed Date Resolved Date History of blood disorder 08/25/2023 IV drug abuse 08/25/2023 09/22/2023 Overview: History of IV drug abuse (opioids) Clean x 6 years / Subutex documented as of this encounter (statuses as of 10/21/2023) Immunizations Name Administration Dates Next Due SEASONAL [...] money to get more. Never true 08/24/2023 [facility] Depression Scale Answer Date Recorded [facility] Depression Scale Total 9 08/25/2023 The [...] encounter Miscellaneous Notes * Telephone Encounter - Vishal Richmond MS - 10/21/2023 12:58 PM EST LVM with callback number to review. Vishal Richmond MS Licensed, Certified Genetic Counselor [phone] * Telephone Encounter - Mirian Byrd CHRA [...] about this topic. CATHERINE Hernandez [facility] Maternal [facility] For further questions call the Genetic Counselor at . documented in this encounter Plan of Treatment Upcoming Encounters Date Type Department Care Team (Late st Contact Info) Description 11/02/2023 1:30 PM EST [facility] [address] [place] [address] Elly Lebron CRNP [address] [place] [address] 11/16/2023 12:30 PM EST Office Visit Manager Compensation Obstetrics Maternal Medicine, [address] [place] [address] Benito Friend MD [address] [place] [address] 11/16/2023 12:30 PM EST Imaging Radiology [facility] [address] [place] [address] 12/07/2023 1:00 PM EST Office [facility] [address] [place] [address] Adolfo Enciso MD [address] [place] [address] Health Maintenance Due Date Last Done Comments [...] filedocumented as of this encounter Care Teams Janitorial Assistant Relationship Specialty Start Date End Date Jo-Ann Ortiz MD [address] [place] [address] PCP - General Obstetrics/Gynecology 08/11/23 documented as of this encounter
--- OUTSIDE RECORDS SUMMARY | 2024-03-25 23:25 | External Medical Summary ---
Author Name Unknown Address Unknown Organization [id number]:[facility] - [facility] [address] Laboratory Report Ordering Provider Test Date Status MICHELLE PEREZ 10/08/2023 14:03:16 Final Rheumatoid factor above 50 I U/mL may lead to an overestimation of the results. Observation Date Value Abnormality Reference (Units ) Status Protein S, Total 10/08/2023 14:03:16 89 60- 140 (%) Final Performing Location [facility] [address] [facility] [address]
--- NOTE | 2024-03-26 08:51 | Obstetrical Progress Note ---
Date of Service March 26, 2024 Assessment & Plan (1) Normal course: Discussed with patient at bedside about what happened during the stat , and that there was a Junot present and Apgars were 8 and 9. Patient is appreciative of care Continue routine care Anticipate discharge home tomorrow if pain is controlled, if further issues with pain may need to stay till Thursday. And then will be rooming in with baby for the 5 days (2) Pre-eclampsia during in third trimester, antepartum: Labs have remained stable, no signs or symptoms of severe preeclampsia Last blood pressure 121/77 (3) APS (antiphospholipid syndrome): Continue enoxaparin daily for 6 weeks (4) complicated by subutex maintenance, antepartum: Continue Subutex 8 mg twice daily Subjective Ambulation: ambulating normally Voiding: no voiding problems Passing Gas:: Yes Diet Tolerance:: regular diet Lochia:: Small Feeding Type:: bottle feeding Current Pain Level(1-10): 2 Patient doing well, states she still having some issues with pain since delivery but is well-controlled at this time. She explains that her symptoms of preeclampsia including the fogginess and headache and discomfort have all since resolved since having baby. She is planning to stay for the 5 days well baby is doing eat sleep console Physical Exam Constitutional WD/WN, vitals as above Respiratory normal respiratory effort, lungs clear to auscultation Cardiovascular RRR, no murmur, no edema Gastrointestinal (Abdomen) normal bowel sounds, soft, nontender, no hepatosplenomegaly Fundus below umbilicus Incision clean dry intact well-healing with Dermabond in place Results & Data Vital Signs (Past 12 Hours) Vital Signs Temp Pulse Pulse Resp BP Pulse Ox O2 Del Method 03/26/24 08:00 36.9 C 79 18 121/77 97 Room Air 03/25/24 23:40 36.5 C 76 18 116/80 Room Air
[2024-03-26 09:48] LABS: HBSAG NON-REACTIVE (NON-REACTIVE)
[2024-03-26 10:04] LABS: Basophils # (auto) 0.04 K/uL (0.00-0.20); Basophils % (auto) 0.4 %; Eosinophils # (auto) 0.25 K/uL (0.00-0.50); Eosinophils % (auto) 2.2 %; Hematocrit (blood only) 30.7 % (37.0-47.0); Immature Granulocytes # (auto) 0.18 K/uL (0.01-0.20); Immature Granulocytes % (auto) 1.6 %; Lymphocytes # (auto) 2.51 K/uL (1.20-3.40); Lymphocytes % (auto) 22.3 %; Mean Corpuscular Hemoglobin 31.7 pg (25.0-34.0); Mean Corpuscular Hgb Conc 32.6 g/dL (32.0-36.0); Mean Corpuscular Volume 97.5 fL (80.0-100.0); Mean Platelet Volume 9.7 fL (9.4-12.4); Monocytes # (auto) 0.68 K/uL (0.11-0.59); Neutrophils # (auto) 7.58 K/uL (1.40-6.50); Neutrophils % (auto) 67.5 %; Platelet Count 235 K/uL (130-400); RDW Coefficient of Variation 13.4 % (11.5-14.5); RDW Standard Deviation 47.7 fL (36.4-46.3); Red Blood Count 3.15 M/uL (4.20-5.40); White Blood Count 11.24 K/ul (4.8-10.8)
[2024-03-26 10:11] LABS: Albumin Level 2.9 gm/dl (3.4-5.0); BUN Creatinine Ratio 15.9 (10-20); Bilirubin,Total 0.2 mg/dl (0.2-1.0); Calcium 8.2 mg/dl (8.6-10.3); Creatinine Clr Calc Pharmacy 143.3 ml/min; Est GFR (African American) 135.4 ml/min; Est GFR (Non-African American) 116.8 ml/min; Potassium 3.9 mmol/L (3.5-5.1); Total Protein 5.9 gm/dl (6.0-8.3)
[2024-03-26] MEDS: ACETAMINOPHEN 325 MG TAB PO PRN (11:44)
[2024-03-26] MEDS: diphenhydrAMINE Capsule 25 MG CAP PO PRN (14:10)
[2024-03-26] MEDS: ONDANSETRON INJ 2 MG/ML 2 ML VIAL IV PRN (14:10)
[2024-03-26] MEDS ORDERED: bisacodyL 10 MG SUPP PR PRN (22:19)
[2024-03-27] MEDS: DIPHTHER/TETAN/PERTUS Vaccine (Tdap, Adol/Adult) 0.5mL IM ONE (07:23)
[2024-03-27] MEDS: BUPIVACAINE LIPOSOME 1.3% 266 MG/20 ML VIAL INFIL STA (07:23)
[2024-03-27 07:38] LABS: Basophils # (auto) 0.04 K/uL (0.00-0.20); Basophils % (auto) 0.4 %; Eosinophils # (auto) 0.31 K/uL (0.00-0.50); Eosinophils % (auto) 3.4 %; Hematocrit (blood only) 32.2 % (37.0-47.0); Hemoglobin 10.3 g/dl (12.0-16.0); Immature Granulocytes # (auto) 0.21 K/uL (0.01-0.20); Immature Granulocytes % (auto) 2.3 %; Lymphocytes % (auto) 31.5 %; Mean Corpuscular Hemoglobin 31.7 pg (25.0-34.0); Mean Corpuscular Volume 99.1 fL (80.0-100.0); Mean Platelet Volume 9.9 fL (9.4-12.4); Monocytes # (auto) 0.57 K/uL (0.11-0.59); Monocytes % (auto) 6.2 %; Neutrophils # (auto) 5.18 K/uL (1.40-6.50); Neutrophils % (auto) 56.2 %; Platelet Count 235 K/uL (130-400); RDW Coefficient of Variation 13.2 % (11.5-14.5); RDW Standard Deviation 47.4 fL (36.4-46.3); Red Blood Count 3.25 M/uL (4.20-5.40); White Blood Count 9.21 K/ul (4.8-10.8)
[2024-03-27 07:47] LABS: Albumin Level 3.1 gm/dl (3.4-5.0); BUN Creatinine Ratio 20.8 (10-20); Bilirubin,Total 0.3 mg/dl (0.2-1.0); Calcium 8.8 mg/dl (8.6-10.3); Creatinine Clr Calc Pharmacy 128.4 ml/min; Est GFR (African American) 120.1 ml/min; Est GFR (Non-African American) 103.6 ml/min; Globulin 3.2 gm/dl (2.5-4.0); Potassium 4.2 mmol/L (3.5-5.1); Total Protein 6.3 gm/dl (6.0-8.3)
--- NOTE | 2024-03-27 08:07 | Obstetrical Progress Note ---
Date of Service March 27, 2024 Assessment & Plan (1) Normal course: Continue routine care Discharge home today with instructions, incision check at 1 week postop Patient to room in with baby as baby is undergoing a sleep consult (2) Pre-eclampsia during in third trimester, antepartum: Labs have remained stable, no signs or symptoms of severe preeclampsia Last blood pressure 129/78 (3) APS (antiphospholipid syndrome): Continue enoxaparin daily for 6 weeks (4) complicated by subutex maintenance, antepartum: Continue Subutex 8 mg twice daily Subjective Ambulation: ambulating normally Voiding: no voiding problems Passing Gas:: Yes Diet Tolerance:: regular diet Lochia:: Small Feeding Type:: bottle feeding Current Pain Level(1-10): 3 Patient is breast and formula feeding Pain is well-controlled on p.o. medication, would like Oxy for discharge Physical Exam Constitutional WD/WN, vitals as above Respiratory normal respiratory effort, lungs clear to auscultation Cardiovascular RRR, no murmur, no edema Gastrointestinal (Abdomen) normal bowel sounds, soft, nontender, no hepatosplenomegaly Results & Data Vital Signs (Past 12 Hours) Vital Signs Temp Pulse Resp BP Pulse Ox O2 Del Method 03/27/24 00:45 36.6 C 58 L 16 129/78 98 Room Air 03/26/24 21:00 36.6 C 71 18 118/73 99 Room Air
== END 2024-03-27 17:44 | disposition home or self-care (01) | DRG 787 ==
LOC: OPB 14:14 → 4S1 14:21 → 4E2 03-25 01:30
DX: O99.12 Other diseases of the blood and blood-forming organs and certain disorders involving the immune mechanism complicating childbirth; Z3A.37 37 weeks gestation of pregnancy; D68.61 Antiphospholipid syndrome; O76 Abnormality in fetal heart rate and rhythm complicating labor and delivery; B95.1 Streptococcus, group B, as the cause of diseases classified elsewhere; Z37.0 Single live birth; Z91.018 Allergy to other foods; Z79.82 Long term (current) use of aspirin; Z88.1 Allergy status to other antibiotic agents; Z79.899 Other long term (current) drug therapy; O99.824 Streptococcus B carrier state complicating childbirth; Z88.5 Allergy status to narcotic agent; Z79.01 Long term (current) use of anticoagulants; O14.94 Unspecified pre-eclampsia, complicating childbirth; Z86.718 Personal history of other venous thrombosis and embolism; O99.334 Smoking (tobacco) complicating childbirth; Z88.8 Allergy status to other drugs, medicaments and biological substances; Z88.2 Allergy status to sulfonamides; F17.210 Nicotine dependence, cigarettes, uncomplicated; Z91.040 Latex allergy status

== ENCOUNTER 2025-01-03 18:04 | Observation (INO) ==
--- NOTE | 2025-01-03 18:28 | ED Triage Note ---
Date of Service January 03, 2025 Provider in Triage Author: Marlo Lester History of Present Illness This patient was briefly evaluated while in triage. An abbreviated physical exam was performed. This patient is a 29-year-old Female who presents to the ED for evaluation LLE abscess drained end of November, treated with Cipro/Clindamycin - just finished leg was looking much better until last night when redness/pain/swelling returned denies fever hx of skin infections/abscess Physical Exam GENERAL: NAD CARDIOVASCULAR: RRR RESPIRATORY: CTA EXT: Open wound/ulceration on the lateral aspect of the left upper leg, with vasquez rrounding erythema, redness, warmth and induration. Initial orders for labs and / or imaging were placed and patient was placed in the waiting area until a bed is available. Please see further documentation for the full ED course. MDM / Impression Impression Impression: Cellulitis of left lower extremity
[2025-01-03 19:17] LABS: Basophils # (auto) 0.02 K/uL (0.00-0.20); Basophils % (auto) 0.1 %; Eosinophils # (auto) 0.14 K/uL (0.00-0.50); Eosinophils % (auto) 0.9 %; Hematocrit (blood only) 37.7 % (37.0-47.0); Hemoglobin 12.9 g/dl (12.0-16.0); Immature Granulocytes # (auto) 0.08 K/uL (0.01-0.20); Immature Granulocytes % (auto) 0.5 %; Lymphocytes % (auto) 21.7 %; Mean Corpuscular Hemoglobin 30.7 pg (25.0-34.0); Mean Corpuscular Hgb Conc 34.2 g/dL (32.0-36.0); Mean Corpuscular Volume 89.8 fL (80.0-100.0); Mean Platelet Volume 9.3 fL (9.4-12.4); Monocytes # (auto) 0.84 K/uL (0.11-0.59); Monocytes % (auto) 5.5 %; Neutrophils # (auto) 10.82 K/uL (1.40-6.50); Neutrophils % (auto) 71.3 %; Platelet Count 382 K/uL (130-400); RDW Coefficient of Variation 13.8 % (11.5-14.5); RDW Standard Deviation 45.1 fL (36.4-46.3)
[2025-01-03 19:36] LABS: Alanine Aminotransferase 18 U/L (7-52); Albumin Level 3.9 gm/dl (3.4-5.0); Alkaline Phosphatase 127 U/L (34-104); Anion Gap 5 (3-11); Aspartate Aminotransferase 9 U/L (13-39); Bilirubin,Total 0.4 mg/dl (0.2-1.0); Blood Urea Nitrogen 6 mg/dl (6-23); Calcium 8.8 mg/dl (8.6-10.3); Carbon Dioxide 31 mmol/L (21-32); Chloride 99 mmol/L (98-107); Globulin 3.9 gm/dl (2.5-4.0); Glucose 96 mg/dl (70-99(Fasting)); Sodium 135 mmol/L (136-145); Total Protein 7.8 gm/dl (6.0-8.3)
--- NOTE | 2025-01-03 20:18 | Ultrasound Report ---
Exam(s): US VENOUS LEFT LOWER EXTREMITY EXAM: US Duplex Left Lower Extremity Veins CLINICAL HISTORY: Reason for exam: LLE CELLULITIS, EVAL DVT. TECHNIQUE: Real-time duplex ultrasound scan of the left lower extremity veins integrating B-mode two-dimensional vascular structure, Doppler spectral analysis, color flow Doppler imaging and compression. COMPARISON: No relevant prior studies available. FINDINGS: Deep veins: Unremarkable. No DVT in the visualized common femoral, femoral, proximal deep femoral or popliteal veins. The veins demonstrate normal color flow, are normally compressible, with normal phasic flow and/or augmentation response. Superficial veins: Unremarkable. No thrombus in the visualized great saphenous vein. Soft tissues: No acute findings. No popliteal cyst. IMPRESSION: No DVT. Electronically signed by: Ru Miller MD 01/03/25 20:17 PM
[2025-01-03] MEDS ORDERED: VANCOMYCIN CONSULT ACTIVE PRN (20:48)
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
[2025-01-03] MEDS: ceFAZolin 2000MG 2,000 MG/15 ML SYR IV STA (20:53)
[2025-01-03] MEDS: SODIUM CHLORIDE 0.9% 1,000 ML IV ONE (20:53)
[2025-01-03] MEDS: KETOROLAC TROMETHAMINE 15 MG/ML VIAL IV ONE (21:01)
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
[2025-01-03] MEDS: VANCOMYCIN HCL 1,500 MG in SODIUM CHLORIDE 0.9% 500 ML IV ONE (22:00)
[2025-01-03] MEDS ORDERED: MELATONIN 3 MG TAB PO PRN (22:53)
[2025-01-03] MEDS ORDERED: POLYETHYLENE (MIRALAX) 17 GM PACK PO PRN (22:53)
[2025-01-03 23:38] LABS: Magnesium 1.8 mg/dl (1.7-2.4)
--- NOTE | 2025-01-03 23:41 | XRay Report ---
Exam(s): XR LEFT TIB/FIB, 2 views EXAM: XR Left Tibia and Fibula, 2 Views CLINICAL HISTORY: Reason for exam: infection. TECHNIQUE: Frontal and lateral views of the left tibia and fibula. COMPARISON: No relevant prior studies available. FINDINGS: Bones/joints: Unremarkable. No acute fracture. No dislocation. Soft tissues: Unremarkable. No radiopaque foreign body. IMPRESSION: Normal left tibia and fibula x-rays. Electronically signed by: Ru Miller MD 01/03/25 23:40 PM
[2025-01-04] MEDS: buprenorphine HCL 8 MG SUBL SL SCH (00:17)
[2025-01-04] MEDS: POTASSIUM CHLORIDE CRTAB 20 MEQ TABCR PO STA (00:17)
[2025-01-04] MEDS: KETOROLAC TROMETHAMINE 10 MG TABLET PO PRN (00:18)
[2025-01-04] MEDS: ENOXAPARIN INJ 40 MG/0.4 ML SYR SQ SCH (00:18)
[2025-01-04] MEDS: PIPERACILLIN/TAZOBACTAM 4.5 GM/100 ML BAG IV STA (00:39)
[2025-01-04] MEDS: NICOTINE 14 MG/24 HR PATCH TD SCH (00:40)
[2025-01-04] MEDS: PIPERACILLIN/TAZOBACTAM 4.5 GM/100 ML BAG IV SCH (05:12)
[2025-01-04] MEDS: DAPTOmycin 250 MG in SYRINGE 0 ML IV SCH (05:12)
--- OUTSIDE RECORDS SUMMARY | 2025-01-04 05:35 | External Medical Summary | Summary of Care ---
Author Name Unknown Organization [facility] [address] [place] [address] Phone [phone] Care Team Providers Care Telephone Operator Name Role Phone Jo-Ann Ortiz MD Primary Care Provider + Reason for Visit * Reason Comments eRx-Medication Refill Encounter Details Date Type Department Care Team (Late st Contact Info) Description 09/06/2024 Refill Gynecology/Obstetrics [facility] [address] [place] [address] Galina Toribio PA-C [address] [place] [id number] Early stage of Allergies Active Allergy Reactions Criticality Noted Date Comments Sulfamethoxazole-Trimethopr im 08/19/2023 Bee Venom Anaphylaxis High 09/01/2023 Meperidine 08/19/2023 Doxycycline 08/19/2023 Latex Anaphylaxis High 02/19/2024 Morphine 08/19/2023 Difficultly breathing/hives Naloxone 08/19/2023 Shiitake Mushroom Hives 09/01/2023 Hives, shortness of breath, swelling Tetracycline 08/19/2023 documented as of this encounter (statuses as of 09/07/2024) Medications Medication Sig Dispensed Refills Start Date End Date Status Buprenorphine HCl 8 MG Sublingual Tablet Sublingual (Subutex) Place 1 Tablet under the tongue in the morning and 1 Tablet in the evening. Active Naproxen Sodium 220 MG Oral Capsule Take 1 Capsule by mouth as needed. Active Ondansetron HCl 8 MG Oral Tablet (Zofran) Take 1 Tablet by mouth every 8 hours as needed for Nausea. 30 Tablet 1 03/07/2024 Active Insulin Syringe 31G X 5/16" 1 MLIndications:Anti phospholipid antibody syndrome complicating (HCC),History of blood clots Use to inject heparin twice daily 100 Each 03/15/2024 Active Blood Pressure Monitor KitIndications:Sup ervision of high risk in third trimester Check blood pressure once a day 1 Kit 03/23/2024 Active all purpose nipple care EX OINT Apply topically to affected area as needed for Other (cracked nipples). Apply to nipples as needed. Wipe nipples clean with olive oil prior to . 45 g 05/09/2024 Active 27-1 MG Oral TabletIndications: Early stage of TAKE ONE TABLET BY MOUTH EVERY MORNING 100 Tablet 3 09/07/2024 Active Plus 27-1 MG Oral TabletIndications: Early stage of Take 1 Tablet by mouth in the morning. 100 Tablet 3 08/19/2023 4 Discontinued documented as of this encounter (statuses as of 09/07/2024) Active Problems Problem Noted Date Diagnosed Date Pre-eclampsia in third trimester 03/24/2024 Overview: Elevated BP x2, >4 hrs apart Admitted to [facility] on 03/24/2024 for IOL for GHTN at term P:C ratio on admission 0.3-meets criteria for PrE w/o severe features GBS (group B Streptococcus c arrier), +RV culture, currently 03/21/2024 Antiphospholipid antibody syndrome [...] with Subutex 8 mg BID Therapy through [employer] 2019 did well with Subutex Denies [...] hand per patient. She saw Cardiovascular/[facility] at [facility] -- Dr. [...] Incarceration 08/28 for driving on suspended license documented as of this encounter (statuses as of 09/07/2024) Resolved Problems Problem Noted Date Diagnosed Date Resolved Date Gestational hypertension wit hout significant proteinuria in third trimester 03/24/2024 Overview: Elevated BP x2, >4 hrs apart Admitted to [facility] on 03/24/2024 for IOL for GHTN at term presentation, breech 03/17/2024 0 03/21/2024 with 8 completed weeks gestation 09/01/2023 12/16/2023 History of blood disorder 08/25/2023 hemorrhage 08/25/20232023 IV drug abuse 08/25/2023 09/22/2023 Overview: History of IV drug abuse (opioids) Clean x 6 years / Subutex documented as of this encounter (statuses as of 09/07/2024) Immunizations Name Administration Dates Next Due Seasonal Influenza Virus Vac cine, Unspecified Formulation 01/02/2020,09/25/2016 Seasonal Influenza, PF, 6 M & above, IM , (FluLaval or Fluzone) 09/22/2023 TDAP (age 10 and older)(Boostrix) 02/19/2024 TDAP, Age 7 and older, IM (Adacel) 07/04/2020 documented as of this encounter Social [...] money to get more. Never true 03/10/2024 [place] Depression Scale Answer Date Recorded [place] Depression Scale Total 9 03/21/2024 The thought of harming myself has occurred to me . Never 03/21/2024 Childcare Answer Date Recorded Do you feel overwhelmed with taking care of a child, family member or friend? No 03/10/2024 Does your family need help f inding childcare? (Household - for ages 0-17 years) Not on file 03/10/2024 Clothing Answer Date Recorded Have you been unable to get clothing when it was really needed? No 03/10/2024 Is your family able to get c lothes or diapers when needed? (Household - for ages 0-17 years) Not on file 03/10/2024 Personal Safety Answer Date Recorded Do you feel unsafe or have concerns for your saf ety? No 03/10/2024 Do you have concerns for you r family's safety? (Household - for ages 0-17 years) Not on file 03/10/2024 Utilities Answer Date Recorded Do you have trouble paying y our heating, water, or electric bill? No 03/10/2024 Is your family able to pay t he heat, water, or electric bill? (Household - for ages 0-17 years) Not on file 03/10/2024 Does your family have access to good internet? (Household - for ages 0-17 years) Not on file 03/10/2024 Employment Status Answer Date Recorded Are you unemployed or without regular income? No 03/10/2024 Does the household have a re gular source of income? (Household - for ages 0-17 years) Not on file 03/10/2024 Social Connections Answer Date Recorded How often do you feel lonely or isolated from those around you? Sometimes 03/10/2024 Financial Resource Strain Answer Date R ecorded Do you have any trouble payi ng for your medications, or do you think you might in the future? No 03/10/2024 Does your family have troubl e paying for medicine? (Household - for ages 0-17 years) Not on file 03/10/2024 Transportation Needs Answer Date Record ed READ ONLY Do you have troubl e getting a ride to medical visits or work? Sometimes True 03/10/2024 Does your family have a hard time getting a ride to doctors visits? (Household - for ages 0-17 years) Not on file 03/10/2024 Has lack of transportation k ept you from medical appointments, meetings, work, or from getting things needed for daily living? Check all that apply. (Adult - for ages 18 years and over) Not on file 03/10/2024 Do you (or your family) have trouble finding or paying for a ride (transportation)? (Household - for ages 0-17 years) Not on file 03/10/2024 Housing Stability Answer Date Recorded Do you currently live in a s helter or have no steady place to sleep at night? Yes 03/10/2024 READ ONLY Do you think you a re at risk of becoming homeless? No 03/10/2024 Does your family worry about paying for your home or becoming homeless? (Household - for ages 0-17 years) Not on file 0 03/10/2024 Are you homeless or worried that you might be in the future? (Adult - for ages 18 years and over) Not on file Are you (or your family) sandy eless or worried that you might be in the future? (Household - for ages 0-17 years) Not on file Food Insecurity Answer Date Recorded Do you need food for this week? No 03/10/2024 Are you able to get enough f ood for your family? (Household - for ages 0-17 years) Not on file 03/10/2024 Does your family need food t his week? (Household - for ages 0-17 years) Not on file 03/10/2024 Do you always have enough fo od for your family? (Household - for ages 0-17 years) Not on file 03/10/2024 Sex and Gender Information Value Date Recorded Sex Assigned at Female 08/12/2023 8:57 PM EDT Gender Identity Female 08/12/2023 8:57 PM EDT Sexual Orientation Straight 08/12/2023 8: 57 PM EDT Job Start Date Occupation Industry Not on file Not on file Not on file documented as of this encounter Miscellaneous Notes * Telephone Encounter - Melissa Amador MD - 09/07/2024 9:41 AM EDTSigned Prescriptions: Disp Refills 27-1 MG Oral Tablet 100 Ta*3 Sig: TAKE ONE TABLET BY MOUTH EVERY MORNING Authorizing Provider: MELISSA AMADOR * Telephone Encounter - Ophelia Goldberg LPN - 09/06/2024 8:46 AM EDTPending Prescriptions: Disp Refills 27-1 MG Oral Tablet [Pharmacy Med*100 Ta*3 Sig: TAKE ONE TABLET BY MOUTH EVERY MORNING documented in this encounter Plan of Treatment Health Maintenance Due Date Last Done Comments Pneumococcal Vaccine: Pediatrics (0 to 5 Years) and At-Risk Patients (6 to 64 Years) (1 of 2 - PCV) 2000 Hepatitis B Vaccine (1 of 3 - 19+ 3-dose series) 2013 COVID-19 Vaccine (2023-2 5 season) 2024 Influenza Vaccine (FLU shot) (#1) 2024 09/22/2023, 01/02/2020, 09/25/2016 Depression Screening 03/17/2025 03/17/2024, 03/17/2024 GFR 03/24/2025 03/24/2024, 09/22/2023, 08/09/2023 Pap Smear 08/25/2026 08/25/2023 Cervical Cancer Screening 08/25/2028 HPV/Co-Test 08/25/2028 08/25/2023 DTap/Tdap Vaccines (3 - Td o r Tdap) 02/18/2034 02/19/2024, 07/04/2020 HPV (Gardasil) Vaccine Aged Out No lo nger eligible based on patient's age to complete this topic MENINGOCOCCAL (MENACTRA/MENVEO) Aged Out No longer eligible b ased on patient's age to complete this topic documented as of this encounter Medical Devices Not on filedocumented as of this encounter Visit Diagnoses Diagnosis Early stage of documented in this encounter Care Teams Telephone Operator Relationship Specialty Start Date End Date Jo-Ann Ortiz MD [address] [place] [id number] PCP - General Obstetrics/Gynecology 08/11/23 documented as of this encounter
[2025-01-04] MEDS: KETOROLAC TROMETHAMINE 15 MG/ML VIAL IV PRN (09:08)
--- NOTE | 2025-01-04 11:05 | Hospitalist Progress Note ---
Date of Service January 04, 2025 Assessment & Plan (1) Cellulitis of left lower extremity: (2) Hypokalemia: Plan 29-year-old female PMHx depression and prior IVDU presenting to the ED for persisting left lower extremity wound. On December 19, 2023, the patient had an abscess drained on her LLE. Was prescribed p.o. antibiotics (Cipro and clindamycin) which she has completed the course and the area started to look better, but 1 night [employer] the area started become erythematous, edematous and painful. Admitting workup with leukocytosis 15.2, venous Doppler of LLE negative for DVT, and tibia/fibula XR WNL per my read, pending official read. #Cellulitis, LLE Failed outpatient treatment. History of skin infections/abscesses; LLE abscess initially incised December 21, 2023, patient was placed on Cipro and clindamycin as outpatient. Completed course ~ 3-5 days ago, but 1 day [employer], area became more erythematous, edematous and painful. Last tetanus within the past 10 years per patient. Drainage is yellow and mixed with blood. H/o MRSA. - CBC with leukocytosis 15k, LLE venous Doppler negative for DVT, tip/fib XR WNL; blood cultures pending - Wound care prn- obtain wound culture - Daptomycin + Zosyn IV - ID consult: continue dapto/zosyn, CT LLE w/con to evaluate for further abscess, wound culture, if dc home prior to cultures/sensitivities would need linezolid #Hypokalemia Asymptomatic currently - K 3.0, Mg pending; repeat a.m. - 40 mEq KCl po x 1; consider additional replacement as necessary #H/o IVDU - Taking buprenorphine as prescribed - Toradol for pain control; avoid escalation of pain meds given prior history Dispo: Admit, observation med/sx VTE prophylaxis: Lovenox Admission and Anticipated Discharge Date Admission Date: January 03, 2025 Supervising Physician Co-Signing Physician Notes ATTESTATION I also saw the patient and confirmed franco portions of the history and exam. I agree with the impression and plan in the resident documentation, and as summarized below. in clarifying the history, the patient notes she completed either 7 or 10-day course of ciprofloxacin plus clindamycin and she noted significant improvement in the edema and erythema. She completed the course in about 3 days later the erythema returned. So not sure this was a outpatient failure in terms of the antibiotic selection, but more the duration. Also of interest, the patient does have a rather extensive history of hidradenitis suppurativa. as such, she was maintained on doxycycline for nearly 15 years, but subsequently developed a sensitivity. She also reports prior history of MRSA infection. EXAM Hemodynamically stable, afebrile She feels well. The erythema and induration has improved since admission Heart regular rate and rhythm. No murmurs auscultated Respirations nonlabored DATA Labs white blood cell count 15.2 Sodium 135, potassium 3.0 AST 9, ALT 18, alkaline phosphatase 127 Imaging X-ray of the left lower leg is unremarkable. Ultrasound of the left lower extremity negative for DVT Micro Blood cultures collected 5 in the evening are pending. IMPRESSION & PLAN Cellulitis of left lower extremity Hypokalemia History of hidradenitis suppurativa History of IVDA As noted above, not clear if Cipro and clindamycin for failure in terms of sensitivity, but probably duration of treatment She was somewhat anxious to leave today as she has 3 young children at home; she is willing to wait until least tomorrow when we have pulmonary blood cultures returned. Also, she does have outpatient wound care established in [place] already Check MRSA swab today ID consult await cultures replete potassium Additional per resident documentation Subjective Patient seen and evaluated at bedside this morning. No acute events overnight. Pt very anxious to go home. Reports area of induration of LLE improving since initation of IV abx. Blood cultures pending. No wound culture done. Follows with outpatient wound care in [place]. Does not have PCP. Review of Systems Review of Systems: reviewed, per HPI Physical Exam Physical Exam: Constitutional: well-appearing, no acute distress HEENT: NCAT, no conjunctival injection CV: clinically well perfused Resp: no increased work of breathing GI: nondistended MSK: no gross deformities appreciated Skin: multiple areas of scarring as related to HS, LLE large area of erythema surrounding leg wound, wound with yellow/bloody drainage Neuro: alert, oriented, no focal neurologic deficit appreciated Results & Data Results & Data Vital Signs (Past 12 Hours) Vital Signs Temp Pulse Resp BP Pulse Ox O2 Del Method 01/04/25 07:34 36.7 C 68 16 117/76 99 Room Air Resident Activity Tracking Resident Involvement: Resident Care Provided Care Provided: Adult Hospital Medicine
[2025-01-04 12:25] LABS: Hematocrit (blood only) 41.2 % (37.0-47.0); Hemoglobin 13.8 g/dl (12.0-16.0); Mean Corpuscular Hemoglobin 30.7 pg (25.0-34.0); Mean Corpuscular Hgb Conc 33.5 g/dL (32.0-36.0); Mean Corpuscular Volume 91.6 fL (80.0-100.0); Platelet Count 356 K/uL (130-400); RDW Coefficient of Variation 13.8 % (11.5-14.5); RDW Standard Deviation 46.6 fL (36.4-46.3); White Blood Count 16.03 K/ul (4.8-10.8)
[2025-01-04 12:39] LABS: BUN Creatinine Ratio 10.4 (10-20); Calcium 9.3 mg/dl (8.6-10.3); Creatinine Clr Calc Pharmacy 138.1 ml/min; Potassium 3.5 mmol/L (3.5-5.1)
--- NOTE | 2025-01-04 13:32 | Infectious Disease Consult ---
Date of Consultation January 04, 2025 Assessment & Plan (1) Cellulitis of left lower extremity: Plan Problems: #LLE cellulitis/abscess #History of MRSA infections #Allergy to doxycycline and TMP/SMX Micro: 12/31 LLE wound cx: pending 01/04 BCx x1: pending Abx: Dapto 2/5 - present Pip-tazo /5 - present Vanc 01/03 Cefazolin 01/03 29 yo F with history of hidradenitis suppurativa, MRSA infections, depression, prior IVDU use on buprenorphine, recent I&D of LLE abscess (12/21/24) at [facility] who presented on 01/03 with LLE abscess/cellulitis. Pt reports that she slightly brushed up against a piece of metal equipment in her garage. About 2 days later, the area became erythematous and edematous, she presented to [facility], and an abscess was lanced (unknown whether cultures sent). She was pl aced on ciprofloxacin and clindamycin for 7-10 days, which she completed. She states the infection was resolved by the time she finished the antibiotics, ~3-4 days prior to presentation. However, the night prior to presentation, she noticed the area becoming more erythematous and swollen, with yellow/bloody drainage, a second area of abscess, and worsening of pain. Denied fevers, chills. On presentation, pt was afebrile, HR 131. Labs showed WBC 15.2. LLE venous duplex US without DVT. XR L tib/fib unremarkable. She was started on daptomycin, pip-tazo. Recommendations: - Ordered wound culture - Can continue dapto, pip-tazo for now - CT LLE with IV contrast to evaluate for deeper infection, abscess given failure of outpatient antibiotics. May need I&D of abscess - Anticipate transitioning to PO antibiotics on discharge, likely including linezolid Discussed with primary team. Will continue to follow. Consultation Information Consultation was provided via telemedicine using two-way real-time interactive telecommunication between the patient and the telemedicine provider. For the duration of the visit, the provider was performing the assessment from a different facility than the patient. This includesuse of bluetooth stethoscope forauscultationperformed by the telepresenter that the telemedicine provider can hear if described in the physical exam. Accident Report Clerk contact information: Please call [facility] [phone]. (Phone Number For Physician Use Only) After establishing a telemedicine visit, patient was: Patient was verified with two unique identifiers, Patient/authorized rep acknowledged consent and understanding and Gave permission to continue telehealth session Time Spent with Patient: Initial => 40 min History of Present Illness Reason for Consultation: LLE cellulitis, failed outpatient antibiotics Attending Physician: Arturo Mckeon MD History of Present Illness 29 yo F with history of hidradenitis suppurativa, MRSA infections, depression, prior IVDU use on buprenorphine, recent I&D of LLE abscess (12/21/24) at [facility] who presented on 01/03 with LLE abscess. Pt reports that she slightly brushed up against a piece of metal equipment in her garage. About 2 days later, the area became erythematous and edematous, she presented to [facility] for evaluation, and an abscess was lanced. She was placed on ciprofloxacin and clindamycin for 7-10 days, which she completed. She states the infection was resolved by the time she finished the antibiotics, ~3-4 days prior to presentation. However, the night prior to presentation, she noticed the area becoming more erythematous and swollen, with yellow/bloody drainage, a second area of abscess, and worsening of pain. Denied fevers, chills. On presentation, pt was afebrile, HR 131. Labs showed WBC 15.2. LLE venous duplex US without DVT. XR L tib/fib unremarkable. She was started on daptomycin, pip-tazo. Pt reports anaphylactic shock with doxycycline. States she took doxycycline for 15 years for hidradenitis suppurativa. Also reports allergy to Bactrim--develops hives all over, difficulty breathing. Allergies Allergy/AdvReac Type Severity Reaction Status Date / Time latex Allergy Severe Anaphylaxis Verified 03/24/24 14:52 mushroom Allergy Severe Swelling Verified 03/24/24 14:56 of Lip/Tongue/Throat naloxone Allergy Severe Anaphylaxis Verified 03/24/24 14:56 meperidine [From Demerol] Allergy Intermediate Chest Pain Verified 03/24/24 14:56 morphine Allergy Intermediate Hives Verified 03/24/24 14:56 tetracycline Allergy Intermediate Rash Verified 03/24/24 14:56 doxycycline AdvReac Intermediate Rash Verified 03/24/24 14:56 sulfamethoxazole AdvReac Intermediate Redness of Verified 03/24/24 14:56 [From Bactrim] Skin trimethoprim [From Bactrim] AdvReac Intermediate Redness of Verified 03/24/24 14:56 Skin Home Medications Medication Instructions Recorded Confirmed Type buprenorphine HCl 8 mg sublingual 8 mg sublingual BID 08/06/20 03/24/24 History tablet vitamin-ferrous sulfate 1 tab PO QAM 08/09/23 03/24/24 History 27 mg iron-folic acid 0.8 mg tablet Patient History Medical History Pre-eclampsia during in third trimester, antepartum History of blood clots complicated by tobacco use in third trimester History of hemorrhage, currently in third trimester (~03/27/24) complicated by subutex maintenance, antepartum History of intravenous drug use Positive GBS test APS (antiphospholipid syndrome) 37 weeks gestation of Smoker 1 pack per day MRSA (methicillin resistant staph aureus) culture positive History of blood clots Left wrist Narcotic dependence Subutex 8mg BID Raynaud disease RSD (reflex sympathetic dystrophy) Surgical History [place] teeth extracted H/O thumb surgery From Blood clot S/P cholecystectomy Family History Father Diabetes Hypertension Mother Hypertension Other Family history non-contributory Social History Smoking Status: Heavy tobacco smoker Tobacco Type: Cigarettes Cigarettes Per Day: 20; Second Hand Exposure: Yes; Do You Dip or Chew Tobacco: No; Tobacco Cessation Education Requested by Patient: No Hx Alcohol Use: No Hx Substance Use: Yes Prescribed Medications: Former Misuse of Rx Meds and Opiates Last Used Substance: Unknown Last Used Substance Other:: quit 6 years ago Preferred Language: Serbian Communication Ability: Effective Visual Impairment: No Limitations Hearing Ability: Normal Bioinformatics Analyst Required: No Beliefs That Will Affect Care: None marital status: marital status details: Markus Melendrez Current Living Situation: Spouse and Family Current Living Situation Comment: and 3 kids current occupational status: unemployed 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 Physical Exam Physical Exam: GEN: in NAD. RESP: No increased work of breathing SKIN: LLE erythema and edema primarily around a circular wound on the left lateral leg below the knee, with yellow/bloody drainage on dressing. Another area of fluctuance lateral to this wound. NEURO: Alert and oriented. Answers all questions appropriately. Speech not slurred. PSYCH: Normal mood, affect appropriate. Results & Data Vital Signs (Past 12 Hours) Vital Signs Temp Pulse Resp BP Pulse Ox O2 Del Method 01/04/25 07:34 36.7 C 68 16 117/76 99 Room Air Laboratory Results Short CBC 01/03/25 01/04/25 Range/Units 18:58 11:43 WBC 15.20 H 16.03 H (4.8-10.8) K/ul Hgb 12.9 13.8 (12.0-16.0) g/dl Hct 37.7 41.2 (37.0-47.0) % Plt Count 382 356 (130-400) K/uL BMP 01/03/25 01/04/25 18:58 11:43 Sodium 135 L 137 Potassium 3.0 L 3.5 Chloride 99 101 Carbon Dioxide 31 29 BUN 6 7 Creatinine 0.60 0.67 Glucose 96 84 Calcium 8.8 9.3 Liver Function 01/03/25 Range/Units 18:58 Total Bilirubin 0.4 (0.2-1.0) mg/dl AST 9 L (13-39) U/L ALT 18 (7-52) U/L Alkaline Phosphatase 127 H (34-104) U/L Albumin 3.9 (3.4-5.0) gm/dl Medications Administered Current Inpatient Medications Buprenorphine HCl (Buprenorphine Hcl 8 Mg Subl) 8 mg SL DAILY JULIA Stop: 02/02/25 23:49 Last Admin: 01/04/25 08:26 Dose: 8 mg Enoxaparin Sodium (Enoxaparin Inj 40 Mg/0.4 Ml Syr) 40 mg SQ HS JULIA Stop: 02/02/25 23:44 Last Admin: 01/04/25 00:18 Dose: 40 mg Piperacillin Sod/Tazobactam Sod (Zosyn) 4.5 gm in 100 mls @ 25 mls/hr IV Q8H [facility]; Protocol Stop: 01/11/25 05:59 Last Infusion: 01/04/25 10:00 Dose: Infused Daptomycin 250 mg/ Syringe 5 mls @ 2.5 mls/min IV Q24H [facility]; Protocol Stop: 01/11/25 05:59 Last Admin: 01/04/25 05:12 Dose: 2.5 mls/min Ketorolac Tromethamine (Ketorolac Tromethamine 15 Mg/Ml Vial) 15 mg IV Q6H PRN PRN Reason: Pain Stop: 01/08/25 22:52 Last Admin: 01/04/25 09:08 Dose: 15 mg Melatonin (Melatonin 3 Mg Tab) 3 mg PO HS PRN PRN Reason: Insomnia Stop: 02/02/25 22:52 Miscellaneous (Remove Nicoderm Patch) 1 each N/A DAILY@0859 [facility] Stop: 02/03/25 08:58 Last Admin: 01/04/25 08:27 Dose: 1 each Nicotine (Nicotine 14 Mg/24 Hr Patch) 1 patch TD QAM [facility] Stop: 02/02/25 23:49 Last Admin: 01/04/25 08:27 Dose: 1 patch Ondansetron HCl (Ondansetron Inj 2 Mg/Ml 2 Ml Vial) 4 mg IV Q6H PRN PRN Reason: Nausea Stop: 02/02/25 22:52 Polyethylene Glycol (Polyethylene (Miralax) 17 Gm Pack) 17 gm PO DAILY PRN PRN Reason: Constipation Stop: 02/02/25 22:52
[2025-01-04] MEDS: OPTIRAY 320 100ml IV ONE (14:31)
[2025-01-04] MEDS: diphenhydrAMINE Capsule 25 MG CAP PO ONE ×2 (14:59→22:37)
--- NOTE | 2025-01-04 15:20 | CT Scan Report ---
CT femur RT w con CLINICAL HISTORY: Evaluate for abscess TECHNIQUE: Axial CT images of the right femur after 90 cc Optiray IV. Sagittal and coronal reformats were obtained. DLP is 1702. COMPARISON STUDY: None FINDINGS: No fracture or dislocation seen at the right femur. No significant degenerative change seen at the right hip or right knee. No osseous lesion or evidence of osteomyelitis seen at the right fem ur. No soft tissue hematoma or abscess seen at the right thigh. IMPRESSION: No acute findings seen. ACT 112: Negative or not required by law. Electronically signed by: Kwame Wagner M.D. 01/04/2025 3:18 PM
--- NOTE | 2025-01-04 15:29 | CT Scan Report ---
CT tib/fib LT w con HISTORY: 29 years-old Female Evaluate for abscess patient presents with acute pain and swelling of t he left lower extremity. Clinical concern for cellulitis and abscess. COMPARISON: Tibia and fibula radiographs January 03, 2025 TECHNIQUE: Multiple axial CT images of the left tibia and fibula were obtained with IV contrast. A do se lowering technique was used consistent with the principals of DAVI. FINDINGS: Moderate to extensive subcutaneous edema of the lower leg. Additionally, there is deep subcutaneous/p erifascial edema tracking along the muscular planes of the upper calf. Symmetric enhancement of the m usculature. No fluid collections or mass lesions. Superficial venous varicosities are noted. Tendons and ligaments are not well evaluated by CT technique. Trace joint effusion of the knee. No subcutaneo us or deep tissue gas. No acute fracture, dislocation, osseous erosion or significant osteoarthritis. IMPRESSION: 1. No acute osseous abnormality. 2. Moderate to extensive subcutaneous edema suggestive of cellulitis, lymphedema or venous stasis. No discrete fluid collection to suggest abscess. 3. Perifascial edema interposed between the upper calf muscle planes also noted which may represent a developing myositis. 4. No subcutaneous or deep tissue gas. ACT 112: Negative or not required by law. The above report was generated using voice recognition software. It may contain grammatical, syntax o r spelling errors. Electronically signed by: Rolando Mg M.D. 01/04/2025 3:28 PM
--- NOTE | 2025-01-04 15:47 | CT Scan Report ---
CT femur LT w con CLINICAL HISTORY: Evaluate for abscess TECHNIQUE: Axial CT images of the left femur after 90 cc Optiray IV. Sagittal and coronal reformats w ere obtained. COMPARISON STUDY: None FINDINGS: No fracture or dislocation seen of the left femur. No significant degenerative change at th e left hip or left knee. No osseous lesions seen. No evidence of osteomyelitis. There is soft tissues stranding and edema in the lateral subcutaneous fatty tissues of the lower left thigh consistent wit h cellulitis. No soft tissue abscess or hematoma seen at the left thigh. IMPRESSION: 1. Cellulitis and edema at the lower lateral left thigh with no focal abscess or hematoma seen. 2. Otherwise as described. ACT 112: Negative or not required by law. Electronically signed by: Kwame Wagner M.D. 01/04/2025 3:44 PM
[2025-01-04] MEDS: ONDANSETRON INJ 2 MG/ML 2 ML VIAL IV PRN (17:26)
[2025-01-05 06:32] VITALS: BP 103/66; PULSE 75; RESP 18; TEMP 98.1; O2SAT 98
--- NOTE | 2025-01-05 08:33 | Infectious Disease Progress Nt ---
Date of Service January 05, 2025 Assessment & Plan (1) Cellulitis of left lower extremity: Plan Problems: #LLE cellulitis/abscess #History of MRSA infections #Allergy to doxycycline and TMP/SMX Micro: 12/31 LLE wound cx: NGTD. GS neg 01/04 BCx x1: pending 01/03 BCx x1: NGTD Abx: Dapto 01/04 - present Pip-tazo / - present Vanc 01/03 Cefazolin 01/03 29 yo F with history of hidradenitis suppurativa, MRSA infections, depression, prior IVDU use on buprenorphine, recent I&D of LLE abscess (12/21/24) at [facility] who presented on 01/03 with LLE abscess/cellulitis. Pt reports that she slightly brushed up against a piece of metal equipment in her garage. About 2 days later, the area became erythematous and edematous, she presented to [facility], and an abscess was lanced (unknown whether cultures sent). She was placed on ciprofloxacin and clindamycin for 7-10 days, which she completed. She states the infection was resolved by the time she finished the antibiotics, ~3-4 days prior to presentation. However, the night prior to presentation, she noticed the area becoming more erythematous and swollen, with yellow/bloody drainage, a second area of abscess, and worsening of pain. Denied fevers, chills. On presentation, pt was afebrile, HR 131. Labs showed WBC 15.2. LLE venous duplex US without DVT. XR L tib/fib unremarkable. She was started on daptomycin, pip-tazo. CT LLE w contrast showed cellulitis, no discrete fluid collection to suggest abscess, perifascial edema interposed between upper calf muscle planes also noted which may represent a developing myositis. Pt with improvement on reevaluation 01/05, with receding erythema, and a second area of drainage that opened up. WBC downtrending. Recommendations: - Pt is hoping to discharge. We do not have culture results back, but reasonable to discharge on empiric linezolid 600 mg PO BID plus amox/clav 875 mg PO BID to complete a total 10 day course - Can follow-up wound culture as outpatient Discussed with primary team. Admission and Anticipated Discharge Date Admission Date: January 03, 2025 Subjective Subsequent visit was provided via telemedicine using two-way real-time interactive telecommunication between the patient and the telemedicine provider. For the duration of the visit, the provider was performing the assessment from a different facility than the patient. This includesuse of bluetooth stethoscope forauscultationperformed by the telepresenter that the telemedicine provider can hear if described in the physical exam. [employer] contact information: Please call [facility] . (Phone Number For Physician Use Only) After establishing a telemedicine visit, patient was: Patient was verified with two unique identifiers, Patient/authorized rep acknowledged consent and understanding and Gave permission to continue telehealth session Time Spent with Patient: Subsequent => [address] without abscess Pt reporting improvement, and drainage from a second area Review of System A complete ROS was performed and is negative except as mentioned in the HPI. Physical Exam Physical Exam: GEN: Well-appearing, in NAD. RESP: No increased work of breathing SKIN: 2 open areas on L lateral calf with bloody drainage, surrounding erythema which is receding from previously marked borders NEURO: Alert and oriented. Answers all questions appropriately. Speech not slurred. PSYCH: Normal mood, affect appropriate. Results & Data Vital Signs (Past 12 Hours) Vital Signs Temp Pulse Resp BP Pulse Ox O2 Del Method 01/05/25 06:31 36.7 C 75 18 103/66 98 Room Air 01/04/25 21:15 Room Air Laboratory Results Short CBC 01/04/25 Range/Units 11:43 WBC 16.03 H (4.8-10.8) K/ul Hgb 13.8 (12.0-16.0) g/dl Hct 41.2 (37.0-47.0) % Plt Count 356 (130-400) K/uL BMP 01/04/25 11:43 Sodium 137 Potassium 3.5 Chloride 101 Carbon Dioxide 29 BUN 7 Creatinine 0.67 Glucose 84 Calcium 9.[address] 01/04/25 13:42 CT femur RT w con CLINICAL HISTORY: Evaluate for abscess TECHNIQUE: Axial CT images of the right femur after 90 cc Optiray IV. Sagittal and coronal reformats were obtained. DLP is 1702. COMPARISON STUDY: None FINDINGS: No fracture or dislocation seen at the right femur. No significant degenerative change seen at the right hip or right knee. No osseous lesion or evidence of osteomyelitis seen at the right femur. No soft tissue hematoma or abscess seen at the right thigh. IMPRESSION: No acute findings seen. ACT 112: Negative or not required by law. Electronically signed by: Kwame Wagner M.D. 01/04/2025 3:[address] 01/04/25 13:42 CT tib/fib LT w con HISTORY: 29 years-old Female Evaluate for abscess patient presents with acute pain and swelling of the left lower extremity. Clinical concern for cellulitis and abscess. COMPARISON: Tibia and fibula radiographs January 03, 2025 TECHNIQUE: Multiple axial CT images of the left tibia and fibula were obtained with IV contrast. A dose lowering technique was used consistent with the principals of ALARA. FINDINGS: Moderate to extensive subcutaneous edema of the lower leg. Additionally, there is deep subcutaneous/perifascial edema tracking along the muscular planes of the upper calf. Symmetric enhancement of the musculature. No fluid collections or mass lesions. Superficial venous varicosities are noted. Tendons and ligaments are not well evaluated by CT technique. Trace joint effusion of the knee. No subcutaneous or deep tissue gas. No acute fracture, dislocation, osseous erosion or significant osteoarthritis. IMPRESSION: 1. No acute osseous abnormality. 2. Moderate to extensive subcutaneous edema suggestive of cellulitis, lymphedema or venous stasis. No discrete fluid collection to suggest abscess. 3. Perifascial edema interposed between the upper calf muscle planes also noted which may represent a developing myositis. 4. No subcutaneous or deep tissue gas. ACT 112: Negative or not required by law. The above report was generated using voice recognition software. It may contain grammatical, syntax or spelling errors. Electronically signed by: Rolando Mg M.D. 01/04/2025 3:[address] 01/04/25 15:17 CT femur LT w con CLINICAL HISTORY: Evaluate for abscess TECHNIQUE: Axial CT images of the left femur after 90 cc Optiray IV. Sagittal and coronal reformats were obtained. COMPARISON STUDY: None FINDINGS: No fracture or dislocation seen of the left femur. No significant degenerative change at the left hip or left knee. No osseous lesions seen. No evidence of osteomyelitis. There is soft tissues stranding and edema in the lateral subcutaneous fatty tissues of the lower left thigh consistent with cellulitis. No soft tissue abscess or hematoma seen at the left thigh. IMPRESSION: 1. Cellulitis and edema at the lower lateral left thigh with no focal abscess or hematoma seen. 2. Otherwise as described. ACT 112: Negative or not required by law. Electronically signed by: Kwame Wagner M.D. 01/04/2025 3:44 PM Medications Administered Current Inpatient Medications Buprenorphine HCl (Buprenorphine Hcl 8 Mg Subl) 8 mg SL DAILY [facility] Stop: 02/02/25 23:49 Last Admin: 01/05/25 08:15 Dose: 8 mg Enoxaparin Sodium (Enoxaparin Inj 40 Mg/0.4 Ml Syr) 40 mg SQ HS [facility] Stop: 02/02/25 23:44 Last Admin: 01/04/25 20:54 Dose: 40 mg Piperacillin Sod/Tazobactam Sod (Zosyn) 4.5 gm in 100 mls @ 25 mls/hr IV Q8H [facility]; Protocol Stop: 01/11/25 05:59 Last Infusion: 01/05/25 08:58 Dose: 0 mls/hr Daptomycin 250 mg/ Syringe 5 mls @ 2.5 mls/min IV Q24H [facility]; Protocol Stop: 01/11/25 05:59 Last Admin: 01/05/25 05:32 Dose: 2.5 mls/min Ketorolac Tromethamine (Ketorolac Tromethamine 15 Mg/Ml Vial) 15 mg IV Q6H PRN PRN Reason: Pain Stop: 01/08/25 22:52 Last Admin: 01/05/25 05:31 Dose: 15 mg Melatonin (Melatonin 3 Mg Tab) 3 mg PO HS PRN PRN Reason: Insomnia Stop: 02/02/25 22:52 Miscellaneous (Remove Nicoderm Patch) 1 each N/A DAILY@0859 [facility] Stop: 02/03/25 08:58 Last Admin: 01/05/25 08:15 Dose: 1 each Nicotine (Nicotine 14 Mg/24 Hr Patch) 1 patch TD QAM [facility] Stop: 02/02/25 23:49 Last Admin: 01/05/25 08:15 Dose: 1 patch Ondansetron HCl (Ondansetron Inj 2 Mg/Ml 2 Ml Vial) 4 mg IV Q6H PRN PRN Reason: Nausea Stop: 02/02/25 22:52 Last Admin: 02/05/25 17:26 Dose: 4 mg Polyethylene Glycol (Polyethylene (Miralax) 17 Gm Pack) 17 gm PO DAILY PRN PRN Reason: Constipation Stop: 02/02/25 22:52
[2025-01-05 08:45] LABS: BUN Creatinine Ratio 9.7 (10-20); Calcium 8.8 mg/dl (8.6-10.3); Creatinine Clr Calc Pharmacy 128.5 ml/min; Potassium 3.7 mmol/L (3.5-5.1)
[2025-01-05 11:35] LABS: Basophils # (auto) 0.03 K/uL (0.00-0.20); Basophils % (auto) 0.3 %; Eosinophils # (auto) 0.23 K/uL (0.00-0.50); Hematocrit (blood only) 35.7 % (37.0-47.0); Hemoglobin 11.8 g/dl (12.0-16.0); Immature Granulocytes # (auto) 0.07 K/uL (0.01-0.20); Immature Granulocytes % (auto) 0.6 %; Lymphocytes # (auto) 3.23 K/uL (1.20-3.40); Mean Corpuscular Hemoglobin 30.7 pg (25.0-34.0); Mean Corpuscular Hgb Conc 33.1 g/dL (32.0-36.0); Mean Platelet Volume 9.9 fL (9.4-12.4); Monocytes % (auto) 6.1 %; Neutrophils # (auto) 7.29 K/uL (1.40-6.50); Platelet Count 327 K/uL (130-400); RDW Coefficient of Variation 13.9 % (11.5-14.5); RDW Standard Deviation 47.4 fL (36.4-46.3); Red Blood Count 3.84 M/uL (4.20-5.40); White Blood Count 11.55 K/ul (4.8-10.8)
--- NOTE | 2025-01-05 12:44 | Discharge Summary ---
Date of Service January 05, 2025 Admission HPI Per Admitting Provider 29-year-old female PMHx depression and prior IVDU presenting to the ED for persisting left lower extremity wound. Patient states that she was in the garage with her when she is slightly brushed up against a piece of metal equipment which she does not believe is rusted. States that she immediately went inside clean the area, and covered it with a dressing to avoid infection. Approximately 2 days after this occurred, the area became erythematous and edematous so she went to be evaluated (December 19) and the area was lanced. Was placed on oral antibiotics clindamycin and Cipro which she completed. Completed the course of antibiotics approximately 3 to 5 days [employer] and had resolution of symptoms. 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 States that the pain has significantly worsened over the past 24 hours, and the erythema and edema has continued to spread rapidly. Patient denies fever or chills. States that her last tetanus vaccine was within the past 10 years. ED workup reveals leukocytosis of 15.20, sodium 135, potassium 3.0, AST of 9, alkaline phosphatase 127. Venous Doppler of LLE veins reveals no evidence of DVT, and tibia/fibula x-ray appearing WNL per my read, pending official read. Please see Dr. Blas's attestation for adjustments/additions to treatment plan. Admission Exam Per Admitting Provider General: No acute distress Skin: Warm and dry; Cyanotic fingertips (baseline); Multiple scars throughout body. LLE erythematous and edematous (see image) from ankle to knee, lateral aspect of leg mainly. ~ 2x2 wound indurated w/ yellow discharge and blood expelled. Fluctuant at the 3 o'clock position just posterior to open wound. Marked by surgical pen after image obtained. Head: Normocephalic, atraumatic Eyes: PERRL, conjunctivae clear, sclera non-icteric ENT: External ear and ear canal without swelling; nose atraumatic; OK dentition, tongue normal appearance, pharynx normal Neck: Supple, no LAD Cardio: RRR, no M/G/R, S1 and S2 normal Resp: No respiratory distress, Lungs CTA in all lobes bilaterally, no wheezes, rales, or rhonchi Abdomen: Soft, symmetric, nontender; No masses or hepatosplenomegaly; Bowel sounds normoactive MSK: No deformities, full ROM throughout; pulses palpable and equal; no edema. Neuro: Awake, alert; Sensation intact bilaterally; CN grossly intact Psych: Appropriate mood and affect; good judgement and insight. Principal Diagnosis Cellulitis Discharge Exam Constitutional: well-appearing, no acute distress HEENT: NCAT, no conjunctival injection CV: clinically well perfused Resp: no increased work of breathing GI: nondistended MSK: no gross deformities appreciated Skin: multiple areas of scarring as related to HS, LLE large area of erythema surrounding leg wound, wound with yellow/bloody drainage, second wound opened today Neuro: alert, oriented, no focal neurologic deficit appreciated Discharge Data Allergies Allergy/AdvReac Type Severity Reaction Status Date / Time latex Allergy Severe Anaphylaxis Verified 03/24/24 14:52 mushroom Allergy Severe Swelling Verified 03/24/24 14:56 of Lip/Tongue/Throat naloxone Allergy Severe Anaphylaxis Verified 03/24/24 14:56 meperidine [From Demerol] Allergy Intermediate Chest Pain Verified 03/24/24 14:56 morphine Allergy Intermediate Hives Verified 03/24/24 14:56 tetracycline Allergy Intermediate Rash Verified 03/24/24 14:56 doxycycline AdvReac Intermediate Rash Verified 03/24/24 14:56 sulfamethoxazole AdvReac Intermediate Redness of Verified 03/24/24 14:56 [From Bactrim] Skin trimethoprim [From Bactrim] AdvReac Intermediate Redness of Verified 03/24/24 14:56 Skin Consultations 01/03/25 21:44 ED Decision to Admit Stat 01/04/25 11:28 Consult Infectious Diseases Routine Ordered Studies 01/03/25 18:27 US venous doppler LE LT Stat 01/04/25 13:42 CT leg [CT femur RT w con] Urgent CT leg [CT tib/fib LT w con] Urgent 01/04/25 15:17 CT leg [CT femur LT w con] Routine Hospital Course (1) Cellulitis of left lower extremity: (2) Hypokalemia: Plan 29-year-old female PMHx depression and prior IVDU presenting to the ED for persisting left lower extremity wound. On December 19, 2023, the patient had an abscess drained on her LLE. Was prescribed p.o. 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 Admitting workup with leukocytosis 15.2, venous Doppler of LLE negative for DVT, and tibia/fibula XR WNL per my read, pending official read. #Cellulitis, LLE Failed outpatient treatment. History of skin infections/abscesses; LLE abscess initially incised December 21, 2023, patient was placed on Cipro and clindamycin as outpatient. 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 Last tetanus within the past 10 years per patient. Drainage is yellow and mixed with blood. H/o MRSA. - CBC with leukocytosis 15k, LLE venous Doppler negative for DVT, tip/fib XR WNL; blood cultures pending - Wound care prn- obtain wound culture - Daptomycin + Zosyn IV - ID consult: continue dapto/zosyn, CT LLE w/con to evaluate for further abscess, wound culture, if dc home prior to cultures/sensitivities would need linezolid Discharge Linezolid and Augmentin to complete 10 day course. Hospitalist service to follow blood cultures, if positive patient understands and agrees to return to hospital #Hypokalemia Asymptomatic currently - K 3.0, Mg pending; repeat a.m. - 40 mEq KCl po x 1; consider additional replacement as necessary #H/o IVDU - Taking buprenorphine as prescribed - Toradol for pain control; avoid escalation of pain meds given prior history Dispo: Admit, observation med/sx VTE prophylaxis: Lovenox Total Time Total Time Spent Total Time Spent (In Minutes): see attending documentation Discharge Plan Discharge Items Patient Disposition: Home - Self-Care Reason For Visit: LLE CELLULITIS Discharge Diagnosis: Cellulitis Activity: Resume your previous activity Activity Comment: as tolerated Non-emergency contact: Primary Care Provider Call non-emergency contact if: you have any medication questions, your symptoms worsen, you have a fever and your temperature is above 101.5 Follow-up/Referrals: PCP,NO [Primary Care Provider] - Diet: Regular Addtl Attending Provider Instructions: You were admitted to the hospital for left leg cellulitis. You were treated with antibiotics. Blood and wound cultures were obtained which have not resulted at the time of your discharge. You are being discharged on antibiotics for an additional 9 days after hospitalization. You should be sure to have prompt follow up with your wound care clinic. If your pending cultures grow a bacteria that is resistant to the antibiotics you are being prescribed, it is very important that your return to the hospital for IV antibiotics and further evaluation.. A discharge summary will be sent to your primary care physician to ensure continuity of care. Please bring this discharge summary with you to your next office appointment so that your provider can review it at that time. Follow-up appointments: Make a follow-up appointment with your PCP within the next week. It is very important that you follow up with them shortly after discharge from the hospital. Make a follow-up appointment with wound care. Keep all your follow-up appointments as already scheduled. If you cannot make an appointment, notify your provider. Medications: Your medication list has been reviewed and reconciled upon discharge to ensure accuracy and continuity of care. An updated list of all your medications is included with your hospital discharge paperwork. Please review this list closely, and make note of any changes. We sent a new medication called linezolid to your pharmacy. Take linezolid (600mg) one tablet twice daily for 9 days. We sent a new medication called Augmentin (amoxicillin-clavulanate) to your pharmacy. Take Augmentin (875mg) one tablet twice daily for 9 days. If you have any issues filling these prescriptions, please call [phone] and ask to leave a message for Dr. Christian Carreon. Take your medications as instructed; do not skip a dose of your medicines. Make sure all of your doctors know every medicine you are taking (including smch-wqu-mquqyhn medicines, vitamins, and supplements). Call your primary care provider before taking any new medicines (including jfrg-eft-[id number] medicines, vitamins, and supplements), because some of these may interact with your current medications, or may make your symptoms worse. Tell your primary care provider if you cannot afford your medications. CONTACT YOUR PRIMARY CARE PROVIDER OR WOUND CARE if you experience any of the following: Increased redness surrounding your wound Increased drainage from your wounds Difficulty following your treatment plan, or difficulty taking medications CALL 911 OR GO TO THE EMERGENCY DEPARTMENT if you experience any of the following: Sudden, severe abdominal pain or nausea/vomiting Severe chest pain, or chest pain that radiates (moves) to your jaw or arm Sudden, severe shortness of breath or difficulty breathing Thank you for allowing us to participate in your care. Pending Studies at Discharge: Yes Studies:: blood and wound cultures Stand-Alone Forms: My [facility] [employer], Smoking Cessation Medications and DC Order Prescriptions: New linezolid 600 mg tablet 600 mg PO BID Qty: 18 0RF amoxicillin-pot clavulanate 875-125 mg tablet 1 tab PO BID Qty: 18 0RF Continued buprenorphine HCl 8 mg Tablet, Sublingual 8 mg SUBLINGUAL BID vit-ferrous sulfat-FA 27 mg iron- 0.8 mg Tablet 1 tab PO QAM Discharge Orders: Discharge Order (Routine); Ordered 01/05/25 Ordered By: Christian Carreon Admission Data Admit Date/Time: 01/03/25 22:03 Attending Provider: Arturo Mckeon Admit Provider: Yeny Blas Primary Care Provider: PCP,NO Other Providers: Yeny Blas; Addie Haynes; Mabel Pineda; Umm Jaramillo; Ferdinand Montano; Iza Trevino; Zenaida Mora Other Interventions: Discharge Summary Assessment (RN) Last Done: 01/05/25 14:16 Supervising Physician Co-Signing Physician Notes Attending attestation Pt seen and examined in concert with Dr. Carreon. In agreement with the documented findings as noted in the resident documentation with any exceptions or additions as noted here. Ongoing lower extremity pain, currently well controlled, with new drainage from lesion posteriorly. On examination, S1/S2 nl RRR no MCG. CTAB. Abd NT/ND BS+ve VS as noted. BCx negative to date but pending final prior to discharge. Cellulitis of the LLE with chronic wound - ID consult - Linezolid and Augmentin to complete 10 day course, patient aware that may need to return pending culture results. No surgical intervention required at present per surgery. Else see resident documentation as noted. Total attending physician time spent with this patient's care on the day of discharge: 40 minutes. Resident Activity Tracking Resident Involvement: Resident Care Provided Care Provided: Adult [facility]
[2025-01-05] MEDS: diphenhydrAMINE Capsule 25 MG CAP PO ONE (14:11)
== END 2025-01-05 14:39 | disposition home or self-care (01) ==
LOC: ED 18:04 → 3N 18:04 → SUATTDRO 22:03 → 3N 22:27